=== PATIENT | male | born 1940 | race Caucasian/White ===

== ENCOUNTER 2022-05-12 14:55 | Emergency (ER) | payer MEDICARE, OTHER, SELFPAY ==
[2022-05-12 15:03] VITALS: BP 143/87; PULSE 76; RESP 20; TEMP 36.6; O2SAT 96; BMI 27.2
--- NOTE | 2022-05-12 18:04 | ED.GENADULT ---
HPI - General Adult General Date Seen: 05/12/22 Chief complaint: Unspecified Complaint, Adult Stated complaint: High INR Time Seen by Provider: 05/12/22 17:52 Source: patient History of Present Illness HPI narrative: Patient is an 81-year-old male who went clinic today, had an INR checked and it read as ?high. He was sent here with a further complaint of ?bleeding from his ears?. However, he tells me that he had bleeding from his right ear a week ago and has not had any bleeding since then. He showed me 3 Q-tips with old dried blood on them. He denies any other bleeding problems such as vomiting blood, blood in his urine, blood in his stool. Apparently he was started on prednisone because of a concern for polymyalgia rheumatica, and this is felt to be possibly the reason for his elevated INR. He has no further complaints. Related Data Home Medications Medication Instructions Recorded Confirmed nifedipine 30 mg tablet,extended mg PO 05/12/22 release 24 hr prednisone 10 mg tablet mg 05/12/22 rosuvastatin 5 mg tablet mg 05/12/22 warfarin 5 mg tablet mg 05/12/22 Allergies Allergy/AdvReac Type Severity Reaction Status Date / Time aspirin Allergy Unknown Verified 05/12/22 15:14 Review of Systems Status of ROS: Reports: 10 or more systems reviewed and unremarkable except as noted in History and below [facility] Social History Smoking Status: Never smoker Do you use any of these nicotine containing products: None Second hand tobacco smoke exposure: No How often do you have a drink containing alcohol: never How often do you have six or more drinks on one occasion: Never AUDIT-C Alcohol total score: 0 Non-prescribed substance use: denies use Exam Narrative: Exam Narrative: Vital signs reviewed In general, an alert, nontoxic male. Breathing easily. Head: Normocephalic, atraumatic Eyes: Sclera clear. ENT: Left TM and canal are normal. On the right, there is evidence of some old blood in the right canal, no active bleeding. TM looks normal. Neck: Supple. Skin: Warm and dry, well perfused. Const: Vital Signs, click to edit/add: Vital Signs - 24 hr 05/12/22 15:03 05/12/22 19:09 Temperature 98 F Pulse Rate [Pulse Oximeter] 76 72 Respiratory Rate 20 Blood Pressure [Le ft Upper Arm] 143/87 H 144/89 H Pulse Oximetry 96 95 Oxygen Delivery Me thod Room Air Room Air Documenting provider has reviewed patient's vital signs: yes Course Course Hospital Course: Plan at this time is to check an INR, CBC. Given that he has no active bleeding, unless the INR is significantly high, plan would be to hold his Coumadin and have him follow up with primary care. INR 7.7. I am giving him 1 mg of oral vitamin K given his age. He takes the Coumadin for history of stroke. Does not have an artificial valve. I have asked him to hold his Coumadin today and tomorrow, check with clinic on for a repeat INR and further instructions as to Coumadin dosing. CBC showed a normal hemoglobin today. If he were to develop signs of significant bleeding, return at any time to the ER. Vital Signs Vital signs: Initial Vital Signs Temperature 98 F 05/12/22 15:03 Temperature Source Temporal Artery Scan 05/12/22 15:03 Pulse Rate 76 05/12/22 15:03 Respiratory Rate 20 05/12/22 15:03 Blood Pressure 143/87 H 05/12/22 15:03 Blood Pressure Mean 105 05/12/22 15:03 Blood Pressure Position Supine 05/12/22 15:03 Pulse Oximetry 96 05/12/22 15:03 Oxygen Delivery Method 05/12/22 15:03 Vital Signs Temperature 98 F 05/12/22 15:03 Pulse Rate 76 05/12/22 15:03 Respiratory Rate 20 05/12/22 15:03 Blood Pressure 143/87 H 05/12/22 15:03 Pulse Oximetry 96 05/12/22 15:03 Oxygen Delivery Method 05/12/22 15:03 Temperature 98 F 05/12/22 15:03 Pulse Rate 72 05/12/22 19:09 Respiratory Rate 20 05/12/22 15:03 Blood Pressure 144/89 H 05/12/22 19:09 Pulse Oximetry 95 05/12/22 19:09 Oxygen Delivery Method 05/12/22 19:09 Medical Decision Making Lab Data Labs: Lab Results 05/12/22 Range/Units 18:06 WBC 10.61 (4.50-11.00) K/uL RBC 4.47 (4.30-5.90) m/uL Hgb 14.8 (13.5-17.5) gm/dL Hct 43.8 (37.0-53.0) % MCV 98 (80-100) fL MCH 33 (26-34) pg MCHC 34 (32-36) gm/dL RDW Coeff of Anna 13.2 (11.5-15.5) % Plt Count 261 (140-440) K/uL Neut % (Auto) 85.4 H (42.0-72.0) % Lymph % (Auto) 5.3 L (20-44) % Briscoe % (Auto) 9.0 (0.0-11.0) % Eos % (Auto) 0.0 (0.0-7.0) % Baso % (Auto) 0.0 (0.0-3.0) % Neut # (Auto) 9.10 H (1.7-7.0) K/uL Lymph # (Auto) 0.60 L (0.90-2.90) K/uL Briscoe # (Auto) 1.00 H (0.00-0.90) K/UL Eos # (Auto) 0.00 (0.00-0.50) K/uL Baso # (Auto) 0.00 (0.00-0.30) K/uL Abs Immat Gran (auto) 0.03 (0.00-0.30) K/uL Discharge Plan Discharge Clinical Impression: Elevated INR Patient Disposition: Home, Self-Care Condition: Stable Instructions: Elevated INR (ED) Additional Instructions: Hold your Coumadin today and tomorrow. Please call the clinic tomorrow as your INR will need to be rechecked on . The clinic should advise you on further dosing of your Coumadin. Prescriptions: No Action nifedipine 30 mg tablet extended release 24hr PO prednisone 10 mg tablet warfarin 5 mg tablet rosuvastatin 5 mg tablet Follow Up/Referrals: Nhi Marvin MD [Primary Care Provider] - Stand Alone Forms: [facility] Info Instructions
[2022-05-12 18:13] LABS: Hematocrit 43.8 % (37.0-53.0); Hemoglobin* 14.8 gm/dL (13.5-17.5); Immature Granulocytes Abs Auto 0.03 K/uL (0.00-0.30); Lymphocytes Percent Auto 5.3 % (20-44); Mean Corpuscular HGB Conc 34 gm/dL (32-36); Mean Corpuscular Hemoglobin 33 pg (26-34); Mean Corpuscular Volume 98 fL (80-100); Neutrophils Percent Auto 85.4 % (42.0-72.0); Platelet Count* 261 K/uL (140-440); RDW Coefficient of Variation % 13.2 % (11.5-15.5); Red Blood Count 4.47 m/uL (4.30-5.90); White Blood Count* 10.61 K/uL (4.50-11.00)
[2022-05-12 18:18] LABS: Slide Review Reflex No
[2022-05-12 19:09] VITALS: BP 144/89; PULSE 72; O2SAT 95
[2022-05-12 20:04] LABS: Prothrombin Time 63.7 Seconds
[2022-05-12 20:05] LABS: INR 7.08 (0.91-1.10)
== END 2022-05-12 20:06 | disposition home or self-care (01) ==
PROVIDERS: Emergency Provider Emergency Medicine; PCP Family Medicine
DX: R79.1 Abnormal coagulation profile (principal); Z79.01 Long term (current) use of anticoagulants; Z86.73 Personal history of transient ischemic attack (TIA), and cerebral infarction without residual deficits
CPT/HCPCS: 36415; 85025; 85610; 99283

== ENCOUNTER 2022-05-14 12:25 | Outpatient (CLI) | payer MEDICARE, OTHER, SELFPAY ==
--- OUTSIDE RECORDS SUMMARY | 2022-05-18 12:29 | XMS_ITS | Clinical Summary ---
:1940 Author Organization [employer] [facility] Address [place] [address] Care Team Providers Name Role Phone Nhi Marvin MD Primary Care Provider [phone] Allergies Active Allergy Reactions Severity Noted Date [...] (cerebrovascular accident) 12/09/2017 Coronary artery disease involving seneca-c[place] coronary keyur ry of seneca-c[place]uga heart 12/09/2017 Non-cardiac chest pain 12/09/2017 Anticoagulation monitoring, INR range 2-3 07/20/2016 Acute CVA (cerebrovascular accident) 07/20/2016 Patent foramen ovale 03/13/2016 Elevated prostate specific antigen (PSA) 09/04/2011 Colon polyps 07/23/2009 Overview: Colonoscopy 11/2009 polyps repeat in 5 ye ars Unspecified sleep apnea 11/05/2006 Coronary atherosclerosis of unspecified type of vessel , seneca-c[place] or graft 05/13/2006 Overview: --S/P Angio 04/24/05 [...] Encounters Date Type Specialty Care Team Description 05/18/2022 Hospital Encounter [facility] [place] [place] [facility] 05/17/2022 Orders Only <No scans attac hed> 05/17/2022 Orders Only <No scans attac hed> 05/17/2022 Travel 05/15/2022 Orders Only Scanner <No scans attac hed> 05/14/2022 Office Visit Nhi Marvin Follow Up ( Elevated MD Rubina INR, ESR and mu ltiple joint pain) 05/14/2022 Orders Only Scanner <No scans attac hed> 05/14/2022 Orders Only Scanner <No scans attac hed> 05/14/2022 Anticoagulation 1, [facility] Antico agulation (warfarin) 05/14/2022 Travel 05/13/2022 Telephone Bradley Murray Question s MD 05/13/2022 Telephone Nhi Marvin Anticoagula tion (INR MD Rubina greater than 5/ INR concerns) 05/12/2022 Office Visit Nhi Marvin Shoulder Pa in/problem; MD Rubina Elbow Pain/prob emma 05/12/2022 Telephone Nhi Marvin Follow Up; Appointment MD Rubina Request 05/12/2022 Anticoagulation 1, [facility] Antico agulation (warfarin) 05/12/2022 Telephone Ashly Batista Abnormal Lab Results KEVIN Erickson 05/12/2022 Travel 05/08/2022 Telephone Nhi Marvin Abnormal La b Results MD Rubina 05/06/2022 Orders Only Lab, [facility] 05/06/2022 Anticoagulation 1, [facility] Antico agulation (warfarin) 05/06/2022 Travel 05/06/2022 Telephone Nhi Marvin MD Problem 05/01/2022 Office Visit Tenzin Virk MD Arm Pain /problem (Left arm pain; start ed 10 days ago; 03/21 PL) 05/01/2022 Telephone Nhi Marvin Anticoagula baylee Cespedes MD (dosing) 05/01/2022 Telephone Nhi Marvin (BPA - MD Rubina Prednisone) 05/01/2022 Telephone Zainab Tobin Pharmacist Nh KEVIN Lieberman Management (Prednisone) 05/01/2022 Anticoagulation 1, [facility] Antico agulation (Lab ) (warfarin) 05/01/2022 Telephone Nhi Marvin Error-pleas e disregard MD Rubina 05/01/2022 Nurse Triage Nhi Marvin Shoulder Pa in/problem MD Rubina 05/01/2022 Travel 05/01/2022 Nurse Triage Nhi Marvin MD Problem (Should er pain) 05/01/2022 Telephone Nhi Marvin Questions MD [...] administrative reasons/) 03/12/2022 Anticoagulation 1, [facility] Antico agulation (warfarin) 03/12/2022 Travel 03/11/2022 Telephone Nhi Marvin Anticoagula baylee Cespedes MD (Anticoagulatio n question/Appoin tment) 03/05/2022 Telephone Nhi Marvin MD from Last 3 Months Immunizations Name Administration Dates Next Due COVID-19 vaccine (Zazom 11/20/2021 30mcg/0.3mL) 12YO+ LALITHA-SUCROSE ALEXY PAN Influenza A (H1N1), Inactivated 07/23/2009 Influenza A (H1N1), Inactivated (Age 0107/23/2009 >=3 Years) Influenza, High-dose Inactivated 04/20/2018, 04/21/2017 Influenza, High-dose Quadrivalent 04/24/2020 Inactivated Influenza, IIV3 (Age 6-35 mos) 04/02/2009 Influenza, IIV3 (Age >=3 years) 04/25/2013, 04/12/2012, 100 07/2010, 04/08/2010, 06/08/2007, 04/26/2006, 06/25/2005 Influenza, IIV4 [...] family member had a cerebral aneurysm, as apoorva l. 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 Obstetrics History Last Filed Vital Signs Vital Sign Reading Time Taken Comments Blood Pressure 112/72 05/14/2022 11:47 AM CDT Pulse 95 05/14/2022 11:45 AM CDT Temperature 36.3 ??C (97.4 ??F) 07/13/2019 9:57 AM WET PROCESS OPERATOR Respiratory Rate 16 05/09/2019 12:38 PM CDT Oxygen Saturation 92% 05/14/2022 11:45 AM CDT Inhaled Oxygen Concentration - - Weight 90.7 kg (200 lb) 05/12/2022 12:49 PM CDT Height 180.3 cm (5' 11) 05/01/2022 2:11 PM CDT Body Mass Index 27.89 05/01/2022 2:11 PM CDT Plan of Treatment Upcoming Encounters Date Type Specialty Care Team Description 05/22/2022 Office Visit Dru Tolbert DO [address] [place] [phone] (Wo rk) Health Maintenance Due Date Last Done Comments [...] 50+ Procedures Procedure Name Priority Date/Time Associated Diagnosis Comme nts ECHO COMPLETE WO Routine 05/17/2022 4:52 Endocarditis Results for this CONTRAST PM WET PROCESS OPERATOR procedure are i n the results section. SCAN-RADIOLOGY REPORT 05/15/2022 12:00 Re sults for this AM CDT procedure are i n the results section. PROTIME-INR Routine 05/14/2022 11:32 Bilateral shoulder Resul [...] procedure are i n the results section. PSA TOTAL SCREEN Routine 05/14/2022 11:32 Prostate cancer Resu lts for this AM CDT screening procedure are i n the results section. COMP METABOLIC PANEL Routine 05/14/2022 11:32 PMR (polymyalgia Results for this AM CDT rheumatica) (HC) procedure a re in the results section. SCAN-RADIOLOGY REPORT 05/14/2022 12:00 Re sults for this AM CDT procedure are i n the results section. SCAN-CT INTERPRETATION 05/14/2022 12:00 AM CDT PROTIME-INR STAT 05/12/2022 12:38 PFO (patent foramen [...] (cerebrovascular accident) (HC) PROTIME-INR STAT 05/01/2022 1:43 PFO (patent foramen Resul ts for this PM CDT ovale) procedure are [...] accident) (HC) from Last 3 Months Results ECHO COMPLETE WO CONTRAST (05/17/2022 4:52 PM WET PROCESS OPERATOR) P athologist Signature AORTIC VALVE 4 mmHg MEAN PG EJECTION 61 % FRACTION PEAK TR 2.5 m/s VELOCITY LVEDD 4.9 cm EJECTION 60 - 65% FRACTION Anatomical Region Laterality Modality HEART Ultrasound Specimen (Source) Anatomical Collection Method Collection Time Re ceived Time Location / / Volume Laterality 05/17/2022 4:01 PM WET PROCESS OPERATOR Narrative 05/17/2022 7:59 PM WET PROCESS OPERATOR ECHOCARDIOGRAM HARDY OLIVER ?Acces ellen#: ?? [id number] : ?1940 81 years Study Date : ?? 05/17/2022 4:01:39 PM Gender: M ? BP: ? 150/83 mmHg Height: 175.00 cm ? BSA: ?2.05 m? ?? Weight: 89.00 kg ?Tech: ? MMN ?Referring MD: LETITIA COMBS Site: ? [facility] Reading Location: [place] Procedure: 2D, Color Doppler and Spectra l Doppler. Indication for study: Endocarditis Cardiac Rhythm: Normal sinus.Study quali ty: Fair. Final Impressions: 1. Normal left ventricular size, normal wall thickness, normal global systolic function, calculated EF of 61 %. 2. 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 3. 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 4. Right ventricular cavity size is nor mal, global systolic RV function is normal. 5. No pericardial effusion. 6. The mitral valve is not well visuali zed, mild to moderate primary mitral regurgitation, eccentric jet directed anteromedially suggests posterior mitral valve leaflet dysfunction (possibly mild poste rior leaflet mitral valve prolapse, michelle ot rule out different leaflet etiology). 7. Consider transesophageal echocardiog david, if clinically indicated. Chamber Sizes and Function Normal left ventricular size, normal wal l thickness, normal global systolic function, calculated EF of 61 %. No definite resting regional wall motion abnormality seen. Left atrial size is normal. Right ventricular cavity size is normal, globa l systolic RV function is normal. The right atrium is normal. Right atrial volume index is 15 ml/m? ??. Right atrial area is 18 cm? ??. The pulmonary artery is of normal size and origin. The sinus of Va lsalva is dilated. The ascending aorta is dilated. Valves, RV Pressures and Diastolic Funct ion The aortic valve is normal in structure and trileaflet, no stenosis and trivial regurgitation. The mitral valve is not well visualized, mild to moderate primary mitral regurgitation, eccentric jet direc julian anteromedially suggests posterior mi tral valve leaflet dysfunction. There is mild prolapse of posterior leaflet of the mitral valve. Spectral Doppler shows Grade 1 pattern of LV diastolic filling. T he tricuspid valve is normal in structur e. Tricuspid regurgitation is mild regurgitation. The tricuspid regurgitant velocity is 2.5 m/s, the estimated right ventricular systolic pressure is 25 mmHg plus right atrial pressure. There is normal estimated pulmonary pressure by tricuspid regurgitation velocity and right atrial pressure. The pulmonic valve is normal. Trace pulmonary regurgitation. Masses, Effusion, Shunts There is no pericardial effusion. The in ferior vena cava is normal sized, respiratory size variation greater than 50%. No left to right shunting was detected by limited color flow Doppler interrogation of the interatrial septum. MEASUREMENTS AND CALCULATIONS 2-D Measurements and LV Function: LVID (d) 4.9 cm Planimetered EF 61 % LVID (s) 2.6 cm LV FS% (2D) ? 46 % IVS (d) ??1.0 cm LVOT diameter ?? 2.1 cm LVPW (d) 1.2 cm HR ?7 2 bpm Ao Sinus 4.4 cm LA Vol index ?15 ml/ m2 Asc Ao ?? 5.0 cm RA Vol index ?15 ml /m2 LA ? 3.6 cm RA area ? 1 8 cm?RV Max 4C (d) ?? 3.0 cm Diastology: Mitral ?Tissue Doppler ?Pulmonary veins E Peak 0.6 m/s ??e', Septum ? 0.05 m /s Pulm s ?63.2 cm/s A Peak 0.8 m/s ??e', Lateral ?0.11 m /s Pulm d ?25.9 cm/s E/A ?0.8 ?E/e' Average ?? 8.0 5 ? Pulm s/d ratio ??2.44 DT ? 220 msec Aortic Valve: Vmax ? 1.4 m/s ??LISA (V) ?? 3.01 cm? AI P 1/2 376 msec VTI ?0.28 m ?? LISA (I) ?? 2.90 cm? AI Vol ?? 27 ml LVOT V max 1.2 m/s ??Max PG ?8 mmHg LVOT VTI ?? 0.23 m ?? Mean PG ?? 4 mmHg SV ? 81 ml ?Dim Index 0.83 SV index ?? 40 ml/m? ?? CO ?5.9 l/min ?CI ?2.9 l/min/m? ?? Mitral Valve: MVA ?3.4 cm? ?? MV P 1/2 64 msec Tricuspid Valve and estimated PA pressur es: TR Vmax 2.5 m/s TAPSE 3.2 cm TR maxG 25 mmHg Pulmonic Valve: PV Vmax 0.6 m/s . This study was interpreted by an [facility] redited facility. CC: [facility], Med/ Surg - IP [facility]. ??Final ?? Procedure Note Becka Amaral MD - 05/17/2022Formatt ing of this note might be different from the original. ECHOCARDIOGRAM HARDY LOIVER : 1940 81 years Study Date: 05/17/2022 4:01:39 PM Gender: M BP: 150/83 mmHg Height: 175.00 cm BSA: 2.05 m? ?? Weight: 89.00 kg Tech: TONYN Referring MD: LETITIA COMBS Site: [facility] Reading Location: [place] Procedure: 2D, Color Doppler and Spectra l Doppler. Indication for study: Endocarditis Cardiac Rhythm: Normal sinus.Study quali ty: Fair. Final Impressions: 1. Normal left ventricular size, normal wall thickness, normal global systolic function, calculated EF of 61 %. 2. 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 3. 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 4. Right ventricular cavity size is nor mal, global systolic RV function is normal. 5. No pericardial effusion. 6. The mitral valve is not well visuali zed, mild to moderate primary mitral regurgitation, eccentric jet directed anteromedially suggests posterior mitral valve leaflet dysfunction (possibly mild posterior leaflet mitral valve prolapse, cannot ru le out different leaflet etiology). 7. Consider transesophageal echocardiog david, if clinically indicated. Chamber Sizes and Function Normal left ventricular size, normal wal l thickness, normal global systolic function, calculated EF of 61 %. No definite resting regional wall motion abnormality seen. Left atrial size is normal. Right ventricular cavity size is normal, globa l systolic RV function is normal. The right atrium is normal. Right atrial volume index is 15 ml/m? ??. Right atrial area is 18 cm? ??. The pulmonary artery is of normal size and origin. The sinus of Valsalva is dilated. The as cending aorta is dilated. Valves, RV Pressures and Diastolic Funct ion The aortic valve is normal in structure and trileaflet, no stenosis and trivial regurgitation. The mitral valve is not well visualized, mild to moderate primary mitral regurgitation, eccentric jet directed anteromedially suggests posterior mitral valve leaflet dysfunction. There is mild prolapse of posterior leaflet of the mitral valve. Spectral Doppler shows Grade 1 pattern of LV diastolic filling. The tricuspid valve is normal in structure. Tricuspid regurg itation is mild regurgitation. The tricuspid regurgitant velocity is 2.5 m/s, the estimated right ventricular systolic pressure is 25 mmHg plus right atrial pressure. There is normal estimated pulmonary pressure by tricuspi d regurgitation velocity and right atrial pressure. The pulmonic valve is normal. Trace pulmonary regurgitation. Masses, Effusion, Shunts There is no pericardial effusion. The in ferior vena cava is normal sized, respiratory size variation greater than 50%. No left to right shunting was detected by limited color flow Doppler interrogation of the interatrial septum. MEASUREMENTS AND CALCULATIONS 2-D Measurements and LV Function: LVID (d) 4.9 cm Planimetered EF 61 % LVID (s) 2.6 cm LV FS% (2D) 46 % IVS (d) 1.0 cm LVOT diameter 2.1 cm LVPW (d) 1.2 cm HR 72 bpm Ao Sinus 4.4 cm LA Vol index 15 ml/m2 Asc Ao 5.0 cm RA Vol index 15 ml/m2 LA 3.6 cm RA area 18 cm? ?? RV Max 4C (d) 3.0 cm Diastology: Mitral Tissue Doppler Pulmonary veins E Peak 0.6 m/s e', Septum 0.05 m/s Pulm s 63.2 cm/s A Peak 0.8 m/s e', Lateral 0.11 m/s Pulm d 25.9 cm/s E/A 0.8 E/e' Average 8.05 Pulm s/d ratio 2.44 DT 220 msec Aortic Valve: Vmax 1.4 m/s LISA (V) 3.01 cm? ?? AI P 1/2 376 msec VTI 0.28 m LISA (I) 2.90 cm? ?? AI Vol 27 ml LVOT V max 1.2 m/s Max PG 8 mmHg LVOT VTI 0.23 m Mean PG 4 mmHg SV 81 ml Dim Index 0.83 SV index 40 ml/m? ?? CO 5.9 l/min CI 2.9 l/min/m? ?? Mitral Valve: MVA 3.4 cm? ?? MV P 1/2 64 msec Tricuspid Valve and estimated PA pressur es: TR Vmax 2.5 m/s TAPSE 3.2 cm TR maxG 25 mmHg Pulmonic Valve: PV Vmax 0.6 m/s . This study was interpreted by an [facility] redited facility. CC: [facility], Med/ Surg - IP [facility]. Final Letitia Cobms MD ECHO ORD SCAN-RADIOLOGY REPORT (05/15/2022 12:00 AM CDT)Only the most recent of2 results within the time period is included. Narrative This result has an attachment that is no t available. Scanner OTHER (ABNORMAL) CBC WITH AUTO DIFFERENTIAL (05/14/2022 11:32 AM CDT)Only the most recent of2 resultswithin the time period is included. [facility] Method Time Signature WHITE BLOOD 12.9 (H) 4.5 - 05/14/2022 [facility] COUNT 11.0 11:57 AM T [facility] mm RED BLOOD COUNT 4.40 4.30 - 05/14/2022 [facility] 5.90 11:[address] [facility] CLINIC HEMOGLOBIN 14.8 13.5 - 05/14/2022 [facility] 17.5 g/dL 11:57 AM [facility] HEMATOCRIT 43.4 37.0 - 05/14/2022 [facility] 53.0 % 11:57 AM [facility] MCV 99 80 - 100 05/14/2022 [facility] fL 11:57 AM [facility] MCH 33.6 26.0 - 05/14/2022 [facility] 34.0 pg 11:57 AM [facility] MCHC 34.1 32.0 - 05/14/2022 [facility] 36.0 g/dL 11:57 AM [facility] RDW 13.9 11.5 - 05/14/2022 [facility] 15.5 % 11:57 AM [facility] PLATELET COUNT 258 140 - 440 05/14/2022 [facility] 11:57 AM [facility] MPV 8.4 6.5 - 05/14/2022 [facility] 11.0 fL 11:57 AM [facility] % NEUT 81.4 % 05/14/2022 [facility] 11:57 AM [facility] % LYMPH 7.0 % 05/14/2022 [facility] 11:57 AM [facility] % MONO 11.1 % 05/14/2022 [facility] 11:57 AM [facility] % EOS 0.4 % 05/14/2022 [facility] 11:[address] [facility] % BASO 0.1 % 05/14/2022 [facility] 11:57 AM [facility] ABSOLUTE 10.5 (H) 1.7 - 7.0 05/14/2022 [facility] NEUTROPHILS thou/cu 11:57 AM CDT [facility] CLINIC ABSOLUTE 0.9 0.9 - 2.9 05/14/2022 [facility] LYMPHOCYTES thou/cu 11:57 AM CDT [facility] CLINIC ABSOLUTE 1.4 (H) <0.9 05/14/2022 [facility] MONOCYTES thou/cu 11:57 AM CDT [facility] ABSOLUTE 0.1 <0.5 05/14/2022 [facility] EOSINOPHILS thou/cu 11:57 AM CDT [facility] ABSOLUTE 0.0 <0.3 05/14/2022 [facility] BASOPHILS thou/cu 11:57 AM CDT [facility] CLINIC Specimen Anatomical Collection Method / Collection Time Recei martin Time (Source) Location / Volume Laterality Blood BLOOD SPECIMEN / Venipuncture / 05/14/2022 11:32 05/14 Unknown Unknown AM CDT 11:35 AM CDT Nhi Marvin MD HEMATOLOGY Performing Organization Address City/State/ZIP Code Phon e Number [facility] [address] [place] [address] (ABNORMAL) PROTIME-INR (05/14/2022 11:32 AM CDT)Only the most recent of4 results within the time period is included. P athologist Signature INR 2.3 (H) <1.3 05/14/2022 [place] 1:10 PM [facility] PROTIME 24.6 (H) 12.0 - 13.8 05/[facility]20[facility] 1:10 PM [facility] Specimen Anatomical Collection Method / Collection Time Recei martin Time (Source) Location / Volume Laterality Blood BLOOD SPECIMEN / Venipuncture / 05/14/2022 11:32 05/14 Unknown Unknown AM CDT 11:[address] [facility] LABORATORY - 1:10 PM CDT ?Therapeutic Range [...] Organization Address City/State/ZIP Code Phon e Number [facility] [address] [place], [place] [id number] (ABNORMAL) COMP METABOLIC PANEL (05/14/2022 11:32 AM CDT) [facility] Method Time Signature SODIUM 139 135 - 145 05/15/2022 [facility] mmol/L 10:43 AM CDT [facility] POTASSIUM 4.8 3.5 - 5.0 05/15/2022 [facility] mmol/L 10:43 AM CDT [facility] CHLORIDE 106 98 - 110 05/15/2022 [facility] mmol/L 10:43 AM CDT [facility] CO2,TOTAL 20 (L) 21 - 31 05/15/2022 [facility] mmol/L 10:43 AM CDT [facility] ANION GAP 13 5 - 18 05/15/2022 [facility] 10:43 AM CDT [facility] GLUCOSE 105 (H) 65 - 100 05/15/2022 [facility] mg/dL 10:43 AM CDT [facility] CALCIUM 8.9 8.5 - 10.5 05/15/2022 [facility] mg/dL 10:43 AM CDT [facility] BUN 18 8 - 25 05/15/2022 [facility] mg/dL 10:43 AM CDT [facility] CREATININE 1.16 0.72 - 05/15/2022 [facility] 1.25 mg/dL 10:43 AM CDT [facility] BUN/CREAT RATIO 16 10 - 20 05/15/2022 [facility] 10:43 AM CDT [facility] ALBUMIN 3.6 3.2 - 4.6 05/15/2022 [email or web address] [email or web address] g/dL 10:43 AM CDT [facility] PROTEIN,TOTAL 6.7 6.0 - 8.0 05/15/2022 [email or web address] [email or web address] g/dL 10:43 AM CDT [facility] GLOBULIN 3.1 2.0 - 3.7 05/15/2022 [email or web address] [email or web address] g/dL 10:43 AM CDT [facility] A/G RATIO 1.2 1.0 - 2.0 05/15/2022 [email or web address] 10:43 AM CDT [facility] BILIRUBIN,TOTAL 1.1 0.2 - 1.2 05/15/2022 [email or web address] mg/dL 10:43 AM CDT [facility] ALK PHOSPHATASE 100 50 - 136 05/15/2022 [email or web address] IU/L 10:43 AM CDT [facility] ALT (SGPT) 19 8 - 45 05/15/2022 [email or web address] IU/L 10:43 AM CDT [facility] AST (SGOT) 16 2 - 40 05/15/2022 [email or web address] IU/L 10:43 AM CDT [facility] eGFR 63 (L) >90 05/15/2022 [email or web address] mL/min/1.7 10:43 AM CDT [facility] 3[facility]2 [facility] Comment: As of 2021, eGFR is calcu lated by the CKD-EPI creatinine equation without race adjustment. eGFR can be inf luenced by muscle mass, exercise, and diet. The reported eGFR is an estimation only and is only applicable if the renal function is stable. Specimen Anatomical Collection Method / Collection Time Recei martin Time (Source) Location / Volume Laterality Blood BLOOD SPECIMEN / Venipuncture / 05/14/2022 11:32 05/14 Unknown Unknown AM CDT 11:35 AM CDT Nhi Marvin MD CHEMISTRY Performing Organization Address City/State/ZIP Code Phon e Number Issue [address] [place] [address] [facility] LAB[facility]ATORY (ABNORMAL) PSA TOTAL SCREEN (05/14/2022 11:32 AM CDT) [facility] gist Method Time Signature PSA TOTAL 16.49 (H) <4.00 05/15/2022 Issue (SCREEN) ng/mL 10:54 AM CDT [facility]ATORY[facility] Specimen Anatomical Collection Method / Collection Time Recei martin Time (Source) Location / Volume Laterality Blood BLOOD SPECIMEN / Venipuncture / 05/14/2022 11:32 05/14 Unknown Unknown AM CDT 11:35 AM CDT Narrative [facility] LABORAT ORY - 05/15/2022 10:54 AM CDT The [employer] PSA assay is a Chemiluminescent Microparticle Immunoassay(CMIA). Assay values ob tained with different assay methods michelle ot be used interchangeably due to differences in assay methods and reagent specificity. Nhi Marvin MD LABORATORY Performing Organization Address City/State/ZIP Code Phon e Number Issue [address] [place], [place] [id number] [place] [address] LABORATORY-[place] 2000 LABORATORY SCAN-CT INTERPRETATION (05/14/2022 12:00 AM CDT) Narrative This result has an attachment that is no t available. Scanner OTHER (ABNORMAL) SEDIMENTATION RATE (05/12/2022 12:38 PM CDT)Only the most recent of2 resultswithin the time period is included. [facility] gist Method Time Signature SEDIMENTATION RATE 82 (H) <20 mm/hr 05/12/2022 [place] 5:06 PM CDT [facility] Specimen Anatomical Collection Method / Collection Time Recei martin Time (Source) Location / Volume Laterality Blood BLOOD SPECIMEN / Venipuncture / 05/12/2022 12:38 05/12 Unknown Unknown PM CDT 12:41 PM CDT Nhi Marvin MD HEMATOLOGY Performing Organization Address City/State/ZIP Code Phon e Number [facility] [address] [place] [address] LYME SCREEN W/REFLEX (05/06/2022 10:08 AM CDT) [facility] LYME SCREEN Negative Negative 05/09/2022 Issue W/REFLEX 2:55 PM CDT [facility] TR[facility] [...] Marvin MD SEND OUTS Performing Organization Address [facility] Phon e Number Issue [address] [place] [id number] LAB[facility]ATORY[facility] 2000 LABORATORY RA QUANTITATIVE (05/06/2022 10:08 AM CDT) P athologist Signature RHEUMATOID <7.00 <12.50 05/07/2022 [email or web address] FACTOR,QUANT IU/mL 12:55 PM CDT [facility] Specimen Anatomical Collection Method / Collection Time Recei martin Time (Source) Location / Volume Laterality Blood BLOOD SPECIMEN / Venipuncture / 05/06/2022 10:08 05/06 Unknown Unknown AM CDT 10:14 AM CDT Nhi Marvin MD SEND OUTS Performing Organization Address [facility] Phon e Number Issue [address] [place] [id number] LAB[facility]ATORY[facility] 2000 LABORATORY (ABNORMAL) C-REACTIVE PROTEIN (05/06/2022 10:08 AM CDT) [facility] gist Method Time Signature C-REACTIVE 12.00 (H) <0.50 05/09/2022 [facility] PROTEIN mg/dL 12:11 PM CDT [facility] Specimen Anatomical Collection Method / Collection Time Recei martin Time (Source) Location / Volume Laterality Blood BLOOD SPECIMEN / Venipuncture / 05/06/2022 10:08 05/06 Unknown Unknown AM CDT 10:14 AM CDT Nhi Marvin MD CHEMISTRY Performing Organization Address [facility] Phon e Number Issue [address] [place] [id number] LABORATORY-CENTRAL 2000 LABORATORY XR SHOULDER 3 VIEWS LEFT (04/29/2022 [...] s are released immediately into your [employer] medical record. ??You may view this report [...] provider. If you have questions, please contact [facility] health care provider. Indication: Left shoulder pain. [...] athologist Signature INR 2.8 (H) <1.3 03/12/2022 [facility] 10:[address] [facility] Specimen Anatomical Collection Method Collection Time Receive d Time (Source) Location / / Volume Laterality Blood BLOOD SPECIMEN / 03/12/2022 10:29 03/12/2 022 Unknown AM CDT 10:34 AM CDT Narrative [facility] - 2021 10:34 AM CDT ?Therapeutic Range 2.0-3.0 for most anticoagulated patients 2.5-3.5 or 4.0 for high risk patients Nhi Marvin MD LABORATORY Performing Organization Address City/State/ZIP Code Phon e Number [facility] [address] [place], [place] [id number] from Last 3 Months Insurance Payer Benefit Plan / Subscriber ID Effective Dates Phone Addre ss Type Group [employer] [id number] Effective for Inte rnal [facility] all dates [phone] [address] MEDICARE PART A MEDICARE PART A [id number] 2005-Prese ATTN: CLAIMS - HB USE ONLY HB ONLY nt [address] [place] [address] MEDICARE PART B MEDICARE PART B [id number] 2010-Presen ATTN: CLAIMS - HB USE ONLY HB ONLY t [address] [place] [address] MEDICARE - PB MEDICARE PB ONLY [id number] 2018-Presen ATTN: CLAIMS USE ONLY t [address] [place] [address] [employer] [id number] 2018-Presen [address] [place] [address] Advance Directives Latest Code Status on File Code Status Date Activated Date Inactivated Comments Full Code 12/09/2017 3:21 PM 12/09/2017 8:44 PM Code Status Discussion: Discussed Care Teams Marketing Content Coordinator Relationship Specialty Start Date End Date Nhi Marvin MD PCP - General Family Practice 08/19/11 [address] [place] [address]
== END 2022-05-14 12:26 | disposition home or self-care (01) ==
LOC: AMB 05-18 12:23
PROVIDERS: PCP Family Medicine; Visit Provider Family Medicine
DX: R07.89 Other chest pain (principal)
CPT/HCPCS: A0425; A0427

== ENCOUNTER 2022-05-14 12:50 | Observation (INO) | payer MEDICARE, OTHER, SELFPAY ==
[2022-05-14 13:06] VITALS: BP 129/78; PULSE 91; RESP 18; TEMP 36.6; O2SAT 93; BMI 27.3
--- NOTE | 2022-05-14 13:33 | ED_ITS ---
HPI - General Adult General Time Seen by Provider: 13:34 Date Seen: 05/14/22 Chief complaint: Unspecified Complaint, Adult Stated complaint: Chest pain, elevated INR Time Seen by Provider: 05/14/22 12:58 Source: patient, RN notes reviewed and old records reviewed Mode of arrival: EMS Limitations: no limitations History of Present Illness HPI narrative: Patient is an 81-year-old male referred to the ER via ambulance from a [facility] where he was seen Dr. Marvin. She believes he needs to be hospitalized. They will not have any hospital beds until after 3:00 p.m.. Patient has had initially left shoulder pain that progressed to bilateral shoulder pain. He was having right elbow pain as well but denies this at the time. He was diagnosed with probable polymyalgia rheumatica. Dr. Marvin did speak with rheumatology today and they were wondering about other etiologies such as infectious sources, consideration for other possible diagnoses outside of polymyalgia rheumatica needed to be considered. Patient states his shoulders hurt to the point that he cannot brushes teeth, cannot dress himself, cannot feed himself. He recently had an elevated INR of 7.7 on May 12. Was seen in the ED here on that day and was given oral vitamin K. he denies any fevers or chills. States he has had some nausea due to the pain. He has been taking Ty lenol and has a written schedule of when he has been taking this. He was in clinic for follow-up today. He has only been able to basically lying in bed. It is not really probably eating or drinking adequately. Was able to review his chemistries/labs, INR was 2.3 today versus 7.7 on May 12. [place] CBC [place] [address], hemoglobin good at 14.8, platelets [id number]. His white blood count on May 06 was 7400. He has a pending comprehensive metabolic panel and protein serum electrophoresis from today. His sed rate was 63 8 days ago and on May 12 was 82. He was on 10 mg of oral prednisone but last dose was Wednesday, has not had any since Wednesday now. This was held due to his elevated INR. When I am talking to patient about his history he tells me to shush multiple times as my voices too loud. However, there are a few times when I am talking to him trying to be more quiet where he cannot hear me in asks what. I witnessed the patient being verbally abrasive, bordering on rude, with the field radio technician. I did review with the patient that we are here to try to help him and that he really does need to try to be nice to the staff. He notes he is irritable. Related Data Home Medications Medication Instructions Recorded Confirmed nifedipine 30 mg tablet,extended 30 mg PO DAILY 05/12/22 05/14/22 release 24 hr prednisone 10 mg tablet 10 mg PO DAILY 05/12/22 05/14/22 rosuvastatin 5 mg tablet 5 mg PO MOWEFR@21 05/12/22 05/14/22 warfarin 5 mg tablet 2.5 - 5 mg PO DAILY 05/12/22 05/14/22 acetaminophen 500 mg tablet 500 mg PO DAILY 05/14/22 05/14/22 (Acetaminophen Extra Strength) amoxicillin 500 mg capsule 2,000 mg PO ONCE PRN 05/14/22 05/14/22 chlorpheniramine maleate 4 mg 4 mg PO Q12H PRN 05/14/22 05/14/22 tablet (Aller-Chlor) cholecalciferol (vitamin D3) 50 50 mcg PO DAILY 05/14/22 05/14/22 mcg (2,000 unit) tablet glucosamine sulfate 500 mg tablet 1,500 mg PO DAILY 05/14/22 05/14/22 (Cidatrine) vitamin B complex (B 1 tab PO DAILY 05/14/22 05/14/22 Complex-Vitamin B12 tablet) Allergies Allergy/AdvReac Type Severity Reaction Status Date / Time aspirin Allergy Unknown Verified 05/12/22 15:14 Review of Systems Status of ROS: Reports: 10 or more systems reviewed and unremarkable except as noted in History and below [facility] Social History Smoking Status: Never smoker Do you use any of these nicotine containing products: None Second hand tobacco smoke exposure: No How often do you have a drink containing alcohol: never How often do you have six or more drinks on one occasion: Never AUDIT-C Alcohol total score: 0 Non-prescribed substance use: denies use Exam Const: Vital Signs, click to edit/add: Vital Signs - 24 hr 05/14/22 13:06 Temperature 97.8 F Pulse Rate [Right Pulse Oximeter] 91 Respiratory Rate 18 Blood Pressure [Ri ght Upper Arm] 129/78 Pulse Oximetry 93 Oxygen Delivery Me thod Room Air Course Consultations Consultation #1: Spoke with Dr. Chaves the hospitalist. He had spoken with Dr. Marvin earlier regarding this patient. Reviewed with him that the patient absolutely had no neck pain, head fully mobile range of motion on my examination. Will do just a portable chest x-ray and see if they can get both shoulders on this as far as imaging. He reportedly had had left shoulder imaging with plain films at the clinic before. Dr. Chaves states that he will be having the night hospitalist see this patient. Time: 14:55 Consultation #2: Called Dr. Wadsworth the night hospitalist and reviewed the portable chest x-ray looks to have a lesion on the left AC joint. Will have to see if the radiologist thinks this is a routine degenerative cyst versus a lytic lesion. Awaiting the radiology over-read. She may need to get advanced imaging. She accepts the patient and we will attempt to get him down to the hospital floor as soon as they are ready for him. Time: 15:45 Vital Signs Vital signs: Initial Vital Signs Temperature 97.8 F 05/14/22 13:06 Temperature Source Temporal Artery Scan 05/14/22 13:06 Pulse Rate 91 05/14/22 13:06 Pulse Rhythm 05/14/22 13:06 Respiratory Rate 18 05/14/22 13:06 Blood Pressure 129/78 05/14/22 13:06 Blood Pressure Mean 95 05/14/22 13:06 Blood Pressure Position Sitting 05/14/22 13:06 Pulse Oximetry 93 05/14/22 13:06 Oxygen Delivery Method 05/14/22 13:06 Vital Signs Temperature 97.8 F 05/14/22 13:06 Pulse Rate 91 05/14/22 13:06 Respiratory Rate 18 05/14/22 13:06 Blood Pressure 129/78 05/14/22 13:06 Pulse Oximetry 93 05/14/22 13:06 Oxygen Delivery Method 05/14/22 13:06 Temperature 97.8 F 05/14/22 13:06 Pulse Rate 91 05/14/22 13:06 Respiratory Rate 18 05/14/22 13:06 Blood Pressure 129/78 05/14/22 13:06 Pulse Oximetry 93 05/14/22 13:06 Oxygen Delivery Method 05/14/22 13:06 Medical Decision Making Lab Data Lab results reviewed: Yes I reviewed the patient's lab results Labs: Lab Results 05/14/22 05/14/22 05/14/22 Range/Units 13:38 13:38 13:38 ESR 86 H (2-15) mm/hr Sodium 137 (135-149) mmol/L Potassium 5.0 (3.6-5.1) mmol/L Chloride 104 (96-114) mmol/L Carbon Dioxide 21 (20-32) mmol/L BUN 20 (7-30) mg/dL Creatinine 1.1 (0.5-1.5) mg/dL Estimated Creat Clear 56.09 Estimated GFR 67 ml/min Glucose 97 (60-115) mg/dL Lactate 1.5 (0.5-1.9) mmol/L Calcium 9.0 (8.4-10.6) mg/dL Total Bilirubin 1.3 (0.1-1.5) mg/dL AST 34 (12-35) U/L ALT 22 (4-50) U/L Alkaline Phosphatase 80 (40-150) U/L C-Reactive Protein 20.7 H (0.5-1.0) mg/dL Total Protein 7.5 (6.0-8.3) g/dL Albumin 3.9 (3.3-5.0) g/dL TSH (0.270-4.200) uIU/mL SARS-CoV-2 (PCR) (Negative) POC Troponin I (0.01-0.04) ng/ml 05/14/22 05/14/22 05/14/22 Range/Units 13:38 13:38 13:38 ESR (2-15) mm/hr Sodium (135-149) mmol/L Potassium (3.6-5.1) mmol/L Chloride (96-114) mmol/L Carbon Dioxide (20-32) mmol/L BUN (7-30) mg/dL Creatinine (0.5-1.5) mg/dL Estimated Creat Clear Estimated GFR ml/min Glucose (60-115) mg/dL Lactate (0.5-1.9) mmol/L Calcium (8.4-10.6) mg/dL Total Bilirubin (0.1-1.5) mg/dL AST (12-35) U/L ALT (4-50) U/L Alkaline Phosphatase (40-150) U/L C-Reactive Protein (0.5-1.0) mg/dL Total Protein (6.0-8.3) g/dL Albumin (3.3-5.0) g/dL TSH 0.375 (0.270-4.200) uIU/mL SARS-CoV-2 (PCR) Negative SARS-CoV-2 (Negative) POC Troponin I 0.00 L (0.01-0.04) ng/ml Imaging Data Chest x-ray: Attestation: I have reviewed the pertinent imaging results. Radiologist's impression: Patient: HARDY JAMES Facility:?[facility] Patient ID:?[id number] Site Patient ID:?[id number]. Site :?[id number] Study:?XRay Chest Portable Chest 1v-05/14/2022 3:36:48 PM Ordering Physician:Sofía Hawkins Final Report: INDICATION: Bilateral shoulder/upper chest pain. TECHNIQUE: Chest 1 views. COMPARISON: Chest x-ray from 12/09/2017. FINDINGS: Lungs: Clear lungs. No consolidation. Pleura: No pleural effusion or pneumothorax. Heart and Mediastinum: The cardiomediastinal silhouette is enlarged. The vessels are unremarkable. Bones: Unremarkable. IMPRESSION: No acute cardiopulmonary disease. Dictated by Srinivas Villarreal MD @ 05/14/2022 4:18:49 PM ----- ADDENDUM ----- Lucency in the region of the left acromioclavicular joint is nonspecific and could be infection, previous trauma, degenerative change, or prior surgery. Dictated by Srinivas Villarreal MD @ May 14 2022 4:29PM (Electronic Signature) ECG Data Attestation: I personally reviewed and interpreted this ECG as follows: (Sinus rhythm, 85 beats per minute. Incomplete right bundle branch block. No evidence of any ischemia.) Prior ECG tracings: available for review (Compared to EKGs sent with from clinic.) Discharge Plan Discharge Prescriptions: No Action acetaminophen [Acetaminophen Extra Strength] 500 mg tablet 500 mg PO DAILY amoxicillin 500 mg capsule 2,000 mg PO ONCE PRN chlorpheniramine maleate [Aller-Chlor] 4 mg tablet 4 mg PO Q12H PRN cholecalciferol (vitamin D3) 50 mcg (2,000 unit) tablet 50 mcg PO DAILY glucosamine sulfate [Cidatrine] 500 mg tablet 1,500 mg PO DAILY Rx Instructions: administer with a meal vitamin B complex [B Complex-Vitamin B12] Tablet 1 tab PO DAILY nifedipine 30 mg tablet extended release 24hr 30 mg PO DAILY prednisone 10 mg tablet 10 mg PO DAILY warfarin 5 mg tablet 2.5 - 5 mg PO DAILY Label Comments: 2.5 MG WED,WED,,,SAT 5 MG ,WEDNESDAY rosuvastatin 5 mg tablet 5 mg PO MOWEFR@21 Follow Up/Referrals: Nhi Marvin MD [Primary Care Provider] -
[2022-05-14 14:12] LABS: Lactate* 1.5 mmol/L (0.5-1.9)
--- OUTSIDE RECORDS SUMMARY | 2022-05-14 14:42 | XMS_ITS | Clinical Summary ---
:1940 Author Organization [employer] [place] [address] Care Team Providers Name Role Phone Nhi Marvin MD Primary Care Provider [phone] Allergies Active Allergy Reactions Severity Noted Date Comments Aspirin Anaphylaxis High 04/24/2005 Atorvastatin Arthralgia Low 07/23/2009 Doxycycline Vomiting 06/07/2012 Pravastatin Arthralgia Low 07/23/2009 Medications Medication Sig Dispensed Refills Start End Status Date Date chlorpheniramine Take 1 tablet by 0 07/23/19 Active (CHLOR-TRIMETON) 4 mouth. Take 10 mg tablet daily at midnight. May use twice daily during allergy season as needed. Do not crush or chew. glucosamine HCl Take 1 tablet by 0 11/03/19 Active 1,500 mg tab mouth once 18 daily. acetaminophen Take 500 mg by 0 A ctive (TYLENOL EXTRA mouth once STRGTH) 500 mg daily. Max tablet acetaminophen dose: 4000mg in 24 hrs. vitamin B complex Take 1 tablet by 0 01/25/20 Active (B-COMPLEX VITAMIN) mouth once 18 tablet daily. CPAPIndications: CPAP machine for 1 Device 11 05/09/20 Active Obstructive sleep home use at 19 apnea pressure: 6.8 CM H20 , Heated humidifier x 1, Humidifier chamber x 1, Full face mask with cushion x 1, Standard tubing x 1, Headgear x 1, Filters: Disposable x 1pk & Reusable x 1pk, Length of Need: 99 months, Frequency of use: Daily cholecalciferol, Take 1 tablet by 0 05/29/20 Active Vitamin D3, (VITAMIN mouth once 20 D-3) 2,000 unit daily. 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 ASHD (arteriosclerotic heart disease) amoxicillin (AMOXIL) TAKE 4 CAPSULES 12 Capsule 1 04/14/20 Active 500 mg BY MOUTH ONE 22 capsuleIndications: HOUR BEFORE PFO (patent foramen DENTAL PROCEDURE ovale) predniSONE Take 1 Tablet 30 Tablet 0 05/08/20 Activ e (DELTASONE) 10 mg (10 mg) by mouth 22 tabletIndications: once daily with PMR (polymyalgia a meal. rheumatica) (HC) warfarin (COUMADIN) Take by mouth 0 05/13/20 Active 5 mg 05/12: Hold; 22 tabletIndications: 05/13: Hold; PFO (patent foramen Otherwise 5 mg ovale), every Tue, Wed; Anticoagulation 2.5 mg all other monitoring, INR days in the range 2-3, Acute CVA evening OR as (cerebrovascular directed accident) (HC), Cerebrovascular accident (CVA), unspecified mechanism (HC) mupirocin Apply topically 30 g 1 11/27/19 Disc ontinued (Bactroban) to affected 022 (*Med ointmentIndications: area(s) 2 times complete/Regime Bacterial daily. n folliculitis complet e/Level of care ch david) warfarin (COUMADIN) Take by mouth; 3 01/23/2005/01 Discontinued 5 mg 2.5 mg (5 mg x 22 022 (Othe r - add tabletIndications: 0.5) every Mon, note to specify PFO (patent foramen Fri; 5 mg (5 mg (E-cancel not ovale), x 1) all other sent) ) Anticoagulation days OR as monitoring, INR directed. range 2-3, Acute CVA (cerebrovascular accident) (HC), Cerebrovascular accident (CVA), unspecified mechanism (HC) predniSONE Take 3 Tablets 12 Tablet 0 04/29/20 Disc ontinued (DELTASONE) 20 mg (60 mg) by mouth (*Med tabletIndications: once daily with complete/Regime Subacromial bursitis a meal for 2 n of left shoulder days, THEN 2 complete/Level joint Tablets (40 mg) of c are change) once daily with a meal for 2 days, THEN 1 Tablet (20 mg) once daily with a meal for 2 days. diclofenac topical Apply 2 g 50 g 1 05/01/20 D iscontinued (VOLTAREN) 1 % topically to (* Allergic/Adve gelIndications: affected area(s) rse Rxn/Side Chronic left four times Effect s) shoulder pain daily. warfarin (COUMADIN) Take by mouth 3 05/01/20 Discontinued 5 mg 05/01: Hold; 2.5 (Re order tabletIndications: mg (5 mg x 0.5) (E-cancel not PFO (patent foramen every Mon, Fri, sent)) ovale), Sat; 5 mg (5 mg Anticoagulation x 1) all other monitoring, INR days in the range 2-3, Acute CVA evening OR as (cerebrovascular directed accident) (HC), Cerebrovascular accident (CVA), unspecified mechanism (HC) warfarin (COUMADIN) Take by mouth 3 05/06/20 Discontinued 5 mg 05/06: Hold; (Breann r tabletIndications: 05/08: 2.5 mg; (E-cancel not PFO (patent foramen Otherwise 5 mg sent)) ovale), every Tue, Wed; Anticoagulation 2.5 mg all other monitoring, INR days in the range 2-3, Acute CVA evening OR as (cerebrovascular directed accident) (HC), Cerebrovascular accident (CVA), unspecified mechanism (HC) Active Problems Problem Noted Date JOAO 02/16/2006 AHI-59 03/17/2018 HTN (hypertension) 12/09/2017 Mixed hyperlipidemia 12/09/2017 History of CVA (cerebrovascular accident) 12/09/2017 Coronary artery disease involving [place] coronary keyur ry of [place] heart 12/09/2017 Non-cardiac chest pain 12/09/2017 Anticoagulation monitoring, INR range 2-3 07/20/2016 Acute CVA (cerebrovascular accident) 07/20/2016 Patent foramen ovale 03/13/2016 Elevated prostate specific antigen (PSA) 09/04/2011 Colon polyps 07/23/2009 Overview: Colonoscopy 11/2009 polyps repeat in 5 ye ars Unspecified sleep apnea 11/05/2006 Coronary atherosclerosis of unspecified type of vessel , [place] or graft 05/13/2006 Overview: --S/P Angio 04/24/05 -PTCA/SONJA Stent of proximal LAD -PTCA of D1 secondary to plaque shifting . Unspecified transient cerebral ischemia Essential hypertension, benign Benign neoplasm of major salivary glands Hyperlipidemia LDL goal < 100 PFO (patent foramen ovale) Resolved Problems Problem Noted Date Resolved Date STABLE ANGINA PECTORIS 05/13/2006 11/07/2013 Overview: -Abnormal Myocardial Perfusion 05/06/06 Other ill-defined and unknown causes of morbidity and mortal ity 09/04/2011 Encounters Date Type Specialty Care Team Description 05/14/2022 Office Visit Nhi Marvin Follow Up ( Elevated MD Rubina INR, ESR and mu ltiple joint pain) 05/14/2022 Anticoagulation 1, [facility] 05/14/2022 Travel 05/13/2022 Telephone Bradley Murray MD 05/13/2022 Telephone Nhi Marvin Anticoagula tion (INR MD Rubina greater than 5) 05/12/2022 Office Visit Nhi Marvin Shoulder Pa in/problem; MD Rubina Elbow Pain/prob emma 05/12/2022 Telephone Nhi Marvin Follow Up; Appointment MD Rubina Request 05/12/2022 Anticoagulation 1, [facility] 05/12/2022 Telephone Ashly Batista Abnormal Lab Results KEVIN Erickson 05/12/2022 Travel 05/08/2022 Telephone Nhi Marvin Abnormal La b Results MD Rubina 05/06/2022 Orders Only Lab, [facility] 05/06/2022 Anticoagulation 1, [facility]far[facility] 05/06/2022 Travel 05/06/2022 Telephone Nhi Marvin Musculpat etal Problem MD Rubina 05/01/2022 Office Visit Tenzin Virk, Arm Pain/pr oblem (Left MD arm pain; start ed 10 days ago; 03/21 PL) 05/01/2022 Telephone Nhi Marvin Anticoagulantonio Csepedes MD (dosing) 05/01/2022 Telephone Nhi Marvin Anticoagulantonio beach (BPA - MD Rubina Prednisone) 05/01/2022 Telephone Zainab Tobin Pharmacist Id KEVIN Lieberman Management (Pre dnisone) 05/01/2022 Anticoagulation 1, [facility] (Lab ) (warfarin) Clinic 05/01/2022 Telephone Nhi Marvin Error-pleas e disregard MD Rubina 05/01/2022 Nurse Triage Nhi Marvin Shoulder Pa in/problem MD Rubina 05/01/2022 Travel 05/01/2022 Nurse Triage Nhi Marvin Musculpat etal Problem MD Rubnia (Shoulder pain) 05/01/2022 Telephone Nhi Marvin Questions MD Rubina 04/29/2022 Ancillary Procedure 04/29/2022 Office Visit Zainab Tobin Shoulder Pain /problem KEVIN Russell (left- 4 days a go, achey pain- 8/1 0- ) 04/29/2022 Travel 04/14/2022 Refill Nhi Marvin Refill Requ est; MD Rubina Medication Prob emma 04/14/2022 Refill Nhi Marvin Refill Requ est MD Rubina (Amoxicillin) 03/12/2022 Orders Only Lab, [facility] 03/12/2022 Telephone Nhi Marvin .error (A u ser error MD Rubina has taken place : encounter opene d in error, closed f or administrative reasons/) 03/12/2022 Anticoagulation 1, [facility]farin[facility] 03/12/2022 Travel 03/11/2022 Telephone Nhi Marvin MD (Anticoagulatio n question/Appoin tment) 03/05/2022 Telephone Nhi Marvin MD from Last 3 Months Immunizations Name Administration Dates Next Due COVID-19 vaccine ([employer] 11/20/2021 30mcg/0.3mL) 12YO+ LALITHA-SUCROSE ALEXY PAN Influenza A (H1N1), Inactivated 07/23/2009 Influenza A (H1N1), Inactivated (Age 0107/23/2009 >=3 Years) Influenza, High-dose Inactivated 04/20/2018, 04/21/2017 Influenza, High-dose Quadrivalent 04/24/2020 Inactivated Influenza, IIV3 (Age 6-35 mos) 04/02/2009 Influenza, IIV3 (Age >=3 years) 04/25/2013, 04/12/2012, 07/2010, 04/08/2010, 06/08/2007, 04/26/2006, 06/25/2005 Influenza, IIV4 04/29/2021 Influenza, Inactivated IIV3 (Age 65+ 04/19/2019 Years) Preserv Free Pneumococcal Poly,23-Valent 07/23/2009 (Pneumovax) Pneumococcal conj 13-Valent (Prevnar 09/28/2014 13) Td (Age >=7 Years) 01/29/2005 Tdap 09/28/2014 Zoster (Shingrix-RZV, recombinant) 04/06/2019, 01/25/2019 Family History Medical History Relation Name Comments Heart Disease Brother 2 ? hole in his he art; from 2 MIs in a row Hypertension Father Genetic Other Significant for several family members who have had stroke in their 60s. One family member had a cerebral aneurysm, as wel l. Other Sister 5 aneurysm Relation Name Status Comments Brother 1 Alive Brother 2 Father (Age 94) Mother (Age 97) Other Sister 1 aneurysm Sister 2 MVA Sister 3 depression Sister 4 Alive Sister 5 Son 1 Alive Son 2 Alive Social History Tobacco Use Types Packs/Day Years Used Date Never Smoker Smokeless Tobacco: Never Used Tobacco Cessation: Counseling Given: Yes Alcohol Use Standard Drinks/Week Comments No 0 (1 standard drink = 0.6 oz pure alcoho l) Alcoholic Drinks/day: 0 Sex Assigned at Date Recorded Not on file COVID-19 Exposure Response Date Recorded In the last 10 days, have you been in contact with No / Unsu re 05/14/2022 11:19 AM CDT someone who was confirmed or suspected to have Coronavirus/COVID-19? Obstetrics History Last Filed Vital Signs Vital Sign Reading Time Taken Comments Blood Pressure 112/72 05/14/2022 11:47 AM CDT Pulse 95 05/14/2022 11:45 AM CDT Temperature 36.3 ??C (97.4 ??F) 07/13/2019 9:57 AM [facility] Respiratory Rate 16 05/09/2019 12:38 PM CDT Oxygen Saturation 92% 05/14/2022 11:45 AM CDT Inhaled Oxygen Concentration - - Weight 90.7 kg (200 lb) 05/12/2022 12:49 PM CDT Height 180.3 cm (5' 11) 05/01/2022 2:11 PM CDT Body Mass Index 27.89 05/01/2022 2:11 PM CDT Plan of Treatment Health Maintenance Due Date Last Done Comments Medicare Wellness for age 65+ 11/17/2019 11/17/2018, 2016, 09/28/2014 Depression screening for age 12+ 11/18/2019 11/17/2018, 03/2019, 11/02/2017, Additional history exists COVID-19 vaccine series (5 - 01/15/2022 11/20/2021, 021, Booster for Moderna series) 09/18/2020, Addition al history exists Influenza for age 65+ 03/12/2022 04/29/2021, 04/24/2020, 04/19/2019, Additional history exists BMI (ht and wt on same day) for 05/01/2023 05/01/2022, 08/2019, age 18+ 12/19/2018, Additional history exists Tetanus booster 09/28/2024 09/28/2014, 01/29/2005 Pneumococcal series for age 65+ Completed 09/28/2014, 07/12 Tdap Completed 09/28/2014 Zoster (shingles) series for age Completed 04/06/2019, 50+ Procedures Procedure Name Priority Date/Time Associated Comments Diagnosis PROTIME-INR Routine 05/14/2022 11:32 Bilateral shoulder Resul ts for this AM CDT pain, unspecified procedure are in chronicity the results section. CBC WITH AUTO Routine 05/14/2022 11:32 Bone pain Results fo r this DIFFERENTIAL AM CDT procedure are i n the results section. CBC WITH AUTO Routine 05/14/2022 11:32 Bone pain Results fo r this DIFFERENTIAL AM CDT procedure are i n the results section. PROTIME-INR STAT 05/12/2022 12:38 PFO (patent foramen Resu lts for this PM CDT ovale) procedure are in Anticoagulation the results monitoring, INR section. range 2-3 Acute CVA (cerebrovascular accident) (HC) SEDIMENTATION RATE Routine 05/12/2022 12:38 PMR (polymyalgia R esults for this PM CDT rheumatica) (HC) procedure a re in the results section. LYME SCREEN W/REFLEX Add On 05/06/2022 10:08 Myalgia Res ults for this AM CDT procedure are i n the results section. CBC WITH AUTO Routine 05/06/2022 10:08 Bilateral shoulder Resu lts for this DIFFERENTIAL AM CDT pain, unspecified procedure are in chronicity the results section. RA QUANTITATIVE Routine 05/06/2022 10:08 Bilateral shoulder Re sults for this AM CDT pain, unspecified procedure are in chronicity the results section. CBC WITH AUTO Routine 05/06/2022 10:08 Bilateral shoulder Resu lts for this DIFFERENTIAL AM CDT pain, unspecified procedure are in chronicity the results section. C-REACTIVE PROTEIN Routine 05/06/2022 10:08 Bilateral shoulder Results for this AM CDT pain, unspecified procedure are in chronicity the results section. SEDIMENTATION RATE Routine 05/06/2022 10:08 Bilateral shoulder Results for this AM CDT pain, unspecified procedure are in chronicity the results section. PROTIME-INR STAT 05/06/2022 10:08 PFO (patent foramen Resu lts for this AM CDT ovale) procedure are in Anticoagulation the results monitoring, INR section. range 2-3 Acute CVA (cerebrovascular accident) (HC) PROTIME-INR STAT 05/01/2022 1:43 PM PFO (patent foramen Re sults for this CDT ovale) procedure are in Anticoagulation the results monitoring, INR section. range 2-3 Acute CVA (cerebrovascular accident) (HC) XR SHOULDER 3 VIEWS Routine 04/29/2022 10:03 Acute pain of lef t Results for this LEFT AM CDT shoulder procedure are i n the results section. INR,POCT Routine 03/12/2022 10:29 PFO (patent foramen Resu lts for this AM CDT ovale) procedure are in Anticoagulation the results monitoring, INR section. range 2-3 Acute CVA (cerebrovascular accident) (HC) from Last 3 Months Results (ABNORMAL) CBC WITH AUTO DIFFERENTIAL (05/14/2022 11:32 AM CDT)Only the most recent of2 resultswithin the time period is included. [employer] Method Time Signature WHITE BLOOD 12.9 (H) 4.5 - 05/14/2022 [facility] COUNT 11.0 11:57 AM [facility] mm RED BLOOD COUNT 4.40 4.30 - 05/14/2022 [facility] 5.90 11:[address] [facility] CLINIC HEMOGLOBIN 14.8 13.5 - 05/14/2022 [facility] 17.5 g/dL 11:57 AM [facility] HEMATOCRIT 43.4 37.0 - 05/14/2022 [facility] 53.0 % 11:57 AM [facility] MCV 99 80 - 100 05/14/2022 [facility] fL 11:57 AM [facility] MCH 33.6 26.0 - 05/14/2022 [facility] 34.0 pg 11:57 AM [facility] MCHC 34.1 32.0 - 05/14/2022 [facility] 36.0 g/dL 11:57 AM [facility] RDW 13.9 11.5 - 05/14/2022 [facility] 15.5 % 11:57 AM [facility] PLATELET COUNT 258 140 - 440 05/14/2022 [facility]/ 11:57 AM [facility] MPV 8.4 6.5 - 05/14/2022 [facility] 11.0 fL 11:57 AM [facility] % NEUT 81.4 % 05/14/2022 [facility] 11:57 AM [facility] % LYMPH 7.0 % 05/14/2022 [facility] 11:57 AM [facility] % MONO 11.1 % 05/14/2022 [facility] 11:57 AM [facility] % EOS 0.4 % 05/14/2022 [facility] 11:57 AM T [facility] % BASO 0.1 % 05/14/2022 [facility] 11:57 AM T [facility] ABSOLUTE 10.5 (H) 1.7 - 7.0 05/14/2022 [facility] NEUTROPHILS thou/cu 11:57 AM CDT [facility] ABSOLUTE 0.9 0.9 - 2.9 05/14/2022 [facility] LYMPHOCYTES thou/cu 11:57 AM CDT [facility] ABSOLUTE 1.4 (H) <0.9 05/14/2022 [facility] MONOCYTES thou/cu 11:57 AM CDT [facility] ABSOLUTE 0.1 <0.5 05/14/2022 [facility] EOSINOPHILS thou/cu 11:57 AM CDT [facility] ABSOLUTE 0.0 <0.3 05/14/2022 [facility] BASOPHILS thou/cu 11:57 AM T [facility] Specimen Anatomical Collection Method / Collection Time Recei martin Time (Source) Location / Volume Laterality Blood BLOOD SPECIMEN / Venipuncture / 05/14/2022 11:32 05/14 Unknown Unknown AM CDT 11:35 AM CDT Nhi Marvin MD HEMATOLOGY Performing Organization Address City/State/ZIP Code Phon e Number [facility] [address] [place] [address] (ABNORMAL) PROTIME-INR (05/14/2022 11:32 AM CDT)Only the most recent of4 results within the time period is included. P athologist Signature INR 2.3 (H) <1.3 05/14/2022 [place] 1:10 PM [facility] PROTIME 24.6 (H) 12.0 - 13.8 05[facility]:10 PM [facility] Specimen Anatomical Collection Method / Collection Time Recei martin Time (Source) Location / Volume Laterality Blood BLOOD SPECIMEN / Venipuncture / 05/14/2022 11:32 05/14 Unknown Unknown AM CDT 11:35 AM CDT [facility] LABORATORY - 1:10 PM CDT ?Therapeutic Range 2.0-3.0 for most anticoagulated patients 2.5-3.5 or 4.0 for high risk patients The INR is only used for patients on sta ble oral anticoagulant therapy. It makes no significant contribution to the diagnosis or treatment of patients whose Protime is prolonged f or other reasons. INR results are increased when heparin l evels exceed 1.0 U/mL, which corresponds to an aPTT >125 seconds if the patient is on UFH. Nhi Marvin MD HEMATOLOGY Performing Organization Address [facility] LABORATORY [address] [place] [address] (ABNORMAL) SEDIMENTATION RATE (05/12/2022 12:38 PM CDT)Only the most recent of2 resultswithin the time period is included. Patholo gist Method Time Signature SEDIMENTATION RATE 82 (H) <20 mm/hr 05/12/2022 [place] 5:06 PM CDT [facility] Specimen Anatomical Collection Method / Collection Time Recei martin Time (Source) Location / Volume Laterality Blood BLOOD SPECIMEN / Venipuncture / 05/12/2022 12:38 05/12 Unknown Unknown PM CDT 12:41 PM CDT Nhi Marvin MD HEMATOLOGY Performing Organization Address [facility] LABORATORY [address] [place] [id number] LYME SCREEN W/REFLEX (05/06/2022 10:08 AM CDT) Analysis Performed At Patho logist Time Signature LYME SCREEN Negative Negative 05/09/2022 [facility] W/REFLEX 2:55 PM CDT [facility] Comment: No laboratory evidence of infection with B. burgdorferi (Lyme disease). Negative results may occur in patients r ecently infected (less than or equal to 14 days) with B. burgdorferi. If recent infection is suspected, repeat testing on a new sample collected in 7-14 days is recommended. Specimen Anatomical Collection Method / Collection Time Recei martin Time (Source) Location / Volume Laterality Blood BLOOD SPECIMEN / Venipuncture / 05/06/2022 10:08 05/06 Unknown Unknown AM CDT 10:14 AM CDT Nhi Marvin MD SEND OUTS Performing Organization Address [facility] Code Phon e Number [facility] [address] [place] [address] LABORATORY-CEN[facility]AL [address] LABORATORY RA QUANTITATIVE (05/06/2022 10:08 AM CDT) P athologist Signature RHEUMATOID <7.00 <12.50 05/07/2022 [facility] [employer] FACTOR,QUANT IU/mL 12:55 PM CDT [facility] Specimen Anatomical Collection Method / Collection Time Recei martin Time (Source) Location / Volume Laterality Blood BLOOD SPECIMEN / Venipuncture / 05/06/2022 10:08 05/06 Unknown Unknown AM CDT 10:14 AM CDT Nhi Marvin MD SEND OUTS Performing Organization Address [facility] Phon e Number [facility] [address] [place] [address] LABORATORY-CENTRAL 1999 LABORATORY (ABNORMAL) C-REACTIVE PROTEIN (05/06/2022 10:08 AM CDT) Patholo gist Method Time Signature C-REACTIVE 12.00 (H) <0.50 05/09/2022 [facility] [employer] PROTEIN mg/dL 12:11 PM CDT [facility] Specimen Anatomical Collection Method / Collection Time Recei martin Time (Source) Location / Volume Laterality Blood BLOOD SPECIMEN / Venipuncture / 05/06/2022 10:08 05/06 Unknown Unknown AM CDT 10:14 AM CDT Nhi Marvin MD CHEMISTRY Performing Organization Address [facility] Phon e Number [facility] [address] [place] [address] LABORATORY-CENTRAL 1999 LABORATORY XR SHOULDER 3 VIEWS LEFT (04/29/2022 10:03 AM CDT) Anatomical Region Laterality Modality SHOULDERS, SHOULDER L Computed Radiograp hy Specimen (Source) Anatomical Collection Method Collection Time Re ceived Time Location / / Volume Laterality 04/29/2022 12:49 PM CDT Narrative 04/29/2022 12:49 PM CDT For Patients: ??As a result of the Cures Act, medical imaging exams and procedure report s are released immediately into your [facility] [employer] medical record. ??You may view this report before your referring provider. ??If you have questions, please contact your health care provider. Indication: Left shoulder pain. Technique: Left shoulder 3 views. Comparison: None. Findings: Bones: Alignment is normal. No fractures or bone lesions. ?? Joint spaces: Mild narrowing and spurrin g at the acromioclavicular and glenohumeral joints. Soft tissues: Incidental prominence of t he aortic arch. Impression: Mild degenerative joint disease left kermit ulder. Dictated by Rafael Rogers MD @ Apr 29 12:49PM (Electronically Signed) ?? Procedure Note Rafael Rogers MD - 04/29/2022For matting of this note might be different from the original. For Patients: As a result of the Cures Act, medical imaging exams and procedure reports are released immediately into your electronic medical record. You may view this report before your referring provider. If you have questions, please contact yo health care provider. Indication: Left shoulder pain. Technique: Left shoulder 3 views. Comparison: None. Findings: Bones: Alignment is normal. No fractures or bone lesions. Joint spaces: Mild narrowing and spurrin g at the acromioclavicular and glenohumeral joints. Soft tissues: Incidental prominence of t he aortic arch. Impression: Mild degenerative joint disease left kermit ulder. Dictated by Rafael Rogers MD @ Apr 29 12:49PM (Electronically Signed) [facility] (ABNORMAL) INR,POCT (03/12/2022 10:29 AM CDT) P athologist Signature INR 2.8 (H) <1.3 03/12/2022 [facility] 10:34 AM CDT [facility] Specimen Anatomical Collection Method Collection Time Receive d Time (Source) Location / / Volume Laterality Blood BLOOD SPECIMEN / 03/12/2022 10:29 03/12/ 022 Unknown AM CDT 10:34 AM CDT Narrative [facility] - 2021 10:34 AM CDT ?Therapeutic Range 2.0-3.0 for most anticoagulated patients 2.5-3.5 or 4.0 for high risk patients Nhi Marvin MD LABORATORY Performing Organization Address City/State/ZIP Code Phon e Number [facility] [address] [place] [address] from Last 3 Months Insurance Payer Benefit Plan / Subscriber ID Effective Dates Phone Addre ss Type Group [employer] [id number] Effective for Inte rnal [facility] all dates [phone] [place] [address] MEDICARE PART A MEDICARE PART A [id number] 2005-Prese ATTN: CLAIMS - HB USE ONLY HB ONLY nt [address] [place] [address] MEDICARE PART B MEDICARE PART B [id number] 2010-Presen ATTN: CLAIMS - HB USE ONLY HB ONLY t [address] [place] [address] MEDICARE - PB MEDICARE PB ONLY [id number] 2018-Presen ATTN: CLAIMS USE ONLY t [address] [place] [address] [employer] [id number] 2018-Presen [address] [place] [address] Advance Directives Latest Code Status on File Code Status Date Activated Date Inactivated Comments Full Code 12/09/2017 3:21 PM 12/09/2017 8:44 PM Code Status Discussion: Discussed Care Teams Nipple Threader Relationship Specialty Start Date End Date Nhi Marvin MD PCP - General Family Practice 08/19/11 [address] [place] [address]
[2022-05-14 14:47] LABS: Albumin* 3.9 g/dL (3.3-5.0); Chloride* 104 mmol/L (96-114)
[2022-05-14 14:48] LABS: Sodium* 137 mmol/L (135-149)
[2022-05-14 14:50] LABS: Bilirubin Total* 1.3 mg/dL (0.1-1.5); Creatinine* 1.1 mg/dL (0.5-1.5); Est. Creatinine Clearance* 56.09; Estimated Glomerular Filt Rate 67 ml/min
[2022-05-14 14:51] LABS: Alanine Aminotransferase* 22 U/L (4-50); Alkaline Phosphatase* 80 U/L (40-150); Aspartate Amino Transferase* 34 U/L (12-35); Blood Urea Nitrogen* 20 mg/dL (7-30); Carbon Dioxide* 21 mmol/L (20-32); Glucose* 97 mg/dL (60-115); Total Protein* 7.5 g/dL (6.0-8.3)
[2022-05-14 15:05] LABS: C Reactive Protein* 20.7 mg/dL (0.5-1.0)
--- NOTE | 2022-05-14 15:07 | CRLHL7_ITS ---
For Patients: As a result of the Cures Act, medical imaging exams and procedure reports are released immediately into your electronic medical record. You may view this report before your referring provider. If you have questions, please contact your health care provider. INDICATION: Bilateral shoulder/upper chest pain. TECHNIQUE: Chest 1 views. COMPARISON: Chest x-ray from 12/09/2017. FINDINGS: Lungs: Clear lungs. No consolidation. Pleura: No pleural effusion or pneumothorax. Heart and Mediastinum: The cardiomediastinal silhouette is enlarged. The vessels are unremarkable. Bones: Unremarkable. IMPRESSION: No acute cardiopulmonary disease. Dictated by Srinivas Villarreal MD @ 05/14/2022 4:18:49 PM (Electronically Signed)
[2022-05-14 15:16] LABS: Erythrocyte SedimentationRate* 86 mm/hr (2-15)
[2022-05-14 15:21] LABS: TSH With Reflex to FT4* 0.375 uIU/mL (0.270-4.200)
[2022-05-14 15:39] LABS: SARS PCR* Negative SARS-CoV-2 (Negative)
[2022-05-14] MEDS: predniSONE 20 MG TABLET 40 MG PO (16:34)
--- NOTE | 2022-05-14 16:35 | ED.NURSE ---
Patient transported to med/surg via cart with RN and with telemetry box.
[2022-05-14 16:58] VITALS: BP 129/87; PULSE 91; RESP 18; TEMP 36.6; O2SAT 93; BMI 27.5
--- NOTE | 2022-05-14 17:04 | CRLHL7_ITS ---
For Patients: As a result of the Century Cures Act, medical imaging exams and procedure reports are released immediately into your electronic medical record. You may view this report before your referring provider. If you have questions, please contact your health care provider. INDICATION: Neck and bilateral shoulder pain. Elevated ESR, eval for vasculitis. TECHNIQUE: CT chest was acquired with 95 mL Isovue 370 IV contrast. Coronal and sagittal reformats were generated. COMPARISON: None. FINDINGS: Thyroid: Unremarkable. Thoracic lymph nodes: No enlarged supraclavicular, mediastinal, hilar, or axillary lymph nodes. Mediastinum and esophagus: Unremarkable. Heart and vasculature: The heart size is normal. The ascending thoracic aorta is mildly aneurysmal measuring 4.4 cm transversely (3/59). Lungs: Linear opacities in the lung bases suggest atelectasis or scarring. The lungs are otherwise clear. No focal consolidations. Pleura: Unremarkable. Chest wall: Unremarkable. Upper abdomen: Unremarkable. Bones: Complex fluid collection in the right glenoid fossa extends medially toward the subscapularis muscle. The medial component measures approximately 3.1 x 3.4 cm (3/16) and shows suggestion of peripheral enhancement. Fluid also tracks in the right shoulder joint (3/21). IMPRESSION: 1. Complex fluid collection in the right shoulder joint extends medially and shows peripheral enhancement. This could be bursitis, but the appearance is concerning for infected collection, raising concern for septic arthritis. 2. Mild aneurysmal dilation of the ascending thoracic aorta. Otherwise, normal vessels without findings to suggest vasculitis. Findings discussed with Dr. Allison on 05/14/2022 at 6:54 p.m. Please note that all CT scans at this facility use dose modulation, iterative reconstruction, and/or weight-based dosing when appropriate to reduce radiation dose to as low as reasonably achievable. Dictated by Srinivas Villarreal MD @ 05/14/2022 6:56:04 PM (Electronically Signed)
--- NOTE | 2022-05-14 17:04 | CRLHL7_ITS ---
For Patients: As a result of the Century Cures Act, medical imaging exams and procedure reports are released immediately into your electronic medical record. You may view this report before your referring provider. If you have questions, please contact your health care provider. DATE: 05/14/2022. CLINICAL HISTORY: Neck and shoulder pain; elevated ESR. TECHNIQUE: Standard helical CT image acquisition through the neck was performed after intravenous contrast bolus enhancement. Multiplanar reconstructed images were performed and interpreted. COMPARISON: None available. FINDINGS: The origins of the great vessels from the aortic arch are patent. The origins of the right and left vertebral arteries are patent. The common carotid arteries are patent. Atherosclerotic plaque involves the bilateral carotid bifurcations but without significant luminal stenoses of the proximal internal carotid arteries by NASCET criteria. The more distal cervical segments of the internal carotid arteries are patent. The cervical segments of the vertebral arteries are patent. IMPRESSION: Patent cervical arterial vasculature without hemodynamically significant luminal stenosis. Please note that all CT scans at this facility use dose modulation, iterative reconstruction, and/or weight-based dosing when appropriate to reduce radiation dose to as low as reasonably achievable. Dictated by Elvis Moon MD @ 05/15/2022 10:35:18 AM (Electronically Signed)
[2022-05-14 17:32] VITALS: BP 129/87; PULSE 90; PULSE 91; RESP 18; TEMP 36.6; O2SAT 93
--- NOTE | 2022-05-14 18:16 | P.IMHP_ITS ---
Hospitalist- H&P: HPI History of Present Illness Date Seen: 05/14/22 Chief complaint: Chest pain, elevated INR Narrative: Desean Oliver is a 81 year old male who presented to the emergency room for unrelenting shoulder pain and medication management. Patient began having symptoms on April 25 with bilateral shoulder pain, L>R. Was seen at the [facility] clinic on 04/29, left shoulder x-ray exhibited arthritis and there is clinical concern for bursitis, patient was started on oral p rednisone and scheduled for an outpatient cortisone injection on 05/01. Unfortunately, when he presented for his shoulder injection, his INR was 4.1, so injection was deferred and prednisone discontinued (and this was the only new med recently started that may have affected INR). Soon after, pain worsened in his left shoulder, worsened in his right shoulder, and presented in left elbow. Upon follow-up with PCP, sed rate was noted to be 63 and pain continued to be severe. He then restarted prednisone at 10 mg with close INR follow-up, and INR was found to be 7.7 on 05/12. Patient received vitamin K in the emergency room on 05/12 and has been holding his Coumadin since. In total, he has received approximately 6 doses of prednisone, and does feel that this has been effective for pain (although history is somewhat unclear). Desean has fairly severe reservations about continuing prednisone for pain control, given the affect is seemingly has had on his INR; he is unwilling to hold Coumadin for extended periods of time given his CVA history. Patient's PCP, Dr. Marvin has discussed patient's case with Dr. Murray of Rheumatology at [facility], who recommended starting 20 mg of prednisone daily for symptoms. Other notable labs from [facility] clinic: - INR today was 2.3 in clinic (venous draw, POC was undetectable) - sed rate 82 on 05/12 - white blood count 12.9 today with PMN predominance (was 7.4 last week), Hgb normal at 14.8 - negative Lyme screen on 05/06 - negative RA factor on 05/06 - CMP and PSA from clinic today are pending. Desean's past medical and surgical history updated below. 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 would be medical decision maker if needed, patient requests DNR/DNI status. Nonsmoker, no ETOH use. Review of Systems Status of ROS: Reports: 10 or more systems reviewed and unremarkable except as noted in History and below Narrative: Patient notes mild decrease in appetite; but when I discussed his case with PCP, it sounds like he has been eating very little for many days secondary to pain and resulting anhedonia. Desean specifically denies abdominal pain, nausea, or GI changes. [facility] Medical History (Updated 05/14/22 @ 22:54 by Coretta Allison MD) Coronary artery disease Essential hypertension History of CVA (cerebrovascular accident) Hyperlipidemia PFO (patent foramen ovale) Surgical History (Updated 05/14/22 @ 22:35 by Coretta Allison MD) History of coronary artery stent placement Social History Highest level of school completed/degree received: some college, no degree Smoking Status: Never smoker Do you use any of these nicotine containing products: None Second hand tobacco smoke exposure: No How often do you have a drink containing alcohol: never How often do you have six or more drinks on one occasion: Never AUDIT-C Alcohol total score: 0 Non-prescribed substance use: denies use Caffeine: Yes (Mt Dew daily) service: No Meds Home Medications and Allergies Home Medications Medication Instructions Recorded Confirmed Type nifedipine 30 mg tablet,extended 30 mg PO DAILY 05/12/22 05/14/22 History release 24 hr prednisone 10 mg tablet 10 mg PO DAILY 05/12/22 05/14/22 History rosuvastatin 5 mg tablet 5 mg PO MOWEFR@21 05/12/22 05/14/22 History warfarin 5 mg tablet 2.5 - 5 mg PO DAILY 05/12/22 05/14/22 History acetaminophen 500 mg tablet 500 mg PO DAILY 05/14/22 05/14/22 History (Acetaminophen Extra Strength) amoxicillin 500 mg capsule 2,000 mg PO ONCE PRN 05/14/22 05/14/22 History chlorpheniramine maleate 4 mg 4 mg PO Q12H PRN 05/14/22 05/14/22 History tablet (Aller-Chlor) cholecalciferol (vitamin D3) 50 50 mcg PO DAILY 05/14/22 05/14/22 History mcg (2,000 unit) tablet glucosamine sulfate 500 mg tablet 1,500 mg PO DAILY 05/14/22 05/14/22 History (Cidatrine) vitamin B complex (B 1 tab PO DAILY 05/14/22 05/14/22 History Complex-Vitamin B12 tablet) Allergies Allergy/AdvReac Type Severity Reaction Status Date / Time aspirin Allergy Unknown Verified 05/14/22 18:28 Exam Narrative: Exam Narrative: GEN: Alert, appears disheveled and uncomfortable Eyes: EOMIs bilaterally, no scleral icterus CV: RRR, soft systolic murmur with concerning findings, rubs, or gallops R: LCTA bilaterally without concerning wheezing, rales, or rhonchi Ext: wwp, no concerning edema Skin: No concerning skin lesions or rashes on exposed skin Neuro: Nonfocal, no resting tremor Psych: Intermittently agitated 2/2 pain, intolerant of noise but denies ear pain Const: Vital Signs, click to edit/add: Vital Signs - 24 hr 05/14/22 13:06 05/14/22 16:58 Temperature 97.8 F 97.8 F Pulse Rate [Left A pical] 91 Pulse Rate [Right Pulse Oximeter] 91 Respiratory Rate 18 18 Blood Pressure [Le ft Arm] 129/87 Blood Pressure [Ri ght Upper Arm] 129/78 Pulse Oximetry 93 93 Oxygen Delivery Me thod Room Air Room Air Hospitalist - H&P: Result Labs Labs: BMP 05/14/22 13:38 Sodium 137 Potassium 5.0 Chloride 104 Carbon Dioxide 21 BUN 20 Creatinine 1.1 Glucose 97 Calcium 9.0 Liver Function 05/14/22 Range/Units 13:38 Total Bilirubin 1.3 (0.1-1.5) mg/dL AST 34 (12-35) U/L ALT 22 (4-50) U/L Alkaline Phosphatase 80 (40-150) U/L Albumin 3.9 (3.3-5.0) g/dL INDICATION: Neck and bilateral shoulder pain. Elevated ESR, eval for vasculitis. TECHNIQUE: CT chest was acquired with 95 mL Isovue 370 IV contrast. Coronal and sagittal reformats were generated. COMPARISON: None. FINDINGS: Thyroid: Unremarkable. Thoracic lymph nodes: No enlarged supraclavicular, mediastinal, hilar, or axillary lymph nodes. Mediastinum and esophagus: Unremarkable. Heart and vasculature: The heart size is normal. The ascending thoracic aorta is mildly aneurysmal measuring 4.4 cm transversely (3/59). Lungs: Linear opacities in the lung bases suggest atelectasis or scarring. The lungs are otherwise clear. No focal consolidations. Pleura: Unremarkable. Chest wall: Unremarkable. Upper abdomen: Unremarkable. Bones: Complex fluid collection in the right glenoid fossa extends medially toward the subscapularis muscle. The medial component measures approximately 3.1 x 3.4 cm (3/16) and shows suggestion of peripheral enhancement. Fluid also tracks in the right shoulder joint (3/21). IMPRESSION: 1. Complex fluid collection in the right shoulder joint extends medially and shows peripheral enhancement. This could be bursitis, but the appearance is concerning for infected collection, raising concern for septic arthritis. 2. Mild aneurysmal dilation of the ascending thoracic aorta. Otherwise, normal vessels without findings to suggest vasculitis. Findings discussed with Dr. lAlison on 05/14/2022 at 6:54 p.m. Please note that all CT scans at this facility use dose modulation, iterative reconstruction, and/or weight-based dosing when appropriate to reduce radiation dose to as low as reasonably achievable. Dictated by Srinivas Villarreal MD @ 05/14/2022 6:56:04 PM Assessment and Plan Assessment and plan (1) Shoulder pain: Status: Acute Assessment and Plan: - symptoms suspicious for PMR, consider infectious source, vasculitis, myositis (CT did not exhibit signs of vasculitis, + fluid collection R shoulder) - continue Prednisone 20mg QD per outpatient Rheumatology recommendations, in addition to scheduled Tylenol (patient has found this effective) - OT consult placed as patient has been unable to complete ADLs 2/2 pain and discomfort (2) Abnormal CT scan: Problem comment: R shoulder fluid collection on 05/14 CT scan Status: Acute Assessment and Plan: - concern for possible infectious process in R shoulder (patient notes that R shoulder is NOT more painful than L shoulder; if anything L shoulder hurts more) - reviewed case with Orthopedic Surgery PA operations recruiter; Ortho team will evaluate patient - start Vancomycin to cover for possible infectious source, blood culture pending - obtain TTE - continue to follow labs/inflammatory markers (3) Elevated sed rate: Status: Acute (4) History of CVA (cerebrovascular accident): Status: Acute Assessment and Plan: - continue statin (5) Leukocytosis: Problem comment: WBC 12.8 at [facility] 05/14 Status: Acute Assessment and Plan: - possibly related to recent steroid use vs infection, continue to follow (6) Essential hypertension: Status: Acute Assessment and Plan: - continue home meds (7) Anticoagulant long-term use: Status: Acute Assessment and Plan: - recent supratherapeutic INR (source unclear, but possible related to Prednisone as this was only recent medication change). Has been holding Coumadin since 05/12 with INR of 2.3 today - Desean is very hesitant to be off of anticoagulation given his CVA history. Will ask pharmacy to consult for Warfarin dosing, will give one dose of Lovenox tonight Plan - per above - will add PPI for GI prophylaxis given steroid use and anticoagulated status
[2022-05-14] MEDS: ENOXAPARIN 40 MG/0.4 ML INJ SUBCUT (21:20)
[2022-05-14] MEDS: ACETAMINOPHEN 650 MG TABLET ER 1300 MG PO (21:20)
[2022-05-14] MEDS: 0.9 % SODIUM CHLORIDE 1000 ml 1,000 ML 125 ML IV (21:33)
--- NOTE | 2022-05-14 22:47 | PC.NURSE ---
Shift Note [id number]: Pt displays pessimistic and negative responses during conversation but has been cooperative with cares and POC. C/o 01/18 bilateral shoulder discomfort and neck pain, Tylenol given PRN. Significant amounts of time spent positioning and repositiong pt to make him comfortable. This was a difficult task. VS WNL and LS COA. BS present and active. Pt does have a poor appetite, he ate about 30% of 1/2 a grilled ham/cheese sandwich. Ensure given with meal tray and pt has been sipping on it. Ortho consult tomorrow. Tele=NSR. Currently denies CP or pressure.
[2022-05-14 22:59] VITALS: RESP 18; O2SAT 93
[2022-05-14 23:00] VITALS: BP 129/80; PULSE 66; RESP 18; TEMP 36.5; O2SAT 93
[2022-05-15 03:00] VITALS: BP 135/96; PULSE 62; RESP 18; TEMP 36.5; O2SAT 94
--- NOTE | 2022-05-15 06:20 | PC.NURSE ---
: pt very pleasant and cooperative. Talkative and wants to share stories. SBA to assist with IV pole. No c/o pain. ?i have no pain? ?i haven't felt this good in three weeks?. HR 50s when sleeping. Tele = NS with 1st degree HB. ?
[2022-05-15 07:13] LABS: Basophils Absolute Auto 0.01 K/uL (0.00-0.30); Basophils Percent Auto 0.1 % (0.0-3.0); Hematocrit 41.1 % (37.0-53.0); Hemoglobin* 13.7 gm/dL (13.5-17.5); Immature Granulocytes Abs Auto 0.04 K/uL (0.00-0.30); Immature Granulocytes Pct Auto 0.4 %; Mean Corpuscular HGB Conc 33 gm/dL (32-36); Mean Corpuscular Hemoglobin 33 pg (26-34); Mean Corpuscular Volume 98 fL (80-100); Monocytes Percent Auto 8.4 % (0.0-11.0); Neutrophils Percent Auto 85.1 % (42.0-72.0); Platelet Count* 254 K/uL (140-440); Red Blood Count 4.18 m/uL (4.30-5.90); White Blood Count* 10.36 K/uL (4.50-11.00)
[2022-05-15 07:18] LABS: Slide Review Reflex No
[2022-05-15 07:27] LABS: Albumin* 3.5 g/dL (3.3-5.0); Chloride* 104 mmol/L (96-114)
[2022-05-15 07:28] LABS: Potassium* 4.4 mmol/L (3.6-5.1); Sodium* 136 mmol/L (135-149)
[2022-05-15 07:30] VITALS: BP 137/89; PULSE 66; PULSE 91; RESP 18; TEMP 36.4; O2SAT 94
[2022-05-15 07:30] LABS: Bilirubin Total* 0.6 mg/dL (0.1-1.5); Estimated Glomerular Filt Rate 76 ml/min; INR 1.99 (0.91-1.10); Prothrombin Time 23.6 Seconds
[2022-05-15 07:31] LABS: Alanine Aminotransferase* 20 U/L (4-50); Alkaline Phosphatase* 95 U/L (40-150); Aspartate Amino Transferase* 16 U/L (12-35); Blood Urea Nitrogen* 22 mg/dL (7-30); Calcium* 8.6 mg/dL (8.4-10.6); Carbon Dioxide* 20 mmol/L (20-32); Glucose* 101 mg/dL (60-115); Total Protein* 6.6 g/dL (6.0-8.3); Uric Acid* 4.7 mg/dL (2.2-8.4)
[2022-05-15] MEDS: 0.9 % SODIUM CHLORIDE 1000 ml 1,000 ML 125 ML IV (07:41)
[2022-05-15] MEDS: OMEPRAZOLE 20 MG CAPSULE DR 40 MG PO (07:41)
[2022-05-15 07:48] LABS: C Reactive Protein* 20.2 mg/dL (0.5-1.0); Procalcitonin* 0.28 ng/mL (<0.50); Troponin I* < 0.01 ng/mL (0.01-0.04)
[2022-05-15 08:11] LABS: Erythrocyte SedimentationRate* 77 mm/hr (2-15)
--- NOTE | 2022-05-15 08:17 | P.IMPN_ITS ---
Progress Note: A&P Assessment and plan (1) PMR (polymyalgia rheumatica): Problem details: prednisone has predictably relieved his discomfort significantly. I suspect this right shoulder is adhesive capsulitis but given complex imaging findings; an aspirate is indicated; may be able to given subacromial injection of steroids if no infection. Status: Acute (2) Anticoagulant long-term use: Problem details: following INR as it was >7 yesterday, 1.99 today. add back cautiously. Status: Acute (3) Abnormal CT scan: Problem details: R shoulder fluid collection on 05/14 CT scan Status: Acute (4) Essential hypertension: Problem details: monitor add back home meds as indicated. Status: Acute (5) Cognitive decline: Problem details: MOCA 25; short term recall deficit but executive function is intact. Status: Acute Subjective Date Seen: 05/15/22 Interval history: Daily Progress Note - Hospital Medicine Day #: 2 Vancomycin, status post 1 dose CC: Bilateral shoulder pain elbow pain, concerning imaging findings, elevated INR, worsening dementia OVERNIGHT UPDATES FROM STAFF & MED, LAB, IMAGING UPDATES Pt notes whatever we infused he feels so much improved. His left shoulder, specifically, is moving better, much less pain. His right shoulder is still quite painful but at least he can move it without pain. He is pleasant, tangential with stories. forgetful. Ortho consulted and will up later today to assess right shoulder, given imaging. Afebrile Blood pressure 135/96 Pulse 62 Respiratory rate 18 Pulse ox 94% on air CBC reflects an unremarkable white count INR this morning 1.99 Chemistries including troponin are unremarkable Inflammatory markers including CRP has gone from 20.7-20.2. ESR has dropped from 86-77 Blood cultures are negative to date Med review: Enoxaparin, 40 mg at bedtime Vancomycin x1 dose Prednisone x1 dose at 40 mg Omeprazole Normal saline running at 125 Review of Systems: See subjective Cardiac: No new chest pain/pressure/palpitations. Respiratory: no new dyspnea. GI: No abdominal bloating Objective: happy, telling stories Vitals: see above Upper Ext: right arm quite restricted; left range is restricted but not near wh ere it was last night. Lungs: Clear. Cardiac: S1S2. Disposition/Potential discharge - Likely to return to previous living situation. Total time is 35 minutes with greater than 50% spent in counseling and coordination of care. Exam Const: Vital Signs, click to edit/add: Vital Signs - 24 hr 05/14/22 13:06 05/14/22 16:58 05/14/22 17:32 Temperature 97.8 F 97.8 F Pulse Rate Pulse Rate [Left A pical] 91 Pulse Rate [Left P ulse Oximeter] Pulse Rate [Right Pulse Oximeter] 91 Respiratory Rate 18 18 18 Blood Pressure [Le ft Arm] 129/87 Blood Pressure [Ri ght Upper Arm] 129/78 Pulse Oximetry 93 93 93 Oxygen Delivery Me thod Room Air Room Air Room Air 05/14/22 17:32 05/14/22 17:32 05/14/22 22:59 Temperature 97.9 F Pulse Rate 90 Pulse Rate [Left A pical] 91 Pulse Rate [Left P ulse Oximeter] Pulse Rate [Right Pulse Oximeter] Respiratory Rate 18 18 Blood Pressure [Le ft Arm] 129/87 Blood Pressure [Ri ght Upper Arm] Pulse Oximetry 93 93 Oxygen Delivery Me thod Room Air Room Air 05/14/22 23:00 05/14/22 23:00 05/14/22 23:00 Temperature 97.7 F Pulse Rate 66 Pulse Rate [Left A pical] Pulse Rate [Left P ulse Oximeter] 66 66 Pulse Rate [Right Pulse Oximeter] Respiratory Rate 18 18 Blood Pressure [Le ft Arm] 129/80 Blood Pressure [Ri ght Upper Arm] Pulse Oximetry 93 Oxygen Delivery Me thod Room Air 05/15/22 03:00 Temperature 97.7 F Pulse Rate Pulse Rate [Left A pical] Pulse Rate [Left P ulse Oximeter] 62 Pulse Rate [Right Pulse Oximeter] Respiratory Rate 18 Blood Pressure [Le ft Arm] 135/96 H Blood Pressure [Ri ght Upper Arm] Pulse Oximetry 94 Oxygen Delivery Me thod Room Air Labs Labs: Laboratory Results - last 24 hr 05/14/22 05/14/22 05/14/22 13:38 13:38 13:38 WBC RBC Hgb Hct MCV MCH MCHC RDW Coeff of Anna Plt Count Neut % (Auto) Lymph % (Auto) [place] % (Auto) Eos % (Auto) Baso % (Auto) Neut # (Auto) Lymph # (Auto) [place] # (Auto) Eos # (Auto) Baso # (Auto) Abs Immat Gran (auto) Imm/Tot Granulo (auto) ESR 86 H INR Sodium 137 Potassium 5.0 Chloride 104 Carbon Dioxide 21 BUN 20 Creatinine 1.1 Estimated Creat Clear 56.09 Estimated GFR 67 Glucose 97 Lactate 1.5 Uric Acid Calcium 9.0 Total Bilirubin 1.3 AST 34 ALT 22 Alkaline Phosphatase 80 Troponin I C-Reactive Protein 20.7 H Total Protein 7.5 Albumin 3.9 Procalcitonin TSH SARS-CoV-2 (PCR) POC Troponin I 05/14/22 05/14/22 05/14/22 13:38 13:38 13:38 WBC RBC Hgb Hct MCV MCH MCHC RDW Coeff of Anna Plt Count Neut % (Auto) Lymph % (Auto) [place] % (Auto) Eos % (Auto) Baso % (Auto) Neut # (Auto) Lymph # (Auto) [place] # (Auto) Eos # (Auto) Baso # (Auto) Abs Immat Gran (auto) Imm/Tot Granulo (auto) ESR INR Sodium Potassium Chloride Carbon Dioxide BUN Creatinine Estimated Creat Clear Estimated GFR Glucose Lactate Uric Acid Calcium Total Bilirubin AST ALT Alkaline Phosphatase Troponin I C-Reactive Protein Total Protein Albumin Procalcitonin TSH 0.375 SARS-CoV-2 (PCR) Negative SARS-CoV-2 POC Troponin I 0.00 L 05/15/22 05/15/22 05/15/22 07:00 07:00 07:00 WBC 10.36 RBC 4.18 L Hgb 13.7 Hct 41.1 MCV 98 MCH 33 MCHC 33 RDW Coeff of Anna 13.0 Plt Count 254 Neut % (Auto) 85.1 H Lymph % (Auto) 6.0 L [place] % (Auto) 8.4 Eos % (Auto) 0.0 Baso % (Auto) 0.1 Neut # (Auto) 8.80 H Lymph # (Auto) 0.60 L [place] # (Auto) 0.90 Eos # (Auto) 0.00 Baso # (Auto) 0.01 Abs Immat Gran (auto) 0.04 Imm/Tot Granulo (auto) 0.4 ESR INR 1.99 H Sodium 136 Potassium 4.4 Chloride 104 Carbon Dioxide 20 BUN 22 Creatinine 1.0 Estimated Creat Clear 61.70 Estimated GFR 76 Glucose 101 Lactate Uric Acid 4.7 Calcium 8.6 Total Bilirubin 0.6 AST 16 ALT 20 Alkaline Phosphatase 95 Troponin I < 0.01 L C-Reactive Protein 20.2 H Total Protein 6.6 Albumin 3.5 Procalcitonin 0.28 TSH SARS-CoV-2 (PCR) POC Troponin I 05/15/22 07:00 WBC RBC Hgb Hct MCV MCH MCHC RDW Coeff of Anna Plt Count Neut % (Auto) Lymph % (Auto) [place] % (Auto) Eos % (Auto) Baso % (Auto) Neut # (Auto) Lymph # (Auto) [place] # (Auto) Eos # (Auto) Baso # (Auto) Abs Immat Gran (auto) Imm/Tot Granulo (auto) ESR 77 H INR Sodium Potassium Chloride Carbon Dioxide BUN Creatinine Estimated Creat Clear Estimated GFR Glucose Lactate Uric Acid Calcium Total Bilirubin AST ALT Alkaline Phosphatase Troponin I C-Reactive Protein Total Protein Albumin Procalcitonin TSH SARS-CoV-2 (PCR) POC Troponin I
[2022-05-15 08:24] VITALS: PULSE 67
[2022-05-15] MEDS: NIFEdipine 30 MG TAB.ER.24 PO (09:14)
[2022-05-15] MEDS: predniSONE 20 MG TABLET PO ×2 (09:14→13:41)
[2022-05-15 11:00] VITALS: BP 141/85; PULSE 74; RESP 18; TEMP 36.3; O2SAT 95
--- NOTE | 2022-05-15 12:42 | CRLHL7_ITS ---
For Patients: As a result of the Cures Act, medical imaging exams and procedure reports are released immediately into your electronic medical record. You may view this report before your referring provider. If you have questions, please contact your health care provider. Indication: Right shoulder pain. Technique: Right shoulder 3 views. Comparison: None. Findings: Narrowing and spurring at the acromioclavicular joint with chronic dorsal ossicle. Lateral downsloping of the acromion. Mild spurring of the inferior glenohumeral joint. No acute fracture. Visualized right lung clear with the exception of a calcified granuloma. Impression: No fracture. Moderate acromioclavicular degenerative joint disease and milder glenohumeral compartment degenerative joint disease. Dictated by Rafael Rogers MD @ 05/15/2022 1:55:25 PM (Electronically Signed)
--- NOTE | 2022-05-15 12:42 | CRLHL7_ITS ---
For Patients: As a result of the Century Cures Act, medical imaging exams and procedure reports are released immediately into your electronic medical record. You may view this report before your referring provider. If you have questions, please contact your health care provider. Indication: Shoulder pain, eval for possible osteomyelitis distal clavicle Technique: Left shoulder 3 views. Comparison: 04/29/22 Findings: Interval development of erosive changes at the distal clavicle and to a lesser extent at the acromion at the acromioclavicular joint with widening of the joint space and overlying soft tissue fullness. Mild degenerative changes at the glenohumeral joint and greater tuberosity. Vascular calcifications in the prominent aortic arch. Left upper lung clear. Impression: Development of infection/inflammation at the left acromioclavicular joint with erosive changes at the distal clavicle and acromion along with a joint effusion and synovial hypertrophy. Dictated by Rafael Rogers MD @ 05/15/2022 1:58:24 PM (Electronically Signed)
--- NOTE | 2022-05-15 12:45 | PM.ORCN ---
History of Present Illness HPI Time Seen by Provider: 12:46 Date Seen: 05/15/22 Consult date: 05/15/22 Requesting physician: Coretta Allison Chief complaint: Chest pain, elevated INR Narrative: Desean is a very pleasant 81-year-old young man, on the medical-surgical unit with right and left shoulder pain. He was seen at [facility] on 04/29/2022. X-rays were taken of the left shoulder. He was placed on oral prednisone and scheduled for an outpatient shoulder injection, however his INR has been elevated and the cortisone injection was not performed. He was diagnosed with bursitis. Sed rate and CRP are elevated. He has not had fever or chills. He has had no injury to his shoulders. He has no history of gout. He has had 1 dose of vancomycin in the hospital today. He states his left shoulder is more painful than the right. He however states that his left shoulder is improving while his right shoulder is now as painful as his left was initially. He lives with his . 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 He does not smoke. He does not drink alcohol. He is on long-term anti coagulation. History of CVA. Overall symptoms are improving on prednisone, left shoulder with a likely diagnosis of polymyalgia rheumatica. CT scan of his chest dated 05/14/2022 shows right shoulder fluid collection. He has noted cognitive decline. White count has been normal. INR this morning 1.99 and 1.88 today, 05/12/2022 INR was 7.08. White blood cell count is normal at 10.36. Hemoglobin normal 13.4. Sed rate today is 77, trending downward. C reactive protein elevated today 20.2, trending downward. He has not had problems with either shoulder in the past. He has had no shoulder surgeries. He has no hip pain. He ambulates without pain. He is able to get in and out of his bed without assistance. He has not had any recent infections, however he has been to the dentist recently and his dentist told him that several crowns are needed. He does not have any infections in his mouth or elsewhere he states. His and multiple family members are with him today. Other notable labs from [facility]: ?- INR was 2.3 in clinic (venous draw, POC was undetectable) ?- sed rate 82 on 05/12 ?- white blood count 12.9 today with PMN predominance (was 7.4 last week), Hgb normal at 14.8 ?- negative Lyme screen on 05/06 ?- negative RA factor on 05/06 ? Review of Systems Narrative: Patient denies nausea, vomiting, fever, chills, chest pain, shortness of breath PFSH PFSH Medical History Coronary artery disease Essential hypertension History of CVA (cerebrovascular accident) Hyperlipidemia PFO (patent foramen ovale) Surgical History History of coronary artery stent placement Social History Highest level of school completed/degree received: some college, no degree Smoking Status: Never smoker Do you use any of these nicotine containing products: None Second hand tobacco smoke exposure: No How often do you have a drink containing alcohol: never How often do you have six or more drinks on one occasion: Never AUDIT-C Alcohol total score: 0 Non-prescribed substance use: denies use Caffeine: Yes ([facility] daily) service: No Meds Home Medications and Allergies Home Medications Medication Instructions Recorded Confirmed Type nifedipine 30 mg tablet,extended 30 mg PO DAILY 05/12/22 05/14/22 History release 24 hr rosuvastatin 5 mg tablet 5 mg PO [id number]@21 05/12/22 05/14/22 History warfarin 5 mg tablet 2.5 - 5 mg PO DAILY 05/12/22 05/14/22 History acetaminophen 500 mg tablet 500 mg PO DAILY 05/14/22 05/14/22 History (Acetaminophen Extra Strength) amoxicillin 500 mg capsule 2,000 mg PO ONCE PRN 05/14/22 05/14/22 History chlorpheniramine maleate 4 mg 4 mg PO Q12H PRN 05/14/22 05/14/22 History tablet (Aller-Chlor) cholecalciferol (vitamin D3) 50 50 mcg PO DAILY 05/14/22 05/14/22 History mcg (2,000 unit) tablet glucosamine sulfate 500 mg tablet 1,500 mg PO DAILY 05/14/22 05/14/22 History (Cidatrine) vitamin B complex (B 1 tab PO DAILY 05/14/22 05/14/22 History Complex-Vitamin B12 tablet) Allergies Allergy/AdvReac Type Severity Reaction Status Date / Time aspirin Allergy Unknown Verified 05/14/22 18:28 Ortho Exam Narrative Exam Narrative: Alert and conversive. He is happy and tell stories. Patient is in no acute distress. Converses without labored breathing. Hearing is grossly intact. Ambulates with a normal gait. He is able to push his IV pole about the room. He moves well without severe pain. Examination of the left shoulder shows the skin is intact, no erythema or warmth. The shoulder joint does can be ranged without severe pain. Mild crepitus is palpable with passive range of motion. No atrophy or surgical scars. No abnormal masses or rashes. Positive Eli and Neer impingement signs. Negative painful arc. Positive cross-body test. Positive tenderness over the AC joint. Nontender elsewhere about the shoulder. Shoulder active range of motion is forward flexion 120?. Abduction 120?. External rotation 50?, internal rotation L1. Rotator cuff strength 4/4/4/5. Nontender over the SC joint. Negative load and shift. Negative lift-off. Negative sulcus. Painless range of motion of the cervical spine. Sensation is intact to light touch, 2+ distal pulses. No palpable effusion. Examination of the right shoulder shows the skin is intact, no erythema or warmth or evidence of infection. No atrophy or surgical scars. No abnormal masses or rashes. Positive Eli and Neer impingement signs. Positive painful arc. Not able to perform cross-body test. Tenderness over the long head of the biceps. Only mildly tender over the AC joint. Nontender elsewhere about the shoulder. No palpable effusion, however there is a fullness over the anterior shoulder in the area of the long head of the biceps tendon. Rotator cuff strength 3-/3-/3-/4. He cannot range the shoulder against gravity. Negative load and shift. Shoulder range of motion is forward flexion 20?, abduction 20?, external rotation 50?, internal rotation L1. Nontender at the SC joint. Sensation is intact to light touch, 2+ distal pulses. Const Vital Signs, click to edit/add: Vital Signs - 24 hr 05/14/22 13:06 05/14/22 16:58 05/14/22 17:32 Temperature 97.8 F 97.8 F Pulse Rate Pulse Rate [Left Apical] 91 Pulse Rate [Left Pulse Oximeter] Pulse Rate [Right Pulse Oximeter] 91 Respiratory Rate 18 18 18 Blood Pressure [Left Arm] 129/87 Blood Pressure [Right Upper Arm] 129/78 Pulse Oximetry 93 93 93 Oxygen Delivery Method Room Air Room Air Room Air 05/14/22 17:32 05/14/22 17:32 05/14/22 22:59 Temperature 97.9 F Pulse Rate 90 Pulse Rate [Left Apical] 91 Pulse Rate [Left Pulse Oximeter] Pulse Rate [Right Pulse Oximeter] Respiratory Rate 18 18 Blood Pressure [Left Arm] 129/87 Blood Pressure [Right Upper Arm] Pulse Oximetry 93 93 Oxygen Delivery Method Room Air Room Air 05/14/22 23:00 05/14/22 23:00 05/14/22 23:00 Temperature 97.7 F Pulse Rate 66 Pulse Rate [Left Apical] Pulse Rate [Left Pulse Oximeter] 66 66 Pulse Rate [Right Pulse Oximeter] Respiratory Rate 18 18 Blood Pressure [Left Arm] 129/80 Blood Pressure [Right Upper Arm] Pulse Oximetry 93 Oxygen Delivery Method Room Air 05/15/22 03:00 05/15/22 08:24 05/15/22 07:30 Temperature 97.7 F Pulse Rate 67 Pulse Rate [Left Apical] 91 Pulse Rate [Left Pulse Oximeter] 62 66 Pulse Rate [Right Pulse Oximeter] Respiratory Rate 18 18 Blood Pressure [Left Arm] 135/96 H Blood Pressure [Right Upper Arm] Pulse Oximetry 94 Oxygen Delivery Method Room Air 05/15/22 07:30 05/15/22 11:00 Temperature 97.5 F L 97.3 F L Pulse Rate Pulse Rate [Left Apical] 74 Pulse Rate [Left Pulse Oximeter] 66 Pulse Rate [Right Pulse Oximeter] Respiratory Rate 18 18 Blood Pressure [Left Arm] 137/89 141/85 H Blood Pressure [Right Upper Arm] Pulse Oximetry 94 95 Oxygen Delivery Method Room Air Room Air Results Labs Labs: Laboratory Results - last 48 hr 05/14/22 05/14/22 05/14/22 13:38 13:38 13:38 WBC RBC Hgb Hct MCV MCH MCHC RDW Coeff of Anna Plt Count Neut % (Auto) Lymph % (Auto) Pickett % (Auto) Eos % (Auto) Baso % (Auto) Neut # (Auto) Lymph # (Auto) Pickett # (Auto) Eos # (Auto) Baso # (Auto) Abs Immat Gran (auto) Imm/Tot Granulo (auto) ESR 86 H INR Sodium 137 Potassium 5.0 Chloride 104 Carbon Dioxide 21 BUN 20 Creatinine 1.1 Estimated Creat Clear 56.09 Estimated GFR 67 Glucose 97 Lactate 1.5 Uric Acid Calcium 9.0 Total Bilirubin 1.3 AST 34 ALT 22 Alkaline Phosphatase 80 Troponin I C-Reactive Protein 20.7 H Total Protein 7.5 Albumin 3.9 Procalcitonin TSH SARS-CoV-2 (PCR) POC Troponin I 05/14/22 05/14/22 05/14/22 13:38 13:38 13:38 WBC RBC Hgb Hct MCV MCH MCHC RDW Coeff of Anna Plt Count Neut % (Auto) Lymph % (Auto) Pickett % (Auto) Eos % (Auto) Baso % (Auto) Neut # (Auto) Lymph # (Auto) Pickett # (Auto) Eos # (Auto) Baso # (Auto) Abs Immat Gran (auto) Imm/Tot Granulo (auto) ESR INR Sodium Potassium Chloride Carbon Dioxide BUN Creatinine Estimated Creat Clear Estimated GFR Glucose Lactate Uric Acid Calcium Total Bilirubin AST ALT Alkaline Phosphatase Troponin I C-Reactive Protein Total Protein Albumin Procalcitonin TSH 0.375 SARS-CoV-2 (PCR) Negative SARS-CoV-2 POC Troponin I 0.00 L 05/15/22 05/15/22 05/15/22 07:00 07:00 07:00 WBC 10.36 RBC 4.18 L Hgb 13.7 Hct 41.1 MCV 98 MCH 33 MCHC 33 RDW Coeff of Anna 13.0 Plt Count 254 Neut % (Auto) 85.1 H Lymph % (Auto) 6.0 L Pickett % (Auto) 8.4 Eos % (Auto) 0.0 Baso % (Auto) 0.1 Neut # (Auto) 8.80 H Lymph # (Auto) 0.60 L Pickett # (Auto) 0.90 Eos # (Auto) 0.00 Baso # (Auto) 0.01 Abs Immat Gran (auto) 0.04 Imm/Tot Granulo (auto) 0.4 ESR INR 1.99 H Sodium 136 Potassium 4.4 Chloride 104 Carbon Dioxide 20 BUN 22 Creatinine 1.0 Estimated Creat Clear 61.70 Estimated GFR 76 Glucose 101 Lactate Uric Acid 4.7 Calcium 8.6 Total Bilirubin 0.6 AST 16 ALT 20 Alkaline Phosphatase 95 Troponin I < 0.01 L C-Reactive Protein 20.2 H Total Protein 6.6 Albumin 3.5 Procalcitonin 0.28 TSH SARS-CoV-2 (PCR) POC Troponin I 05/15/22 07:00 WBC RBC Hgb Hct MCV MCH MCHC RDW Coeff of Anna Plt Count Neut % (Auto) Lymph % (Auto) Pickett % (Auto) Eos % (Auto) Baso % (Auto) Neut # (Auto) Lymph # (Auto) Pickett # (Auto) Eos # (Auto) Baso # (Auto) Abs Immat Gran (auto) Imm/Tot Granulo (auto) ESR 77 H INR Sodium Potassium Chloride Carbon Dioxide BUN Creatinine Estimated Creat Clear Estimated GFR Glucose Lactate Uric Acid Calcium Total Bilirubin AST ALT Alkaline Phosphatase Troponin I C-Reactive Protein Total Protein Albumin Procalcitonin TSH SARS-CoV-2 (PCR) POC Troponin I Diagnostic results Shoulder x-ray: report reviewed (X-rays are taken today bilateral shoulders, three views, left. This shows development of infection/inflammation of the left AC joint with erosive changes at the distal clavicle and acromion along with a joint effusion and synovial hypertrophy. Three views of the right shoulder shows no fracture, m) and other (X-rays are reviewed from [facility], left shoulder dated 04/29/2022 three views. These show mild degenerative joint disease left shoulder. Mild narrowing and spurring of the acromioclavicular and glenohumeral joints. There is no erosive disease on these films 2 weeks ago. on these films 2 weeks ago.) Additional Comments: Chest CT dated 05/14/2022 shows complex fluid collection of the right shoulder joint extends medially and shows peripheral enhancement. This could be bursitis, but the appearance is concerning for infected collection, or raising concerns for septic arthritis. Chest x-ray dated 05/14/2022 shows no acute pulmonary disease. Bones are unremarkable. In reviewing the AC joint myself, it appears the AC joint shows erosive change on the left. Assessment and Plan Assessment and plan (1) PMR (polymyalgia rheumatica): Problem comment: prednisone has predictably relieved his discomfort significantly. I suspect this right shoulder is adhesive capsulitis but given complex imaging findings; an aspirate is indicated; may be able to given subacromial injection of steroids if no infection. Status: Acute Total time spent: Total time spent is greater than 50% in coordination of care (as documented) at patient's floor/unit and/or counseling patient: (2) Anticoagulant long-term use: Problem comment: following INR as it was >7 yesterday, 1.99 today. add back cautiously. Status: Acute Total time spent: Total time spent is greater than 50% in coordination of care (as documented) at patient's floor/unit and/or counseling patient: (3) Abnormal CT scan: Problem comment: R shoulder fluid collection on 05/14 CT scan Status: Acute Total time spent: Total time spent is greater than 50% in coordination of care (as documented) at patient's floor/unit and/or counseling patient: (4) Essential hypertension: Problem comment: monitor add back home meds as indicated. Status: Acute Total time spent: Total time spent is greater than 50% in coordination of care (as documented) at patient's floor/unit and/or counseling patient: (5) Cognitive decline: Problem comment: MOCA 25; short term recall deficit but executive function is intact. Status: Acute Total time spent: Total time spent is greater than 50% in coordination of care (as documented) at patient's floor/unit and/or counseling patient: (6) Bilateral shoulder pain: Problem comment: Desean is showing improvement on prednisone. He will be discharged on prednisone. His shoulder pain is improving. His CRP and sed rate are trending downward. He does not have elevated white blood cell count. He has had No fevers or chills. I am concerned there is a possibility of osteomyelitis of the left distal clavicle. He will be scheduled for an MRI at [facility] today or tomorrow for the left shoulder. [facility] does not have a MRI opening for at least 10 days. I would like him to follow-up for MRI results and re-evaluation of both shoulders next week with 1 of our orthopedic surgeons. I have emailed office staff to be sure he gets an appointment. If he has osteomyelitis, surgical debridement would be needed and possibly hyperbaric treatment. He may need an MRI of the right shoulder as well. At this time we will see how he responds to the prednisone. He is in no acute pain. He is not requiring narcotic pain medication. He takes Tylenol prn. He and his family are in agreement the plan. All questions were answered. Note, dictation performed with voice recognition, and as a result, wrong word or sound like substitutions may have occurred. There may be areas in the script that have gone on detected. Please consider this when interpreting information found in the chart. Status: Acute
--- NOTE | 2022-05-15 13:33 | P.DS_ITS ---
DS: Providers Provider Date Seen: 05/15/22 Date of admission: 05/14/22 16:38 Primary care physician: Nhi Marvin MD Admitting Clinician: Coretta Allison MD Consults: 05/14/22 17:34 Consult to Occupational Therapy [CONS] Routine Comment: Reason(s) for OT Consult:: Evaluate and Treat Any Restrictions?:: No Restrictions Comment: severe B shoulder pain, suspect PMR 05/14/22 23:05 Consult to Occupational Therapy [CONS] Routine Comment: Reason(s) for OT Consult:: Difficulty Managing ADLs Any Restrictions?:: No Restrictions Attending Physician on discharge: Natty Guardado MD [facility] Date of Discharge: 05/15/22 DS: Diagnosis Discharge Diagnosis (1) PMR (polymyalgia rheumatica): Status: Acute Problem details: prednisone has predictably relieved his discomfort significantly. I suspect this right shoulder is adhesive capsulitis but given complex imaging findings; an aspirate is indicated; may be able to given subacromial injection of steroids if no infection. (2) Cognitive decline: Status: Acute Problem details: MOCA 25; short term recall deficit but executive function is intact. (3) Anticoagulant long-term use: Status: Acute Problem details: following INR as it was >7 yesterday, 1.99 today. add back cautiously. (4) Elevated INR: Status: Acute DS: Summary Hospital Course Hospital Course: HOSPITALIST DISCHARGE SUMMARY ATTENDING PHYSICIAN: Natty Guardado MD FINAL DIAGNOSIS: Polymyalgia rheumatica Elevated INR Cognitive decline, MOCA 23 HOSPITAL FOLLOWUP ISSUES: 1. Warfarin dose management. Needed for 05/18. We restarted his warfarin dosing that had been reduced last week. His INR on discharge was 1.9 2. Prednisone burst and taper for PMR, discharging on 40 mg daily of prednisone. PCP to continue this wean as appropriate 3. Outpatient occupational and physical therapy. Given his cognitive decline and musculoskeletal pain, he should not drive until cleared by his PCP. REFERRALS WHILE ADMITTED: Orthopedics REFERRALS AFTER DISCHARGE: Physical therapy, occupational therapy BRIEF HOSPITAL COURSE: Desean was admitted with severe bilateral shoulder pain. He was diagnosed with PMR and started on prednisone. He had a dramatic response within 24 hours, decreasing pain noted. Imaging identified a possible complicated fluid collection in the right shoulder. Orthopedics came and did a bedside range of motion exam and did not feel this was consistent with a septic joint. This was likely related to PMR. When he admitted his INR was 7. There is concern from his care team here at the hospital that he may have taken more warfarin than was prescribed secondary to his confusion and pain. It is possible the prednisone affected his INR but unlikely to the extent we saw. We held his warfarin and on discharge his INR was 1.9. We have close monitoring recommended. His PCP can follow his prednisone taper, his hospital team is recommending OT and PT. I had a lengthy discussion with both sons regarding cognitive decline in their father and that he should not drive and they should start making plans for assisted living for his their parents. SUBSTANTIVE NOTATIONS ON IMAGING, LAB, MICROBIOLOGY/PATHOLOGY STUDIES: Complex fluid collection in the right shoulder joint extends medially and shows peripheral enhancement. This could be bursitis, but the appearance is concerning for infected collection, raising concern for septic arthritis. - ORTHO CONSULTED. Elevated ESR consistent with PMR. Temporal biopsy was briefly considered. Not done. DISCHARGE MEDICATIONS: See Reconciled list - SIGNIFICANT CHANGES: Adding prednisone burst and taper Continuing warfarin at previous dosing, close monitoring needed REVIEW OF SYSTEMS No new chest pain or dyspnea Pain controlled No voiding difficulties Tolerating diet challenge PHYSICAL EXAM: CONSTITUTIONAL: VITAL SIGNS: see record. HEENT: Normocephalic, atraumatic. PERRL, EOMI, conjunctivae pink, no scleral icterus. Ears and nose externally normal. Pharynx normal. NECK: No JVD. No carotid bruit, no thyromegaly, no adenopathy. CHEST: Clear to auscultation bilaterally. HEART: S1 and S2 normal. Edema ABDOMEN: Soft, nontender. Normal bowel sounds. MUSCULOSKELETAL: Decreased range of motion about both shoulders, right greater than left. Neurovascularly intact no evidence of stroke. Passive range of motion possible. See ortho is exam for further detail. NEURO: Cranial nerves intact. Grossly intact. No asymmetric findings. SKIN: No rashes, petechiae, concerning changes PSYCHIATRIC: Mood euthymic. DISPOSITION: Home with and family Time spent on discharge 37 minutes. Status at Discharge Functional status at discharge: uses cane/walker Overall status at discharge: patient is progressing back to baseline Time Spent with Patient Time attestation: Total time spent providing and/or coordinating discharge services: Exam Const: Vital Signs, click to edit/add: Vital Signs - 24 hr 05/14/22 16:58 05/14/22 17:32 05/14/22 17:32 Temperature 97.8 F 97.9 F Pulse Rate Pulse Rate [Left A pical] 91 91 Pulse Rate [Left P ulse Oximeter] Respiratory Rate 18 18 18 Blood Pressure [Le ft Arm] 129/87 129/87 Pulse Oximetry 93 93 93 Oxygen Delivery Me thod Room Air Room Air Room Air 05/14/22 17:32 05/14/22 22:59 05/14/22 23:00 Temperature Pulse Rate 90 Pulse Rate [Left A pical] Pulse Rate [Left P ulse Oximeter] 66 Respiratory Rate 18 18 Blood Pressure [Le ft Arm] Pulse Oximetry 93 Oxygen Delivery La thod Room Air 05/14/22 23:00 05/14/22 23:00 05/15/22 03:00 Temperature 97.7 F 97.7 F Pulse Rate 66 Pulse Rate [Left A pical] Pulse Rate [Left P ulse Oximeter] 66 62 Respiratory Rate 18 18 Blood Pressure [Le ft Arm] 129/80 135/96 H Pulse Oximetry 93 94 Oxygen Delivery La thod Room Air Room Air 05/15/22 08:24 05/15/22 07:30 05/15/22 07:30 Temperature 97.5 F L Pulse Rate 67 Pulse Rate [Left A pical] 91 Pulse Rate [Left P ulse Oximeter] 66 66 Respiratory Rate 18 18 Blood Pressure [Le ft Arm] 137/89 Pulse Oximetry 94 Oxygen Delivery La thod Room Air 05/15/22 11:00 Temperature 97.3 F L Pulse Rate Pulse Rate [Left A pical] 74 Pulse Rate [Left P ulse Oximeter] Respiratory Rate 18 Blood Pressure [Le ft Arm] 141/85 H Pulse Oximetry 95 Oxygen Delivery Me thod Room Air DS: Data Data Completed and Pending Labs on day of discharge: Labs from last 24 hours 05/15/22 05/15/22 05/15/22 07:00 07:00 07:00 WBC RBC Hgb Hct MCV MCH MCHC RDW Coeff of Anna Plt Count Neut % (Auto) Lymph % (Auto) [place] % (Auto) Eos % (Auto) Baso % (Auto) Neut # (Auto) Lymph # (Auto) [place] # (Auto) Eos # (Auto) Baso # (Auto) Abs Immat Gran (auto) Imm/Tot Granulo (auto) ESR 77 H INR 1.99 H Sodium 136 Potassium 4.4 Chloride 104 Carbon Dioxide 20 BUN 22 Creatinine 1.0 Estimated Creat Clear 61.70 Estimated GFR 76 Glucose 101 Lactate Uric Acid 4.7 Calcium 8.6 Total Bilirubin 0.6 AST 16 ALT 20 Alkaline Phosphatase 95 Troponin I < 0.01 L C-Reactive Protein 20.2 H Total Protein 6.6 Albumin 3.5 Procalcitonin 0.28 TSH SARS-CoV-2 (PCR) POC Troponin I 05/15/22 05/14/22 05/14/22 07:00 13:38 13:38 WBC 10.36 RBC 4.18 L Hgb 13.7 Hct 41.1 MCV 98 MCH 33 MCHC 33 RDW Coeff of Anna 13.0 Plt Count 254 Neut % (Auto) 85.1 H Lymph % (Auto) 6.0 L [place] % (Auto) 8.4 Eos % (Auto) 0.0 Baso % (Auto) 0.1 Neut # (Auto) 8.80 H Lymph # (Auto) 0.60 L [place] # (Auto) 0.90 Eos # (Auto) 0.00 Baso # (Auto) 0.01 Abs Immat Gran (auto) 0.04 Imm/Tot Granulo (auto) 0.4 ESR INR Sodium Potassium Chloride Carbon Dioxide BUN Creatinine Estimated Creat Clear Estimated GFR Glucose Lactate Uric Acid Calcium Total Bilirubin AST ALT Alkaline Phosphatase Troponin I C-Reactive Protein Total Protein Albumin Procalcitonin TSH SARS-CoV-2 (PCR) Negative SARS-CoV-2 POC Troponin I 0.00 L 05/14/22 05/14/22 05/14/22 13:38 13:38 13:38 WBC RBC Hgb Hct MCV MCH MCHC RDW Coeff of Anna Plt Count Neut % (Auto) Lymph % (Auto) [place] % (Auto) Eos % (Auto) Baso % (Auto) Neut # (Auto) Lymph # (Auto) [place] # (Auto) Eos # (Auto) Baso # (Auto) Abs Immat Gran (auto) Imm/Tot Granulo (auto) ESR INR Sodium 137 Potassium 5.0 Chloride 104 Carbon Dioxide 21 BUN 20 Creatinine 1.1 Estimated Creat Clear 56.09 Estimated GFR 67 Glucose 97 Lactate 1.5 Uric Acid Calcium 9.0 Total Bilirubin 1.3 AST 34 ALT 22 Alkaline Phosphatase 80 Troponin I C-Reactive Protein 20.7 H Total Protein 7.5 Albumin 3.9 Procalcitonin TSH 0.375 SARS-CoV-2 (PCR) POC Troponin I 05/14/22 13:38 WBC RBC Hgb Hct MCV MCH MCHC RDW Coeff of Anna Plt Count Neut % (Auto) Lymph % (Auto) [place] % (Auto) Eos % (Auto) Baso % (Auto) Neut # (Auto) Lymph # (Auto) [place] # (Auto) Eos # (Auto) Baso # (Auto) Abs Immat Gran (auto) Imm/Tot Granulo (auto) ESR 86 H INR Sodium Potassium Chloride Carbon Dioxide BUN Creatinine Estimated Creat Clear Estimated GFR Glucose Lactate Uric Acid Calcium Total Bilirubin AST ALT Alkaline Phosphatase Troponin I C-Reactive Protein Total Protein Albumin Procalcitonin TSH SARS-CoV-2 (PCR) POC Troponin I Discharge Plan Discharge Disposition: Home, Self-Care Date of Admission: 05/14/22 16:38 Attending Provider on Discharge: Natty Guardado Primary Care Provider: Nhi Marvin Condition: Improved Anticipated Discharge Date/Time: 05/15/22 12:44 Discharge Medications: New prednisone 20 mg Tablet 40 mg PO DAILYWM Qty: 14 0RF Rx Instructions: 40mg every day for 1 week 20mg every day for 1 week then see your doc for further taper Continued acetaminophen [Acetaminophen Extra Strength] 500 mg tablet 500 mg PO DAILY amoxicillin 500 mg capsule 2,000 mg PO ONCE PRN chlorpheniramine maleate [Aller-Chlor] 4 mg tablet 4 mg PO Q12H PRN cholecalciferol (vitamin D3) 50 mcg (2,000 unit) tablet 50 mcg PO DAILY glucosamine sulfate [Cidatrine] 500 mg tablet 1,500 mg PO DAILY Rx Instructions: administer with a meal vitamin B complex [B Complex-Vitamin B12] Tablet 1 tab PO DAILY nifedipine 30 mg tablet extended release 24hr 30 mg PO DAILY warfarin 5 mg tablet 2.5 - 5 mg PO DAILY Label Comments: 2.5 MG SUN,WED,,,SAT 5 MG ,WEDNESDAY rosuvastatin 5 mg tablet 5 mg PO [id number] Discontinued prednisone 10 mg tablet 10 mg PO DAILY Discharge Orders: Discharge Order (Routine); Ordered 05/15/22 Ordered By: Natty Guardado Additional Instructions: INR on Wednesday; See Dr. Nhi Spence or someone at her clinic for a f/u on your symptoms. I would like you to see PT and OT as an outpatient for continued cares for your pain and cognitive issues outpatient OT (cognitive decline, driving assessment) outpatient PT (PMR) Activity Level: Activity as Tolerated Activity Detail: NO DRIVING until your physician clears you Follow Up Appointments: Nhi Marvin MD [Primary Care Provider] - (1 week) Forms: [employer] Info Instructions
[2022-05-15 14:29] LABS: INR 1.88 (0.91-1.10); Prothrombin Time 22.6 Seconds
== END 2022-05-15 15:42 | disposition home or self-care (01) ==
LOC: ED 14:32 → MEDSURG 16:39
PROVIDERS: Family Medicine; Internal Medicine; Admitting Provider Family Medicine; Emergency Provider Family Medicine; PCP Family Medicine; Visit Provider Family Medicine
DX: M35.3 Polymyalgia rheumatica (principal); R93.89 Abnormal findings on diagnostic imaging of other specified body structures; R70.0 Elevated erythrocyte sedimentation rate; R41.89 Other symptoms and signs involving cognitive functions and awareness; Z86.73 Personal history of transient ischemic attack (TIA), and cerebral infarction without residual deficits; D72.829 Elevated white blood cell count, unspecified; I10 Essential (primary) hypertension; Z79.01 Long term (current) use of anticoagulants; R79.1 Abnormal coagulation profile; M25.511 Pain in right shoulder; M25.512 Pain in left shoulder
CPT/HCPCS: 36415; 70498; 71045; 71260; 73030; 80053; 83605; 84145; 84443; 84484; 84550; 85025; 85610; 85651; 86140; 87040; 87635; 93005; 96361; 96365; 96366; 96372; 97165; 97535; 99284; G0378; A9270; G0379; J1650; J3370; J7030; J7120; J7512; Q9967

== ENCOUNTER 2022-05-16 16:05 | Inpatient (IN) | payer MEDICARE, OTHER, SELFPAY ==
[2022-05-16 16:40] VITALS: BP 126/82; PULSE 83; RESP 16; RESP 18; TEMP 36.7; O2SAT 92; BMI 27.6
[2022-05-16 17:03] LABS: Hematocrit 37.2 % (37.0-53.0); Hemoglobin* 12.3 gm/dL (13.5-17.5); Immature Granulocytes Pct Auto 0.4 %; Mean Corpuscular HGB Conc 33 gm/dL (32-36); Mean Corpuscular Hemoglobin 33 pg (26-34); Mean Corpuscular Volume 99 fL (80-100); Monocytes Percent Auto 3.9 % (0.0-11.0); Neutrophils Percent Auto 94.7 % (42.0-72.0); Platelet Count* 277 K/uL (140-440); RDW Coefficient of Variation % 13.1 % (11.5-15.5); Red Blood Count 3.75 m/uL (4.30-5.90); White Blood Count* 22.86 K/uL (4.50-11.00)
[2022-05-16 17:05] LABS: Slide Review Reflex No
[2022-05-16 17:15] LABS: Chloride* 105 mmol/L (96-114)
[2022-05-16 17:16] LABS: Albumin* 3.3 g/dL (3.3-5.0); Potassium* 4.2 mmol/L (3.6-5.1); Sodium* 135 mmol/L (135-149)
[2022-05-16 17:19] LABS: Blood Urea Nitrogen* 30 mg/dL (7-30); Carbon Dioxide* 19 mmol/L (20-32); Creatinine* 1.2 mg/dL (0.5-1.5); Est. Creatinine Clearance* 51.42; Estimated Glomerular Filt Rate 61 ml/min; Glucose* 135 mg/dL (60-115)
[2022-05-16 17:20] LABS: Calcium* 8.4 mg/dL (8.4-10.6); Magnesium* 2.2 mg/dL (1.5-2.6)
[2022-05-16 17:23] LABS: INR 2.01 (0.91-1.10); Prothrombin Time 23.8 Seconds
[2022-05-16] MEDS: 0.9 % SODIUM CHLORIDE 1000 ml 1,000 ML 125 ML IV (18:04)
--- NOTE | 2022-05-16 18:20 | PM.IMPN1 ---
Progress Note: A&P Assessment and plan (1) Bilateral shoulder pain: Problem details: Possible right shoulder septic arthritis and left AC joint sepsis Status: Acute Assessment and Plan: [place] physical therapy, occupational therapy, social service to assist with postoperative cares and discharge disposition planning. (2) Abnormal CT scan: Problem details: R shoulder fluid collection on 05/14 CT scan Status: Acute (3) Anticoagulant long-term use: Problem details: following INR as it was >7 05/14/2022. Yesterday was down to 1.9. Today it is 2.0. Status: Acute Assessment and Plan: Vitamin K 5 mg orally given. Will recheck INR in about 6 hours and then about 6 hours later. Consider administration of additional vitamin K if need be. (4) Elevated sed rate: Status: Acute (5) History of CVA (cerebrovascular accident): Status: Acute (6) Essential hypertension: Problem details: monitor add back home meds as indicated. Status: Acute (7) Leukocytosis: Problem details: WBC 12.8 at [facility] 05/14. Marked sudden increase value of white blood cell count at 20 today, most likely demargination due to steroid use. Status: Acute (8) Cognitive decline: Problem details: MOCA 25; short term recall deficit but executive function is intact. Status: Acute (9) Elevated INR: Status: Acute Assessment and Plan: Hold warfarin. Vitamin K 5 mg p.o. now. Recheck INR in 6 hours and consider additional vitamin K if needed. Recheck INR tomorrow morning. Plan 1. Reviewed with the patient, his , and their son. Answered their questions. 2. Reviewed with KEVIN Durham, who is in conversation with Dr. Colunga, orthopedic surgeon. They will consider surgery as early as tomorrow. 3. Will initiate reversal of INR to less than 1.5 if at all possible. Vitamin K 5 mg orally now and recheck INR around 11:00 p.m. tonight. 4. Blood cultures obtained. Will monitor his vitals closely. 5. Will check a lactate. Will initiate IV fluids. 6. NPO after midnight. Regular diet for now. 7. Patient and family are agreeable with above stated plan recommendations for now. Time Spent With Patient Total time spent: 70 minutes Subjective Time Seen by Provider: 16:30 Date Seen: 05/16/22 Interval history: 81-year-old man discharged from the hospital yesterday, returns today noting that his temperature was as high as 99.7? F earlier this morning and he had an episode of chills lasting 30-45 minutes around 5:00 a.m. this morning. When he woke up later this morning he indicates that his T-shirt was wet from perspiration, and this is unusual for him. Additionally when he woke up he did not feel well at all like he did when he left the hospital yesterday. He told his that he felt more wobbly on his feet. In consequence of him not feeling well the patient called his primary care physician, Dr. Nhi Huertas, and discuss their concerns. Patient was referred for direct admit and thus he presents. Continues to have discomfort in his shoulders, left more so than right. Pain is worse with active range of motion. Additionally he states if he palpates the right shoulder anteriorly that there is pain there as well. If he does not move his shoulder than he states he is quite comfortable. Denies weakness of hands or forearms. Has not had any trauma or injury since he left the hospital. Last ate yesterday evening around 7:00 p.m. last drink around 3:00 this afternoon, he had a sip of a smoothie. Again he notes that he just has not felt well today. When he left the hospital yesterday he states he did feel well. Patient reportedly had an MR scan of his left shoulder after left the hospital last night. A radiologist report is not available. Our orthopedic surgery did see the images. They are concerned at the patient may have septic arthritis. Our radiologist reviewed the CT scan of the chest that was obtained couple of days ago suggesting the possibility of the septic arthritis on the right. Exam Narrative: Exam Narrative: Awake, alert, articulate, cooperative. Oriented to self, place, time. Asks a lot of questions, sometimes more than once. Is able to be oriented to situation. Vision and hearing are grossly normal. No icterus or conjunctival injection. Pupils equally round and reactive to light and accommodation. Midline nasal septum. Dentition in fair repair. Buccal mucosa is moist. Neck is supple. Midline trachea normal thyroid. No JVD, hepatojugular reflux, or carotid bruits. No adenopathy. Lungs are clear to auscultation without wheezing, rhonchi, or rales. No CVA tenderness. Heart tones with regular rhythm, normal S1, S2. No murmur, gallop, or rub. Abdomen with active bowel sounds, soft, nontender. Extremities without edema. Skin is warm, dry, intact. No focal motor neurologic deficits. Const: Vital Signs, click to edit/add: Vital Signs - 24 hr 05/16/22 16:40 05/16/22 16:40 Temperature 98.1 F Pulse Rate [Left] 83 Respiratory Rate 16 18 Blood Pressure [Le ft Arm] 126/82 Pulse Oximetry 92 92 Oxygen Delivery Me thod Room Air Room Air Documenting provider has reviewed patient's vital signs: yes Labs Labs: Laboratory Results - last 24 hr 05/16/22 05/16/22 05/16/22 16:46 16:46 16:46 WBC 22.86 H RBC 3.75 L Hgb 12.3 L Hct 37.2 MCV 99 MCH 33 MCHC 33 RDW Coeff of Anna 13.1 Plt Count 277 Neut % (Auto) 94.7 H Lymph % (Auto) 1.0 L [place] % (Auto) 3.9 Eos % (Auto) 0.0 Baso % (Auto) 0.0 Neut # (Auto) 21.60 H Lymph # (Auto) 0.20 L [place] # (Auto) 0.90 Eos # (Auto) 0.00 Baso # (Auto) 0.00 Abs Immat Gran (auto) 0.10 Imm/Tot Granulo (auto) 0.4 INR 2.01 H Sodium Potassium Chloride Carbon Dioxide BUN Creatinine Estimated Creat Clear Estimated GFR Glucose Calcium Phosphorus Magnesium C-Reactive Protein 9.0 H Albumin 05/16/22 16:46 WBC RBC Hgb Hct MCV MCH MCHC RDW Coeff of Anna Plt Count Neut % (Auto) Lymph % (Auto) [place] % (Auto) Eos % (Auto) Baso % (Auto) Neut # (Auto) Lymph # (Auto) [place] # (Auto) Eos # (Auto) Baso # (Auto) Abs Immat Gran (auto) Imm/Tot Granulo (auto) INR Sodium 135 Potassium 4.2 Chloride 105 Carbon Dioxide 19 L BUN 30 Creatinine 1.2 Estimated Creat Clear 51.42 Estimated GFR 61 Glucose 135 H Calcium 8.4 Phosphorus 3.0 Magnesium 2.2 C-Reactive Protein Albumin 3.3
--- NOTE | 2022-05-16 18:33 | PC.NURSE ---
Shift [id number]- Patient arrives to unit at approximately 1615 with and son. He notes some pain to bilateral shoulders with movement, but nearly no pain at rest. He answers questions appropriately. New IV initiated to left forearm.
[2022-05-16 18:59] LABS: Lactate* 2.3 mmol/L (0.5-1.9)
[2022-05-16 19:00] VITALS: BP 115/68; PULSE 74; RESP 18; TEMP 36.9; O2SAT 94
[2022-05-16] MEDS: ACETAMINOPHEN 325 MG TABLET 650 MG PO (21:11)
[2022-05-16 23:00] VITALS: BP 105/69; PULSE 62; RESP 18; TEMP 36.6; O2SAT 93
[2022-05-16 23:48] LABS: INR 1.82 (0.91-1.10)
[2022-05-17] VITALS (21 sets, daily range): BP systolic 110–173; BP diastolic 71–101; PULSE 57–82; RESP 16–27; TEMP 36.2–37.2; O2SAT 90–100
[2022-05-17] MEDS: 0.9 % SODIUM CHLORIDE 1000 ml 1,000 ML 125 ML IV (01:04)
[2022-05-17 05:28] LABS: Lactate* 1.1 mmol/L (0.5-1.9)
[2022-05-17 05:37] LABS: Basophils Percent Auto 0.1 % (0.0-3.0); Eosinophils Percent Auto 0.1 % (0.0-7.0); Hematocrit 33.3 % (37.0-53.0); Hemoglobin* 11.2 gm/dL (13.5-17.5); Immature Granulocytes Pct Auto 0.3 %; Lymphocytes Percent Auto 7.6 % (20-44); Mean Corpuscular HGB Conc 34 gm/dL (32-36); Mean Corpuscular Hemoglobin 34 pg (26-34); Mean Corpuscular Volume 100 fL (80-100); Monocytes Percent Auto 6.3 % (0.0-11.0); Neutrophils Percent Auto 85.6 % (42.0-72.0); Platelet Count* 244 K/uL (140-440); RDW Coefficient of Variation % 13.3 % (11.5-15.5); Red Blood Count 3.32 m/uL (4.30-5.90); White Blood Count* 15.07 K/uL (4.50-11.00)
--- NOTE | 2022-05-17 05:42 | PC.NURSE ---
Shift note: Pt is maintained on NPO status since 2099 for possible surgery today.Denied any pain to the shoulder. Pt IV patency maintained with N/S. Pt had frequency of urine, no bowel movement yet. Assist of 1 with walker and GB. Pre-op preparation and documentation started.
[2022-05-17 05:48] LABS: Slide Review Reflex No
[2022-05-17 06:10] LABS: C Reactive Protein* 13.6 mg/dL (0.5-1.0)
[2022-05-17 06:54] LABS: INR 1.64 (0.91-1.10); Prothrombin Time 20.3 Seconds
[2022-05-17] MEDS: PHYTONADIONE (VIT K1) 5 MG in 0.9 % SODIUM CHLORIDE 50 ml 50 ML 101 MG IVPB (07:40)
[2022-05-17] MEDS: EPINEPHrine 1 MG in SODIUM CHLORIDE IRRIG SOLUTION 3,000 ML 12003 MG IRRIGATION (08:00)
--- NOTE | 2022-05-17 08:13 | REH.OT ---
OT/PT received orders, chart reviewed, pt with ortho consult this am and going to surgery shortly. OT/PT with check status tomorrow post op.
--- NOTE | 2022-05-17 08:28 | P.ORCN_ITS ---
History of Present Illness HPI Date Seen: 05/17/22 Requesting physician: Natty Guardado Chief complaint: Direct admit Narrative: patient is an 81-year-old [id number] gentleman who has a 6-8 week history of left shoulder pain, 3-4 week history of right shoulder pain. The symptoms began, without history of injury. The symptoms have been progressive, however responded well to prednisone. With an elevated sed rate and CRP and clinical improvement on prednisone, he was felt to have polymyalgia rheumatica. He was discharged from the hospital, improved. However , while home felt feverish with chills. His primary care physician recommended readmission. There has been significant change in his left shoulder x-ray in just 2 weeks time. Erosion of his distal clavicle was noted. A fluid collection in the right shoulder on chest CT scan was noted. MRI scan left shoulder is worrisome for AC joint septic arthritis. An MRI scan of the right shoulder has not been performed. He does not have diabetes, does not smoke cigarettes and is on Cou madin for previous CVA. There is no obvious reason for his immune system to be compromised. He has had a recent INR as high as 7. Review of Systems Narrative: The patient has felt feverish, chills and sweating, denies: nausea, vomiting, diarrhea, chest pain, chest pressure, shortness of breath, no rash, no change in hearing or vision PFSH PFS Medical History Coronary artery disease Essential hypertension History of CVA (cerebrovascular accident) Hyperlipidemia PFO (patent foramen ovale) Surgical History History of coronary artery stent placement Social History Highest level of school completed/degree received: some college, no degree Smoking Status: Never smoker Do you use any of these nicotine containing products: None Second hand tobacco smoke exposure: No How often do you have a drink containing alcohol: never How often do you have six or more drinks on one occasion: Never AUDIT-C Alcohol total score: 0 Non-prescribed substance use: denies use Caffeine: Yes ([place] [place] daily) service: No Meds Home Medications and Allergies Home Medications Medication Instructions Recorded Confirmed Type nifedipine 30 mg tablet,extended 30 mg PO DAILY 05/12/22 05/17/22 History release 24 hr rosuvastatin 5 mg tablet 5 mg PO MOWEFR@05/12/22 05/17/22 History warfarin 5 mg tablet 2.5 - 5 mg PO DAILY 05/12/22 05/17/22 History acetaminophen 500 mg tablet 500 mg PO DAILY 05/14/22 05/17/22 History (Acetaminophen Extra Strength) amoxicillin 500 mg capsule 2,000 mg PO ONCE PRN 05/14/22 05/17/22 History chlorpheniramine maleate 4 mg 4 mg PO Q12H PRN 05/14/22 05/17/22 History tablet (Aller-Chlor) cholecalciferol (vitamin D3) 50 50 mcg PO DAILY 05/14/22 05/17/22 History mcg (2,000 unit) tablet glucosamine sulfate 500 mg tablet 1,500 mg PO DAILY 05/14/22 05/17/22 History (Cidatrine) vitamin B complex (B 1 tab PO DAILY 05/14/22 05/17/22 History Complex-Vitamin B12 tablet) Allergies Allergy/AdvReac Type Severity Reaction Status Date / Time aspirin Allergy Unknown Verified 05/14/22 18:28 Ortho Exam Narrative Exam Narrative: the patient is examined supine in the hospital bed. The skin about the left shoulder is intact without surgical scars, no warmth or erythema. He is markedly tender over the AC joint, no tenderness over the anterior cuff and biceps. His active forward flexion is 150?. Examination of the right shoulder shows no surgical scars, no warmth or erythema. No tenderness over the AC joint, anterior cuff and biceps. Active forward flexion is 90?. CMS is intact both upper extremities Const Vital Signs, click to edit/add: Vital Signs - 24 hr 05/16/22 16:40 05/16/22 16:40 05/16/22 19:00 Temperature 98.1 F 98.4 F Pulse Rate [Left] 83 74 Respiratory Rate 16 18 18 Blood Pressure [Left Arm] 126/82 115/68 Pulse Oximetry 92 92 94 Oxygen Delivery Method Room Air Room Air Room Air 05/16/22 23:00 05/16/22 23:00 05/17/22 03:00 Temperature 97.9 F 97.7 F Pulse Rate [Left] 62 62 66 Respiratory Rate 18 18 18 Blood Pressure [Left Arm] 105/69 110/71 Pulse Oximetry 93 93 Oxygen Delivery Method Room Air Room Air Results Labs Labs: Laboratory Results - last 48 hr 05/16/22 05/16/22 05/16/22 16:46 16:46 16:46 WBC 22.86 H RBC 3.75 L Hgb 12.3 L Hct 37.2 MCV 99 MCH 33 MCHC 33 RDW Coeff of Anna 13.1 Plt Count 277 Neut % (Auto) 94.7 H Lymph % (Auto) 1.[address] [place] % (Auto) 3.9 Eos % (Auto) 0.0 Baso % (Auto) 0.0 Neut # (Auto) 21.60 H Lymph # (Auto) 0.[address] [place] # (Auto) 0.90 Eos # (Auto) 0.00 Baso # (Auto) 0.00 Abs Immat Gran (auto) 0.10 Imm/Tot Granulo (auto) 0.4 INR 2.01 H Sodium Potassium Chloride Carbon Dioxide BUN Creatinine Estimated Creat Clear Estimated GFR Glucose Lactate Calcium Phosphorus Magnesium C-Reactive Protein 9.0 H Albumin 05/16/22 05/16/22 05/16/22 16:46 16:46 23:30 WBC RBC Hgb Hct MCV MCH MCHC RDW Coeff of Anna Plt Count Neut % (Auto) Lymph % (Auto) [place] % (Auto) Eos % (Auto) Baso % (Auto) Neut # (Auto) Lymph # (Auto) [place] # (Auto) Eos # (Auto) Baso # (Auto) Abs Immat Gran (auto) Imm/Tot Granulo (auto) INR 1.82 H Sodium 135 Potassium 4.2 Chloride 105 Carbon Dioxide 19 L BUN 30 Creatinine 1.2 Estimated Creat Clear 51.42 Estimated GFR 61 Glucose 135 H Lactate 2.3 H Calcium 8.4 Phosphorus 3.0 Magnesium 2.2 C-Reactive Protein Albumin 3.3 05/17/22 05/17/22 05/17/22 05:20 05:20 05:20 WBC 15.07 H RBC 3.32 L Hgb 11.2 L Hct 33.3 L MCV 100 MCH 34 MCHC 34 RDW Coeff of Anna 13.3 Plt Count 244 Neut % (Auto) 85.6 H Lymph % (Auto) 7.[address] [place] % (Auto) 6.3 Eos % (Auto) 0.1 Baso % (Auto) 0.1 Neut # (Auto) 12.90 H Lymph # (Auto) 1.10 [place] # (Auto) 0.90 Eos # (Auto) 0.00 Baso # (Auto) 0.00 Abs Immat Gran (auto) 0.00 Imm/Tot Granulo (auto) 0.3 INR 1.64 H Sodium Potassium Chloride Carbon Dioxide BUN Creatinine Estimated Creat Clear Estimated GFR Glucose Lactate Calcium Phosphorus Magnesium C-Reactive Protein 13.6 H Albumin 05/17/22 05:20 WBC RBC Hgb Hct MCV MCH MCHC RDW Coeff of Anna Plt Count Neut % (Auto) Lymph % (Auto) [place] % (Auto) Eos % (Auto) Baso % (Auto) Neut # (Auto) Lymph # (Auto) [place] # (Auto) Eos # (Auto) Baso # (Auto) Abs Immat Gran (auto) Imm/Tot Granulo (auto) INR Sodium Potassium Chloride Carbon Dioxide BUN Creatinine Estimated Creat Clear Estimated GFR Glucose Lactate 1.1 Calcium Phosphorus Magnesium C-Reactive Protein Albumin Diagnostic results Additional Comments: AP view of the left shoulder from [facility] from 2 weeks ago showed mild AC joint arthrosis. X-rays of the left shoulder, during his most recent admissions shows lysis of the distal clavicle. The glenohumeral joint appears normal. Right shoulder films show minimal AC joint arthrosis, normal glenohumeral joint. MRI scan of the left shoulder from [facility] shows fluid and inflammation in the AC joint with osteolysis of the distal clavicle, consistent with infection. The rotator cuff is intact. Chest CT shows a fluid collection just anterior to the rim of the glenoid, under the subscap, potentially consistent with infection. There is in no osteolysis of the distal clavicle. No MRI scan of the right shoulder has been done. Lab values show a white count of nearly 23, sed rate as high is 86, CRP as high as 20, INR as high as 7. Assessment and Plan Assessment and plan (1) Bilateral shoulder pain: Problem comment: Possible right shoulder septic arthritis and left AC joint sepsis Status: Acute Total time spent: Total time spent is greater than 50% in coordination of care (as documented) at patient's floor/unit and/or counseling patient: (2) Abnormal CT scan: Problem comment: R shoulder fluid collection on 05/14 CT scan Status: Acute Total time spent: Total time spent is greater than 50% in coordination of care (as documented) at patient's floor/unit and/or counseling patient: (3) Anticoagulant long-term use: Problem comment: following INR as it was >7 05/14/2022. Yesterday was down to 1.9. Today it is 2.0. Status: Acute Total time spent: Total time spent is greater than 50% in coordination of care (as documented) at patient's floor/unit and/or counseling patient: (4) Elevated sed rate: Status: Acute Total time spent: Total time spent is greater than 50% in coordination of care (as documented) at patient's floor/unit and/or counseling patient: (5) History of CVA (cerebrovascular accident): Status: Acute Total time spent: Total time spent is greater than 50% in coordination of care (as documented) at patient's floor/unit and/or counseling patient: (6) Essential hypertension: Problem comment: monitor add back home meds as indicated. Status: Acute Total time spent: Total time spent is greater than 50% in coordination of care (as documented) at patient's floor/unit and/or counseling patient: (7) Leukocytosis: Problem comment: WBC 12.8 at [facility] 05/14. Marked sudden increase value of white blood cell count at 20 today, most likely demargination due to steroid use. Status: Acute Total time spent: Total time spent is greater than 50% in coordination of care (as documented) at patient's floor/unit and/or counseling patient: (8) Cognitive decline: Problem comment: MOCA 25; short term recall deficit but executive function is intact. Status: Acute Total time spent: Total time spent is greater than 50% in coordination of care (as documented) at patient's floor/unit and/or counseling patient: (9) Elevated INR: Status: Acute Total time spent: Total time spent is greater than 50% in coordination of care (as documented) at patient's floor/unit and/or counseling patient: Plan Assessment: Left shoulder distal clavicle osteomyelitis , AC joint septic arthritis Right shoulder pain, fluid collection possible septic arthritis glenohumeral joint Plan: I told Desean and his family that I think we should plan to scope and washout both shoulders. The clinical picture on the left is septic arthritis of the AC joint with osteomyelitis of the distal clavicle. A malignancy could be a possibility as well. However, there is not an obvious bony or soft tissue mass. On the right, the diagnosis is less clear. We are unable to get an MRI scan in a timely fashion. However, I do not think this should delay treatment, given he has systemic signs of infection. This fluid collection Could represent septic arthritis in the glenohumeral joint. This could simply be a cyst, or other soft tissue mass. In any case, I have told the patient and his family that I think we should proceed with bilateral shoulder arthroscopic irrigation and debridement. We will plan to obtain cultures at the time of surgery to better direct treatment with antibiotics. The patient and family agree. The risks, benefits and expected outcomes were discussed in detail. These included but were not limited to: Infection, bleeding, injury to blood vessel or nerve, venous thromboembolism. All questions were answered to their satisfaction. The patient has been medically cleared for surgery. Therefore, we will plan to take him to the operating room this morning.
--- NOTE | 2022-05-17 08:47 | PM.ORPRC ---
Procedure Note Date of procedure: 05/17/22 Procedure: SURGEON: Warner Colunga MD BLENDING TECHNICIAN: Bridgett Wei PA-C PREOPERATIVE DIAGNOSIS: Left shoulder AC joint sepsis with distal clavicle osteomyelitis, right shoulder glenohumeral joint fluid collection, possible septic arthritis POSTOPERATIVE DIAGNOSIS: Left shoulder AC joint sepsis with distal clavicle osteomyelitis, right shoulder glenohumeral joint fluid collection, possible septic arthritis NAME OF OPERATION: Bilateral shoulder glenohumeral joint debridement, subacromial bursectomy, distal clavicle excision ANESTHESIA: General endotracheal ESTIMATED BLOOD LOSS: 5 mL COMPLICATIONS: None SPECIMENS: Left shoulder cultures labeled AC joint, pathology labeled distal clavicle, right shoulder cultures labeled glenohumeral joint synovial fluid DRAINS: None PREOPERATIVE ANTIBIOTICS: Ancef 2 grams, given after right shoulder specimen obtained INDICATIONS: The patient is a 81-year-old male with a history of bilateral shoulder pain secondary to the above diagnoses. Despite appropriate non operative management, they continue to have symptoms. Operative intervention was recommended. The risks, benefits and expected outcomes were discussed in detail. These included but were not limited to: Infection, bleeding, injury to blood vessel or nerve, venous thromboembolism. All questions were answered to their satisfaction. PROCEDURE: General anesthesia was administered. The patient was placed in the high beach chair position. The left shoulder was prepped and draped in the usual sterile fashion. The glenohumeral joint was infiltrated with 20 mL of normal saline with epinephrine. The posterior portal was established, the arthroscope was introduced. The anterior portal was established, Diagnostic arthroscopy was performed with findings as follows: The biceps and biceps anchor are intact. The anterior, posterior and superior labrum shows age-related degenerative fraying Articular surfaces on the humeral head shows a focal area of grade 3 change, articular cartilage on the glenoid is normal. There are 2 small articular cartilage loose bodies in the axillary recess. The joint surface of the rotator cuff is intact. The loose bodies in the axillary recess were debrided with the shaver. Likewise the labrum was debrided with the shaver. The arthroscope was placed in the subacromial space, the lateral portal was established. The Arthrex [place] was used to dissect the acromion free. The CA ligament was recessed off the anterior acromion, the AC joint was exposed. There was a marked amount of inflammation in the subacromial space. It made visualization quite difficult. This was aggressively debrided with the shaver the bone over the anterior aspect of the clavicle, centrally was quite soft. The pituitary rongeur was used to debride this bone and sent for pathology and routine cultures. Likewise the corresponding area over the anterior aspect of the acromion had quite soft bone. The pituitary rongeur was used to debride nonviable bone in the distal clavicle. Then, the undersurface of the distal clavicle was resected through the lateral portal. Finally, the bur was placed in the anterior portal and the remainder of the distal clavicle was resected for a total of 10 mm, taken to viable bone. We debrided the acromial side of the joint with the shaver, debriding the soft, presumably nonviable/ bone over the anterior aspect of the joint. The bursal surface of the rotator cuff was inspected. There is high-grade partial-thickness tearing, without full-thickness tearing. Arthroscopic instruments removed the portal sites were closed with a 3-0 nylon. A dry dressing was applied. Attention was then turned to the right shoulder. The limb was prepped and draped in usual sterile fashion. The spinal needle was placed in the posterior aspect of the glenohumeral joint. 1/2 mL of cloudy, yellow synovial fluid was aspirated and was sent for cultures, labeled as right shoulder glenohumeral joint synovial fluid. The joint was infiltrated with 20 mL of normal saline with epinephrine. The posterior portal was established. The arthroscope was introduced. Diagnostic arthroscopy was performed findings as follows: There is age related degenerative tearing of the labrum circumferentially. There is diffuse grade 3 change on the humeral head, grade 1/2 change on the glenoid. The area in question where the fluid collection was located, just anterior to the glenoid, deep to the subscap coursing medially was inspected and was aggressively debrided. There was some fibrin is exudate in this area but no obvious purulence, no obvious abscess. Likewise, there is some fibrinous exudate in the axillary recess, but no loose bodies. The undersurface of the rotator cuff is intact, the biceps is normal. The arthroscope was placed in the subacromial space the subacromial/subdeltoid bursa is minimally inflamed. It was aggressively debrided with the shaver. The AC joint was exposed. The distal clavicle show some degenerative change, but no obvious osteomyelitis. The distal 10 mm was resected with the bur. The bursal surface the rotator cuff was inspected, showing high-grade partial-thickness tearing, no full-thickness tearing. Arthroscopic instruments were removed the portal sites were closed with a 3-0 nylon suture. A dry dressing was applied. Sponge and needle counts were correct x2. The patient tolerated the procedure well. There were no apparent complications. They were carefully transferred to the hospital bed and taken to the postanesthesia care unit in satisfactory condition. PLAN: The patient will be allowed full, unrestricted active range of motion of both shoulders as pain will allow.
[2022-05-17 08:49] LABS: Erythrocyte SedimentationRate* 71 mm/hr (2-15)
[2022-05-17] MEDS: BUPIVACAINE 0.25% 30 ML INJECTION ×2 (09:42→11:15)
[2022-05-17] MEDS: EPINEPHrine 1 MG in SODIUM CHLORIDE IRRIG SOLUTION 3,000 ML 9003 MG IRRIGATION (10:30)
[2022-05-17] MEDS: CEFAZOLIN 2 GM in 0.9 % SODIUM CHLORIDE Mini-bag 100 ML IVPB (11:16)
--- NOTE | 2022-05-17 15:56 | P.IMPN_ITS ---
Progress Note: A&P Assessment and plan (1) Septic arthritis of acromioclavicular joint: Problem details: dx 05/16/22, arthroscopy and debridement 05/17/22 - Dr. Arias cultures pending; ertapenem started 05/17 (1 dose of Vanc given 05/15, 1 dose of Ancef given perioperatively 05/17) PICC line once blood cultures are confirmed negative. Ortho ID would likely be helpful in guiding care TTE pending 05/17 PT - outpatient Status: Acute (2) Cognitive decline: Problem details: MOCA 23; short term recall deficit but executive function is intact. Status: Acute (3) Anticoagulant long-term use: Problem details: PFO and CVA Status: Acute (4) History of CVA (cerebrovascular accident): Problem details: OAC Status: Acute (5) Essential hypertension: Problem details: monitor add back home meds as indicated. Status: Acute (6) Patent foramen ovale: Status: Deleted Subjective Date Seen: 05/17/22 Interval history: Daily Progress Note - Hospital Medicine Day #: 2 of 2nd admission (admitted 05/16), previously here 05/14-05/15. POD #0 - ?Bilateral shoulder glenohumeral joint debridement, subacromial bursectomy, distal clavicle excision CC: b/l shoulder pain, septic arthritis OVERNIGHT UPDATES FROM STAFF & MED, LAB, IMAGING UPDATES admitted last night. no new fevers. OR today - left AC septic joint noted - debrided/washed out. initial gram stain negative. culture of bone and path sent on bone. right shoulder aspirated; scoped. less concerning. post-op - his pain is under excellent control. no fevers. no immediate post-op concerns. Review of Systems: See subjective Cardiac: No new chest pain/pressure/palpitations. Respiratory: no new dyspnea. GI: No abdominal bloating Objective: clear; asking probing questions Vitals: see above Lungs: Clear. Cardiac: S1S2. shoulders have dressings; no obvious hematoma; range of motion is not restricted Disposition/Potential discharge - Likely to return to previous living situation. Total time is 35 minutes with greater than 50% spent in counseling and coordination of care. Exam Const: Vital Signs, click to edit/add: Vital Signs - 24 hr 05/16/22 19:00 05/16/22 23:00 05/16/22 23:00 Temperature 98.4 F 97.9 F Pulse Rate Pulse Rate [Left] 74 62 62 Respiratory Rate 18 18 18 Blood Pressure Blood Pressure [Le ft Arm] 115/68 105/69 Pulse Oximetry 94 93 Oxygen Delivery Me thod Room Air Room Air Oxygen Flow Rate 05/17/22 03:00 05/17/22 07:00 05/17/22 07:00 Temperature 97.7 F 98.9 F Pulse Rate Pulse Rate [Left] 66 63 63 Respiratory Rate 18 27 H 27 H Blood Pressure Blood Pressure [Le ft Arm] 110/71 120/80 Pulse Oximetry 93 93 Oxygen Delivery Me thod Room Air Room Air Oxygen Flow Rate 05/17/22 12:15 05/17/22 12:10 05/17/22 12:15 Temperature 97.2 F L Pulse Rate 72 77 73 Pulse Rate [Left] Respiratory Rate 20 18 18 Blood Pressure 150/84 H 152/90 H 156/85 H Blood Pressure [Le ft Arm] Pulse Oximetry 97 100 100 Oxygen Delivery Me thod OxyMask OxyMask OxyMask Oxygen Flow Rate 10 10 10 05/17/22 12:20 05/17/22 12:25 05/17/22 12:30 Temperature 97.1 F L Pulse Rate 69 71 71 Pulse Rate [Left] Respiratory Rate 22 20 20 Blood Pressure 150/80 H 150/80 H 150/83 H Blood Pressure [Le ft Arm] Pulse Oximetry 100 100 100 Oxygen Delivery Me thod OxyMask OxyMask OxyMask Oxygen Flow Rate 10 10 10 Labs Labs: Laboratory Results - last 24 hr 05/16/22 05/16/22 05/16/22 16:46 16:46 16:46 WBC 22.86 H RBC 3.75 L Hgb 12.3 L Hct 37.2 MCV 99 MCH 33 MCHC 33 RDW Coeff of Anna 13.1 Plt Count 277 Neut % (Auto) 94.7 H Lymph % (Auto) 1.0 L [place] % (Auto) 3.9 Eos % (Auto) 0.0 Baso % (Auto) 0.0 Neut # (Auto) 21.60 H Lymph # (Auto) 0.20 L [place] # (Auto) 0.90 Eos # (Auto) 0.00 Baso # (Auto) 0.00 Abs Immat Gran (auto) 0.10 Imm/Tot Granulo (auto) 0.4 ESR INR 2.01 H Sodium Potassium Chloride Carbon Dioxide BUN Creatinine Estimated Creat Clear Estimated GFR Glucose Lactate Calcium Phosphorus Magnesium C-Reactive Protein 9.0 H Albumin 05/16/22 05/16/22 05/16/22 16:46 16:46 23:30 WBC RBC Hgb Hct MCV MCH MCHC RDW Coeff of Anna Plt Count Neut % (Auto) Lymph % (Auto) [place] % (Auto) Eos % (Auto) Baso % (Auto) Neut # (Auto) Lymph # (Auto) [place] # (Auto) Eos # (Auto) Baso # (Auto) Abs Immat Gran (auto) Imm/Tot Granulo (auto) ESR INR 1.82 H Sodium 135 Potassium 4.2 Chloride 105 Carbon Dioxide 19 L BUN 30 Creatinine 1.2 Estimated Creat Clear 51.42 Estimated GFR 61 Glucose 135 H Lactate 2.3 H Calcium 8.4 Phosphorus 3.0 Magnesium 2.2 C-Reactive Protein Albumin 3.3 05/17/22 05/17/22 05/17/22 05:20 05:20 05:20 WBC 15.07 H RBC 3.32 L Hgb 11.2 L Hct 33.3 L MCV 100 MCH 34 MCHC 34 RDW Coeff of Anna 13.3 Plt Count 244 Neut % (Auto) 85.6 H Lymph % (Auto) 7.6 L [place] % (Auto) 6.3 Eos % (Auto) 0.1 Baso % (Auto) 0.1 Neut # (Auto) 12.90 H Lymph # (Auto) 1.10 [place] # (Auto) 0.90 Eos # (Auto) 0.00 Baso # (Auto) 0.00 Abs Immat Gran (auto) 0.00 Imm/Tot Granulo (auto) 0.3 ESR INR 1.64 H Sodium Potassium Chloride Carbon Dioxide BUN Creatinine Estimated Creat Clear Estimated GFR Glucose Lactate Calcium Phosphorus Magnesium C-Reactive Protein 13.6 H Albumin 05/17/22 05/17/22 05:20 05:20 WBC RBC Hgb Hct MCV MCH MCHC RDW Coeff of Anna Plt Count Neut % (Auto) Lymph % (Auto) [place] % (Auto) Eos % (Auto) Baso % (Auto) Neut # (Auto) Lymph # (Auto) [place] # (Auto) Eos # (Auto) Baso # (Auto) Abs Immat Gran (auto) Imm/Tot Granulo (auto) ESR 71 H INR Sodium Potassium Chloride Carbon Dioxide BUN Creatinine Estimated Creat Clear Estimated GFR Glucose Lactate 1.1 Calcium Phosphorus Magnesium C-Reactive Protein Albumin
[2022-05-17] MEDS: ERTAPENEM 1 GM in 0.9 % SODIUM CHLORIDE Mini-bag 100 ML IVPB (16:46)
[2022-05-17] MEDS: ACETAMINOPHEN 500 MG TABLET 1000 MG PO (19:26)
[2022-05-17] MEDS: LACTATED RINGERS 1000 ML 1,000 ML 75 ML IV (19:27)
--- NOTE | 2022-05-17 19:40 | PC.NURSE ---
shift note: [id number] Pt this shift calm and cooperative with cares. No c/o pain in morning before surgery. After surgery, dull achy pain bilat shoulders present. Post op, pt was repeating questions and statements and stated he felt out of it still. Frequently up to use the toilet with minimal output. Agreeable to bladder scan which showed 480ml at shift change. Nurse taking over performed straight cath. Small amount of serosanguineous fluid on L shoulder dressing. Bilat dressing intact, minimal swelling and pt able to use upper extremities. Ice packs applied. SCDs not on d/t pt getting up frequently to bathroom. Ordered dinner tray but did not eat and refusing water.
[2022-05-17] MEDS: ONDANSETRON 2 MG/ML inj 4 MG IVP (19:47)
[2022-05-17] MEDS: WARFARIN 5 MG TABLET 2.5 MG PO (20:38)
[2022-05-17] MEDS: SENNOSIDES 1 TAB TABLET 2 TAB PO (20:39)
--- NOTE | 2022-05-17 22:53 | PC.NURSE ---
@ 1900 Pt had been unable to urinate. RN Straight cathed Pt. 700cc out
[2022-05-18] MEDS: ACETAMINOPHEN 500 MG TABLET 1000 MG PO ×2 (02:51→10:38)
[2022-05-18 03:00] VITALS: BP 150/93; PULSE 71; RESP 18; TEMP 36.9; O2SAT 94
--- NOTE | 2022-05-18 05:39 | PC.NURSE ---
SHIFT NOTE : Pt A&O, blunted and particular with cares. Pt up to the BR 7x thus far, incontinent of urine x3 and 75ml measured x1 (pt urinated in the hat x1, then refused to have it in his toilet for the remainder of the shift). Pt changed his rupert pad with a SBA x3 but denied that he has urinated despite the pad being saturated with urine. Bladder scanned pt x2, initially 349ml and the second scan was for 400ml. Pt did not get any sleep overnight due to so many trips to the BR and feeling an uncomfortable urge to urinate, yet pt is refusing to be straight cath'd and refusing to take any other pain medication besides Tylenol. Encouragement and education given to pt multiple times. Pt up with a SBA, steady. Afebrile, oxygen saturation >90% on RA. Mepilex dressings to shoulders are C/D/I, pt declining that he has any shoulder pain and instead says his pain is in his bladder. Pt denies SOB, CP, and N/V. Pt acknowledges that if and when he would like, he could have a straight cath and oxycodone for bladder discomfort.
[2022-05-18 06:39] LABS: HCO3 VBG 23 mmol/L (21-28); PCO2 VBG 35 mmHG (40-50); PO2 VBG 45.5 mmHG (25-47); pH VBG 7.436 (7.32-7.43)
[2022-05-18 06:46] LABS: Hematocrit 35.8 % (37.0-53.0); Hemoglobin* 11.9 gm/dL (13.5-17.5); Mean Corpuscular HGB Conc 33 gm/dL (32-36); Mean Corpuscular Hemoglobin 33 pg (26-34); Mean Corpuscular Volume 100 fL (80-100); Platelet Count* 248 K/uL (140-440); Red Blood Count 3.59 m/uL (4.30-5.90); White Blood Count* 13.18 K/uL (4.50-11.00)
[2022-05-18 06:52] LABS: Slide Review Reflex No
[2022-05-18 07:00] VITALS: BP 145/87; PULSE 72; RESP 18; TEMP 36.6; O2SAT 93
[2022-05-18 07:03] LABS: Albumin* 2.9 g/dL (3.3-5.0); Chloride* 110 mmol/L (96-114); Potassium* 4.1 mmol/L (3.6-5.1); Sodium* 138 mmol/L (135-149)
[2022-05-18 07:05] LABS: Estimated Glomerular Filt Rate 76 ml/min; INR 1.38 (0.91-1.10); Prothrombin Time 17.7 Seconds
[2022-05-18 07:06] LABS: Alanine Aminotransferase* 25 U/L (4-50); Alkaline Phosphatase* 70 U/L (40-150); Aspartate Amino Transferase* 28 U/L (12-35); Bilirubin Total* 0.5 mg/dL (0.1-1.5); Blood Urea Nitrogen* 20 mg/dL (7-30); Calcium* 8.1 mg/dL (8.4-10.6); Carbon Dioxide* 22 mmol/L (20-32); Glucose* 87 mg/dL (60-115); Total Protein* 5.8 g/dL (6.0-8.3)
[2022-05-18 07:07] LABS: Magnesium* 2.1 mg/dL (1.5-2.6)
[2022-05-18 07:09] LABS: C Reactive Protein* 8.7 mg/dL (0.5-1.0)
[2022-05-18 07:15] LABS: NT Pro B Type NatriureticPept* 1730 PG/mL (0-450)
[2022-05-18 07:18] LABS: Troponin I* 0.03 ng/mL (0.01-0.04)
[2022-05-18 07:22] LABS: Procalcitonin* 1.83 ng/mL (<0.50)
[2022-05-18] MEDS: lidocaine HCL 2 % JELLY (TOP) STERILE 6 ML UR (08:14)
--- NOTE | 2022-05-18 10:30 | CRLHL7_ITS ---
For Patients: As a result of the Century Cures Act, medical imaging exams and procedure reports are released immediately into your electronic medical record. You may view this report before your referring provider. If you have questions, please contact your health care provider. Indication: Right basilic PICC line placement Technique: Right ultrasound extremity Findings: Ultrasound of the right basilic vein performed for purposes of PICC line placement. Dictated by Mackenzie Hardwick MD @ 05/18/2022 12:08:15 PM (Electronically Signed)
[2022-05-18] MEDS: TAMSULOSIN HCL 0.4 MG CAPSULE PO (10:38)
[2022-05-18] MEDS: SENNOSIDES 1 TAB TABLET 2 TAB PO (10:38)
[2022-05-18] MEDS: NIFEdipine 30 MG TAB.ER.24 PO (10:38)
[2022-05-18] MEDS: SODIUM CHLORIDE 0.9 % (FLUSH) 10 ML SYRINGE 5 ML IVF (10:39)
--- NOTE | 2022-05-18 10:45 | PM.IMPN1 ---
Progress Note: A&P Assessment and plan (1) Septic arthritis of acromioclavicular joint: Problem details: dx 05/16/22, arthroscopy and debridement 05/17/22 - Dr. Arias cultures pending; ertapenem started 05/17 (1 dose of Vanc given 05/15, 1 dose of Ancef given perioperatively 05/17) PICC line once blood cultures are confirmed negative. Ortho ID would likely be helpful in guiding care TTE pending 05/17 PT - outpatient Status: Acute (2) Cognitive decline: Problem details: MOCA 23; short term recall deficit but executive function is intact. Status: Acute (3) Anticoagulant long-term use: Problem details: PFO and CVA Status: Acute (4) History of CVA (cerebrovascular accident): Problem details: OAC Status: Acute (5) Essential hypertension: Problem details: monitor add back home meds as indicated. Status: Acute (6) Patent foramen ovale: Status: Deleted Subjective Interval history: Daily Progress Note - Hospital Medicine Day #: 3 of 2nd admission (admitted 05/16), previously here 05/14-05/15. POD #1 - ?Bilateral shoulder glenohumeral joint debridement, subacromial bursectomy, distal clavicle excision CC: b/l shoulder pain, septic arthritis, urinary retention OVERNIGHT UPDATES FROM STAFF & MED, LAB, IMAGING UPDATES Afebrile, T-max 98.5? Blood pressure 145/87, 150/93, 173/101 Pulse rate 70s Respiratory rate 18 Pulse ox 94% on room air CBC reflects a down trending leukocytosis. 13.2 today Down trending CRP 13.6 to 8.7, procalcitonin elevated at 1.8 but there was no previous Hemoglobin is stable at 11.9 Normal platelets INR is 1.38, we can restart his warfarin CS stable postop from a bleeding perspective Blood gas this morning is unremarkable. Electrolytes are essentially unremarkable this morning. Calcium is a little bit low. BNP elevated at 1700 Decreased albumin and total protein Microbiology results: Gram stains of both left and right shoulder joint fluid/bone showed no organisms. The growth is still negative to date. 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 Review of Systems: See subjective Cardiac: No new chest pain/pressure/palpitations. Respiratory: no new dyspnea. GI: No abdominal bloating Objective: clear; asking probing questions Vitals: see above Lungs: Clear. Cardiac: S1S2. shoulders have dressings; no obvious hematoma; range of motion is not restricted Disposition/Potential discharge - Likely to return to previous living situation. Total time is 35 minutes with greater than 50% spent in counseling and coordination of care. Exam Const: Vital Signs, click to edit/add: Vital Signs - 24 hr 05/17/22 12:15 05/17/22 12:10 05/17/22 12:15 Temperature 97.2 F L Pulse Rate 72 77 73 Pulse Rate [Left] Respiratory Rate 20 18 18 Blood Pressure 150/84 H 152/90 H 156/85 H Blood Pressure [Le ft Arm] Blood Pressure [Ri ght Arm] Pulse Oximetry 97 100 100 Oxygen Delivery Me thod OxyMask OxyMask OxyMask Oxygen Flow Rate 10 10 10 05/17/22 12:20 05/17/22 12:25 05/17/22 12:30 Temperature 97.1 F L Pulse Rate 69 71 71 Pulse Rate [Left] Respiratory Rate 22 20 20 Blood Pressure 150/80 H 150/80 H 150/83 H Blood Pressure [Le ft Arm] Blood Pressure [Ri ght Arm] Pulse Oximetry 100 100 100 Oxygen Delivery Me thod OxyMask OxyMask OxyMask Oxygen Flow Rate 10 10 10 05/17/22 15:00 05/17/22 19:17 05/17/22 19:24 Temperature 98.5 F 98.5 F Pulse Rate 71 Pulse Rate [Left] 63 60 Respiratory Rate 24 16 16 Blood Pressure 150/83 H Blood Pressure [Le ft Arm] Blood Pressure [Ri ght Arm] 146/82 H Pulse Oximetry 93 93 Oxygen Delivery Me thod Room Air Room Air Oxygen Flow Rate 10 05/17/22 19:46 05/17/22 13:00 05/17/22 13:15 Temperature 97.9 F Pulse Rate 75 Pulse Rate [Left] 72 72 Respiratory Rate 22 24 24 Blood Pressure Blood Pressure [Le ft Arm] Blood Pressure [Ri ght Arm] 138/85 138/84 138/84 Pulse Oximetry Oxygen Delivery Me thod Room Air Room Air Room Air Oxygen Flow Rate 05/17/22 13:30 11/06/22 13:45 05/17/22 14:15 Temperature Pulse Rate Pulse Rate [Left] 73 82 82 Respiratory Rate Blood Pressure Blood Pressure [Le ft Arm] Blood Pressure [Ri ght Arm] 147/83 H 153/82 H 144/91 H Pulse Oximetry 93 93 Oxygen Delivery Me thod Room Air Room Air Room Air Oxygen Flow Rate 05/17/22 14:40 05/17/22 15:40 05/17/22 16:40 Temperature Pulse Rate Pulse Rate [Left] 71 57 L 74 Respiratory Rate 24 Blood Pressure Blood Pressure [Le ft Arm] Blood Pressure [Ri ght Arm] 146/89 H 131/75 163/93 H Pulse Oximetry 90 93 94 Oxygen Delivery Me thod Room Air Room Air Room Air Oxygen Flow Rate 05/17/22 20:31 05/17/22 23:00 05/18/22 03:00 Temperature 97.9 F 98 F 98.5 F Pulse Rate Pulse Rate [Left] 74 71 Respiratory Rate 20 18 Blood Pressure Blood Pressure [Le ft Arm] Blood Pressure [Ri ght Arm] 173/101 H 150/93 H Pulse Oximetry 93 94 Oxygen Delivery Me thod Room Air Room Air Oxygen Flow Rate 05/18/22 07:00 Temperature 97.8 F Pulse Rate Pulse Rate [Left] 72 Respiratory Rate 18 Blood Pressure Blood Pressure [Le ft Arm] 145/87 H Blood Pressure [Ri ght Arm] Pulse Oximetry 93 Oxygen Delivery Me thod Room Air Oxygen Flow Rate Labs Labs: Laboratory Results - last 24 hr 05/18/22 05/18/22 05/18/22 05:48 05:48 05:48 WBC 13.18 H RBC 3.59 L Hgb 11.9 L Hct 35.8 L MCV 100 MCH 33 MCHC 33 Plt Count 248 INR 1.38 H VBG pH VBG pCO2 VBG pO2 VBG HCO3 Sodium 138 Potassium 4.1 Chloride 110 Carbon Dioxide 22 BUN 20 Creatinine 1.0 Estimated Creat Clear 61.70 Estimated GFR 76 Glucose 87 Calcium 8.1 L Magnesium 2.1 Total Bilirubin 0.5 AST 28 ALT 25 Alkaline Phosphatase 70 Troponin I 0.03 C-Reactive Protein 8.7 H NT-Pro-B Natriuret Pep 1730 H Total Protein 5.8 L Albumin 2.9 L Procalcitonin 1.83 H 05/18/22 05:48 WBC RBC Hgb Hct MCV MCH MCHC Plt Count INR VBG pH 7.436 H VBG pCO2 35 L VBG pO2 45.5 VBG HCO3 23 Sodium Potassium Chloride Carbon Dioxide BUN Creatinine Estimated Creat Clear Estimated GFR Glucose Calcium Magnesium Total Bilirubin AST ALT Alkaline Phosphatase Troponin I C-Reactive Protein NT-Pro-B Natriuret Pep Total Protein Albumin Procalcitonin
[2022-05-18 11:00] VITALS: BP 139/79; PULSE 65; RESP 18; TEMP 36.8; O2SAT 96
--- NOTE | 2022-05-18 11:37 | CRLHL7_ITS ---
For Patients: As a result of the Century Cures Act, medical imaging exams and procedure reports are released immediately into your electronic medical record. You may view this report before your referring provider. If you have questions, please contact your health care provider. INDICATION: PICC TECHNIQUE: Single view chest. FINDINGS: The lungs are clear. The heart, mediastinum and pulmonary vessels are of normal size. There is no evidence of pleural disease. Right PICC line tip is in the cavoatrial junction Dictated by Mackenzie Hardwick MD @ 05/18/2022 12:04:24 PM (Electronically Signed)
--- NOTE | 2022-05-18 12:46 | P.DS_ITS ---
DS: Providers Provider Date Seen: 05/18/22 Date of admission: 05/16/22 17:17 Primary care physician: Nhi Marvin MD Admitting Clinician: Natty Guardado MD Consults: 05/17/22 13:12 Consult to Occupational Therapy [CONS] Routine Comment: Reason(s) for OT Consult:: Evaluate and Treat Any Restrictions?:: See Comment Consult to Physical Therapy [CONS] Routine Comment: Reason(s) for PT Consult:: Evaluate and Treat Any Restrictions?:: See Comment Consult to Physician [CONS] Routine Comment: Consulting Provider: Hospitalists Has provider been notified: No Consult to Auto Bumper Straightener [CONS] Routine Comment: Reason for Consult:: Discharge Planning Needs Attending Physician on discharge[facility]: 05[facility]18[facility]22 DS: Diagnosis Discharge Diagnosis (1) Septic arthritis of acromioclavicular joint: Status: Acute Problem details: Initially admitted on 05/14 and discharged on 05/15 with bilateral shoulder pain attributed to PMR, bursitis. However x-rays of his shoulder from mid April to admission showed marked changes about the left clavicle. He discharged and had outpatient MRI 05/15. This was done at [facility] in [place] noted marked edema the distal clavicle adjacent acromion with extensive erosive changes osteomyelitis was suspected. Patient was called in the morning of 05/16 and readmitted. Her readmitted 05/16/22, arthroscopy and debridement 05/17/22 - Dr. Arias cultures pending; ertapenem started 05/17 (1 dose of Vanc given 05/15, 1 dose of Ancef given perioperatively 05/17) 1ST SET OF BLOOD CULTURES WERE DRAWN AT 1:50 P.M. ON 05/14 THEY ARE NEGATIVE TO DATE. THIS WAS PRIOR TO THE 1ST DOSE OF ANTIBIOTICS WHICH WAS VANCOMYCIN PICC LINE PLACED ON 05/18 (2) Cognitive decline: Status: Acute Problem details: MOCA 23; short term recall deficit but executive function is intact. (3) Anticoagulant long-term use: Status: Acute Problem details: PFO and CVA (4) Aortic aneurysm: Status: Acute Problem details: noted on echo 05/17 (5) History of CVA (cerebrovascular accident): Status: Acute Problem details: OAC (6) Essential hypertension: Status: Acute Problem details: monitor add back home meds as indicated. (7) PFO (patent foramen ovale): Status: Acute Problem details: chronic anticoagulation DS: Summary Hospital Course Hospital Course: HOSPITALIST TRANSFER SUMMARY ATTENDING PHYSICIAN: Natty Guardado MD REASON FOR TRANSFER Left AC septic arthritis Possible right shoulder septic arthritis Abnormal transthoracic echocardiogram Urinary retention Mild cognitive decline Patent foramina ovale Chronic anticoagulation Distant history of stroke BRIEF HOSPITAL COURSE: 81-year-old with sudden severe onset of left shoulder pain in mid April presented to his primary care physician. Diagnosis at that time was rotator cuff impingement or bursitis. X-rays were reassuring. Corticosteroid subacromial injection was considered but his INR was too high. He was started on 10 mg of prednisone daily. Pain persisted and his PCP discussed the case with Rheumatology who recommended increasing the prednisone to 20 mg. In the days prior to admission, the patient described vomiting and feeling poorly. Mild fevers were noted. He was admitted with a mild hypoxia and excruciating bilateral shoulder pain on May 14. He had a chest CT done on May 14 in the ED. this demonstrated a complex effusion in the right shoulder. His pain all along had been in the left shoulder. Admission he was complaining of bilateral shoulder pain. Orthopedics palpated his right shoulder and did not feel a aspirate was needed. Overnight he was given a 40 mg dose of prednisone and felt much better. Discharged on May 15 with the presumed diagnosis of PMR. He had had blood cultures and 1 dose of vancomycin in this initial admission. However infection was felt less likely in this was not continued. Those blood cultures as all of them have remained negative. Prior to discharge he had updated shoulder x-rays which showed concerning changes from in April. There was some question about distal clavicle osteolysis when the 2 x-rays were compared. His discharge was continued and he went home with an MRI of his left shoulder that night. Overnight he had sweats and weakness. He was readmitted on the for concern regarding osteomyelitis. His MRI report was concerning for left AC osteomyelitis. Blood cultures were obtained, he had evidence of infection based on an increasing leukocytosis. However CRP had decreased. Orthopedics elected to take the patient the next morning to bilateral shoulder arthroscopies. His left shoulder demonstrated evidence of necrotic bone and significantly inflamed soft tissue, likely osteomyelitis. His distal clavicle was further resected and is joint was washed out. Bone was sent for pathology and microbiology studies. Initial Gram stains showed no organisms. Cultures are negative to date. His right shoulder was then scoped as well. This showed a cloudy fluid that was aspirated prior to scope insertion. This gram stain is also negative, with cultures still negative. The right cuff showed age expected deterioration but no obvious signs of infection. He has had a total of 3 blood cultures which have remained negative. Generally he has felt better since his washouts. He has moderate amount of bilateral shoulder pain, but this is improving. As part of this infectious workup I ordered a transthoracic echocardiogram. We are not able to perform transesophageal echocardiograms at our location. There was some concern about in the centric mitral valve jet with questions regarding a valvular abnormality. With this finding, the unusual presentation of bilateral shoulder pain, septic AC joint on the left we felt a [facility] would be best to manage this case. Are patient is in need of a transesophageal echocardiogram and or so Infectious Disease consult. He likely also needs a rheumatology consult. SERVICES NOT AVAILABLE HERE THAT HIS PATIENT NEEDS: Cardiology; trans esophageal echocardiogram Orthopedics Infectious Disease ACCEPTING PHYSICIAN/SERVICE/LOCATION: Hospitalist, Dr Farr MEDICATIONS AT TIME OF TRANSFER: Ertapenem Home medications DRIPS/LINES: Mendiola catheter PICC line VITAL SIGN, MEDICATION, LAB/MICRO, IMAGING SUMMARY (full details available in account tabs or by records request) Patient has been afebrile and hemodynamically stable since admission Micro as of transfer 05/18 at 1:00 p.m. Three sets blood cultures negative to date Negative Gram stains from left and right shoulder aspirates and left clavicular necrosis Cultures negative to date from left and right shoulder washouts Pathology pending on the left clavicle Radiology Review: Xray Left shoulder 3 views; 29 Apr 2022 Findings: Bones: Alignment is normal. No fractures or bone lesions. Joint spaces: Mild narrowing and spurring at the acromioclavicular and glenohumeral joints. Soft tissues: Incidental prominence of the aortic arch. Impression: Mild degenerative joint disease left shoulder. 05/15 follow up shoulder films Findings: Interval development of erosive changes at the distal clavicle and to a lesser extent at the acromion at the acromioclavicular joint with widening of the joint space and overlying soft tissue fullness. Mild degenerative changes at the glenohumeral joint and greater tuberosity. Vascular calcifications in the prominent aortic arch. Left upper lung clear. Impression: Development of infection/inflammation at the left acromioclavicular joint with erosive changes at the distal clavicle and acromion along with a joint effusion and synovial hypertrophy. CT Chest on 05/14 1. Complex fluid collection in the right shoulder joint extends medially and shows peripheral enhancement. This could be bursitis, but the appearance is concerning for infected collection, raising concern for septic arthritis. 2. Mild aneurysmal dilation of the ascending thoracic aorta. Otherwise, normal vessels without findings to suggest vasculitis. MRI - Left Shoulder 05/15 Impression: 1. Marked edema like signal within the distal clavicle and adjacent portion of the acromion with extensive erosive changes. Differential considerations include sequelae of inflammatory arthropathy. While distal clavicular osteolysis is in the imaging differential the extent and severity of acromial pathology is not typical for distal clavicular osteolysis. Infection/osteo myelitis is also in imaging differential although there is no AC joint fluid to indicate AC joint septic arthritis correlate with plain radiographs, clinical history, lab values and clinical signs of symptoms 2. Edema like signal confined to the most posterior aspect of the supraspinatus muscle could reflect myositis but is a non specific finding. 3. Slight supraspinatus tendinopathy. 4. No rotator cuff tendon tear rotator cuff muscular atrophy 5. 1.1 x 1.6 in the area of full-thickness chondral loss over the superomedial portion of the left humeral head. 6. Evidence of adhesive capsulitis is equivocal in this case and adhesive capsulitis is more of a clinical diagnosis. Correlate with active and passive range of motion. 7. Posterior superior labral fraying 8. Intact biceps tendon Unchanged. PHYSICAL EXAM: CONSTITUTIONAL: VITAL SIGNS: see record. Exam unchanged from earlier with notable exceptions: Bilateral shoulder restricted range of motion, neurovascularly intact. Overhead movements most notably affected. Patient can abduct best. Poor short-term memory DISPOSITION: [facility] Time spent on discharge >30 minutes. This includes speaking with accepting physician; family/patient and coordinating meds/drips for transfer 04/29 xrays at the [facility] in [place] Indication: Status at Discharge Functional status at discharge: uses cane/walker Overall status at discharge: patient is not back to baseline Time Spent with Patient Time attestation: Total time spent providing and/or coordinating discharge services: Time spent: Greater than 30 minutes Exam Const: Vital Signs, click to edit/add: Vital Signs - 24 hr 05/17/22 15:00 05/17/22 19:17 05/17/22 19:24 Temperature 98.5 F 98.5 F Pulse Rate 71 Pulse Rate [Left] 63 60 Respiratory Rate 24 16 16 Blood Pressure 150/83 H Blood Pressure [Le ft Arm] Blood Pressure [Ri ght Arm] 146/82 H Pulse Oximetry 93 93 Oxygen Delivery Me thod Room Air Room Air Oxygen Flow Rate 10 05/17/22 19:46 05/17/22 13:00 05/17/22 13:15 Temperature 97.9 F Pulse Rate 75 Pulse Rate [Left] 72 72 Respiratory Rate 22 24 24 Blood Pressure Blood Pressure [Le ft Arm] Blood Pressure [Ri ght Arm] 138/85 138/84 138/84 Pulse Oximetry Oxygen Delivery Me thod Room Air Room Air Room Air Oxygen Flow Rate 05/17/22 13:30 05/17/22 13:45 05/17/22 14:15 Temperature Pulse Rate Pulse Rate [Left] 73 82 82 Respiratory Rate Blood Pressure Blood Pressure [Le ft Arm] Blood Pressure [Ri ght Arm] 147/83 H 153/82 H 144/91 H Pulse Oximetry 93 93 Oxygen Delivery Me thod Room Air Room Air Room Air Oxygen Flow Rate 05/17/22 14:40 05/17/22 15:40 05/17/22 16:40 Temperature Pulse Rate Pulse Rate [Left] 71 57 L 74 Respiratory Rate 24 Blood Pressure Blood Pressure [Le ft Arm] Blood Pressure [Ri ght Arm] 146/89 H 131/75 163/93 H Pulse Oximetry 90 93 94 Oxygen Delivery Me thod Room Air Room Air Room Air Oxygen Flow Rate 05/17/22 20:31 05/17/22 23:00 05/18/22 03:00 Temperature 97.9 F 98 F 98.5 F Pulse Rate Pulse Rate [Left] 74 71 Respiratory Rate 20 18 Blood Pressure Blood Pressure [Le ft Arm] Blood Pressure [Ri ght Arm] 173/101 H 150/93 H Pulse Oximetry 93 94 Oxygen Delivery Me thod Room Air Room Air Oxygen Flow Rate 05/18/22 07:00 Temperature 97.8 F Pulse Rate Pulse Rate [Left] 72 Respiratory Rate 18 Blood Pressure Blood Pressure [Le ft Arm] 145/87 H Blood Pressure [Ri ght Arm] Pulse Oximetry 93 Oxygen Delivery Me thod Room Air Oxygen Flow Rate DS: Data Data Completed and Pending Labs on day of discharge: Labs from last 24 hours 05/18/22 05/18/22 05/18/22 05:48 05:48 05:48 WBC RBC Hgb Hct MCV MCH MCHC Plt Count INR 1.38 H VBG pH 7.436 H VBG pCO2 35 L VBG pO2 45.5 VBG HCO3 23 Sodium 138 Potassium 4.1 Chloride 110 Carbon Dioxide 22 BUN 20 Creatinine 1.0 Estimated Creat Clear 61.70 Estimated GFR 76 Glucose 87 Calcium 8.1 L Magnesium 2.1 Total Bilirubin 0.5 AST 28 ALT 25 Alkaline Phosphatase 70 Troponin I 0.03 C-Reactive Protein 8.7 H NT-Pro-B Natriuret Pep 1730 H Total Protein 5.8 L Albumin 2.9 L Procalcitonin 1.83 H 05/18/22 05:48 WBC 13.18 H RBC 3.59 L Hgb 11.9 L Hct 35.8 L MCV 100 MCH 33 MCHC 33 Plt Count 248 INR VBG pH VBG pCO2 VBG pO2 VBG HCO3 Sodium Potassium Chloride Carbon Dioxide BUN Creatinine Estimated Creat Clear Estimated GFR Glucose Calcium Magnesium Total Bilirubin AST ALT Alkaline Phosphatase Troponin I C-Reactive Protein NT-Pro-B Natriuret Pep Total Protein Albumin Procalcitonin Preliminary micro results at discharge 05/17/22 10:20 Aerobic Culture - Preliminary Shoulder Left 05/17/22 10:20 Aerobic Culture - Preliminary Shoulder Right 05/17/22 13:10 Aerobic Culture - Preliminary Shoulder Left 05/17/22 06:10 Blood Culture - Preliminary Blood NO GROWTH AFTER 24 HOURS 05/17/22 05:20 Blood Culture - Preliminary Blood NO GROWTH AFTER 24 HOURS 05/16/22 16:55 Blood Culture - Preliminary Blood - Picc Line NO GROWTH AFTER 24 HOURS 05/16/22 16:46 Blood Culture - Preliminary Blood - Picc Line NO GROWTH AFTER 24 HOURS Discharge Plan Discharge Disposition: Xfer Other Date of Admission: 05/16/22 17:17 Attending Provider on Discharge: Natty Guardado Consulting Providers: Warner Colunga Primary Care Provider: Nhi Marvin Condition: Improved Anticipated Discharge Date/Time: 05/18/22 13:18 Discharge Medications: New tamsulosin 0.4 mg Capsule 0.4 mg PO DAILY Qty: 30 0RF Continued acetaminophen [Acetaminophen Extra Strength] 500 mg tablet 500 mg PO DAILY amoxicillin 500 mg capsule 2,000 mg PO ONCE PRN chlorpheniramine maleate [Aller-Chlor] 4 mg tablet 4 mg PO Q12H PRN cholecalciferol (vitamin D3) 50 mcg (2,000 unit) tablet 50 mcg PO DAILY glucosamine sulfate [Cidatrine] 500 mg tablet 1,500 mg PO DAILY Rx Instructions: administer with a meal vitamin B complex [B Complex-Vitamin B12] Tablet 1 tab PO DAILY nifedipine 30 mg tablet extended release 24hr 30 mg PO DAILY warfarin 5 mg tablet 2.5 - 5 mg PO DAILY Label Comments: 2.5 MG WED,WED,,,SAT 5 MG ,WEDNESDAY rosuvastatin 5 mg tablet 5 mg PO MOWEFR@21 Discontinued prednisone 20 mg Tablet 40 mg PO DAILYWM Qty: 14 0RF Rx Instructions: 40mg every day for 1 week 20mg every day for 1 week then see your doc for further taper Discharge Orders: Discharge Order (Routine); Ordered 05/18/22 Ordered By: Natty Guardado Activity Level: Activity as Tolerated Activity Detail: Use of both shoulders as tolerated. Discharge Diet: Regular Follow Up Appointments: Nhi Marvin MD [Primary Care Provider] - [facility] Hospital Course: HOSPITALIST TRANSFER SUMMARY ATTENDING PHYSICIAN: Natty Guardado MD REASON FOR TRANSFER Left AC septic arthritis Possible right shoulder septic arthritis Abnormal transthoracic echocardiogram Urinary retention Mild cognitive decline Patent foramina ovale Chronic anticoagulation Distant history of stroke BRIEF HOSPITAL COURSE: 81-year-old with sudden severe onset of left shoulder pain in mid April presented to his primary care physician. Diagnosis at that time was rotator cuff impingement or bursitis. X-rays were reassuring. Corticosteroid subacromial injection was considered but his INR was too high. He was started on 10 mg of prednisone daily. Pain persisted and his PCP discussed the case with Rheumatology who recommended increasing the prednisone to 20 mg. In the days prior to admission, the patient described vomiting and feeling poorly. Mild fevers were noted. He was admitted with a mild hypoxia and excruciating bilateral shoulder pain on May 14. He had a chest CT done on May 14 in the ED. this demonstrated a complex effusion in the right shoulder. His pain all along had been in the left shoulder. Admission he was complaining of bilateral shoulder pain. Orthopedics palpated his right shoulder and did not feel a aspirate was needed. Overnight he was given a 40 mg dose of prednisone and felt much better. Discharged on May 15 with the presumed diagnosis of PMR. He had had blood cultures and 1 dose of vancomycin in this initial admission. However infection was felt less likely in this was not continued. Those blood cultures as all of them have remained negative. Prior to discharge he had updated shoulder x-rays which showed concerning changes from in April. There was some question about distal clavicle osteolysis when the 2 x-rays were compared. His discharge was continued and he went home with an MRI of his left shoulder that night. Overnight he had sweats and weakness. He was readmitted on the for concern regarding osteomyelitis. His MRI report was concerning for left AC osteomyelitis. Blood cultures were obtained, he had evidence of infection based on an increasing leukocytosis. However CRP had decreased. Orthopedics elected to take the patient the next morning to bilateral shoulder arthroscopies. His left shoulder demonstrated evidence of necrotic bone and significantly inflamed soft tissue, likely osteomyelitis. His distal clavicle was further resected and is joint was washed out. Bone was sent for pathology and microbiology studies. Initial Gram stains showed no organisms. Cultures are negative to date. His right shoulder was then scoped as well. This showed a cloudy fluid that was aspirated prior to scope insertion. This gram stain is also negative, with cultures still negative. The right cuff showed age expected deterioration but no obvious signs of infection. He has had a total of 3 blood cultures which have remained negative. Generally he has felt better since his washouts. He has moderate amount of bilateral shoulder pain, but this is improving. As part of this infectious workup I ordered a transthoracic echocardiogram. We are not able to perform transesophageal echocardiograms at our location. There was some concern about in the centric mitral valve jet with questions regarding a valvular abnormality. With this finding, the unusual presentation of bilateral shoulder pain, septic AC joint on the left we felt a [facility] would be best to manage this case. Are patient is in need of a transesophageal echocardiogram and or so Infectious Disease consult. He likely also needs a rheumatology consult. SERVICES NOT AVAILABLE HERE THAT HIS PATIENT NEEDS: Cardiology; trans esophageal echocardiogram Orthopedics Infectious Disease ACCEPTING PHYSICIAN/SERVICE/LOCATION: Hospitalist, Dr Farr MEDICATIONS AT TIME OF TRANSFER: Ertapenem Home medications DRIPS/LINES: Mendiola catheter PICC line VITAL SIGN, MEDICATION, LAB/MICRO, IMAGING SUMMARY (full details available in account tabs or by records request) Patient has been afebrile and hemodynamically stable since admission Micro as of transfer 05/18 at 1:00 p.m. Three sets blood cultures negative to date Negative Gram stains from left and right shoulder aspirates and left clavicular necrosis Cultures negative to date from left and right shoulder washouts Pathology pending on the left clavicle Radiology Review: Xray Left shoulder 3 views; 29 Apr 2022 Findings: Bones: Alignment is normal. No fractures or bone lesions. Joint spaces: Mild narrowing and spurring at the acromioclavicular and glenohumeral joints. Soft tissues: Incidental prominence of the aortic arch. Impression: Mild degenerative joint disease left shoulder. 05/15 follow up shoulder films Findings: Interval development of erosive changes at the distal clavicle and to a lesser extent at the acromion at the acromioclavicular joint with widening of the joint space and overlying soft tissue fullness. Mild degenerative changes at the glenohumeral joint and greater tuberosity. Vascular calcifications in the prominent aortic arch. Left upper lung clear. Impression: Development of infection/inflammation at the left acromioclavicular joint with erosive changes at the distal clavicle and acromion along with a joint effusion and synovial hypertrophy. CT Chest on 05/14 1. Complex fluid collection in the right shoulder joint extends medially and shows peripheral enhancement. This could be bursitis, but the appearance is concerning for infected collection, raising concern for septic arthritis. 2. Mild aneurysmal dilation of the ascending thoracic aorta. Otherwise, normal vessels without findings to suggest vasculitis. MRI - Left Shoulder 05/15 Impression: 1. Marked edema like signal within the distal clavicle and adjacent portion of the acromion with extensive erosive changes. Differential considerations include sequelae of inflammatory arthropathy. While distal clavicular osteolysis is in the imaging differential the extent and severity of acromial pathology is not typical for distal clavicular osteolysis. Infection/osteomyelitis is also in imaging differential although there is no AC joint fluid to indicate AC joint septic arthritis correlate with plain radiographs, clinical history, lab values and clinical signs of symptoms 2. Edema like signal confined to the most posterior aspect of the supraspinatus muscle could reflect myositis but is a non specific finding. 3. Slight supraspinatus tendinopathy. 4. No rotator cuff tendon tear rotator cuff muscular atrophy 5. 1.1 x 1.6 in the area of full-thickness chondral loss over the superomedial portion of the left humeral head. 6. Evidence of adhesive capsulitis is equivocal in this case and adhesive capsulitis is more of a clinical diagnosis. Correlate with active and passive range of motion. 7. Posterior superior labral fraying 8. Intact biceps tendon Unchanged. PHYSICAL EXAM: CONSTITUTIONAL: VITAL SIGNS: see record. Exam unchanged from earlier with notable exceptions: Bilateral shoulder restricted range of motion, neurovascularly intact. Overhead movements most notably affected. Patient can abduct best. Poor short-term memory DISPOSITION: [facility] Time spent on discharge >30 minutes. This includes speaking with accepting physician; family/patient and coordinating meds/drips for transfer 04/29 xrays at the [facility] in [place] Indication: Discharge Comments: Ortho PA visit in a week [phone]
== END 2022-05-18 15:10 | disposition short-term general hospital (02) | DRG 501 ==
PROVIDERS: Orthopaedic Surgery; Admitting Provider Family Medicine; PCP Family Medicine; Visit Provider Internal Medicine
PROC: 0RBK4ZZ Excision of Left Shoulder Joint, Percutaneous Endoscopic Approach (ICD-10-PCS; CPT 29805; principal; 2022-05-17 08:00)
DX: M00.012 Staphylococcal arthritis, left shoulder (principal); M86.112 Other acute osteomyelitis, left shoulder; Q21.12 Patent foramen ovale; M86.612 Other chronic osteomyelitis, left shoulder; M00.011 Staphylococcal arthritis, right shoulder; B95.7 Other staphylococcus as the cause of diseases classified elsewhere; R41.81 Age-related cognitive decline; R33.9 Retention of urine, unspecified; B95.61 Methicillin susceptible Staphylococcus aureus infection as the cause of diseases classified elsewhere; Z79.01 Long term (current) use of anticoagulants; I10 Essential (primary) hypertension; Z86.73 Personal history of transient ischemic attack (TIA), and cerebral infarction without residual deficits; D72.829 Elevated white blood cell count, unspecified; R70.0 Elevated erythrocyte sedimentation rate; I71.9 Aortic aneurysm of unspecified site, without rupture
CPT/HCPCS: 36415; 36573; 51702; 51798; 70498; 71045; 71260; 73030; 74177; 80053; 80069; 82803; 83605; 83735; 83880; 84145; 84443; 84484; 84550; 85025; 85027; 85610; 85651; 86140; 87040; 87186; 87205; 87635; 88304; 88311; 88312; 93005; 93306; 96361; 96365; 96366; 96372; 97110; 97116; 97161; 97165; 97535; 99284; G0378; A9270; C1751; G0379; J0171; J0330; J0690; J1100; J1335; J1650; J2370; J2405; J2704; J3010; J3370; J3430; J3490; J7030; J7120; J7512; Q9967

== ENCOUNTER 2022-05-18 15:31 | Outpatient (CLI) | payer MEDICARE, OTHER, SELFPAY ==
--- OUTSIDE RECORDS SUMMARY | 2022-06-19 00:02 | XMS_ITS | Clinical Summary ---
:1940 Author Organization [employer] [place] [address] Care Team Providers Name Role Phone Nhi Marvin MD Primary Care Provider [phone] [facility], [place] Unavailable [phone] Elaine Alarcon RN Unavailable Unavailable Allergies Active Allergy Reactions Severity Noted Date Comments Aspirin Anaphylaxis High 04/24/2005 Atorvastatin Arthralgia Low 07/23/2009 Doxycycline Vomiting 06/07/2012 Pravastatin Arthralgia Low 07/23/2009 Medications Medication Sig Dispensed Refills Start End Status Date Date chlorpheniramine Take 4 mg by 0 07/23/19 Active (CHLOR-TRIMETON) 4 mouth once 10 mg tablet daily. May use twice daily during allergy season as needed. Do not crush or chew. acetaminophen Take 1,000 mg by 0 Active (TYLENOL EXTRA mouth every 6 STRGTH) 500 mg hours if needed. tablet Max acetaminophen dose: 4000mg in 24 hrs. vitamin B complex Take 1 Tablet by 0 01/25/20 Active (B-COMPLEX VITAMIN) mouth [...] tablet by 0 05/29/20 Active Vitamin D3, 2,000 mouth once 20 unit tablet daily. 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 lidocaine 5 % Apply to intact 30 Patch 0 05/27/20 Active topical skin to cover 22 patchIndications: most painful Acute pain of right area for max shoulder 12hr per 24hr period. ceFAZolin (ANCEF; Inject 2 g 180 g 1 05/27/20 A ctive KEFZOL) 1 gram intravenous 22 022 injection every 8 hours. ADD-VANTAGEIndicatio ns: bone infection, endocarditis warfarin (COUMADIN) Take by mouth 0 06/08/20 Active 5 mg 2.5 mg daily or 22 tabletIndications: as directed. PFO (patent foramen ovale), Anticoagulation monitoring, INR range 2-3, Acute CVA (cerebrovascular accident) (HC) glucosamine sulfate Take 1,500 mg by 0 Active 500 mg tab mouth once daily. polyethylene glycol Mix 1 Packet in 0 Active (MIRALAX; GLYCOLAX) liquid then take 17 g packet by mouth once daily if needed for Constipation. ondansetron (ZOFRAN Place 4 mg on 0 Active ODT) 4 mg the tongue every disintegrating 6 hours if tablet needed for Nausea/Vomiting. sennosides (SENNA) Take 8.6 mg by 0 Active 8.6 mg tablet mouth two times daily. glucosamine HCl Take 1 tablet by 0 11/03/19 Discontinued 1,500 mg tab mouth once 18 022 (Pharm acist daily. change per medication history (E-cancel not sent)) NIFEdipine Take 1 Tablet 90 Tablet 3 11/21/19 Disco ntinued (PROCARDIA XL) 30 mg (30 mg) by mouth 02 09 2 (*IP Extended-Release once daily Di scontinued) tabletIndications: before a meal. ASHD (arteriosclerotic heart disease) predniSONE Take 1 Tablet 30 Tablet 0 05/08/20 Disco ntinued (DELTASONE) 10 mg (10 mg) by mouth 22 022 (*IP tabletIndications: once daily with Discontinued) PMR (polymyalgia a meal. rheumatica) (HC) warfarin (COUMADIN) Take 2.5-5 mg by mouth once daily. 5 mg Wed, Wed 0 Discontinued 5 mg tablet 2.5 mg the other days of the week. 022 (Other - add note to sp ecify (E-cancel not sent)) warfarin (COUMADIN) Take by mouth 0 06/01/20 Discontinued 5 mg 06/02: 2.5 mg; 22 022 (Othe r - add tabletIndications: 06/03: 2.5 mg; note to specify PFO (patent foramen 06/04: 2.5 mg. (E-cancel not ovale), Recheck INR sent)) Anticoagulation 06/05/2022. monitoring, INR range 2-3, Acute CVA (cerebrovascular accident) (HC) warfarin (COUMADIN) Take by mouth 0 06/01/20 Discontinued 5 mg 06/01: 2.5 mg; 22 022 (Othe r - add tabletIndications: 06/02: 2.5 mg; note to specify PFO (patent foramen 06/03: 2.5 mg; (E-cancel not ovale), 06/04: 2.5 mg. sent) ) Anticoagulation Recheck INR monitoring, INR 06/05/2022. range 2-3, Acute CVA (cerebrovascular accident) (HC) warfarin (COUMADIN) Take by mouth 0 06/05/20 Discontinued 5 mg 06/05: 5 mg; 22 022 (Reorde r tabletIndications: 06/06: 2.5 mg; (E-cancel not PFO (patent foramen 06/07: 2.5 mg; sent)) ovale), Recheck INR Anticoagulation 06/08/2022. monitoring, INR range 2-3, Acute CVA (cerebrovascular accident) (HC) Active Problems Problem Noted Date COVID-19 06/13/2022 Hypoxia 06/13/2022 Memory deficit 05/25/2022 Pseudogout of left knee 05/25/2022 Urinary retention 05/25/2022 PMR (polymyalgia rheumatica) 05/18/2022 Septic joint of left shoulder region 05/18/2022 JOAO 02/16/2006 AHI-59 03/17/2018 HTN (hypertension) 12/09/2017 Mixed hyperlipidemia 12/09/2017 History of CVA (cerebrovascular accident) 12/09/2017 Coronary artery disease involving hoonah coronary keyur ry of hoonah heart 12/09/2017 Non-cardiac chest pain 12/09/2017 Anticoagulation monitoring, INR range 2-3 07/20/2016 Acute CVA (cerebrovascular accident) 07/20/2016 Patent foramen ovale 03/13/2016 Elevated prostate specific antigen (PSA) 09/04/2011 Colon polyps 07/23/2009 Overview: Colonoscopy 11/2009 polyps repeat in 5 ye ars Unspecified sleep apnea 11/05/2006 Coronary atherosclerosis of unspecified type of vessel , hoonah or graft 05/13/2006 Overview: --S/P Angio 04/24/05 -PTCA/SONJA Stent of proximal LAD -PTCA of D1 secondary to plaque shifting . Unspecified transient cerebral ischemia Essential hypertension, benign Benign neoplasm of major salivary glands Hyperlipidemia LDL goal < 100 PFO (patent foramen ovale) Effusion of left knee Resolved Problems Problem Noted Date Resolved Date STABLE ANGINA PECTORIS 05/13/2006 11/07/2013 Overview: -Abnormal Myocardial Perfusion 05/06/06 Other ill-defined and unknown causes of morbidity and mortal ity 09/04/2011 Encounters Date Type Specialty Care Team Description 06/18/2022 Nurse Triage Ashly Mcqueen, Abnormal Lab Results RN (BMP, hepatic p brock, CRP, CBC) 06/18/2022 Telephone Nhi Marvin MD (HOSPITALIZATIO N) 06/17/2022 Retirement Norma Renee Transitional C are MD Martha Visit (MD peterson w up ) 06/16/2022 Anticoagulation Clinic, Asct Tcu Anticoag ulation (TCU) (warfarin) Inr 06/13/2022 - Emergency Kapsner, Respiratory tra ct infection due to COVID-19 virus (Primary Dx); 06/15/2022 Ector Esteban, Kateryna ; Dyspnea, unspecified type; eJmal Gross MD Residents, Rl Rosenberg MD Balakrishna Menon, Krishna Kumar K[place]u, MBB S Qadri, Ghaziuddin Ahmed, MBBS [facility] Hospitalists Of Discharge Summary - Blanca Dumont MBBS - 06/15/2022 11:56 AM CST Images from the original not e were not included. DISCHARGE SUMMARY ? ? [facility] Admission Date: 06/13/2022 Discharge Date: 06/15/2022 Discharge Plan: Hardy light was discharged to transitional care unit. Principal Diagnosis Transient hypoxia Failure to thrive Hospital Problem List Principal Problem: COVID-19 Active Problems: Coronary atherosclerosis of unspecified type of vessel, hoonah or graft Hyperlipidemia LDL goal < 1 00 PFO (patent foramen ovale) Anticoagulation monitoring, INR range 2-3 Acute CVA (cerebrovascular accident) (HC) HTN (hypertension) Coronary artery disease inv olving hoonah coronary artery of hoonah heart JOAO 02/16/2006 AHI-59 Septic joint of left should er region (HC) Pseudogout of left knee Urinary retention Hypoxia ADDITIONAL COMMENTS REGARDIN G DIAGNOSIS SPECIFICITY Additional Diagnosis Informa tion ?? Hospital Course Mr. Hardy Oliver is a [age] y.o. male with a history of CVA, hypertension, hyperlipidemia, patent foramen oval, ASCVD, JOAO, recent shoulder septic arthritis complicated by osteomyelitis, and urinary r etention who presents with w eakness and shortness of breath. Per record review, patient w as recently hospitalized from 05/18/2022-05/27/2022 for septic arthritis of both shoulders. Patient was ultimately discharged with cefazolin for 6 weeks via PICC line from [facility] date on 05/17. He was al so to follow-up with urology for new urinary retention and had a Mendiola placed at discharge while starting on Flomax. On 06/08/2022, patient ended up testing positive for COVID-19 at his TCU. Upon admission he was notabl y was hypoxic on room air to the mid 80s requiring supplemental oxygen. This resolved spontaneously overnight, however. He is was otherwise hemodynamically stable and afebril e. Chest x-ray performed [facility] showed no cardiopulmonary abnormality. Notably also had a recent CT PE with abdomen and pelvis study on 06/06/2022 which also showed no abnormalities. Therapies were consu lted. PT and OT confirmed ne ed for ongoing TCU care. LOCKSMITH HELPER confirmed no decline in swallow function and ok to continue regular diet and thin liquids. He had some dizziness when standing and low-normal blo od pressures so his nifedipi ne was stopped. Ready for discharge back to TCU on 06/15. Consultations Requested Charo dunne This Admission Encounter Notes Consults from Donita Jeffries C haplain Consults from Khadijah Peter Consults from Leonor Chao MD (Infectious Diseases) Recommendations for Outpatie nt Provider ? ? PCP: Nhi Marvin MD Recommendations for outpati ent provider Specific recommendations to be addressed at the follow up visit: no specific recommendations , routine post-hospital and medical follow-up. Medication regimen changes: Nifedipine stopped. Follow-up labs/imaging: none Other specialty follow-up no t included in DC orders: None Special considerations: none . Functional evaluations: Fall Risk: Total Score (If 5 or > is High Risk): 9 (06/15/2214) NuDESC (>/=2 abnormal): 0 ( 06/15/2214) MOCA: // SLUMS: Discharge Medications Your Home Medicines TAKE THE MEDICINE(S) PRES CRIBED BELOW. The provider has reviewed how you said you take these medicine(s) and wants you to take them as prescribed, not as how you reported taking them. Instructions lidocaine 5 % topical patch For diagnoses: Acute pain of right shoulder Apply to intact skin to cov er most painful area for max 12hr per 24hr period. rosuvastatin 5 mg tablet For diagnoses: Cerebrovascul ar accident (CVA) due to embolism of left middle cerebral artery, Hyperlipidemia LDL goal < 100 Commonly known as: CRESTOR TAKE ONE TABLET BY MOUTH AT BEDTIME THREE TIMES PER WEEK CONTINUE taking these medici nabila Instructions acetaminophen 500 mg tablet Commonly known as: TYLENOL E XTRA STRGTH Take 1,000 mg by mouth ever y 6 hours if needed. Max acetaminophen dose: 4000mg in 24 hrs. amoxicillin 500 mg capsule For diagnoses: PFO (patent f oramen ovale) Commonly known as: AMOXIL TAKE 4 CAPSULES BY MOUTH ON E HOUR BEFORE DENTAL PROCEDURE ceFAZolin 1 gram injection A DD-VANTAGE For diagnoses: Pyogenic arth ritis of left shoulder region, due to unspecified organism (HC) Commonly known as: ANCEF; KE FZOL Inject 2 g intravenous ever y 8 hours. chlorpheniramine 4 mg tablet Commonly known as: CHLOR-TRI METON Take 4 mg by mouth once brittney ly. May use twice daily during allergy season as needed. Do not crush or chew. cholecalciferol (Vitamin D3) 2,000 unit tablet Take 1 tablet by mouth once daily. CPAP For diagnoses: Obstructive s leep apnea CPAP machine for home use a t pressure: 6.8 CM H20 , Heated humidifier x 1, Humidifier chamber x 1, Full face mask with cushion x 1, Standard tubing x 1, Headgear x 1, Filters: Disposable x 1pk & Re usable x 1pk, Length of Need : 99 months, Frequency of use: Daily glucosamine sulfate 500 mg T ab Take 1,500 mg by mouth once daily. ondansetron 4 mg disintegrat ing tablet Commonly known as: ZOFRAN OD T Place 4 mg on the tongue ev hans 6 hours if needed for Nausea/Vomiting. polyethylene glycol 17 g pac ket Commonly known as: MIRALAX; GLYCOLAX Mix 1 Packet in liquid then take by mouth once daily if needed for Constipation. Senna 8.6 mg tablet Generic drug: sennosides Take 8.6 mg by mouth two ti mes daily. tamsulosin 0.4 mg capsule For diagnoses: Urinary reten tion Commonly known as: FLOMAX Take 1 Capsule (0.4 mg) by mouth once daily after a meal. vitamin B complex tablet Commonly known as: B-COMPLEX VITAMIN Take 1 Tablet by mouth once daily. warfarin 5 mg tablet For diagnoses: PFO (patent f oramen ovale), Anticoagulation monitoring, INR range 2-3, Acute CVA (cerebrovascular accident) (HC) Commonly known as: COUMADIN Take by mouth 2.5 mg daily or as directed. STOP taking these medicines NIFEdipine 30 mg Extended-Re lease tablet Commonly known as: PROCARDIA XL Pertinent Findings / Procedu res First weight: 82.6 kg (182 l b) (06/13/22 1747) Last weight: 82.1 kg (181 lb 1.6 oz) (06/13/22 2200) Labs Recent Labs 06/14/22 0700 06/13/22 18006/06/22201205/20/22 0532 05/19/22 0458 WBC 9.2 11.4 H 6.0 -- 8.9 HGB 11.9 L 12.3 L 13.4 L < > 10.7 L HCT -- 37.2 40.7 -- 32.1 L MCV 97 98 99 < > 99 PLT 111 L 112 L 156 < > 212 < > = values in this interv al not displayed. Recent Labs 06/14/22 0700 06/13/22180306/06/222012 SODIUM 135 134 L 137 POTASSIUM 3.1 L 3.4 L 4.1 CHLORIDE 106 104 105 MY8AXYAA 22 18 L 21 BUN 12 18 11 CREATININE 0.75 1.00 0.93 GLUCOSE 94 90 87 CALCIUM 8.1 L 8.4 L 9.0 ALBUMIN -- 3.0 L 3.1 L Recent Labs 06/14/22 0700 06/13/22 1804 06/06/22201205/27/22 0500 05/26/22 0643 05/25/22 0607 INR 2.9 H 3.0 H 2.5 H 2.0 H < > 1.6 H PLT 111 L 112 L 156 -- -- 21 1 < > = values in this interv al not displayed. Recent Labs 06/13/22180306/06/222012 ALBUMIN 3.0 L 3.1 L BILITOTAL 0.5 0.7 ALT <5 L <5 L AST 17 17 ALKPHOSPH 99 117 PROTEIN 6.1 6.4 Recent Labs 06/13/22 1908 06/13/22 1821 BNP 22 -- TROPI -- Negative Micro Imaging CT Chest PE with A/P on 05/13 12/31 IMPRESSION: No acute findings including no pulmonary emboli or cause for abdominal pain identified. 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 Diet / Activity / Follow-Up After Discharge Orders and I nstructions Activity and weight bearing as tolerated Activity and weight bearing status as tolerated. Nursing staff to re-evaluate and modify as appropriate. Admission H&P Valid: Yes Agency Standing Orders: Yes All Orders Valid For 45 Day s Unless Otherwise Indicated Allergies: -- Aspirin -- Anaphylaxis -- Doxycycline -- Vomiting -- Atorvastatin -- Arthralg ia -- Pravastatin -- Arthralgi a Diet Regular . Discharge Condition: Stabil ized Discharge Potential: Length of Stay LESS Than 30 Days Discharge Summary: Enclosed Free of Communicable Diseas e: Yes Give 2-Step Mantoux: Yes, U nless Current or Contraindicated Level of Care: Skilled Patient Aware of Diagnosis: Yes Patient may leave SNF super vised with medications Primary Care Provider nicholas kearns up appointment(s) Nhi Marvin MD When to follow up: 1 to 5 d ays Rehab Potential: Good Treatment - Occupational Th erapy Eval and Treat Treatment - Physical Therap y Eval and Treat Treatment Options: Full Res uscitation Vital Signs per facility ro utine Weight per facility routine Weigh on admission to skill ed nursing facility When should you be concerne d? At the senior care faci lity let your health care providers know if you notice any changes in your condition. Who can the receiving facil ity call with order questions? If any questions arise with in the first 24 hours after discharge contact our service at [phone]. [facility] You were in the hospital fo r concerns about breathing and swallowing. Pending Studies Lab results that may not be resulted at time of discharge: (From admission through now) Start Ordered 06/13/222214 BLOOD CULTURE Q1MIN, STAT Start Priority Status 06/13/222214 STAT Prelimina ry result Details 06/13/222219 STAT Prelimina ry result Details 06/13/222203 Total time spent on discharg e coordination: Per attending. Patient was seen and examined today. Sammy Arteaga MD PGY3 Internal Medicine [facility] ? ? ATTENDING PROGRESS NOTE I saw and examined Hardy Lovell with the resident and I agree with the documented findings and plan. Additional comments: none MJ Campos ISION DYER 06/13/2022 Nurse Triage Penelope Roberts RN Update (Re schedule Lab Draw) 06/12/2022 Nurse Triage Julia Gerber, Concerns (poor RN jason) 06/12/2022 Anticoagulation Clinic, Asct Tcu Inr Anti coagulation (TCU) (warfarin) 06/11/2022 Retirement PalestineNorma suh Aj Thomas MD Visit 06/11/2022 Orders Only Scanner <No scans attac hed> 06/11/2022 Nurse Triage Toño Baer Abnormal Lab Results L, RN 06/10/2022 Phone Office Visit Juan Jose Salomon MD 06/10/2022 Telephone Nhi Marvin [place] (TCU- MD Rubina Request Fax ) 06/10/2022 Anticoagulation Clinic, Asct Tcu Inr Anti coagulation (TCU) (warfarin) 06/10/2022 Travel 06/08/2022 Retirement Dorinda Blake Transiti onal Care AUTOMOBILE MECHANIC HELPER Visit (AUTOMOBILE MECHANIC HELPER follo w up ) 06/08/2022 Nurse Triage Julia Gerber, Nausea RN 06/08/2022 Telephone Nhi Marvin Anticoagula baylee Cespedes MD 06/08/2022 Anticoagulation Clinic, Asct Tcu Inr Anti coagulation (TCU) (warfarin) 06/06/2022 - Emergency Mike Ibrahim RLBarbara abdominal pain (Primary Dx); 06/07/2022 KEVIN Newton History of CVA (cerebrovascular accident ); Julia Gomez Anticoagul ation monitoring, INR range 2-3 MD Corona Samuels Nathaniel Smith, MD 06/06/2022 Orders Only Scanner <No scans attac hed> 06/06/2022 Travel 06/06/2022 Nurse Triage Julia Vidales, Concerns RN 06/05/2022 Nurse Triage Marlin Castellanos, Abnorma l Lab Results RN (CBC, BMP, ALT, AST, Alkaline Phosph ate) 06/05/2022 Anticoagulation Clinic, Asct Tcu Inr Anti coagulation (TCU) (warfarin) 06/01/2022 Retirement Norma Renee Transitional C are MD Martha Visit (MD Halie marte ) 06/01/2022 Anticoagulation Clinic, Asct Tcu Inr Anti coagulation (warfarin) ([place]artha [place] [facility] Ros e) 05/29/2022 Telephone Berto Hernandez, Appointm ent 05/28/2022 Retirement Rubina [facility] [place], AUTOMOBILE MECHANIC HELPER Visit (AUTOMOBILE MECHANIC HELPER Admit ) 05/28/2022 Orders Only Scanner <No scans attac hed> 05/28/2022 Nurse Triage Julia Gerber, Results ( ALT, AST, RN Alkaline Phosph atase, Creatinine); Ab normal Lab Results (BM P, CRP inflammation, Electrolyte pizarro el, Hepatic Panel ) 05/28/2022 Anticoagulation Clinic, Asct Tcu Inr Anti coagulation (TCU) (warfarin) 05/28/2022 Telephone Rubina Parish Anticoa gulation (TCU [place], AUTOMOBILE MECHANIC HELPER Admit - [employer]) 05/27/2022 Telephone Henny Alexandra, PT Home Car e 05/19/2022 Orders Only Nhi Marvin <No scans a ttached> MD Rubina 05/18/2022 - Hospital Encounter [facility], Anw Mitral va lve insufficiency, unspecified etiology (Primary Dx); 05/27/2022 Hospitalists Of Pyogenic arthritis of left shoulder millie on, due to unspecified organism (HC); Berto Ruiz Urinary chantale ntion; MD [place] Acute pain of right shoulder Sarah Frazier MD [place], Paul Heetaek, MD Discharge Summary - Kevin Munroe MD - 05/27/2022 7:54 AM CST Images from the original not e were not included. HOSPITALIST DISCHARGE SUMMAR Y ? ? [facility] Admission Date: 05/18/2022 Discharge Date: 05/27/2022 Discharge Plan: Hardy light was discharged to transitional care unit. Principal Diagnosis Septic joint of bilateral sh [place] Hospital Problem List Principal Problem: Septic joint of left should er region (HC) Active Problems: Coronary atherosclerosis of unspecified type of vessel, hoonah or graft PFO (patent foramen ovale) HTN (hypertension) Mixed hyperlipidemia History of CVA (cerebrovasc ular accident) JOAO 02/16/2006 AHI-59 PMR (polymyalgia rheumatica ) (HC) Effusion of left knee Memory deficit Pseudogout of left knee Urinary retention ADDITIONAL COMMENTS REGARDIN G DIAGNOSIS SPECIFICITY Additional Diagnosis Informa tion ?? Hospital Course Mr. Hardy Oliver is a 81 y.o. w/ hx of CVA, cognitive decline, HTN, HLD, PFO, CAD, and JOAO who presented to OSH on 05/14 with septic left shoulder and possible endocarditis. Of note, noted intermitte nt L shoulder pain beginning ~1 mo prior to admission. Seen at [facility] on 04/29 and XR showed arthritis. Also had R shoulder pain at that time. Concern for bursitis clinically so treated with pred nisone. Scheduled for steroi d injection on 05/01 but INR was supratherapeutic so canceled. Worsening pain on both shoulders and ESR elevated to 63 on 05/06. Restarted on prednisone 10 mg daily. Seen in ED on 05/12 for INR of 7.7, r eceived vitamin K. Because of ongoing and worsening shoulder pain, presented back to ED on 05/14. Once admitted, initial concern for PMR and started on prednisone 20 mg. Ortho also thought this was more PMR; pt d/c'ed on 05/15 with plan for outpatient MRI whic hwas done later on 05/15 which showed potential distal clavicular osteomyelitis. Patient returned to ED on due to temperature of 99.7, chills, and sweats. He continued to have discomfort in his shoulders left more than right. Blood cultures were obtained. WBC elevated at 22.8. He underwent bilateral shoul jackson arthroscopies and debridement on 05/17 which demonstrated left shoulder AC septic arthritis with distal clavicle osteomyelitis and right shoulder glenohumeral joint fluid collection, possible septic arthritis. He subsequently underwent an echo on 05/17 which showed mild to moderate MR and an eccentric jet suggesting posterior mitral valve leaflet dysfunction. Endocarditis could not be ruled out. Ert apenem was started on 05/17. Gram stain of both left and right shoulder joint fluid and bone showed no organisms. Blood cultures remain negative and a PICC line was placed on 05/18. Given the findings on echo, the patient was transferred to [facility] for further evaluation. Upon admission here, Orthopa edic Surgery and ID were consulted. No endocarditis on transesophogeal echocardiography on 05/20; did show mitral regurgitation for which he's to follow up with outpatient Car diology (Dr. 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 Culture from left shoulder returned MSSA, culture from right shoulder was coag negative staph (which ID felt was likely colonizer). Antibiotics for total 6 weeks from surgery date on 05/17. Per Orthopaedic, he's to follow up 2 weeks from date of surgery (on 05/17) to remove sutures. On 05/20, he reported left knee pain with left knee (2 view) xray suggesting a joint effusion on lateral view with severe tricompartmental degenerative arthrosis most pronounced in me dial compartment is similar to prior exam. On 05/21, Orthopaedic Surgery performed bedside arthrocentesis with fluid consistent for calcium pyrophosphates so dx w/ acute pseudogout flare for which he was treated w/ colchicine and resolved. Patient also had urinary ret ention that persisted after mendiola removal for which he required several straight caths and for which he may need mendiola replacement. Started on flomax and Urology placed a fol ey with plan for outpatient follow up and cystoscopy. Planned for discharge to [facility] with home care which patient indicated multiple times that he preferred; however, family felt he was not safe for discharge to home as his is frail and unable to provi de full cares (and family do not live in town). During his stay, it also became more clear that he likely has at least mild (and possibly more significant) memory trouble for which outpatient Neuropsych testing was recommended (he was also instructed to undergo evaluation by [facility] driving program before returning to driving). Social work consulted for placement and he was accepted at [facility] so discharged to [facility] on 05/27. Upon d/c, follow up with Orthopedic in 1-2 weeks (suture removal ~05/31), w/ Cardiology in 6-8 months, and w/ Urology in 2 weeks. He is to get his neuropsych lamberto ting done once done with the rapy at TCU. Needs weekly labs while on IV antibiotic and INR checked at TCU. Recommendations for Outpatie nt Provider ? ? PCP: Nhi Marvin MD Recommendations for outpati ent provider Specific recommendations to be addressed at the follow up visit: Infection - need to continu e IV ancef for 6 weeks from 05/17 R shoulder pain - can janet nue using tylenol as well as some topical medication anticoagulant recommendatio ns: warfarin, goal INR 2-3. Check INR at post- hospital visit. Indefinite duration. Medication regimen changes: see Hospital Course above. Follow-up labs/imaging: BMP, CBC, and hepatic function panel weekly while on IV antibiotic. INR at post-hospital visit Other specialty follow-up no t included in DC orders: None Special considerations: none . Functional evaluations: Fall Risk: Total Score (If 5 or > is High Risk): 5 (05/27/22129) NuDESC (>/=2 abnormal): 0 ( 05/27/22129) MOCA: // SLUMS: Discharge Medications Your Home Medicines START taking these medicines Instructions ceFAZolin 1 gram injection A DD-VANTAGE For diagnoses: Pyogenic arth ritis of left shoulder region, due to unspecified organism (HC) Commonly known as: ANCEF; KE FZOL Inject 2 g intravenous ever y 8 hours. lidocaine 5 % topical patch For diagnoses: Acute pain of right shoulder Apply to intact skin to cov er most painful area for max 12hr per 24hr period. tamsulosin 0.4 mg capsule For diagnoses: Urinary reten tion Commonly known as: FLOMAX Take 1 Capsule (0.4 mg) by mouth once daily after a meal. TAKE THE MEDICINE(S) PRES CRIBED BELOW. The provider has reviewed how you said you take these medicine(s) and wants you to take them as prescribed, not as how you reported taking them. 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 Max acetaminophen dose: 4000mg in 24 hrs. amoxicillin 500 mg capsule For diagnoses: PFO (patent f oramen ovale) Commonly known as: AMOXIL TAKE 4 CAPSULES BY MOUTH ON E HOUR BEFORE DENTAL PROCEDURE chlorpheniramine 4 mg tablet Commonly known as: CHLOR-TRI METON Take 1 tablet by mouth. Angelito e daily at midnight. May use twice daily during allergy season as needed. Do not crush or chew. cholecalciferol (Vitamin D3) 2,000 unit tablet Take 1 tablet by mouth once daily. CPAP For diagnoses: Obstructive s leep apnea CPAP machine for home use a t pressure: 6.8 CM H20 , Heated humidifier x 1, Humidifier chamber x 1, Full face mask with cushion x 1, Standard tubing x 1, Headgear x 1, Filters: Disposable x 1pk & Re usable x 1pk, Length of Need : 99 months, Frequency of use: Daily glucosamine HCl 1,500 mg Tab Take 1 tablet by mouth once daily. NIFEdipine 30 mg Extended-Re lease tablet For diagnoses: ASHD (arterio sclerotic heart disease) Commonly known as: PROCARDIA XL Take 1 Tablet (30 mg) by [facility] once daily before a meal. Doctor's comments: Patient w ill call when refill is needed. vitamin B complex tablet Commonly known as: B-COMPLEX VITAMIN Take 1 tablet by mouth once daily. warfarin 5 mg tablet Commonly known as: COUMADIN Take 2.5-5 mg by mouth once daily. 5 mg Tue, Fri 2.5 mg the other days of the week. STOP taking these medicines predniSONE 10 mg tablet Commonly known as: DELTASONE Where to get your medicines These medications were sent to [facility] [address] [place] [id number] ?? lidocaine 5 % topical pat ch You have received printed pr escription(s) for these medicines or supplies. Take these to your preferred pharmacy. Bring a paper prescription f or each of these medications ?? ceFAZolin 1 gram injectio n ADD-VANTAGE Prescriptions for these medi cines or supplies were NOT printed nor sent to your preferred pharmacy. Check with your doctor if you have questions. Check with your doctor if yo u have questions. ?? tamsulosin 0.4 mg capsule Pertinent Findings / Procedu res BP 144/86 (Cuff Size: Adult Regular) Pulse 75 Temp 98.4 ??F (36.9 ??C) Resp 18 SpO2 93% First weight: Last weight: GENERAL: NAD, pleasant Resp: Nonlabored, LCTA bilat erally, no wheezing or crackles noted CV: RRR, normal S1/S2, +murm ur, no significant peripheral edema ABDOMEN: Soft, NT/ND MUSCULOSKELETAL: Bilateral s houlders with sutures at procedure site, no active bleeding or drainage, no tenderness upon palpation, L knee w/o effusion or tenderness or warmth NEURO: Alert, CN grossly int act, nonfocal PSYCHIATRIC: Awake, coherent , answering questions Labs Renal Heme GI 05/25/22 0607 05/26/22 0643 CREATININE 0.97 0.92 05/25/22 1842 COLOR Yellow CLARITY Clear SPECGRAV >=1.030* PHURINE 6.0 UROBILINOGEN Normal PROTEINUA 30* GLUCOSEUA Negative KETONESUA 40* BLOODUA Moderate* NITRITE Negative LEUKOCYTE Negative RBCUA -25* WBCUA 3-5 BACTERIAUA Rare EPITHELIALUA Few 05/25/22 0607 PLT 211 05/25/22 0607 05/26/22 0643 INR 1.6* 1.8* Cardiopulmonary ID Endo COVID-19: Not on local file Micro See epic Imaging ECHO COMPLETE WO CONTRAST 1. Normal left ventricular size, normal wall thickness, normal global systolic function, calculated EF of 61 %. 2. The ascending aorta is d ilated with a maximal diameter of 5.0 cm. 3. The aortic sinus is dila julian with a maximal diameter of 4.4 cm. 4. Right ventricular cavity size is normal, global systolic RV function is normal. 5. No pericardial effusion. 6. The mitral valve is not well visualized, mild to moderate primary mitral regurgitation, eccentric jet directed anteromedially suggests posterior mitral valve leaflet dysfunction (possibly mild poste rior leaflet mitral valve pr olapse, cannot rule out different leaflet etiology). 7. Consider transesophageal echocardiography, if clinically indicated. Chest x-ray 05/14/2022 No acute cardiopulmonary dis ease CT chest 05/14/2022 1. Complex fluid collection in the right shoulder joint extends medially and shows peripheral enhancement. This could be bursitis, but the appearance is concerning for infected flexion, raising concern for septic arthritis. 2. Mild aneurysmal dilation of the ascending aorta. Otherwise normal vessels without findings to suggest vasculitis. Left shoulder x-ray 2 Development of infection/inf lammation at the left acromioclavicular joint with erosive changes at the distal clavicle and acromion along with a joint effusion and synovial hypertrophy. Right shoulder x-ray 05/15/20 No fracture. Moderate acromi oclavicular degenerative joint disease and milder glenohumeral compartment degenerative joint disease. CT angio neck 05/14/2022 Patent cervical arterial vas culature without hemodynamically significant luminal stenosis. MRI left shoulder 05/15/2022 1. Marked edema like signal within the distal clavicle and adjacent portion of the acromion with extensive erosive changes. Differential considerations include sequelae of inflammatory arthropathy. Mild distal clavicular osteolysi s is in the imaging differential, the extent and severity of acromial pathology is not typical for distal clavicular osteolysis. Infection/osteomyelitis is also on the imagin g differential although ther e is no acromioclavicular joint fluid to indicate acromioclavicular joint septic arthritis. Correlate with plain radiographs, clinical history, laboratory values, and clinical signs and symptoms. 2. Edema-like signal confine d to the most posterior aspect of the supraspinatus muscle could reflect myositis but is a very nonspecific finding. 3. Slight supraspinatus tend inopathy. 4. No rotator cuff tendon te ar or rotator cuff muscular atrophy. 5. 1.1 x 1.6 in the area of full-thickness chondral loss over the superomedial portion of the left humeral head. 6. Evidence of adhesive caps ulitis is equivocal in this case, and adhesive capsulitis is more of a clinical diagnosis. Correlate with active and passive range of motion. 7. Posterior superior labral fraying. 8. Intact biceps tendon. Consultants Encounter Notes Consults from Melo Chapa MD (Surgery - Urology) Consults from Keturah Mathew NP (Nurse Practitioner) Consults from Leonor Chao MD (Infectious Diseases) Consults from Elmer Gonzalez MD (Cardiovascular Disease) Diet / Activity / Follow-Up After Discharge Orders and I nstructions AMB CONSULT TO HOME INFUSIO N Pharmacist to manage and ad just medication therapy as appropriate based on labs and/or renal function?: Other (Comments) Comment - Pharmacy to contact MD silverware assembler to treat and e vazquez at home as needed? (To include 2 RN home IV teaches within the first 5 days of discharge.): Yes Activity and weight bearing as tolerated Activity and weight bearing status as tolerated. Nursing staff to re-evaluate and modify as appropriate. Admission H&P Valid: Yes After Hospital Follow Up Ap pointment(s) Neuropsychological evaluati ons can often be scheduled through a Neurologist office such as at [facility]. Call to make appointment. Your primary doctor can also recommend where to undergo this testing. When to follow up: Other (C omment) Other (Comment): It is jordan mmended that you have outpatient Neuropsychological evaluation to evaluate your memory after you further recover from your infection (in ~2-3 months) After Hospital Follow Up Ap pointment(s) Follow up with Dr. Alfred mchugh (urology) in 2 weeks for trial of void, office cystoscopy, and may need surgical considerations for enlarged prostate. Our office will contact you to make follow up little calabrese. If you do not hear f rom our office within 3 business days of discharge, please call us at [phone]. When to follow up: 11 to 14 days When is patient being disch arged?: Other/Unknown Agency Standing Orders: Yes All Orders Valid For 45 Day s Unless Otherwise Indicated Allergies: -- Aspirin -- Anaphylaxis -- Doxycycline -- Vomiting -- Atorvastatin -- Arthralg ia -- Pravastatin -- Arthralgi a Apply ice: Apply cold therapy device a s directed by your physician. Place a clean, dry barrier between your skin and the cold therapy. COVID-19 Discharge Informat ion: What can I do to prevent in fection? Avoid close contact with peo ple who are sick Avoid touching your eyes, no se, and mouth with unwashed hands Cover your mouth and nose wi th a cloth face cover when around others Cover coughs and sneezes whe n in a private setting and not wearing a mask Clean and disinfect frequent ly touched objects using a regular household cleaning product Wash your hands often with s oap and water for at least 20 seconds, especially after coughing, sneezing, blowing your nose, using the bathroom, and before eating If soap and water are not re adily available, use an alcohol-based hand him coder that contains 60%-95% alcohol Should I wear a face mask? The CDC recommends wearing a face mask in public settings where other social distancing measures are difficult to maintain (e.g., grocery stores and pharmacies), especially in areas of significant community-based transmission. Masks and respirators (i.e. specialized filtering masks such as N95s) can provide different levels of protection depending on the type of mask and how they are used. Loosely woven cloth products provi de the least protection, lay ered finely woven products offer more protection, well-fitted disposable surgical masks and KN95s offer even more protection, and well-fitting NIOSH-approved respirators (inc luding N95s) offer the highe st level of protection. Masks and respirators should not be placed on young children under age 2, anyone who has trouble breathing, or is unconscious, incapacitated or otherwise unable to remove the mask without assistance. Additional information about COVID-19, including how it spreads, common symptoms, and frequently asked questions is available here: https://www.cdc.gov/coronavi valerie/2019-ncov/index.html Caring for your wound or in cision: Your wound or incision is l ocated on your bilateral shoulders. You will have your incisions evaluated in clinic in 2 weeks and remove any izzy or sutures as indicated. Report to your orthopedic surgeon if concern of infection, dehiscence or drainage Your wound or incision is co anselmo with water resistant dressing. Keep dressing in place, romeo n and dry for two weeks Change dressing only PRN sat uration >60%. Diet Regular . Discharge Condition: Stabil ized Discharge Potential: Length of Stay LESS Than 30 Days Discharge Summary: Enclosed Elevate affected extremity: to relieve swelling FOLLOW Call please to schedule a F /u with Dr. Dylan Domingo or Dr. Salomon or Mrs. Topete in 2-3 weeks. [facility] address: [address] [place] [address] 250 - phone number is [phone] - You can reach infectious dis eases at [phone] weekly CBC, creat, electrol ytes, AST, ALT, alk phosph, CRP - fax to [phone]--( Aime or Dylan Indiochristopher) Free of Communicable Diseas e: Yes Future Lab PT/INR 1 day after discharg e, if on warfarin. Future Lab orders at SNF BMP, hepatic function panel , and CBC weekly while on IV antibiotic Give 2-Step Mantoux: Yes, U nless Current or Contraindicated Level of Care: prison COMMUNICATION Before you return to [facility] it is strongly recommended that you be evaluated to assess your safety for driving such as through [facility]'s driving assessment and training program (call [phone] to make appointment) NURSING COMMUNICATION - Mendiola is to stay in until follow up with Urology as outpatient NURSING COMMUNICATION PICC line cares and marifer tomase per facility protocol. Patient Aware of Diagnosis: Yes Patient may leave SNF super vised with medications Primary Care Provider nicholas kearns up appointment(s) Nhi Marvin MD When to follow up: 1 to 5 d ays Rehab Potential: Good Treatment - Occupational Th erapy Eval and Treat Treatment - Physical Therap y Eval and Treat Treatment Options: Full Res uscitation Urinary Drain Care: The reason for the drain is : urinary retention. The type of drain is: Patien t Lines/Drains/Airways Status Active Drains Name Placement date Placeme nt time Site Days Additional Info URINARY DRAIN: MENDIOLA 1830 - 1 Type: Mendiola Size (fr): 16 Number of Attempts: 1 What technique was used to place the catheter (if mendiola or coude)?: 2 person with checklist . Care instructions: per facil ity. Vital Signs per facility ro utine Weight bearing: WEIGHT BEARING STATUS when moving around: weight bearing as tolerated bilateral shoulders and left knee Weight per facility routine Weigh on admission to skill ed nursing facility When should you be concerne d? At the senior care faci lity let your health care providers know if you notice any changes in your condition. Who can the receiving facil ity call with order questions? If any questions arise with in the first 24 hours after discharge contact our service at [phone] . [facility]? The reason you were in the hospital for a Transesophageal Echocardiogram. [facility] You were in the hospital fo r infection in both shoulder joints. Wound care - keep incision dry: Keep incision dry as direct ed by your doctor. Wound or incision care: Wound care instructions for the senior care facility: Keep mepilex dressings on sh oulders clean, dry, and intact. Change prn if saturation >60%. AMB CARDIOLOGY APPT FOLLOW UP Please call this patient to schedule a follow up appointment within 6-8 months of discharge with Dr. Veronika Fuentes at [facility] where Dr Fuentes has seen this patient before. This is to follow up on mild-moderate MR. Type of cardiology follow u p needed: Follow Up Recommended next visit type : In person Cardiology Specialty: Inter ventional Non-Imaging Services Needed : None Imaging tests needed: None Pending Studies Lab results that may not be resulted at time of discharge: (From admission through now) Start Ordered 05/27/22 1330 LEPTOSPIRA IG M ONE TIME, TODAY 05/27/22 1325 Total time spent on discharg e coordination: 40 minutes. Patient was seen and examined today. David Munroe MD Hospitalist, [facility] ? ? [phone] ISION DYER 05/18/2022 Orders Only Scanner <No scans attac hed> 05/18/2022 Orders Only Scanner <No scans attac hed> 05/18/2022 Lab Requisition Warner Colunga MD 05/17/2022 Orders Only <No scans attac hed> 05/17/2022 Orders Only <No scans attac hed> 05/17/2022 Travel 05/15/2022 Orders Only Scanner <No scans attac hed> 05/15/2022 Orders Only Scanner <No scans attac hed> 05/14/2022 Office Visit Nhi Marvin Follow Up ( Elevated INR, MD Rubina ESR and multipl e joint pain) 05/14/2022 Orders Only Scanner <No scans attac hed> 05/14/2022 Orders Only Scanner <No scans attac hed> 05/14/2022 Orders Only Scanner <No scans attac hed> 05/14/2022 Anticoagulation (warfarin) 1, [facility] Antico[facility] 05/14/2022 Travel 05/13/2022 Telephone Bradley Murray Question s MD 05/13/2022 Telephone Nhi Marvin Anticoagula tion (INR MD Rubina greater than 5/ INR concerns) 05/12/2022 Office Visit Nhi Marvin Shoulder Pa in/problem; MD Rubina Elbow Pain/prob emma 05/12/2022 Telephone Nhi Marvin Follow Up; Appointment MD Rubina Request 05/12/2022 Anticoagulation (warfarin) 1, [facility] Anticoagulation 05/12/2022 Telephone Ashly Batista Abnormal Lab Results KEVIN Erickson 05/12/2022 Travel 05/08/2022 Telephone Nhi Marvin Abnormal La b Results MD Rubina 05/06/2022 Orders Only Lab, [facility] 05/06/2022 Anticoagulation (warfarin) 1, [facility] Anticoagulation 05/06/2022 Travel 05/06/2022 Telephone Nhi Marvin Musculoskel etal Problem MD Rubina 05/01/2022 Office Visit Tenzin Virk MD Arm Pain /problem (Left arm pain; started 1 0 days ago; [address]) 05/01/2022 Telephone Nhi Marvin Anticoagula tion (dosing) MD Rubina 05/01/2022 Telephone Nhi Marvin Anticoagula tion (BPA - MD Rubina Prednisone) 05/01/2022 Telephone Zainab Tobin Pharmacist Ma KEVIN Lieberman Management (Pre dnisone) 05/01/2022 Anticoagulation (warfarin) 1, [facility] Antico[facility] (Lab ) 05/01/2022 Telephone Nhi Marvin Error-pleas e disregard MD Rubina 05/01/2022 Nurse Triage Nhi Marvin Shoulder Pa in/problem MD Rubina 05/01/2022 Travel 05/01/2022 Nurse Triage Nhi Marvin Musculoskel etal Problem MD Rubina (Shoulder pain) 05/01/2022 Telephone Nhi Marvin Questions MD Rubina 04/29/2022 Ancillary Procedure 04/29/2022 Office Visit Zainab Tobin Shoulder Pain /problem KEVIN Russell (left- 4 days a go, achey pain- 8/10- ) 04/29/2022 Travel 04/14/2022 Refill Nhi Marvin Refill Requ est; Medication MD Rubina Problem 04/14/2022 Refill Nhi Marvin Refill Requ est MD Rubina (Amoxicillin) from Last 3 Months Immunizations Name Administration Dates Next Due COVID-19 vaccine ([employer] 11/20/2021 30mcg/0.3mL) 12YO+ LALITHA-SUCROSE PF, MDV Influenza A (H1N1), Inactivated 07/23/2009 Influenza A [...] in contact with No / Unsu re 06/10/2022 8:28 AM PRECISION [facility]YER someone who was confirmed or suspected to have Coronavirus/COVID-19? Obstetrics History Last Filed Vital Signs Vital Sign Reading Time Taken Comments Blood Pressure 122/76 06/15/2022 10:00 AM PRECISION [facility]ER Pulse 62 06/15/2022 10:00 AM PRECISION [facility]YER Temperature 36.4 ??C (97.5 ??F) 06/15/2022 10:00 AM PRECISION DYER Respiratory Rate 20 06/15/2022 10:00 AM PRECISION DYER Oxygen Saturation 97% 06/15/2022 10:00 AM PRECISION [facility]ER Inhaled Oxygen Concentration - - Weight 82.1 kg (181 lb 1.6 oz) 06/13/2022 10:00 PM [facility]CISION [facility]YER Height 180.3 cm (5' 11) 06/13/2022 5:47 PM PRECISION [facility]YER Body Mass Index 25.26 06/13/2022 5:47 PM PRECISION [facility]ER Plan of Treatment Health Maintenance Due Date [...] Name Priority Date/Time Associated Diagnosis Comme nts POTASSIUM Timed 06/15/2022 6:10 Results for this AM [facility] procedure are i n the results section. PROTIME-INR Early AM 06/15/2022 6:10 Results for this AM [facility] procedure are i n the results section. POTASSIUM Timed 06/14/2022 11:12 Results for this PM [facility] procedure are i n the results section. HEMOGLOBIN Early AM 06/14/2022 7:00 Results for this AM [facility] procedure are i n the results section. PROTIME-INR Early AM 06/14/2022 7:00 Results for this AM [facility] procedure are i n the results section. VITAMIN B12 Early AM 06/14/2022 7:00 Results for this AM [facility] procedure are i n the results section. PLATELET COUNT Early AM 06/14/2022 7:00 Results fo r this AM [facility] procedure are i n the results section. WHITE BLOOD COUNT Early AM 06/14/2022 7:00 Results for this AM [facility] procedure are i n the results section. BASIC METABOLIC PANEL Early AM 06/14/2022 7:00 Res ults for this AM [facility] procedure are i n the results section. BLOOD CULTURE STAT 06/14/2022 12:39 AM [facility]CISION [facility] BLOOD CULTURE STAT 06/14/2022 12:39 AM [facility]CISION [facility]ER COVID 19 Timed 06/13/2022 7:48 Results for this PM [facility] procedure are i n the results section. COVID 19 COLLECTION Today 06/13/2022 7:48 Resul ts for this PM [facility] procedure are i n the results section. BRAIN NATRIURETIC STAT 06/13/2022 7:08 Results for this PEPTIDE PM [facility] procedure are i n the results section. XR CHEST 1 VIEW STAT 06/13/2022 6:30 Results f or this PORTABLE PM [facility] procedure are i n the results section. LACTATE SCREEN VENOUS STAT 06/13/2022 6:23 Res ults for this ISTAT W LAWRENCE PM [facility] procedure are i n the results section. TROPONIN I QUAL POC STAT 06/13/2022 6:21 Resul ts for this PM [facility] procedure are i n the results section. EXTRA TUBE LAWRENCE ON ICE STAT 06/13/2022 6:05 PM [facility] ISTAT LACTATE SCREEN STAT 06/13/2022 6:05 Resu lts for this VENOUS PM [facility] procedure are i n the results section. CBC WITH AUTO STAT 06/13/2022 6:04 Results for this DIFFERENTIAL PM [facility] procedure are i n the results section. PROTIME-INR STAT 06/13/2022 6:04 Results for this PM [facility] procedure are i n the results section. PROCALCITONIN STAT 06/13/2022 6:04 Results for this PM [facility] procedure are i n the results section. COMP METABOLIC PANEL STAT 06/13/2022 6:04 Resu lts for this PM [facility] procedure are i n the results section. CBC WITH AUTO STAT 06/13/2022 6:04 Results for this DIFFERENTIAL PM [facility] procedure are i n the results section. EKG 12 LEAD STAT 06/13/2022 5:53 Results for this PM [facility] procedure are i n the results section. SCAN-LABORATORY REPORT 06/11/2022 12:00 R esults for this AM [facility] procedure are i n the results section. CT CHEST PULMONARY STAT 06/06/2022 10:09 Resul ts for this EMBOLUS PE ABDOMEN PM [facility] procedure are in PELVIS W the results section. URINALYSIS MICROSCOPIC STAT 06/06/2022 8:26 Re sults for this PM [facility] procedure are i n the results section. UA W/ SEDIMENT EXAM STAT 06/06/2022 8:26 Resul ts for this REFLEXED PER CRITERIA PM [facility] proced ure are in the results section. CBC WITH AUTO STAT 06/06/2022 8:13 Results for this DIFFERENTIAL PM [facility] procedure are i n the results section. LACTATE VENOUS STAT 06/06/2022 8:13 Results fo r this PM [facility] procedure are i n the results section. LIPASE STAT 06/06/2022 8:13 Results for this PM [facility] procedure are i n the results section. COMP METABOLIC PANEL STAT 06/06/2022 8:13 Resu lts for this PM [facility] procedure are i n the results section. PROTIME-INR STAT 06/06/2022 8:13 Results for this PM [facility] procedure are i n the results section. CBC WITH AUTO STAT 06/06/2022 8:13 Results for this DIFFERENTIAL PM [facility] procedure are i n the results section. EKG 12 LEAD STAT 06/06/2022 7:59 Results for this PM [facility] procedure are i n the results section. SCAN-LABORATORY REPORT 06/06/2022 12:00 R esults for this AM [facility] procedure are i n the results section. SCAN-LABORATORY REPORT 05/28/2022 12:00 R esults for this AM [facility] procedure are i n the results section. PROTIME-INR Early AM 05/27/2022 5:00 Results for this AM [facility] procedure are i n the results section. CREATININE Early AM 05/26/2022 6:43 Results for this AM PRECISION DYER procedure are i n the results section. PROTIME-INR Early AM 05/26/2022 6:43 Results for this AM PRECISION DYER procedure are i n the results section. URINALYSIS MICROSCOPIC Timed 05/25/2022 6:42 Re sults for this PM PRECISION DYER procedure are i n the results section. URINE CULTURE Today 05/25/2022 6:42 Results for this PM PRECISION DYER procedure are i n the results section. UA W/ SEDIMENT EXAM Today 05/25/2022 6:42 Resul ts for this REFLEXED PER CRITERIA PM PRECISION DYER proced ure are in the results section. CREATININE Early AM 05/25/2022 6:07 Results for this AM PRECISION DYER procedure are i n the results section. PLATELET COUNT Early AM 05/25/2022 6:07 Results fo r this AM PRECISION DYER procedure are i n the results section. PROTIME-INR Early AM 05/25/2022 6:07 Results for this AM PRECISION DYER procedure are i n the results section. PROTIME-INR Early AM 05/24/2022 6:03 Results for this AM PRECISION DYER procedure are i n the results section. CREATININE Early AM 05/23/2022 4:59 Results for this AM PRECISION DYER procedure are i n the results section. PROTIME-INR Early AM 05/23/2022 4:59 Results for this AM PRECISION DYER procedure are i n the results section. PROTIME-INR Early AM 05/22/2022 5:46 Results for this AM PRECISION DYER procedure are i n the results section. BODY FLUID Today 05/21/2022 8:13 Results for this CULTURE,STAIN AM PRECISION DYER procedure are in (AEROBIC) the results section. CRYSTAL ID BODY FLUID Today 05/21/2022 8:13 Res ults for this NO URINE AM PRECISION DYER procedure are i n the results section. BODY FLUID CELL Today 05/21/2022 8:13 Results f or this COUNT/DIF AM PRECISION DYER procedure are i n the results section. XR KNEE 2 VIEWS LEFT Routine 05/20/2022 2:11 Resu lts for this PM PRECISION DYER procedure are i n the results section. ECHO TIN W BUBBLE WO Routine 05/20/2022 9:23 Resu lts for this CONTRAST AM PRECISION DYER procedure are i n the results section. POTASSIUM Early AM 05/20/2022 5:32 Results for this AM PRECISION DYER procedure are i n the results section. CREATININE Early AM 05/20/2022 5:32 Results for this AM PRECISION DYER procedure are i n the results section. SODIUM Early AM 05/20/2022 5:32 Results for this AM PRECISION DYER procedure are i n the results section. PROTIME-INR Early AM 05/20/2022 5:32 Results for this AM PRECISION DYER procedure are i n the results section. HEMOGLOBIN Early AM 05/20/2022 5:32 Results for this AM PRECISION [facility]YER procedure are i n the results section. EKG 12 LEAD Routine 05/19/2022 3:42 Chest pain in adult Resul ts for this PM PRECISION DYER procedure are i n the results section. CO READING EKG - NO Routine 05/19/2022 3:40 Chest pain in adul t CHARGE, COMP ONLY PM PRECISION DYER CBC WITH AUTO Early AM 05/19/2022 4:58 Results for this DIFFERENTIAL AM PRECISION DYER procedure are i n the results section. PROTIME-INR Early AM 05/19/2022 4:58 Results for this AM PRECISION DYER procedure are i n the results section. CBC WITH AUTO Early AM 05/19/2022 4:58 Results for this DIFFERENTIAL AM PRECISION DYER procedure are i n the results section. BASIC METABOLIC PANEL Early AM 05/19/2022 4:58 Res ults for this AM PRECISION DYER procedure are i n the results section. SCAN CORRESP-IMAGING 05/19/2022 12:00 Res ults for this AM PRECISION DYER procedure are i n the results section. CREATININE STAT 05/18/2022 8:23 Results for this PM PRECISION DYER procedure are i n the results section. XR CHEST 1 VIEW STAT 05/18/2022 5:59 Results f or this PORTABLE PM PRECISION DYER procedure are i n the results section. SCAN-RADIOLOGY REPORT 05/18/2022 12:00 Re sults for this AM PRECISION DYER procedure are i n the results section. SCAN-OPERATIVE/PROCEDU 05/18/2022 12:00 R esults for this RE REPORT AM PRECISION DYER procedure are i n the results section. ECHO COMPLETE WO Routine 05/17/2022 4:52 Endocarditis Results for this CONTRAST PM PRECISION DYER procedure are i n the results section. LAB TRACKING EVENT Routine 05/17/2022 10:00 AM PRECISION DYER PATH TISSUE EXAM Routine 05/17/2022 10:00 Results for this AM PRECISION DYER procedure are i n the results section. SCAN-RADIOLOGY REPORT 05/15/2022 12:00 Re sults for this AM CDT procedure are i n the results section. SCAN-RADIOLOGY REPORT 05/15/2022 12:00 Re sults for this AM CDT procedure are i n the results section. IMMUNOFIXATION,SERUM Routine 05/14/2022 11:32 Elevated sed rat e Results for this AM CDT procedure are i [...] procedure a re in the results section. PROTEIN ELP SERUM W Routine 05/14/2022 11:32 Elevated sed rate Results for this REFLEX AM CDT procedure are i n the results section. SCAN-CT INTERPRETATION 05/14/2022 12:00 AM CDT SCAN-RADIOLOGY REPORT 05/14/2022 12:00 Re sults for [...] procedure are i n the results section. from Last 3 Months Results (ABNORMAL) POTASSIUM (06/15/2022 6:10 AM PRECISION DYER)Only the most recent of3 results within the time period is included. athologist Signature POTASSIUM 3.3 (L) 3.5 - 5.0 06/15/2022 [facility] mmol/L 6:55 AM PRECISION DYER LAB[facility]ATORY[facility] Specimen Anatomical Collection Method Collection Time Receive d Time (Source) Location / / Volume Laterality Blood BLOOD SPECIMEN / Line/Port / 06/15/2022 6:10 AM 06/15 6:28 Unknown Unknown PRECISION DYER AM PRECISION DYER Abby Domingo MD CHEMISTRY Performing Organization Address City/State/ZIP Code Phon e Number [facility] [address] [place] [address] LABORATORY-CENTRAL 1999 LABORATORY (ABNORMAL) Protime - INR - Daily (06/15/2022 6:10 AM PRECISION DYER)Only the most recent of 16 resultswithin the time period is included. athologist Signature INR 2.6 (H) <1.3 06/15/2022 [facility] 6:53 AM PRECISION DYER LABORATORY-[facility] LAB[facility]ATORY PROTIME 26.9 (H) 12.0 - 13.8 06/15/2022 [facility] sec 6:53 AM PRECISION DYER LAB[facility]ATORY-[facility] Specimen Anatomical Collection Method Collection Time Receive d Time (Source) Location / / Volume Laterality Blood BLOOD SPECIMEN / Line/Port / 06/15/2022 6:10 AM 06/15 6:37 Unknown Unknown PRECISION DYER AM PRECISION DYER Narrative [facility] LABORATORY-CENTRAL LABORAT ORY - 06/15/2022 6:53 AM PRECISION DYER ?Therapeutic Range 2.0-3.0 for most anticoagulated patients [...] seconds if the patient is on UFH. Rakesh BARKER HEMAT OLOGY Performing Organization Address City/State/ZIP Code Phon e Number [facility] [address] [place] [address] LABORATORY-CENTRAL 1999 LABORATORY (ABNORMAL) Platelets AM (06/14/2022 7:00 AM PRECISION DYER)Only the most recent of2 results within the time period is included. athologist Signature PLATELET COUNT 111 (L) 140 - 440 06/14/2022 [facility] thou/cu mm 7:20 AM PRECISION DYER LAB[facility]ATORY[facility] LAB[facility]AT[facility] MPV 9.3 6.5 - 11.0 06/14/2022 [facility] fL 7:20 AM PRECISION D[facility]ER LAB[facility]ATORY[facility] TRAL [facility]ORY Specimen Anatomical Collection Method / Collection Time Recei martin Time (Source) Location / Volume Laterality Blood BLOOD SPECIMEN / Venipuncture / 06/14/2022 7:00 2021 7:11 Unknown Unknown AM PRECISION DYER AM PRECISION DYER Ector Herman MD HEMATOLOGY Performing Organization Address City/State/ZIP Code [facility] [address] [place] [phone] LABORATORY-CENTRAL 2000 LABORATORY WBC AM (06/14/2022 7:00 AM PRECISION DYER) athologist Signature WHITE BLOOD 9.2 4.5 - 11.0 06/14/2022 [facility] COUNT thou/cu mm 7:20 AM PRECISION DYER LABORATORY-[facility] LAB[facility] NRBC 0.0 % 06/14/2022 [facility] 7:20 AM PRECISION DYER LABORATORY-[facility] LABORATORY ABS NRBC 0.0 thou /cu 06/14/2022 [facility] mm 7:20 AM PRECISION D[facility]ER LABORATORY-[facility] LABORATORY Specimen Anatomical Collection Method / Collection Time Recei martin Time (Source) Location / Volume Laterality Blood BLOOD SPECIMEN / Venipuncture / 06/14/2022 7:00 2021 7:11 Unknown Unknown AM PRECISION DYER AM PRECISION DYER Ector Herman MD HEMATOLOGY Performing Organization Address [facility] e Number [facility] [employer] [address] [place] [id number] LABORATORY-CENTRAL 2000 LABORATORY (ABNORMAL) Hemoglobin AM (06/14/2022 7:00 AM PRECISION DYER)Only the most recent of2 resultswithin the time period is included. athologist Signature HEMOGLOBIN 11.9 (L) 13.5 - 06/14/2022 [facility] 17.5 g/dL 7:20 AM PRECISION DYER LABORATORY-[facility] LABORATORY MCV 97 80 - 100 06/14/2022 [facility] fL 7:20 AM PRECISION DYER LABORATORY[facility] Specimen Anatomical Collection Method / Collection Time Recei martin Time (Source) Location / Volume Laterality Blood BLOOD SPECIMEN / Venipuncture / 06/14/2022 7:00 2021 7:11 Unknown Unknown AM PRECISION DYER AM PRECISION DYER Jemal Gross MD HEMATOLOGY Performing Organization Address City/[facility]/ZIP Code Phon e Number [facility] [address] [place] [phone] LABORATORY-CENTRAL 2000 LABORATORY Vitamin B12 level AM (06/14/2022 7:00 AM PRECISION DYER) P athologist Signature VITAMIN B12 744 180 - 914 06/15/2022 [facility] pg/mL 2:49 PM PRECISION DYER LABORATORY-[facility] LABORATORY Specimen Anatomical Collection Method / Collection Time Recei martin Time (Source) Location / Volume Laterality Blood BLOOD SPECIMEN / Venipuncture / 06/14/2022 7:00 2021 7:11 Unknown Unknown AM PRECISION DYER AM PRECISION DYER Ector Herman MD CHEMISTRY Performing Organization Address City/State/ZIP Code Phon e Number [facility] [address] [place] [address] LABORATORY-CENTRAL 2000 LABORATORY (ABNORMAL) Basic metabolic panel AM (06/14/2022 7:00 AM PRECISION DYER)Only the most recent of2 resultswithin the time period is included. Analysis Performed At Patho logist Time Signature SODIUM 135 135 - 145 06/14/2022 [facility] mmol/L 7:56 AM PRECISION DYER LAB[facility]ATORY[facility] TRAL LAB[facility]ATORY POTASSIUM 3.1 (L) 3.5 - 5.0 06/14/2022 [facility] mmol/L 7:56 AM PRECISION D[facility]ER LAB[facility]ATORY[facility] TRAL LABORATORY CHLORIDE 106 98 - 110 06/14/2022 [facility] mmol/L 7:56 AM PRECISION D[facility]ER LAB[facility]ATORY[facility] TRAL LAB[facility]ATORY CO2,TOTAL 22 21 - 31 06/14/2022 [facility] mmol/L 7:56 AM PRECISION D[facility]ER LAB[facility]ATORY[facility] TRAL LABORATORY ANION GAP 7 5 - 18 06/14/2022 [facility] 7:56 AM PRECISION D[facility]ER LAB[facility]ATORY[facility] TRAL LAB[facility]ATORY GLUCOSE 94 65 - 100 06/14/2022 [facility] mg/dL 7:56 AM PRECISION D[facility]ER LAB[facility]ATORY[facility] TRAL LAB[facility]ATORY CALCIUM 8.1 (L) 8.5 - 10.5 06/14/2022 [facility] mg/dL 7:56 AM PRECISION D[facility]ER LAB[facility]ATORY[facility] TRAL LABORATORY BUN 12 8 - 25 06/14/2022 [facility] mg/dL 7:56 AM PRECISION D[facility]ER LAB[facility]ATORY[facility] TRAL LAB[facility]ATORY CREATININE 0.75 0.72 - 06/14/2022 [facility] 1.25 mg/dL 7:56 AM PRECISION D[facility]ER LAB[facility]ATORY[facility] TRAL LABORATORY BUN/CREAT RATIO 16 10 - 20 06/14/2022 [facility] 7:56 AM PRECISION D[facility]ER LAB[facility]ATORY[facility] TRAL LABORATORY eGFR 90 (L) >90 06/14/2022 [facility] mL/min/1.7 7:56 AM PRECISION D[facility]ER LAB[facility]ATORY[facility] 3m2 TRAL LABORATORY Comment: As [...] Laterality Blood BLOOD SPECIMEN / Venipuncture / 06/14/2022 7:00 2021 7:11 Unknown Unknown AM PRECISION DYER AM PRECISION DYER Ector Herman MD CHEMISTRY Performing Organization Address City/State/ZIP Code Phon e Number [facility] [address] [place] [address] LABORATORY-CENTRAL 2000 LABORATORY (ABNORMAL) COVID 19 (06/13/2022 7:48 PM PRECISION DYER) [facility] gist Method Time Signature COVID 19 Positive (A) Negative 06/14/2022 [facility] 5:29 AM PRECISION DYER LAB[facility]ATORY-[facility] MOLECULAR TRAL LABORATORY Specimen Anatomical Location / Collection Method Collection Earnest e Received Time (Source) Laterality / Volume Other SPECIMEN FROM Non-Blood / 06/13/2022 7:48 06/13/2022 8:00 NASOPHARYNGEAL Unknown PM PRECISION DYER PM PRECISION DYER STRUCTURE / Unknown Narrative [facility] LABORATORY-CENTRAL LABORAT ORY - 06/14/2022 5:29 AM PRECISION DYER All PCR tests are subject to false negative result due to variability in viral load and collection te chnique. A negative result does not rule out a SARS-CoV-2 infection. Clinical correlation required. This test has been authorized by FDA und er an Emergency Use Authorization (EUA). This test is only authorized for the duration of time the declaration that circumstances exist justifying the authorizati on of the emergency use of in vitro diag nostic tests for detection of SARS-CoV-2 virus and/or diagnosis of COVID-19 infection under section 564(b)(1) of the Act, 21 U.S.C. 360bbb-3(b) (1), unless the authorization is terminated or revoked sooner. Ector Gloria MD MICROBIOLOGY Performing Organization Address [facility] Phon e Number [facility] [address] [place] [phone] LABORATORY-CENTRAL 2000 LABORATORY COVID 19 COLLECTION (06/13/2022 7:48 PM PRECISION DYER) [facility] gist Method Time Signature TESTING [facility] 06/13/2022 [facility] LABORATORY Laboratory 8:00 PM PRECISION DYER LABORATORY-CE NTRAL LABORATORY Comment: Specimen submitted to [facility] for testing. Specimen Anatomical Location / Collection Method Collection Earnest e Received Time (Source) Laterality / Volume Other SPECIMEN FROM Non-Blood / 06/13/2022 7:48 06/13/2022 7:59 NASOPHARYNGEAL Unknown PM PRECISION DYER PM PRECISION DYER STRUCTURE / Unknown Ector Gloria MD SEND OUTS Performing Organization Address [facility] Phon e Number [facility] [address] [place] [phone] LABORATORY-CENTRAL [facility] LABORATORY BRAIN NATRIURETIC PEPTIDE (06/13/2022 7:08 PM PRECISION DYER) P athologist Signature BRAIN SHAINA 22 <100 pg/mL 06/13/2022 [facility] PEPTIDE 8:00 PM PRECISION DYER LABORATORY-[facility] LABORATORY Specimen Anatomical Collection Method / Collection Time Recei martin Time (Source) Location / Volume Laterality Blood BLOOD SPECIMEN / Venipuncture / 06/13/2022 7:08 2021 7:14 Unknown Unknown PM PRECISION DYER PM PRECISION DYER Ector Gloria MD CHEMISTRY Performing Organization Address [facility] Phon e Number [facility] [address] [place] [phone] LABORATORY-CENTRAL 2000 LABORATORY XR CHEST 1 VIEW PORTABLE (06/13/2022 6:30 PM PRECISION DYER)Only the most recent of2 resultswithin the time period is included. Anatomical Region Laterality Modality HEART, THORAX, CHEST Digital Radiography Specimen (Source) Anatomical Collection Method Collection Time Re ceived Time Location / / Volume Laterality 06/13/2022 7:02 PM PRECISION DYER Impressions 06/13/2022 7:02 PM PRECISION DYER No cardiopulmonary abnormality. Dictated by Glen Houser MD @ Jun ??3 2021 ??7:02PM (Electronically Signed) ?? Narrative 06/13/2022 7:02 PM PRECISION DYER For Patients: ??As a result of the Cures Act, medical imaging exams and procedure report s are released immediately into [facility]. ??You may view this report before your referring provider. ??If you have questions, please contact your health care provider. HISTORY: Dehydration. TECHNIQUE: Portable frontal view the chest. COMPARISON: Chest x-ray 05/18/2022. FINDINGS: Right PICC is unchanged. No airspace con solidation. No pleural effusion or pneumothorax. Pulmonary vasculature and cardiomediastinal silhouette are unremarkable. Procedure Note Glen Houser MD - 06/13/2022 For Patients: As a result of the Cures Act, medical imaging exams and procedure reports are released immediately into your electronic medical record. You may view this report before your referring provider. If you have questions, please contact yo health care provider. HISTORY: Dehydration. TECHNIQUE: Portable frontal view the chest. COMPARISON: Chest x-ray 05/18/2022. FINDINGS: Right PICC is unchanged. No airspace con solidation. No pleural effusion or pneumothorax. Pulmonary vasculature and cardiomediastinal silhouette are unremarkable. IMPRESSION: No cardiopulmonary abnormality. Dictated by Glen Houser MD @ Jun 3 2 022 7:02PM (Electronically Signed) Ector Gloria MD GENERAL IMAGING LACTATE SCREEN VENOUS ISTAT W [place] (06/13/2022 6:23 PM PRECISION DYER) P athologist Signature LACTATE VENOUS <1.8 <=2.0 06/13/2022 [facility] SCREEN ISTAT 6:29 PM PRECISION DYER LABORATORY-CENT RAL LABORATORY LACTATE SCREEN 0.7 <=2.0 06/13/2022 [facility] VENOUS POCT 6:29 PM PRECISION DYER LABORATORY-CENT RAL LABORATORY Specimen Anatomical Collection Method Collection Time Receive d Time (Source) Location / / Volume Laterality Blood BLOOD SPECIMEN / 06/13/2022 6:23 PM 06/13 6:29 Unknown PRECISION DYER PM PRECISION DYER Ector Gloria MD LABORATORY Performing Organization Address City/State/ZIP Code Phon e Number [facility] [address] [place] [address] LABORATORY-CENTRAL 2000 LABORATORY TROPONIN I QUAL POC (06/13/2022 6:21 PM PRECISION DYER) Analysis Performed At [facility] logist Time Signature TROPONIN Negative Negative 06/13/2022 [facility] I,QUAL,POC 6:41 PM PRECISION DYER LAB[facility]ATORY[facility] TRAL LAB[facility]ATORY TROPONIN <0.03 <0.03 06/13/2022 [facility] I,QUAL, POCT 6:41 PM PRECISION DYER LAB[facility]ATORY-[facility] TRAL LABORATORY Specimen Anatomical Collection Method Collection Time Receive d Time (Source) Location / / Volume Laterality Blood BLOOD SPECIMEN / 06/13/2022 6:21 PM 06/13 6:41 Unknown PRECISION DYER PM PRECISION DYER Ector Gloria MD CHEMISTRY Performing Organization Address City/[facility]/ZIP Code Phon e Number [facility] [address] [facility] [address] [address] LABORATORY-CENTRAL 2000 LABORATORY EXTRA TUBE [place] ON ICE (06/13/2022 6:05 PM PRECISION DYER) Specimen Anatomical Collection Method / Collection Time Recei martin Time (Source) Location / Volume Laterality Blood BLOOD SPECIMEN / Venipuncture / 06/13/2022 6:05 2021 6:18 Unknown Unknown PM PRECISION DYER PM PRECISION DYER Ector Gloria MD LABORATORY Performing Organization Address City/[facility]/ZIP Code Phon e Number [facility] [address] [place] [address] [place] [address] LABORATORY-CENTRAL 1999 LABORATORY (ABNORMAL) CBC WITH AUTO DIFFERENTIAL (06/13/2022 6:04 PM PRECISION DYER)Only the most recent of5 resultswithin the time period is included. [facility] gist Method Time Signature WHITE BLOOD 11.4 (H) 4.5 - 06/13/2022 [facility] COUNT 11.0 6:52 PM PRECISION DYER LAB[facility]ATORY[facility] thou/cu TRAL mm LABORATORY RED BLOOD COUNT 3.79 (L) 4.30 - 06/13/2022 [facility] 5.90 6:52 PM PRECISION DYER LAB[facility]ATORY-[facility] mil/cu mm TRAL LABORATORY HEMOGLOBIN 12.3 (L) 13.5 - 06/13/2022 [facility] [employer] 17.5 g/dL 6:52 PM PRECISION DYER LAB[facility]ATORY-[facility] TRAL LABORATORY HEMATOCRIT 37.2 37.0 - 06/13/2022 [facility] 53.0 % 6:52 PM PRECISION DYER LAB[facility]ATORY-[facility] TRAL LABORATORY MCV 98 80 - 100 06/13/2022 [facility] fL 6:52 PM PRECISION DYER LAB[facility]ATORY-[facility] TRAL LABORATORY MCH 32.5 26.0 - 06/13/2022 [facility] 34.0 pg 6:52 PM PRECISION DYER LAB[facility]ATORY[facility] TRAL LABORATORY MCHC 33.1 32.0 - 06/13/2022 [facility] 36.0 g/dL 6:52 PM PRECISION DYER LAB[facility]ATORY[facility] TRAL LABORATORY RDW 14.1 11.5 - 06/13/2022 [facility] 15.5 % 6:52 PM PRECISION DYER LAB[facility]ATORY[facility] TRAL LABORATORY PLATELET COUNT 112 (L) 140 - 440 06/13/2022 [facility] thou/cu 6:52 PM PRECISION DYER LAB[facility]ATORY[facility] mm TRAL LABORATORY MPV 9.4 6.5 - 06/13/2022 [facility] 11.0 fL 6:52 PM PRECISION DYER LAB[facility]ATORY[facility] TRAL LABORATORY NRBC 0.0 % 06/13/2022 [facility] 6:52 PM PRECISION DYER LAB[facility]ATORY-[facility] TRAL LABORATORY ABS NRBC 0.0 thou /cu 06/13/2022 [facility] mm 6:52 PM PRECISION DYER LAB[facility]ATORY[facility] TRAL LABORATORY % NEUT 86.0 % 06/13/2022 [facility] 6:52 PM PRECISION DYER LAB[facility]ATORY[facility] TRAL LABORATORY % LYMPH 5.3 % 06/13/2022 [facility] 6:52 PM PRECISION DYER LAB[facility]ATORY[facility] TRAL LABORATORY % MONO 7.2 % 06/13/2022 [facility] 6:52 PM PRECISION DYER LAB[facility]ATORY[facility] TRAL LABORATORY % EOS 0.7 % 06/13/2022 [facility] 6:52 PM PRECISION DYER LAB[facility]ORY[facility] TRAL LABORATORY % BASO 0.2 % 06/13/2022 [facility] 6:52 PM PRECISION DYER LAB[facility]ATORY[facility] TRAL LABORATORY % IMMATURE GRAN 0.6 % 06/13/2022 [facility] (METAS,MYELOS,CO 6:52 PM PRECISION DYER LABORATORY- [facility] OS) TRAL LABORATORY ABSOLUTE 9.8 (H) 1.7 - 7.0 06/13/2022 [facility] NEUTROPHILS thou/cu 6:52 PM PRECISION DYER LAB[facility]ATORY[facility] mm TRAL LABORATORY ABSOLUTE 0.6 (L) 0.9 - 2.9 06/13/2022 [facility] LYMPHOCYTES thou/cu 6:52 PM PRECISION D[facility]ER LAB[facility]ATORY[facility] mm TRAL LABORATORY ABSOLUTE 0.8 <0.9 06/13/2022 [facility] MONOCYTES thou/cu 6:52 PM PRECISION D[facility]ER LAB[facility]ATORY[facility] mm TRAL LABORATORY ABSOLUTE 0.1 <0.5 06/13/2022 [facility] EOSINOPHILS thou/cu 6:52 PM PREC[facility] D[facility]ER LAB[facility]ATORY[facility] mm TRAL LABORATORY ABSOLUTE 0.0 <0.3 06/13/2022 [facility] BASOPHILS thou/cu 6:52 PM PRECISION D[facility]ER LAB[facility]ATORY[facility] mm TRAL LABORATORY ABSOLUTE 0.1 <0.3 06/13/2022 [facility] IMMATURE thou/cu 6:52 PM PRECISION DYER LAB[facility]ATORY-[facility] GRANULOCYTES(MET mm TRAL ,MYELOS,PROS) LABORATORY Specimen Anatomical Collection Method / Collection Time Recei martin Time (Source) Location / Volume Laterality Blood BLOOD SPECIMEN / Venipuncture / 06/13/2022 6:04 2021 6:20 Unknown Unknown PM PRECISION DYER PM PRECISION DYER Ector Gloria MD HEMATOLOGY Performing Organization Address City/State/ZIP Code Phon e Number [facility] [address] [place] [address] LABORATORY-CENTRAL 2000 LABORATORY PROCALCITONIN (06/13/2022 6:04 PM PRECISION DYER) P athologist Signature PROCALCITONIN 0.16 <0.50 06/13/2022 [facility] ng/ml 7:54 PM PRECISION DYER LABORATORY-CENT RAL LABORATORY Specimen Anatomical Collection Method / Collection Time Recei martin Time (Source) Location / Volume Laterality Blood BLOOD SPECIMEN / Venipuncture / 06/13/2022 6:04 2021 6:20 Unknown Unknown PM PRECISION DYER PM PRECISION DYER Narrative [facility] LABORATORY-CENTRAL LABORAT ORY - 06/13/2022 7:54 PM PRECISION DYER Procalcitonin for initial assessment of Lower Respiratory Tract Infection: Results Interpretation <0.1 ng/mL ?Antibiotics strong ly discouraged.* 0.1 - 0.25 ng/mL ??Antibiotics discourag ed. * 0.26 - 0.50 ng/mL Antibiotics encouraged . >0.50 ng/mL ? Antibiotics strongl y encouraged. *If suspicion of infection high, clinica lly unstable, or immunosuppressed: initiate antibiotics. Repeat PCT testing in 6-24 hours. Repeat PCT testing every 1-2 days whil e on antibiotics to assess response to therapy. Procalcitonin for initial assessment of severe sepsis risk: Results Interpretation < 0.5 ng/mL Associated with a low risk f or progression to severe sepsis/septic shock. > 2.0 ng/mL Associated with a high risk for progression to severe sepsis/septic shock. Note: PCT levels below 0.5 ng/mL do not exclude an infection, because localized infections may also be associated with such low levels. If the PCT measurement is done very early after the systemic infec tion process has started (usually <6 blanco rs), these values may still be low. PCT levels between 0.5 ng/mL and 2.0 ng/ mL should be interpreted in the context of the specific clinical background and conditions of the individual patient. It is recommended to re-test PCT within 6-24 hours if any concentrations <2.0 ng/mL are obtained. Ector Gloria MD SEND OUTS Performing Organization Address City/State/ZIP Code Phon e Number mobile mum [address] [place] [address] LABORATORY-CENTRAL 2000 LABORATORY (ABNORMAL) COMP METABOLIC PANEL (06/13/2022 6:04 PM [facility]ER)Only the most recent of3 resultswithin the time period is included. [facility] Method Time Signature SODIUM 134 (L) 135 - 145 06/13/2022 [facility] mmol/L 7:10 PM [facility] LAB[facility]ATORY[facility] TRAL LABORATORY POTASSIUM 3.4 (L) 3.5 - 5.0 06/13/2022 [facility] mmol/L 7:10 PM [facility]AT[facility]AL LABORATORY CHLORIDE 104 98 - 110 06/13/2022 [facility] mmol/L 7:10 PM [facility] LAB[facility] CO2,TOTAL 18 (L) 21 - 31 06/13/2022 [facility] mmol/L 7:10 PM [facility] LAB[facility] ANION GAP 12 5 - 18 06/13/2022 [facility] 7:10 PM [facility] GLUCOSE 90 65 - 100 06/13/2022 [facility] mg/dL 7:10 PM [facility] LABORATORY CALCIUM 8.4 (L) 8.5 - 10.5 06/13/2022 [facility] mg/dL 7:10 PM [facility] LAB[facility]AT[facility] BUN 18 8 - 25 06/13/2022 [facility] mg/dL 7:10 PM [facility] LAB[facility] CREATININE 1.00 0.72 - 06/13/2022 [facility] 1.25 mg/dL 7:10 PM [facility] BUN/CREAT RATIO 18 10 - 20 06/13/2022 [facility] 7:10 PM [facility] TRAL LABORATORY ALBUMIN 3.0 (L) 3.2 - 4.6 06/13/2022 [facility] g/dL 7:10 PM [facility] LAB[facility] PROTEIN,TOTAL 6.1 6.0 - 8.0 06/13/2022 [facility] g/dL 7:10 PM [facility] TR[facility] LAB[facility]AT[facility] GLOBULIN 3.1 2.0 - 3.7 06/13/2022 [facility] g/dL 7:10 PM [facility] TRAL LAB[facility] A/G RATIO 1.0 1.0 - 2.0 06/13/2022 [facility] 7:10 PM [facility] LAB[facility] BILIRUBIN,TOTAL 0.5 0.2 - 1.2 06/13/2022 [facility] mg/dL 7:10 PM [facility] TR[facility] LAB[facility]AT[facility] ALK PHOSPHATASE 99 50 - 136 06/13/2022 [facility] IU/L 7:10 PM [facility] TRAL LABORATORY ALT (SGPT) <5 (L) 8 - 45 06/13/2022 [facility] IU/L 7:10 PM [facility] TR[facility] LABORATORY AST (SGOT) 17 2 - 40 06/13/2022 [facility] IU/L 7:10 PM [facility] TRAL LABORATORY eGFR 75 (L) >90 06/13/2022 [facility] mL/min/1.7 7:10 PM [facility] 3m2 TRAL LABORATORY Comment: As [...] Laterality Blood BLOOD SPECIMEN / Venipuncture / 06/13/2022 6:04 2021 6:20 Unknown Unknown PM [facility] PM [facility]ER Ector Glorai MD CHEMISTRY Performing Organization Address City/State/ZIP Code Phon e Number mobile mum [phone] [place] [address] LABORATORY-CENTRAL 2000 LABORATORY EKG 12 LEAD (06/13/2022 5:53 PM PREC[facility]ER)Only the most recent of3 resultswithin the time period is included. Component Value Ref Range Test Analysis Performed Pathologis t Method Time At Signature Interpretation Sinus rhythm with 1st degree A-V block with Premature atrial complexes BEYOND NOW Left axis deviation Inferior infarct , age undetermined Abnormal ECG Ventricular Rate 80 BPM BEYOND NOW Atrial Rate 80 BPM BEYOND NOW P-R Interval 238 ms BEYOND NOW QRS Duration 96 ms BEYOND NOW QT 380 ms BEYOND NOW QTc 438 ms BEYOND NOW P [place] 47 degrees BEYOND NOW R [place] -34 degrees BEYOND NOW T [place] 43 degrees BEYOND NOW Specimen Anatomical Collection Method Collection Time Receive d Time (Source) Location / / Volume Laterality 06/13/2022 5:53 PM [facility]ER 10:38 PM [facility] Ector Gloria MD EKG ORD Performing Organization Address City/[facility] Code Phon e Number BEYOND NOW [place], [place] SCAN-LABORATORY REPORT (06/11/2022 12:00 AM PRECISION D[facility]ER)Only the most recent of3 results within the time period is included. Narrative This result has an attachment that is no t available. Scanner OTHER CT CHEST PULMONARY EMBOLUS PE ABDOMEN PELVIS W (06/06/2022 10:09 PM PRECISION D[facility]ER) Anatomical Region Laterality Modality CHEST, Abdomen, Pelvis Computed Tomograp hy Specimen (Source) Anatomical Collection Method Collection Time Re ceived Time Location / / Volume Laterality 06/06/2022 11:12 PM [facility]ER Impressions 06/06/2022 11:12 PM [facility]ER No acute findings including no pulmonary emboli or cause for abdominal pain identified. Dilated ascending aorta measuring 4.5 cm , unchanged from 07/21/2012 Please note that all CT scans at this [facility] use dose modulation, iterative reconstruction, and/or weight-based dosing when appropriate to reduce radiation dose to as low as reasonably achievable. Dictated by Deuce Arriaga MD @ 022 11:12:28 PM (Electronically Signed) Narrative 06/06/2022 11:12 PM PREC[facility]ER For Patients: ??As a result of the Cures Act, medical imaging exams and procedure report s are released immediately into your [facility] [employer] medical record. ??You may view this report before your referring provider. ??If you have questions, please contact your health care provider. INDICATION: Hypoxia and right lower quadrant pain. TECHNIQUE: CT chest with IV contrast, PE protocol. CT abdomen and pelvis with contrast. 100 mL Omnipaque 350 IV contrast injected. COMPARISON: 07/21/[address] FINDINGS: CHEST: Cardiovascular structures: No pulmonary emboli. Heart size is normal. Ascending aorta is dilated measuring 4.5 cm in diameter.. ?? Mediastinum and montse: No mass or adenopa thy. ?? Lungs and pleura: Lungs and pleural spac es are clear. No suspicious nodules, infiltrates, or effusions. ?? Chest wall and axilla: No mass or adenop athy. ?? Bones: No suspicious bone lesions. ??Unr emarkable for age. ?? ABDOMEN AND PELVIS: Liver: Unremarkable. ?? Gallbladder and bile ducts: Unremarkable . ?? Pancreas: Unremarkable. ?? Spleen: Unremarkable. ?? Adrenal glands: Unremarkable. ?? Kidneys: Unremarkable. ?? GI tract: Colonic diverticulosis but no diverticulitis. Appendix normal. Vascular structures: Unremarkable. ?? Lymph nodes: Unremarkable. ?? Miscellaneous: Unremarkable. ??No free a ir or significant free fluid. ?? Pelvic Organs: Marked prostate enlargeme nt. Mendiola catheter in the bladder. Bones: No suspicious bone lesions. ??Unr emarkable for age. ?? Procedure Note Deuce Arriaga MD - 2 For Patients: As a result of the Cures Act, medical imaging exams and procedure reports are released immediately into your electronic medical record. You may view this report before your referring provider. If you have questions, please contact yo health care provider. INDICATION: Hypoxia and right lower quadrant pain. TECHNIQUE: CT chest with IV contrast, PE protocol. CT abdomen and pelvis with contrast. 100 mL Omnipaque 350 IV contrast injected. COMPARISON: 07/21/[address] FINDINGS: CHEST: Cardiovascular structures: No pulmonary emboli. Heart size is normal. Ascending aorta is dilated measuring 4.5 cm in diameter.. Mediastinum and montse: No mass or adenopa thy. Lungs and pleura: Lungs and pleural spac es are clear. No suspicious nodules, infiltrates, or effusions. Chest wall and axilla: No mass or adenop athy. Bones: No suspicious bone lesions. Unrem arkable for age. ABDOMEN AND PELVIS: Liver: Unremarkable. Gallbladder and bile ducts: Unremarkable . Pancreas: Unremarkable. Spleen: Unremarkable. Adrenal glands: Unremarkable. Kidneys: Unremarkable. GI tract: Colonic diverticulosis but no diverticulitis. Appendix normal. Vascular structures: Unremarkable. Lymph nodes: Unremarkable. Miscellaneous: Unremarkable. No free air or significant free fluid. Pelvic Organs: Marked prostate enlargeme nt. Mendiola catheter in the bladder. Bones: No suspicious bone lesions. Unrem arkable for age. IMPRESSION: No acute findings including no pulmonary emboli or cause for abdominal pain identified. Dilated ascending aorta measuring 4.5 cm , unchanged from 07/21/2012 Please note that all CT scans at this [facility] use dose modulation, iterative reconstruction, and/or weight-based dosing when appropriate to reduce radiation dose to as low as reasonably achievable. Dictated by Deuce Arriaga MD @ 022 11:12:28 PM (Electronically Signed) Mike BROWN CT (ABNORMAL) URINALYSIS MICROSCOPIC (06/06/2022 8:26 PM PRECISION [facility]YER)Only the most recent of2 resultswithin the time period is included. [facility] gist Method Time Signature RBC >100 (A) 0-2, None 06/06/2022 [facility] [employer] Seen /HPF 8:50 PM [facility] LAB[facility]ATORY[facility] TRAL LABORATORY WBC 3-5 0-2, 3-5, 06/06/2022 [facility] [employer] None Seen 8:50 PM [facility] /HPF TRAL LABORATORY BACTERIA Rare None 06/06/2022 [facility] [employer] Seen, 8:50 PM [facility] Rare, Few TRAL Bacteria/ LABORATORY HPF EPITHELIAL Few None 06/06/2022 [facility] [employer] CELLS Seen, Few 8:50 PM [facility] Epi/HPF TRAL LABORATORY HYALINE CASTS 11-25 (A) 0-2, 3-5 06/06/2022 [facility] [employer] /LPF 8:50 PM [facility] TRAL LABORATORY URIC ACID Present (A) (none) 06/06/2022 [facility] [employer] CRYSTALS 8:50 PM [facility]ORY[facility] TRAL LABORATORY Specimen Anatomical Collection Method Collection Time Receive d Time (Source) Location / / Volume Laterality Urine URINE SPECIMEN / Non-Blood / 06/06/2022 8:26 PM 06/06 8:33 Unknown Unknown [facility]ER PM [facility]ER Mike BROWN URINE Performing Organization Address City/State/ZIP Code Phon e Number [facility] [address] [place] [address] LABORATORY-CENTRAL 2000 LABORATORY (ABNORMAL) Urinalysis W Reflex Microscopic if Positive (06/06/2022 8:26 PM PREC[facility]ER) Only the most recent of2 resultswithin the time period is included. [facility] Method Time Signature COLOR Yellow Yellow Color 06/06/2022 [facility] [employer] 8:50 PM [facility] LABORATORY-CE NTRAL LABORATORY CLARITY Cloudy (A) Clear 06/06/2022 [facility] [employer] Clarity 8:50 PM [facility] LABORATORY-CE NTRAL LABORATORY SPECIFIC >=1.030 (A) 1.010, 06/06/2022 [facility] [employer] GRAVITY,URINE 1.015, 8:50 PM [facility] LABORATORY-CE 1.020, 1.025 NTRAL LABORATORY PH,URINE 6.0 6.0, 7.0, 06/06/2022 [facility] [employer] 8.0, 5.5, 8:50 PM [facility] LABORATORY-CE 6.5, 7.5, NTRAL 8.5 LABORATORY UROBILINOGEN, Normal Normal EU/dl 06/06/2022 [facility] 8[facility]50 PM [facility] LABORATORY-CE NTRAL LABORATORY PROTEIN, 30 (A) Negative 06/06/2022 [facility] URINE mg/dL 8:50 PM [facility] LABORATORY-CE NTRAL LABORATORY GLUCOSE, Negative Negative 06/06/2022 [facility] [employer] URINE mg/dL 8:50 PM [facility] LABORATORY-CE NTRAL LABORATORY KETONES,URINE 40 (A) Negative 06/06/2022 [facility] [employer] mg/dL 8:50 PM [facility] LABORATORY-CE NTRAL LABORATORY BILIRUBIN,URI Negative Negative 06/06/2022 [facility] [employer] NE 8:50 PM [facility] LABORATORY-CE NTRAL LABORATORY OCCULT Large (A) Negative 06/06/2022 [facility] BLOOD,URINE 8:50 PM [facility] LABORATORY-CE NTRAL LABORATORY NITRITE Negative Negative 06/06/2022 [facility] 8:50 PM [facility] LABORATORY-CE NTRAL LABORATORY LEUKOCYTE Negative Negative 06/06/2022 [facility] [employer] ESTERASE 8:50 PM [facility] LABORATORY-CE NTRAL LABORATORY Specimen Anatomical Collection Method Collection Time Receive d Time (Source) Location / / Volume Laterality Urine URINE SPECIMEN / Non-Blood / 06/06/2022 8:26 PM 06/06 8:33 Unknown Unknown PREC[facility]ER PM PREC[facility]ER Mike BROWN URINE Performing Organization Address City/State/ZIP Code Phon e Number [facility] [employer] [phone] [place] [address] [place] [address] LABORATORY-CENTRAL 2000 LABORATORY LACTATE VENOUS (06/06/2022 8:13 PM PRECISION [facility]ER) athologist Signature LACTATE,VENOUS 1.0 0.5 - 2.0 06/06/2022 [facility] [employer] mmol/L 8:52 PM [facility] LABORATORY-CENT RAL LABORATORY Specimen Anatomical Collection Method / Collection Time Recei martin Time (Source) Location / Volume Laterality Blood BLOOD SPECIMEN / Venipuncture / 06/06/2022 8:13 2021 8:29 Unknown Unknown PM [facility]ER PM [facility]ER Mike BROWN CHEMISTRY Performing Organization Address City/State/ZIP Code Phon e Number [facility] [address] [place] [address] [place] [address] LABORATORY-CENTRAL 2000 LABORATORY Lipase (06/06/2022 8:13 PM PRECISION D[facility]ER) athologist Signature LIPASE 40.6 8.0 - 78.0 06/06/2022 [facility] IU/L 8:58 PM [facility] LABORATORY-CENTR AL LABORATORY Specimen Anatomical Collection Method / Collection Time Recei martin Time (Source) Location / Volume Laterality Blood BLOOD SPECIMEN / Venipuncture / 06/06/2022 8:13 2021 8:27 Unknown Unknown PM PREC[facility]ER PM [facility]ER Mike BROWN CHEMISTRY Performing Organization Address City/State/ZIP Code Phon e Number mobile mum [phone] [place] [id number] LABORATORY-CENTRAL 1999 LABORATORY (ABNORMAL) Creatinine AM (05/26/2022 6:43 AM PRECISION DYER)Only the most recent of5 resultswithin the time period is included. athologist Signature CREATININE 0.92 0.72 - 1.25 05/26/2022 [facility] [employer] mg/dL 7:34 AM [facility] LABORATORY-CENT RAL LABORATORY eGFR 84 (L) >90 05/26/2022 [facility] [employer] mL/min/1.73 7:34 AM [facility] LABORATORY-CENT m2 RAL LABORATORY Comment: As of 2021, eGFR is [...] / Volume Laterality Blood BLOOD SPECIMEN / Non-Lab 05/26/2022 6:43 05/26/20 22 6:58 Unknown Venipuncture / AM PRECISION DYER AM PRECISION DYER Unknown Davdi Munroe MD CHEMISTRY Performing Organization Address City/[facility]/ZIP Code Phon e Number mobile mum [phone] [place] [id number] LABORATORY-CENTRAL 1999 LABORATORY URINE CULTURE (05/25/2022 6:42 PM PRECISION DYER) athologist Signature CULTURE No growth 05/26/2022 [facility] [employer] (<1,000 5:10 PM PREC[facility]ER LABORATORY-CENT CFU/mL) [facility] LABORAT[facility] Specimen Anatomical Collection Method Collection Time Receive d Time (Source) Location / / Volume Laterality Urine URINE SPECIMEN / Non-Blood / 05/25/2022 6:42 PM 05/25 7:02 Unknown Unknown PRECISION [facility]ER PM PRECISION D[facility]ER David Munroe MD MICROBIOLOGY Performing Organization Address City/[facility]/ZIP Code Phon e Number mobile mum [phone] [place] [phone] LABORATORY-CENTRAL 1999 LABORATORY Body Fluid Culture, Stain (05/21/2022 8:13 AM PRECISION DYER) [facility] gist Method Time Signature CULTURE No Growth. 05/26/2022 [facility] 10:50 AM [facility]ER LAB[facility]ATORY[facility] TRAL LABORATORY GRAM STAIN No PMNs 05/26/2022 [facility] 10:50 AM [facility] LAB[facility]ATORY[facility] TRAL LABORATORY GRAM STAIN 2+ RBCs 05/26/2022 [facility] 10:50 AM [facility] LAB[facility]ATORY[facility] TRAL LABORATORY GRAM STAIN No organisms 05/26/2022 [facility] seen 10:50 AM [facility] LAB[facility]ATORY[facility] TRAL LABORATORY Specimen Anatomical Collection Method Collection Time Receive d Time (Source) Location / / Volume Laterality Body Fluid SYNOVIAL FLUID Non-Blood / 05/21/2022 8:13 AM 022 8:23 SPECIMEN / Unknown Unknown PRECISION [facility]ER AM PREC[facility]ER Keturah Mathew NP MICROBIOLOGY Performing Organization Address City/State/ZIP Code Phon e Number [facility] [address] [place] [address] LABORATORY-CENTRAL 2000 LABORATORY Body Fluid Cell Count/Dif (05/21/2022 8:13 AM PRECISION DYER) [facility] Method Time Signature BODY FLUID Synovial 05/21/2022 [facility] SOURCE Fluid 10:41 AM [facility] LAB[facility]ATORY[facility] TRAL LABORATORY Comment: left knee BODY FLUID COLOR Yellow 05/21/2022 10:41 [facility] AM [facility] LABORATORY-CENTRAL LABORATORY BODY FLUID Slightly Cloudy 05/21/2022 10:41 [facility] CLARITY AM [facility]ER LABORATORY-CENTRAL LABORATORY TOTAL NUCLEATED 7,725 /cu mm 05/21/2022 10:41 [facility] CELLS, BF AM [facility]ER LABORATORY-CENTRAL LABORATORY RED BLOOD COUNT, <2000 /cu mm 05/21/2022 10:41 [facility] BODY FLUID AM [facility]ER LABORATORY-CENTRAL LABORATORY % NEUTROPHILS, 89 % 05/21/2022 10:41 [facility] BODY FL[facility] AM [facility] LABORATORY-CENTRAL LABORATORY % LYMPHOCYTES, 6 % 05/21/2022 10:41 [facility] BODY FLUID AM [facility] LABORATORY-CENTRAL LABORATORY % MONO/MACRO, 5 % 05/21/2022 10:41 [facility] BODY FLUID AM [facility]ER LABORATORY-CENTRAL LABORATORY Specimen Anatomical Collection Method Collection Time Receive d Time (Source) Location / / Volume Laterality Body Fluid SYNOVIAL FLUID Non-Blood / 05/21/2022 8:13 AM 022 8:23 SPECIMEN / Unknown Unknown PRECISION DYER AM PRECISION DYER Narrative [facility] LABORATORY-CENTRAL LABORAT ORY - 05/21/2022 10:41 AM PRECISION DYER TO ORDER BODY FLUID CULTURES, USE; [id number] BODY FLUID CULTURE, STAIN Keturah Mathew [employer] BODY FLUID Performing Organization Address City/State/ZIP Code Phon e Number [facility] [address] [place] [address] LABORATORY-CENTRAL 1999 LABORATORY (ABNORMAL) Crystal ID Body Fluid No Urine (05/21/2022 8:13 AM PRECISION DYER) [facility] gist Method Time Signature MONOSODIUM URATES None Seen None 05/21/2022 [facility] Seen, 10:54 AM HEALTH Present, [facility]ER LABORATORY-C Not ENTRAL Present LABORATORY CALCIUM Intracellular None 05/21/2022 [facility] PYROPHOSPHATES (A) Seen, 10:54 AM HEALTH Present, [facility]ER LABORATORY-C Not ENTRAL Present LABORATORY OTHER CRYSTALS No crystals seen 05/21/2022 [facility] 10:54 AM HEALTH [facility]ER LABORATORY-C ENTRAL LABORATORY SPECIMEN SOURCE left knee 05/21/2022 [facility] 10:54 AM HEALTH [facility]ER LABORATORY-C ENTRAL LABORATORY Specimen Anatomical Collection Method Collection Time Receive d Time (Source) Location / / Volume Laterality Body Fluid SYNOVIAL FLUID Non-Blood / 05/21/2022 8:13 AM 022 8:23 SPECIMEN / Unknown Unknown PRECISION DYER AM PRECISION DYER Keturah Mathew [employer] BODY FLUID Performing Organization Address City/[facility]/ZIP Code Phon e Number [facility] [address] 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 No acute fracture or dislocation. Joint effusion on lateral view. Vascular calcifications. Dictated by Rafael Schultz MD @ Nov ??2021 ??2:14PM (Electronically Signed) ?? Narrative 05/20/2022 2:14 PM PRECISION DYER For Patients: ??As a result of the Century Cures Act, medical imaging exams and procedure report s are released immediately into your [facility] [employer] medical record. ??You may view this report before your referring provider. ??If you have questions, please contact your health care provider. INDICATION: Left knee pain. COMPARISON: 11/17/2016. TECHNIQUE: Left knee 2 views. Procedure Note Rafael Schultz MD - 05/20/2022Fo rmatting of this note might be different from the original. For Patients: As a result of the ntury Cures Act, medical imaging exams and procedure reports are released immediately into your electronic medical record. You may view this report before your referring provider. If you have questions, please contact [facility] health care provider. INDICATION: Left knee pain. COMPARISON: 11/17/2016. TECHNIQUE: Left knee 2 views. IMPRESSION: Severe tricompartmental degenerative art hrosis most pronounced in medial compartment is similar to prior exam. No acute fracture or dislocation. Joint effusion on lateral view. Vascular calcifications. Dictated by Rafael Schultz MD @ May 9 2 022 2:14PM (Electronically Signed) Keturah Mathew [employer] GENERAL IMAGING ECHO TIN W BUBBLE WO CONTRAST (05/20/2022 9:23 AM PRECISION DYER) P athologist Signature EJECTION 55 - 60% FRACTION MITRAL VALVE 21 mm2 MR ERO Anatomical Region Laterality Modality HEART Ultrasound Specimen (Source) Anatomical Collection Method Collection Time Re ceived Time Location / / Volume Laterality 05/20/2022 8:15 AM PRECISION DYER Narrative 05/20/2022 10:13 AM PRECISION DYER TRANSESOPHAGEAL ECHOCARDIOGRAM HARDY E STRAGÓMEZOEN ?Acces ellen#: ?? [id number] : ?[id number] 81 years Study Date : ?? 05/20/2022 8:15:18 AM Gender: M ? BP: ? 127/77 mmHg Height: 180.34 cm ? BSA: ?2.16 m? ?? Weight: 95.71 kg ?Tech: ? LFM ?Referring MD: BERTO RUIZ Site: ? [facility] Reading Location: [facility] IP Procedure: TIN w/ Bubbles, Color Doppler and Spectral Doppler. Indication for study: Endocarditis, MR Cardiac Rhythm: Irregular.Study quality: Final Impressions: 1. No vegetation visualized. 2. Normal left ventricular size, normal global systolic function with an estimated EF of 55 - 60%. 3. The aortic valve is trileaflet and s clerotic, no stenosis and mild to moderate regurgitation. 4. The mitral valve is sclerotic, mild to moderate mitral regurgitation. 5. No evidence of thrombus present in t he left atrial appendage. 6. PFO present. Postive bubble study at rest. 7. 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 The ascending aorta is dilated with a maximal diameter of 4.3 cm. Dilated aortic arch in its visualized segments measuring up to 4.3 cm . Normal sized descending aorta with mil d, immobile plaque visualized. Consider 3D assessment of the thoracic aortic if clinically indicated. 8. PICC line enters 2.5 cm into the rig ht atrium. Consider assessing PICC position. Comparison Compared to prior exam report of 9.9.201 6: - Aortic regurgitation has increased. Procedure comments: Indications, goals, risks and alternatives of the procedure were discussed with the patient and informed consent was obtained. The patient received conscious sedation of intravenous Versed and intravenous Fentanyl. See pro cedural record for anesthesia details. Prior to performance of procedure, time out was called to accurately identify the patient and procedure. The Echo probe was passed without difficulty. TIN w/ Bubbl es, Color Doppler and Spectral Doppler was performed. I performed the study with fellow [id number] Joshua Henley MD. I was present throughout the examination and p articipated in the performance of the ex amination throughout the procedure. The patient developed no apparent complications during the procedure. Estimated Blood Loss: 0 ml Versed: 1.50 mg Sedation Drug Totals: ?Fentanyl: 75.00 mcg Specimen Collected: ?Procedura list: Doroteo Ford MD Chamber Sizes and Function Normal left ventricular size, normal kris bal systolic function with an estimated EF of 55 - 60%. Left atrial size is mildly enlarged. The left atrial appendage is well visualized and there is no evidence of thrombus present. Normal left atrial appendage flow velocities. Right ventricular cavity size is normal, global systolic RV function is normal. The right atrium is normal. PICC line enters 2.5 cm in to the right atrium. Consider assessing PICC position. The pulmonary artery is of normal size and origin. The sinus of Valsalva is dilated. The ascending aorta is dilated. Aortic arch is dilated. Descen ding aorta is normal sized with mild, im mobile plaque visualized. Valves, RV Pressures and Diastolic Funct ion The aortic valve is trileaflet and scler otic, no stenosis and mild to moderate regurgitation. The mitral valve is sclerotic and with mild bileaflet prolapse, mild to moderate mitral regurgitation. The t ricuspid valve is normal in structure. T ricuspid regurgitation is trace regurgitation. Unable to assess right ventricular systolic pressure. The pulmonic valve is normal. Mild pulmonary regurgitation. P ulmonary veins show a pattern of systoli c flow reversal, suggestive of severe mitral regurgitation. The right upper pulmonary vein was well visualized. Masses, Effusion, Shunts There is no pericardial effusion. PFO pr esent. Agitated saline injection showed right to left shunting of microbubbles across the atrial septum at rest. MEASUREMENTS AND CALCULATIONS 2-D Measurements and LV Function: Ao Sinus 4.5 cm HR 84 bpm Asc Ao ?? 4.3 cm Mitral Valve: MR ERO ??0.21 cm? ?? Vena Cont MR Vol. 31 ml MR TVI ??1.45 m . Report modified by Doroteo Ford MD on 05/20/2022 11:38:16 AM. This study was interpreted by an [facility] redited facility. ??Final (Updated) ?? Procedure Note Doroteo Ford MD - 2 TRANSESOPHAGEAL ECHOCARDIOGRAM HARDY OLIVER : 1940 81 years Study Date: 05/20/2022 8:15:18 AM Gender: M BP: 127/77 mmHg Height: 180.34 cm BSA: 2.16 m? ?? Weight: 95.71 kg Tech: ZOFIA Referring MD: BERTO RUIZ Site: [facility] Reading Location: [facility] Procedure: TIN w/ Bubbles, Color Doppler and Spectral Doppler. Indication for study: Endocarditis, MR Cardiac Rhythm: Irregular.Study quality: Final Impressions: 1. No vegetation visualized. 2. Normal left ventricular size, normal global systolic function with an estimated EF of 55 - 60%. 3. The aortic valve is trileaflet and s clerotic, no stenosis and mild to moderate regurgitation. 4. The mitral valve is sclerotic, mild to moderate mitral regurgitation. 5. No evidence of thrombus present in t he left atrial appendage. 6. PFO present. Postive bubble study at rest. 7. 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 The ascending aorta is dilated with a maximal diameter of 4.3 cm. Dilated aortic arch in its visualized segments measuring up to 4.3 cm. Normal sized descending aorta with mild, immobi le plaque visualized. Consider 3D assessment of the thoracic aortic if clinically indicated. 8. PICC line enters 2.5 cm into the rig ht atrium. Consider assessing PICC position. Comparison Compared to prior exam report of 9.9.201 6: - Aortic regurgitation has increased. Procedure comments: Indications, goals, risks and alternatives of the procedure were discussed with the patient and informed consent was obtained. The patient received conscious sedation of intravenous Versed and intravenous Fentanyl. See procedural record for anesthesia details. Prior to performance of procedure, time out was called to accurately identify the patient and procedure. The Echo probe was passed without difficulty. TIN w/ Bubbles, Color Dopple r and Spectral Doppler was performed. I performed the study with fellow [id number] Joshua Henley MD. I was present throughout the examination and participated in the performance of the examination throughout the proced ure. The patient developed no apparent complications during the procedure. Estimated Blood Loss: 0 ml Versed: 1.50 mg Sedation Drug Totals: Fentanyl: 75.00 mc g Specimen Collected: Proceduralist: Gretel Ford MD Chamber Sizes and Function Normal left ventricular size, normal kris bal systolic function with an estimated EF of 55 - 60%. Left atrial size is mildly enlarged. The left atrial appendage is well visualized and there is no evidence of thrombus present. Normal left atrial appendage fl ow velocities. Right ventricular cavity size is normal, global systolic RV function is normal. The right atrium is normal. PICC line enters 2.5 cm into the right atrium. Consider assessing PICC position. The pulmonary a rtery is of normal size and origin. The sinus of Valsalva is dilated. The ascending aorta is dilated. Aortic arch is dilated. Descending aorta is normal sized with mild, immobile plaque visualized. Valves, RV Pressures and Diastolic Funct ion The aortic valve is trileaflet and scler otic, no stenosis and mild to moderate regurgitation. The mitral valve is sclerotic and with mild bileaflet prolapse, mild to moderate mitral regurgitation. The tricuspid valve is normal in structure. Tricuspid regurgitation is trace regurgitation. Unable to assess right ventricular systolic pressure. The pulmonic valve is normal. Mild pulmonary regurgitation. Pulmonary veins show a pattern of systolic flow reversal , suggestive of severe mitral regurgitation. The right upper pulmonary vein was well visualized. Masses, Effusion, Shunts There is no pericardial effusion. PFO pr esent. Agitated saline injection showed right to left shunting of microbubbles across the atrial septum at rest. MEASUREMENTS AND CALCULATIONS 2-D Measurements and LV Function: Ao Sinus 4.5 cm HR 84 bpm Asc Ao 4.3 cm Mitral Valve: MR ERO 0.21 cm? ?? Vena Cont MR Vol. 31 ml MR TVI 1.45 m . Report modified by Doroteo Ford MD on 05/20/2022 11:38:16 AM. This study was interpreted by an [facility] redited facility. Final (Updated) Berto Ruiz MD ECHO ORD Sodium AM (05/20/2022 5:32 AM [facility]) P athologist Signature SODIUM 135 135 - 145 05/20/2022 [facility] mmol/L 6:19 AM [facility] LABORATORY-CENTR AL LABORATORY Specimen Anatomical Collection Method / Collection Time Recei martin Time (Source) Location / Volume Laterality Blood BLOOD SPECIMEN / Non-Lab 05/20/2022 5:32 05/20/20 6:00 Unknown Venipuncture / AM [facility] AM [facility] Unknown Sarah Frazier MD CHEMISTRY Performing Organization Address City/State/ZIP Code Phon e Number [facility] [address] [place] [address] LABORATORY-CENTRAL 2000 LABORATORY CO READING EKG - NO CHARGE, COMP ONLY (05/19/2022 3:40 PM [facility]) Nhi Marvin MD PB - PROVIDER READINGS SCAN CORRESP-IMAGING (05/19/2022 12:00 AM [facility]) Narrative 05/19/2022 12:00 AM [facility] This result has an attachment that is no t available. Ordered by an unspecified provider. Other Clinical Staff OTHER SCAN-RADIOLOGY REPORT (05/18/2022 12:00 AM [facility])Only the most recent of4 results within the time period is included. Narrative This result has an attachment that is no t available. Scanner OTHER SCAN-OPERATIVE/PROCEDURE REPORT (05/18/2022 12:00 AM [facility]) Narrative This result has an attachment that is no t available. Scanner OTHER ECHO COMPLETE WO CONTRAST (05/17/2022 4:52 PM [facility]) P athologist Signature AORTIC VALVE 4 mmHg MEAN PG EJECTION 61 % FRACTION PEAK TR 2.5 m/s VELOCITY LVEDD 4.9 cm EJECTION 60 - 65% FRACTION Anatomical Region Laterality Modality HEART Ultrasound Specimen (Source) Anatomical Collection Method Collection Time Re ceived Time Location / / Volume Laterality 05/17/2022 4:01 PM [facility] Narrative 05/17/2022 7:59 PM [facility] ECHOCARDIOGRAM HARDY E JACOB ?Acces ellen#: ?? [id number] : ?1940 81 years Study Date : ?? 05/17/2022 4:01:39 PM Gender: M ? BP: ? 150/83 mmHg Height: 175.00 cm ? BSA: ?2.05 m? ?? Weight: 89.00 kg ?Tech: ? MMN ?Referring MD: LETITIA COMBS Site: ? [facility] Reading Location: [facility] Procedure: [...] . This study was interpreted by an [facility] facility. CC: [facility], Med/ Surg - IP [facility]. ??Final ?? Procedure Note Becka Amaral MD - 05/17/2022Formatt ing of this note might be different from the original. ECHOCARDIOGRAM HARDY OLIVER : 1940 81 years Study Date: 05/17/2022 4:01:39 PM Gender: M BP: 150/83 mmHg Height: 175.00 cm BSA: 2.05 m? ?? Weight: 89.00 kg Tech: MMN Referring MD: LETITIA COMBS Site: [facility] Reading Location: [facility] [...] . This study was interpreted by an [facility] facility. CC: [facility] [place], Med/ Surg - IP [facility]. Final Letitia Combs MD ECHO ORD LAB TRACKING EVENT (05/17/2022 10:00 AM [facility]) Specimen Anatomical Collection Method Collection Time Receive d Time (Source) Location / / Volume Laterality Other (Other) Client Collect / 05/17/2022 10:00 2021 3:06 Unknown AM [facility] PM [facility] Warner Colunga MD LAB BILL ONLY Performing Organization Address City/State/ZIP Code Phon e Number mobile mum [address] [place] [address] LABORATORY-CENTRAL 2000 LABORATORY PATH TISSUE EXAM (05/17/2022 10:00 AM [facility]) Component Value Ref Test Analysis Performed At [facility] gist Range Method Time Signature Case Report Pathology Report ?Case: [id number] ? 05/22/2022 [facility] Authorizing Provider: ??Warner Rivera ch, MD Collected: ? 05/17/2022 1000 ? 12:41 PM HEALTH Ordering Location: ? [facility] CENTRAL LAB ?Received: ?05/18/2022 1517 ? KARYN ROSALES-Jp Pathologist: ? Bradley Maya MD ? ENTRAL Specimen: ?Left Clavicle , distal ? LABORATORY Final BONE, LEFT DISTAL CLAVICLE, DEBRIDEMENT: 05/22/2022 [facility] Electronically Diagnosis 1. Acute and chronic osteomyelitis 12:41 PM HEALTH signed by 2. Special stain negative for fungi [facility] LABOR[facility]-C Bradley Maya 3. Negative for malignancy ENT JACE Garcia MD on LABORATORY 2 at 12:41 PM Comment Case seen in 05/22/2022 [facility] consultation with 12:[address] Wells. [facility] LABOR[facility]-C ENTRAL LABORATORY Clinical Septic arthritis of 05/22/2022 [facility] Information acromioclavicular 12:41 PM HEALTH joint. [facility] LABORATORY-C ENTRAL LABORATORY Gross Received in formalin, labele d with the patient's name and left distal clavicle, are 2 perry-yellow bone fragments, averaging 0.5 cm. The specimen is submitted entirely in 1 cassette after decalcification. 05/22/2022 [facility] Description 12:41 PM HEALTH JAL 05/19/2022 [facility] LABORATORY-C ENTRRI LABORATORY Microscopic The final diagnosis is based on microscopic examination of appropriate sections of all specimens. 05/22/2022 [facility] Description 12:41 PM HEALTH A GMS stain was applied to a section of block A1 in order to search for fungal organisms. [facility] LABORATORY-C ENTRAL LABORATORY Additional 05/22/2022 [facility] Information Interpreted at [facility], Central Laboratory - [address], [place] [address] 12:41 PM HEALTH [facility] LABORATORY-C ENTRRI LABORATORY Specimen Anatomical Collection Method Collection Time Receive d Time (Source) Location / / Volume Laterality Other (Left 05/17/2022 10:00 05/18/2022 3:17 Clavicle) AM [facility] PM [facility] Warner Colunga MD PATHOLOGY/CYTOLOGY Performing Organization Address City/State/ZIP Code Phon e Number [facility] [address] [place] [address] LABORATORY-CENTRAL 2000 LABORATORY (ABNORMAL) PROTEIN ELP SERUM W REFLEX (05/14/2022 11:32 AM CDT) Component Value Ref Test Analysis Performed At [facility] gist Range Method Time Signature PROTEIN,TOTAL 6.6 6.0 - 05/18/2022 [facility] 8.0 g/dL 4:39 PM [facility] LABORATORY-CE NTRAL LABORATORY ELP,ALBUMIN 2.94 (L) 3.31 - 05/18/2022 [facility] 5.31 4:39 PM [facility] LABORATORY-CE g/dL NTRAL LABORATORY ELP,ALPHA 1 0.62 (H) 0.19 - 05/18/2022 [facility] 0.42 4:39 PM [facility] LABORATORY-CE g/dL NTRAL LABORATORY ELP,ALPHA 2 1.39 (H) 0.44 - 05/18/2022 [facility] 1.03 4:39 PM [facility] LABORATORY-CE g/dL NTRAL LABORATORY ELP,GAMMA 0.78 0.59 - 05/18/2022 [facility] 1.46 4:39 PM [facility] LABORATORY-CE g/dL NTRAL LABORATORY ELP,BETA 0.89 0.52 - 05/18/2022 [facility] 1.05 4:39 PM [facility] LABORATORY-CE g/dL NTRAL LABORATORY ELP Decreased albumin with eleva julian alpha-globulins, probably reactive. No monoclonal protein detected. 05/18/2022 [facility] INTERP,SERUM 4:39 PM [facility] LABORATORY-CE Interpreted and electronically signed by: YAW Castro MD LABORATORY Specimen Anatomical Collection Method / Collection Time Recei martin Time (Source) Location / Volume Laterality Blood BLOOD SPECIMEN / Venipuncture / 05/14/2022 11:32 05/14 Unknown Unknown AM CDT 11:35 AM CDT Nhi Marvin MD CHEMISTRY Performing Organization Address City/[facility] Phon e Number mobile mum [phone] [place] [address] [place] [address] LABORATORY-CENTRAL 1999 LABORATORY IMMUNOFIXATION,SERUM (05/14/2022 11:32 AM CDT) Component Value Ref Test [facility] Method Time Signature IGG 825.80 610.30 - 05/18/2022 [facility] 1,616.00 4:39 PM [facility] LABORATORY-CE mg/dL [facility] LABORATORY IGA 274.33 84.50 - 05/18/2022 [facility] 499.00 4:39 PM [facility] LABORATORY-CE mg/dL NTRRI LABORATORY IGM 52.59 35.00 - 05/18/2022 [facility] 242.00 4:39 PM [facility] LABORATORY-CE mg/dL [facility] LABORATORY IFIX Immunofixation on serum show s no monoclonal protein detected and no free light chains detected. 05/18/2022 [facility] INTERP,SERUM 4:39 PM [facility] LABORATORY-CE Interpreted and electronically signed by: YAW Castro MD LABORATORY Specimen Anatomical Collection Method / Collection Time Recei martin Time (Source) Location / Volume Laterality Blood BLOOD SPECIMEN / Venipuncture / 05/14/2022 11:32 05/14 Unknown Unknown AM CDT 11:35 AM CDT Nhi Marvin MD CHEMISTRY Performing Organization Address City/[facility] Phon e Number mobile mum [phone] [place] [address] [place] [address] LABORATORY-CENTRAL 1999 LABORATORY (ABNORMAL) PSA TOTAL SCREEN (05/14/2022 11:32 AM CDT) [facility] Method Time Signature PSA TOTAL 16.49 (H) <4.00 05/15/2022 [facility] (SCREEN) ng/mL 10:54 AM CDT LABORATORY-[facility] TRAL LABORATORY Specimen Anatomical Collection Method / Collection Time Recei martin Time (Source) Location / Volume Laterality Blood BLOOD SPECIMEN / Venipuncture / 05/14/2022 11:32 05/14 Unknown Unknown AM CDT 11:35 AM CDT Narrative [facility] LABORATORY-CENTRAL LABORAT ORY - 05/15/2022 10:54 AM CDT The [employer] Supervisor PSA assay is a Chemiluminescent Microparticle Immunoassay(CMIA). Assay values ob tained with different assay methods michelle ot be used interchangeably due to differences in assay methods and reagent specificity. Nhi Marvin MD LABORATORY Performing Organization Address City/State/ZIP Code Phon e Number [employer] [address] [place], [place] [address] [address] LABORATORY-CENTRAL 2000 LABORATORY SCAN-CT INTERPRETATION (05/14/2022 12:00 AM CDT)Only the most recent of2 results within the time period is included. Narrative This result has an attachment that is no t available. Scanner OTHER (ABNORMAL) SEDIMENTATION RATE (05/12/2022 12:38 PM CDT)Only the most recent of2 resultswithin the time period is included. [facility] gist Method Time Signature SEDIMENTATION RATE 82 (H) <20 mm/hr 05/12/2022 [place] 5:06 PM CDT [facility] LAB[facility] Specimen Anatomical Collection Method / Collection Time Recei martin Time (Source) Location / Volume Laterality Blood BLOOD SPECIMEN / Venipuncture / 05/12/2022 12:38 05/12 Unknown Unknown PM CDT 12:41 PM CDT Nhi Marvin MD HEMATOLOGY Performing Organization Address City/State/ZIP Code Phon e Number [facility] LABORATORY [address] [place] [address] LYME SCREEN W/REFLEX (05/06/2022 10:08 AM CDT) [facility] Signature LYME SCREEN Negative Negative 05/09/2022 [facility] W/REFLEX 2:55 PM CDT LABORATORY-[facility] TRAL [...] Marvin MD SEND OUTS Performing Organization Address [facility] Phon e Number mobile mum [phone] [place] [address] LABORATORY-CENTRAL 2000 LABORATORY RA QUANTITATIVE (05/06/2022 10:08 AM CDT) P athologist Signature RHEUMATOID <7.00 <12.50 05/07/2022 [facility] FACTOR,QUANT IU/mL 12:55 PM CDT LABORATORY-[facility] T RAL LABORATORY Specimen Anatomical Collection Method / Collection Time Recei martin Time (Source) Location / Volume Laterality Blood BLOOD SPECIMEN / Venipuncture / 05/06/2022 10:08 05/06 Unknown Unknown AM CDT 10:14 AM CDT Nhi Marvin MD SEND OUTS Performing Organization Address [facility] Phon e Number mobile [facility] [address] [place] [address] LABORATORY-CENTRAL 2000 LABORATORY (ABNORMAL) C-REACTIVE PROTEIN (05/06/2022 10:08 AM CDT) Patholo gist Method Time Signature C-REACTIVE 12.00 (H) <0.50 05/09/2022 [facility] PROTEIN mg/dL 12:11 PM CDT LABORATORY-[facility] TRAL LABORATORY Specimen Anatomical Collection Method / Collection Time Recei martin Time (Source) Location / Volume Laterality Blood BLOOD SPECIMEN / Venipuncture / 05/06/2022 10:08 05/06 Unknown Unknown AM CDT 10:14 AM CDT Nhi Marvin MD CHEMISTRY Performing Organization Address [facility] Phon e Number mobile [facility] [address] [place] [address] LABORATORY-CENTRAL 1999 LABORATORY XR SHOULDER 3 VIEWS [...] report s are released immediately into your [employer] medical record. ??You may view this report [...] 12:49PM (Electronically Signed) [facility] from Last 3 Months Additional Health Concerns Infection Onset Date Last Indicated COVID-19Comment: +06/08/22 at [facility] 022 06/13/2022 Insurance Payer Benefit Plan / Subscriber ID Effective Phone Address T ype Group Dates [employer] [id number] Effective for Inte rnal [facility] all dates [phone] [place] [address] MEDICARE PART A MEDICARE PART A [id number] 2005-Pres ATTN: CLAIMS - HB USE ONLY HB ONLY ent [address] [place] [address] MEDICARE PART B MEDICARE PART B [id number] 2010-Prese ATTN: CLAIMS - HB USE ONLY HB ONLY nt [address] [place] [address] MEDICARE PPS HC MEDICARE PPS [id number] 2005-Pres [address] [place] [address] MEDICARE - PB MEDICARE PB [id number] 2018-Prese ATTN: CLAIMS USE ONLY ONLY nt [address] [place] [address] [employer] [place] [id number] 2018-Prese [address] [place] [address] Advance Directives Latest Code Status on File Code Status Date Activated Date Inactivated Comments Full Code 06/14/2022 7:43 AM 06/15/2022 10:02 PM Code Status Discussion: Reviewed Preferences Full Code 06/13/2022 8:41 PM 06/14/2022 7:43 AM Code Status Discussion: Unable to Assess Preferences, Provid er to review later Full Code 05/18/2022 6:55 PM 05/27/2022 6:18 PM Code Status Discussion: Reviewed Preferences Full Code 12/09/2017 3:21 PM 12/09/2017 8:44 PM Code Status Discussion: Discussed Care Teams [facility] Relationship Specialty Start Date End Date Nhi Marvin MD PCP - General Family Practice 08/19/11 [address] [place] [address] [facility] 05/23/22 [address] [place] [id number] Elaine Alarcon, CLAIR Registered Nurse Registered Nurse 06/13/22
--- OUTSIDE RECORDS SUMMARY | 2022-06-19 11:18 | XMS_ITS | Clinical Summary ---
:1940 Author Organization [employer] Address Unavailable [place] [address] Care Team Providers Name Role Phone Nhi Marvin MD Primary Care Provider [phone] [facility], [place] Unavailable [phone] Elaine Alarcon RN Unavailable Unavailable Allergies [...] PFO (patent foramen 06/07: 2.5 mg; sent)) ovalenoch), Recheck INR Anticoagulation 06/08/2022. 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 12/09/2017 Non-cardiac chest pain 12/09/2017 Anticoagulation monitoring, INR range 2-3 07/20/2016 Acute CVA (cerebrovascular accident) 07/20/2016 Patent foramen ovale 03/13/2016 Elevated prostate specific antigen (PSA) 09/04/2011 Colon polyps 07/23/2009 Overview: Colonoscopy 11/2009 polyps repeat in 5 ye ars Unspecified sleep apnea 11/05/2006 Coronary atherosclerosis of unspecified type of vessel , houlton or graft 05/13/2006 Overview: --S/P Angio 04/24/05 [...] Encounters Date Type Specialty Care Team Description 06/19/2022 Longterm [facility] Transitional [facility] Yvonne Duran, BOTTLE MACHINE OPERATOR Visit (BOTTLE MACHINE OPERATOR follow up ) 06/18/2022 Nurse Triage Ashly Mcqueen, Abnormal Lab Results RN (BMP, hepatic p brock, CRP, CBC) 06/18/2022 Telephone Nhi Marvin MD (HOSPITALIZATIO N) 06/17/2022 Longterm Norma Renee C are MD Martha Visit (MD nicholas kearns up ) 06/16/2022 Anticoagulation Clinic, Asct Tcu Anticoag ulation (TCU) (warfarin) Inr 06/13/2022 - Emergency Kapsner, Respiratory tra ct infection due to COVID-19 virus (Primary Dx); 06/15/2022 Ector Esteban, Kateryna ; Dyspnea, unspecified type; Jemal Gross MD Residents, Rl Rosenberg MD Balakrishna Menon, Krishna Kumar [place], MBB S Allyn Dumont MBBS [facility], [facility] Hospitalists Of Discharge Summary - Blanca Dumont MBBS - 06/15/2022 11:56 AM CST Images from the original not e were not included. DISCHARGE SUMMARY ? ? [facility] Admission Date: 06/13/2022 Discharge Date: 06/15/2022 Discharge Plan: Hardy light was discharged to transitional care unit. Principal Diagnosis Transient hypoxia Failure to thrive Hospital Problem List Principal Problem: COVID-19 Active Problems: Coronary atherosclerosis of unspecified type of vessel, houlton or graft Hyperlipidemia LDL goal < 1 00 PFO (patent foramen ovale) Anticoagulation monitoring, INR range 2-3 Acute CVA (cerebrovascular accident) (HC) HTN (hypertension) Coronary artery disease inv olving houlton coronary artery of houlton heart JOAO 02/16/2006 AHI-59 Septic joint of [...] for 6 weeks via PICC line from [facility] on 05/17. He was al so to [...] afebril e. Chest x-ray performed [facility] showed no cardiopulmonary abnormality. Notably also had a recent CT PE with abdomen and pelvis study on 06/06/2022 which also showed no abnormalities. Therapies were consu lted. PT and OT confirmed ne ed for ongoing TCU care. OUTPATIENT PHLEBOTOMIST confirmed no decline in swallow function and [...] weight: 82.1 kg (181 lb 1.6 oz) (06/13/222199) Labs Recent Labs 06/14/22 0700 06/13/22 18006/06/22201205/20/22 [...] 3.4 L 4.1 CHLORIDE 106 104 105 [id number] 22 18 L 21 BUN 12 18 [...] this interv al not displayed. Recent Labs 06/13/22 18006/06/222012 ALBUMIN 3.0 L 3.1 L BILITOTAL 0.5 [...] should you be concerne d? At the [facility] faci lity let your health care providers know if you notice any changes in your condition. Who can the receiving facil ity call with order questions? If any questions arise with in the first 24 hours after discharge contact our service at [phone]. [facility] You were in the hospital fo r [...] today. Sammy Arteaga MD PGY3 Internal Medicine [facility] ? ? ATTENDING PROGRESS NOTE I saw and examined Hardy Lovell with the resident and I agree with the documented findings and plan. Additional comments: none MJ Campos WEIGHMASTER 06/13/2022 Nurse Triage Penelope Roberts RN Update (Re schedule Lab Draw) 06/12/2022 Nurse Triage Julia Gerber, Concerns (poor RN jason) 06/12/2022 Anticoagulation Clinic, Asct Tcu Inr Anti coagulation (TCU) (warfarin) 06/11/2022 Longterm Norma Renee Aj C are MD Martha Visit 06/11/2022 Orders Only Scanner <No scans attac hed> 06/11/2022 Nurse Triage Toño Baer Abnormal Lab Results Brian, RN 06/10/2022 Phone Office Visit Juan Jose Salomon MD 06/10/2022 Telephone Nhi Marvin (TCU- MD Rubina Request Fax ) 06/10/2022 Anticoagulation Clinic, Asct Tcu Inr Anti coagulation (TCU) (warfarin) 06/10/2022 Travel 06/08/2022 Longterm Dorinda Blake Transiti onal Care BOTTLE MACHINE OPERATOR Visit (BOTTLE MACHINE OPERATOR follo w up ) 06/08/2022 Nurse Triage Julia Gerber, Nausea RN 06/08/2022 Telephone Nhi Marvin Anticoagulantonio Cespedes MD 06/08/2022 Anticoagulation Clinic, Asct Tcu [...] Tcu Inr Anti coagulation (TCU) (warfarin) 06/01/2022 Longterm Norma Renee C are MD Martha Visit ( Initi al ) 06/01/2022 Anticoagulation Clinic, Asct Tcu Inr Anti coagulation (warfarin) ([place]a [facility] [place] [facility] Ros e) 05/29/2022 Telephone Berto Hernandez, Appointm ent 05/28/2022 Longterm Rubina [facility] Transit ional Care [place], BOTTLE MACHINE OPERATOR Visit (BOTTLE MACHINE OPERATOR Admit ) 05/28/2022 Orders Only Scanner <No scans attac hed> 05/28/2022 Nurse Triage Julia Gerber, Results ( ALT, AST, RN Alkaline Phosph atase, Creatinine); Ab normal Lab Results (BM P, CRP inflammation, Electrolyte pizarro el, Hepatic Panel ) 05/28/2022 Anticoagulation Clinic, Asct Tcu Inr Anti coagulation (TCU) (warfarin) 05/28/2022 Telephone Rubina Parish Anticoa gulation (TCU [place], BOTTLE MACHINE OPERATOR Admit - [facility] xuan) 05/27/2022 Telephone Henny Alexandra, PT Home Car [...] of right shoulder Sarah Frazier MD Park, David Fajardo MD Discharge Summary - Kevin Munroe MD - 05/27/2022 7:54 AM CST Images from the original not e were not included. HOSPITALIST DISCHARGE SUMMAR Y ? ? [facility] Admission Date: 05/18/2022 Discharge Date: 05/27/2022 Discharge Plan: Hardy light was discharged to transitional care unit. Principal Diagnosis Septic joint of bilateral [facility] Problem List Principal Problem: Septic joint of left should er region (HC) Active Problems: Coronary atherosclerosis of unspecified type of vessel, houlton or graft PFO (patent foramen ovale) HTN [...] on echo, the patient was transferred to [facility] for further evaluation. Upon admission here, Orthopa [...] up and cystoscopy. Planned for discharge to [facility] with home care which patient indicated multiple [...] was also instructed to undergo evaluation by [facility] driving program before returning to driving). Social work consulted for placement and he was accepted at [facility] so discharged to [facility] on 05/27. Upon d/c, follow up [...] XL Take 1 Tablet (30 mg) by mo ut once daily before a meal. Doctor's comments: Patient w ill call when refill is needed. vitamin B complex tablet Commonly known as: B-COMPLEX VITAMIN Take 1 tablet by mouth once daily. warfarin 5 mg tablet Commonly known as: COUMADIN Take 2.5-5 mg by mouth once daily. 5 mg Tu, Wed 2.5 mg the other days of the week. STOP taking these medicines predniSONE 10 mg tablet Commonly known as: DELTASONE Where to get your medicines These medications were sent to [facility] [address] [place] [id number] ?? lidocaine 5 % topical pat ch [...] BLOODUA Moderate* NITRITE Negative LEUKOCYTE Negative RBCUA 11-25* WBCUA 3-5 BACTERIAUA Rare EPITHELIALUA Few 05/25/22 [...] and synovial hypertrophy. Right shoulder x-ray 05/15/20 22 No fracture. Moderate acromi oclavicular degenerative joint [...] (Comments) Comment - Pharmacy to contact MD lamination operator to treat and e vazquez at home [...] through a Neurologist office such as at [facility]. Call to make appointment. Your primary doctor [...] will contact you to make follow up arrang ements. If you do not hear f rom our office within 3 business days of discharge, please call us at [phone]. When to follow up: 11 to 14 [...] re adily available, use an alcohol-based hand nurse transitional that contains 60%-95% alcohol Should I wear [...] Topete in 2-3 weeks. Wednesday Clinic address: [address] [place] [address], [facility] [address] - phone number is [phone] - You can reach infectious dis eases at [phone] weekly CBC, creat, electrol ytes, AST, ALT, alk phosph, CRP - fax to [phone]--( Aime or Dylan Chayo) Free of Communicable Diseas e: Yes Future Lab PT/INR 1 day after discharg e, if on warfarin. Future Lab orders at SNF BMP, hepatic function panel , and CBC weekly while on IV antibiotic Give 2-Step Mantoux: Yes, U nless Current or Contraindicated Level of Care: snf COMMUNICATION Before you return to gabe scherer it is strongly recommended that you be evaluated to assess your safety for driving such as through [facility]'s driving assessment and training program (call [phone] to make appointment) NURSING COMMUNICATION - Mendiola is to stay in until follow up with Urology as outpatient NURSING COMMUNICATION PICC line cares and marifer mitchell per facility protocol. Patient Aware of Diagnosis: [...] should you be concerne d? At the [facility] fac[facility] lity let your health care providers know if you notice any changes in your condition. Who can the receiving facil ity call with order questions? If any questions arise with in the first 24 hours after discharge contact our service at [phone] . Why were you at the [facility]? The reason you were in the hospital for a Transesophageal Echocardiogram. Why were you at the [facility]? You were in the hospital fo r infection in both shoulder joints. Wound care - keep incision dry: Keep incision dry as direct ed by your doctor. Wound or incision care: Wound care instructions for the [facility] facility: Keep mepilex dressings on sh oulders clean, dry, and intact. Change prn if saturation >60%. AMB CARDIOLOGY APPT FOLLOW UP Please call this patient to schedule a follow up appointment within 6-8 months of discharge with Dr. Veronika Fuentes at [facility] where Dr Fuentes has seen this patient [...] and examined today. David Munroe MD Hospitalist, [facility] ? ? [phone] WEIGHMASTER 05/18/2022 Orders Only Scanner <No scans attac [...] arm pain; started 1 0 days ago; 03/21 PL) 05/01/2022 Telephone Nhi Marvin Anticoagula tion (dosing) MD Rubina 05/01/2022 Telephone Nhi Marvin Anticoagula tion (BPA - MD Rubina Prednisone) 05/01/2022 Telephone Zainab Tobin Pharmacist Ak KEVIN Lieberman Management (Pre dnisone) 05/01/2022 Anticoagulation [...] (left- 4 days a go, achey pain- 02/18- ) 04/29/2022 Travel 04/14/2022 Refill Nhi Marvin Refill Requ est; Medication MD Rubina Problem 04/14/2022 Refill Nhi Marvin Refill Requ est MD Rubina (Amoxicillin) from Last 3 Months Immunizations Name Administration Dates Next Due COVID-19 vaccine (Discretix 11/20/2021 30mcg/0.3mL) 12YO+ LALITHA-SUCROSE ALEXY PAN Influenza A (H1N1), Inactivated 07/23/2009 Influenza A (H1N1), Inactivated (Age 0107/23/2009 >=3 Years) Influenza, High-dose Inactivated 04/20/2018, 04/21/2017 Influenza, High-dose Quadrivalent 04/24/2020 Inactivated Influenza, IIV3 (Age 6-35 mos) 04/02/2009 Influenza, IIV3 (Age >=3 years) 04/25/2013, 04/12/2012, 1007/2010, 04/08/2010, 06/08/2007, 04/26/2006, 06/25/2005 Influenza, IIV4 04/29/2021 [...] member had a cerebral aneurysm, as apoorva sheets. Other Sister 5 aneurysm Relation Name Status [...] No / Unsu re 06/10/2022 8:28 AM [place] WEIGHMASTER someone who was confirmed or suspected to have Coronavirus/COVID-19? Obstetrics History Last Filed Vital Signs Vital Sign Reading Time Taken Comments Blood Pressure 122/76 06/15/2022 10:00 AM [place] WEIGHMASTER Pulse 62 06/15/2022 10:00 AM [place] WEIGHMASTER Temperature 36.4 ??C (97.5 ??F) 06/15/2022 10:00 AM [place] WEIGHMASTER Respiratory Rate 20 06/15/2022 10:00 AM [place] WEIGHMASTER Oxygen Saturation 97% 06/15/2022 10:00 AM [place] WEIGHMASTER Inhaled Oxygen Concentration - - Weight 82.1 kg (181 lb 1.6 oz) 06/13/2022 10:00 PM [facility] WEIGHMASTER Height 180.3 cm (5' 11) 06/13/2022 5:47 PM [facility] WEIGHMASTER Body Mass Index 25.26 06/13/2022 5:47 PM [facility] WEIGHMASTER Plan of Treatment Health Maintenance Due Date [...] Timed 06/15/2022 6:10 Results for this AM [place] WEIGHMASTER procedure are i n the results section. PROTIME-INR Early AM 06/15/2022 6:10 Results for this AM [place] [facility]IGH[facility]STER procedure are i n the results section. POTASSIUM Timed 06/14/2022 11:12 Results for this PM [facility] WEIGH[facility]STER procedure are i n the results section. HEMOGLOBIN Early AM 06/14/2022 7:00 Results for this AM [place] [facility] procedure are i n the results section. PROTIME-INR Early AM 06/14/2022 7:00 Results for this AM [place] [facility] procedure are i n the results section. VITAMIN B12 Early AM 06/14/2022 7:00 Results for this AM [place] [facility] procedure are i n the results section. PLATELET COUNT Early AM 06/14/2022 7:00 Results fo r this AM [facility] procedure are i n the results section. WHITE BLOOD COUNT Early AM 06/14/2022 7:00 Results for this AM [place] [facility]IGH[facility] procedure are i n the results section. BASIC METABOLIC PANEL Early AM 06/14/2022 7:00 Res ults for this AM [facility] WEIGH[facility]STER procedure are i n the results section. BLOOD CULTURE STAT 06/14/2022 12:39 Results fo r this AM [facility]IGH[facility]STER procedure are i n the results section. BLOOD CULTURE STAT 06/14/2022 12:39 Results fo r this AM [facility]IGH[facility] procedure are i n the results section. COVID 19 Timed 06/13/2022 7:48 Results for this PM [facility] WEIGH[facility]STER procedure are i n the results section. COVID 19 COLLECTION Today 06/13/2022 7:48 Resul ts for this PM [facility]IGH[facility] procedure are i n the results section. BRAIN NATRIURETIC STAT 06/13/2022 7:08 Results for this PEPTIDE PM [facility] procedure are i n the results section. XR CHEST 1 VIEW STAT 06/13/2022 6:30 Results f or this PORTABLE PM [facility]IGH[facility] procedure are i n the results section. LACTATE SCREEN VENOUS STAT 06/13/2022 6:23 Res ults for this ISTAT W [place] PM [facility] procedure are i n the results section. TROPONIN I QUAL POC STAT 06/13/2022 6:21 Resul ts for this PM [facility] procedure are i n the results section. EXTRA TUBE [place] ON ICE STAT 06/13/2022 6:05 PM [facility] WEIGHMASTER ISTAT LACTATE SCREEN STAT 06/13/2022 6:05 Resu lts for this VENOUS PM [facility] WEIGH[facility]STER procedure are i n the results section. CBC WITH AUTO STAT 06/13/2022 6:04 Results for this DIFFERENTIAL PM [facility] WEIGH[facility] procedure are i n the results section. PROTIME-INR STAT 06/13/2022 6:04 Results for this PM [facility] procedure are i n the results section. PROCALCITONIN STAT 06/13/2022 6:04 Results for this PM [facility] procedure are i n the results section. COMP METABOLIC PANEL STAT 06/13/2022 6:04 Resu lts for this PM [facility] procedure are i n the results section. CBC WITH AUTO STAT 06/13/2022 6:04 Results for this DIFFERENTIAL PM [facility] procedure are i n the results section. EKG 12 LEAD STAT 06/13/2022 5:53 Results for this PM [facility] WEIGH[facility] procedure are i n the results section. SCAN-LABORATORY REPORT 06/11/2022 12:00 R esults for this AM [facility] WEIGH[facility]STER procedure are i n the results section. CT CHEST PULMONARY STAT 06/06/2022 10:09 Resul ts for this EMBOLUS PE ABDOMEN PM [facility] procedure are in PELVIS W the results section. URINALYSIS MICROSCOPIC STAT 06/06/2022 8:26 Re sults for this PM [facility] procedure are i n the results section. UA W/ SEDIMENT EXAM STAT 06/06/2022 8:26 Resul ts for this REFLEXED PER CRITERIA PM [facility] proced ure are in the results section. CBC WITH AUTO STAT 06/06/2022 8:13 Results for this DIFFERENTIAL PM [facility] procedure are i n the results section. LACTATE VENOUS STAT 06/06/2022 8:13 Results fo r this PM [facility] procedure are i n the results section. LIPASE STAT 06/06/2022 8:13 Results for this PM [facility] procedure are i n the results section. COMP METABOLIC PANEL STAT 06/06/2022 8:13 Resu lts for this PM [facility] procedure are i n the results section. PROTIME-INR STAT 06/06/2022 8:13 Results for this PM [facility] procedure are i n the results section. CBC WITH AUTO STAT 06/06/2022 8:13 Results for this DIFFERENTIAL PM [facility] procedure are i n the results section. EKG 12 LEAD STAT 06/06/2022 7:59 Results for this PM [facility] procedure are i n the results section. SCAN-LABORATORY REPORT 06/06/2022 12:00 R esults for this AM [facility] procedure are i n the results section. SCAN-LABORATORY REPORT 05/28/2022 12:00 R esults for this AM [facility] procedure are i n the results section. PROTIME-INR Early AM 05/27/2022 5:00 Results for this AM [place] [facility] procedure are i n the results section. CREATININE Early AM 05/26/2022 6:43 Results for this AM [place] [facility] procedure are i n the results section. PROTIME-INR Early AM 05/26/2022 6:43 Results for this AM [place] [facility] procedure are i n the results section. URINALYSIS MICROSCOPIC Timed 05/25/2022 6:42 Re sults for this PM [facility] procedure are i n the results section. URINE CULTURE Today 05/25/2022 6:42 Results for this PM [facility] procedure are i n the results section. UA W/ SEDIMENT EXAM Today 05/25/2022 6:42 Resul ts for this REFLEXED PER CRITERIA PM [facility] proced ure are in the results section. CREATININE Early AM 05/25/2022 6:07 Results for this AM [place] [facility] procedure are i n the results section. PLATELET COUNT Early AM 05/25/2022 6:07 Results fo r this AM [facility] procedure are i n the results section. PROTIME-INR Early AM 05/25/2022 6:07 Results for this AM [place] [facility] procedure are i n the results section. PROTIME-INR Early AM 05/24/2022 6:03 Results for this AM [place] [facility] procedure are i n the results section. CREATININE Early AM 05/23/2022 4:59 Results for this AM [place] [facility] procedure are i n the results section. PROTIME-INR Early AM 05/23/2022 4:59 Results for this AM [place] [facility] procedure are i n the results section. PROTIME-INR Early AM 05/22/2022 5:46 Results for this AM [place] [facility] procedure are i n the results section. BODY FLUID Today 05/21/2022 8:13 Results for this CULTURE,STAIN AM [facility] procedure are in (AEROBIC) the results section. CRYSTAL ID BODY FLUID Today 05/21/2022 8:13 Res ults for this NO URINE AM [facility] procedure are i n the results section. BODY FLUID CELL Today 05/21/2022 8:13 Results f or this COUNT/DIF AM [facility] procedure are i n the results section. XR KNEE 2 VIEWS LEFT Routine 05/20/2022 2:11 Resu lts for this PM [facility] procedure are i n the results section. ECHO TIN W BUBBLE WO Routine 05/20/2022 9:23 Resu lts for this CONTRAST AM [place] [facility] procedure are i n the results section. POTASSIUM Early AM 05/20/2022 5:32 Results for this AM [place] [facility] procedure are i n the results section. CREATININE Early AM 05/20/2022 5:32 Results for this AM [place] [facility] procedure are i n the results section. SODIUM Early AM 05/20/2022 5:32 Results for this AM [place] [facility] procedure are i n the results section. PROTIME-INR Early AM 05/20/2022 5:32 Results for this AM [place] [facility] procedure are i n the results section. HEMOGLOBIN Early AM 05/20/2022 5:32 Results for this AM [place] [facility] procedure are i n the results section. EKG 12 LEAD Routine 05/19/2022 3:42 Chest pain in adult Resul ts for this PM [facility] procedure are i n the results section. WV READING EKG - NO Routine 05/19/2022 3:40 Chest pain in adul t CHARGE, COMP ONLY PM [facility] CBC WITH AUTO Early AM 05/19/2022 4:58 Results for this DIFFERENTIAL AM [place] [facility] procedure are i n the results section. PROTIME-INR Early AM 05/19/2022 4:58 Results for this AM [place] [facility] procedure are i n the results section. CBC WITH AUTO Early AM 05/19/2022 4:58 Results for this DIFFERENTIAL AM [place] [facility] procedure are i n the results section. BASIC METABOLIC PANEL Early AM 05/19/2022 4:58 Res ults for this AM [place] [facility] procedure are i n the results section. SCAN CORRESP-IMAGING 05/19/2022 12:00 Res ults for this AM [place] [facility] procedure are i n the results section. CREATININE STAT 05/18/2022 8:23 Results for this PM [facility] procedure are i n the results section. XR CHEST 1 VIEW STAT 05/18/2022 5:59 Results f or this PORTABLE PM [facility] procedure are i n the results section. SCAN-RADIOLOGY REPORT 05/18/2022 12:00 Re sults for this AM [facility] procedure are i n the results section. SCAN-OPERATIVE/PROCEDU 05/18/2022 12:00 R esults for this RE REPORT AM [facility] procedure are i n the results section. ECHO COMPLETE WO Routine 05/17/2022 4:52 Endocarditis Results for this CONTRAST PM [facility] procedure are i n the results section. LAB TRACKING EVENT Routine 05/17/2022 10:00 AM [facility] PATH TISSUE EXAM Routine 05/17/2022 10:00 Results for this AM [place] [facility] procedure are i n the results section. [...] Months Results (ABNORMAL) POTASSIUM (06/15/2022 6:10 AM [place] WE[facility])Only the most recent of3 results within the time period is included. P athologist Signature POTASSIUM 3.3 (L) 3.5 - 5.0 06/15/2022 [facility] mmol/L 6:55 AM [place] WEIGH[facility]STER LABORATORY-CENT RAL LABORATORY Specimen Anatomical Collection Method Collection Time Receive d Time (Source) Location / / Volume Laterality Blood BLOOD SPECIMEN / Line/Port / 06/15/2022 6:10 AM 06/15 6:28 Unknown Unknown [facility] WE[facility] AM [facility] WEIGH[facility]STER Abby Domingo MD CHEMISTRY Performing Organization Address City/[facility]/ZIP Code Phon e Number [employer] [address] [place] [address] LABORATORY-CENTRAL 2000 LABORATORY (ABNORMAL) Protime - INR - Daily (06/15/2022 6:10 AM [place] WEIGHMASTER)Only the most recent of 16 resultswithin the time period is included. athologist Signature INR 2.6 (H) <1.3 06/15/2022 [facility] 6:53 AM [place] WEIGH[facility]STER LABORATORY-CENT RAL LABORATORY PROTIME 26.9 (H) 12.0 - 13.8 06/[facility] LABORATORY-CENT [facility] LABORATORY Specimen Anatomical Collection Method Collection Time Receive d Time (Source) Location / / Volume Laterality Blood BLOOD SPECIMEN / Line/Port / 06/15/2022 6:10 AM 06/15 6:37 Unknown Unknown [place] WE[facility] AM [place] [facility] Narrative [facility] LABORATORY-CENTRAL LABORAT ORY - 06/15/2022 6:53 AM [place] WEIGHMASTER ?Therapeutic Range 2.0-3.0 for most anticoagulated patients [...] Organization Address City/State/ZIP Code Phon e Number [facility] [employer] [address] [place] [address] LABORATORY-CENTRAL 2000 LABORATORY (ABNORMAL) Platelets AM (06/14/2022 7:00 AM [place] [facility])Only the most recent of2 results within the time period is included. P athologist Signature PLATELET COUNT 111 (L) 140 - 440 06/14/2022 [facility] [employer] thou/cu mm 7:20 AM [place] [facility] LABORATORY-[place] TRAL LABORATORY MPV 9.3 6.5 - 11.0 06/14/2022 [facility] fL 7:20 AM [place] [facility] LABORATORY-[place] TRAL LABORATORY Specimen Anatomical Collection Method / Collection Time Recei martin Time (Source) Location / Volume Laterality Blood BLOOD SPECIMEN / Venipuncture / 06/14/2022 7:00 2021 7:11 Unknown Unknown AM [place] [facility] AM [place] [facility] Ector Herman MD HEMATOLOGY Performing Organization Address [facility] Phon e Number [facility] [address] [place] [address] [place] [address] LABORATORY-CENTRAL 2000 LABORATORY WBC AM (06/14/2022 7:00 AM [facility]) athologist Signature WHITE BLOOD 9.2 4.5 - 11.0 06/14/2022 [facility] COUNT thou/cu mm 7:20 AM [facility] LABORATORY-CENT RAL LABORATORY NRBC 0.0 % 06/14/2022 [facility] 7:20 AM [facility] LABORATORY-CENT RAL LABORATORY ABS NRBC 0.0 thou /cu 06/14/2022 [facility] mm 7:20 AM [facility] LABORATORY-CENT RAL LABORATORY Specimen Anatomical Collection Method / Collection Time Recei martin Time (Source) Location / Volume Laterality Blood BLOOD SPECIMEN / Venipuncture / 06/14/2022 7:00 2021 7:11 Unknown Unknown AM [facility] AM [facility] Ector Herman MD HEMATOLOGY Performing Organization Address [facility] e Number [facility] [address] [place] [address] [place] [address] LABORATORY-CENTRAL 2000 LABORATORY (ABNORMAL) Hemoglobin AM (06/14/2022 7:00 AM [facility])Only the most recent of2 resultswithin the time period is included. athologist Signature HEMOGLOBIN 11.9 (L) 13.5 - 06/14/2022 [facility] 17.5 g/dL 7:20 AM [facility] LABORATORY-CENT RAL LABORATORY MCV 97 80 - 100 06/14/2022 [facility] fL 7:20 AM [facility] LABORATORY-CENT RAL LABORATORY Specimen Anatomical Collection Method / Collection Time Recei martin Time (Source) Location / Volume Laterality Blood BLOOD SPECIMEN / Venipuncture / 06/14/2022 7:00 2021 7:11 Unknown Unknown AM [facility] AM [facility] Jemal Gross MD HEMATOLOGY Performing Organization Address City/State/ZIP Code Phon e Number [facility] [address] [place] [address] [place] [address] LABORATORY-CENTRAL 1999 LABORATORY Vitamin B12 level AM (06/14/2022 7:00 AM [facility]) P athologist Signature VITAMIN B12 744 180 - 914 06/15/2022 [facility] pg/mL 2:49 PM [facility] LABORATORY-[facility] LABORATORY Specimen Anatomical Collection Method / Collection Time Recei martin Time (Source) Location / Volume Laterality Blood BLOOD SPECIMEN / Venipuncture / 06/14/2022 7:00 2021 7:11 Unknown Unknown AM [facility] AM [facility] Ector Herman MD CHEMISTRY Performing Organization Address City/State/ZIP Code Phon e Number [facility] [address] [place] [address] LABORATORY-CENTRAL 1999 LABORATORY (ABNORMAL) Basic metabolic panel AM (06/14/2022 7:00 AM [facility])Only the most recent of2 resultswithin the time period is included. Analysis Performed At Patho logist Time Signature SODIUM 135 135 - 145 06/14/2022 [facility] mmol/L 7:56 AM [facility] LABORATORY-[facility] TRAL LABORATORY POTASSIUM 3.1 (L) 3.5 - 5.0 06/14/2022 [facility] mmol/L 7:56 AM [facility] LAB[facility]ATORY-[facility] TRAL LABORATORY CHLORIDE 106 98 - 110 06/14/2022 [facility] mmol/L 7:56 AM [facility] LAB[facility]ATORY-[facility] TRAL LABORATORY CO2,TOTAL 22 21 - 31 06/14/2022 [facility] mmol/L 7:56 AM [facility] LAB[facility]ATORY-[facility] TRAL LABORATORY ANION GAP 7 5 - 18 06/14/2022 [facility] 7:56 AM [facility] LAB[facility]ATORY-[facility] TRAL LABORATORY GLUCOSE 94 65 - 100 06/14/2022 [facility] mg/dL 7:56 AM [facility] LAB[facility]ATORY-[facility] TRAL LABORATORY CALCIUM 8.1 (L) 8.5 - 10.5 06/14/2022 [facility] mg/dL 7:56 AM [facility] LABORATORY-[facility] TRAL LABORATORY BUN 12 8 - 25 06/14/2022 [facility] mg/dL 7:56 AM [facility] LAB[facility]ATORY-[facility] TRAL LABORATORY CREATININE 0.75 0.72 - 06/14/2022 [facility] 1.25 mg/dL 7:56 AM [facility] LABORATORY-[facility] TRAL LABORATORY BUN/CREAT RATIO 16 10 - 20 06/14/2022 [facility] 7:56 AM [facility] LAB[facility]ATORY-[facility] TRAL LABORATORY eGFR 90 (L) >90 06/14/2022 [facility] mL/min/1.7 7:56 AM [facility] LABORATORY-[facility] 3m2 TRAL LABORATORY Comment: As [...] 06/14/2022 7:00 2021 7:11 Unknown Unknown AM [facility] AM [facility] Ector Herman MD CHEMISTRY Performing Organization Address City/State/ZIP Code Phon e Number [facility] [address] [place] [address] LABORATORY-CENTRAL 2000 LABORATORY BLOOD CULTURE (06/14/2022 12:39 AM [facility])Only the most recent of2 resultswithin the time period is included. P athologist Signature CULTURE No Growth. 06/19/2022 [facility] 3:37 AM [facility] LABORATORY-[facility] LABORATORY Specimen Anatomical Collection Method Collection Time Receive d Time (Source) Location / / Volume Laterality Blood BLOOD SPECIMEN / Butterfly / 06/14/2022 12:39 022 Unknown Unknown AM [facility] 12:51 AM [facility] Narrative [facility] LABORATORY-CENTRAL LABORAT ORY - 06/19/2022 3:37 AM [facility] Low volume blood culture received; possi ble false negative culture. Ector Herman MD MICROBIOLOGY Performing Organization Address City/State/ZIP Code Phon e Number [facility] [address] [place] [address] LABORATORY-CENTRAL 2000 LABORATORY (ABNORMAL) COVID 19 (06/13/2022 7:48 PM [facility]) Patholo gist Method Time Signature COVID 19 Positive (A) Negative 06/14/2022 [facility] 5:29 AM [facility] LABORATORY-[facility] MOLECULAR TRAL LABORATORY Specimen Anatomical Location / Collection Method Collection Earnest e Received Time (Source) Laterality / Volume Other SPECIMEN FROM Non-Blood / 06/13/2022 7:48 06/13/2022 8:00 NASOPHARYNGEAL Unknown PM [facility] PM [facility] STRUCTURE / Unknown Narrative [facility] LABORATORY-CENTRAL LABORAT ORY - 06/14/2022 5:29 AM [facility] All PCR tests are subject to false [...] Ector Gloria MD MICROBIOLOGY Performing Organization Address City/[facility] Phon e Number [facility] [address] [place], [place] [id number] LABORATORY-CENTRAL 2000 LABORATORY COVID 19 COLLECTION (06/13/2022 7:48 PM [facility]) [facility] Method Time Signature TESTING [facility] 06/13/2022 [facility] LABORATORY Laboratory 8:00 PM [facility] LABORATORY-CE NTRAL LABORATORY Comment: Specimen submitted to [facility] for testing. Specimen Anatomical Location / Collection Method Collection Earnest e Received Time (Source) Laterality / Volume Other SPECIMEN FROM Non-Blood / 06/13/2022 7:48 06/13/2022 7:59 NASOPHARYNGEAL Unknown PM [facility] PM [facility] STRUCTURE / Unknown Ector Gloria MD SEND OUTS Performing Organization Address City/[facility]/ZIP [facility] Ph[place] e Number [facility] [address] [place] [address] [place] [address] LABORATORY-CENTRAL 2000 LABORATORY BRAIN NATRIURETIC PEPTIDE (06/13/2022 7:08 PM [facility]) P athologist Signature BRAIN SHAINA 22 <100 pg/mL 06/13/2022 [facility] PEPTIDE 8:00 PM [facility] LABORATORY-CENT RAL LABORATORY Specimen Anatomical Collection Method / Collection Time Recei martin Time (Source) Location / Volume Laterality Blood BLOOD SPECIMEN / Venipuncture / 06/13/2022 7:08 2021 7:14 Unknown Unknown PM [facility] PM [facility] Ector Gloria MD CHEMISTRY Performing Organization Address City/State/ZIP Code Phon e Number [facility] [address] [place] [address] LABORATORY-CENTRAL 2000 LABORATORY XR CHEST 1 VIEW PORTABLE (06/13/2022 6:30 PM [facility])Only the most recent of2 resultswithin the time period is included. Anatomical Region Laterality Modality HEART, THORAX, CHEST Digital Radiography Specimen (Source) Anatomical Collection Method Collection Time Re ceived Time Location / / Volume Laterality 06/13/2022 7:02 PM [facility] Impressions 06/13/2022 7:02 PM [facility] No cardiopulmonary abnormality. Dictated by Glen Houser MD @ Jun ??3 2021 ??7:02PM (Electronically Signed) ?? Narrative 06/13/2022 7:02 PM [facility] For Patients: ??As a result of the Cures Act, medical imaging exams and procedure report s are released immediately into your [facility] medical record. ??You may view this report [...] provider. If you have questions, please contact [facility] health care provider. HISTORY: Dehydration. TECHNIQUE: Portable frontal view the chest. COMPARISON: Chest x-ray 05/18/2022. FINDINGS: Right PICC is unchanged. No airspace con solidation. No pleural effusion or pneumothorax. Pulmonary vasculature and cardiomediastinal silhouette are unremarkable. IMPRESSION: No cardiopulmonary abnormality. Dictated by Glen Houser MD @ Jun 3 022 7:02PM (Electronically Signed) Ector Gloria MD GENERAL IMAGING LACTATE SCREEN VENOUS ISTAT W [place] (06/13/2022 6:23 PM [facility]) P athologist Signature LACTATE VENOUS <1.8 <=2.0 06/13/2022 [facility] SCREEN ISTAT 6:29 PM [facility] LABORATORY-CENT RAL LABORATORY LACTATE SCREEN 0.7 <=2.0 06/13/2022 [facility] VENOUS POCT 6:29 PM [facility] LABORATORY-CENT RAL LABORATORY Specimen Anatomical Collection Method Collection Time Receive d Time (Source) Location / / Volume Laterality Blood BLOOD SPECIMEN / 06/13/2022 6:23 PM 06/13 6:29 Unknown [facility] PM [facility] Ector Gloria MD LABORATORY Performing Organization Address City/State/ZIP Code Phon e Number [facility] [address] [place] [address] LABORATORY-CENTRAL 2000 LABORATORY TROPONIN I QUAL POC (06/13/2022 6:21 PM [facility]) Analysis Performed At Patho logist Time Signature TROPONIN Negative Negative 06/13/2022 [facility] I,QUAL,POC 6:41 PM [facility] LABORATORY-[facility] TRAL LABORATORY TROPONIN <0.03 <0.03 06/13/2022 [facility] I,QUAL, POCT 6:41 PM [facility] LABORATORY-[facility] TRAL LABORATORY Specimen Anatomical Collection Method Collection Time Receive d Time (Source) Location / / Volume Laterality Blood BLOOD SPECIMEN / 06/13/2022 6:21 PM 06/13 6:41 Unknown [facility] PM [facility] Ector Gloria MD CHEMISTRY Performing Organization Address City/State/ZIP Code Phon e Number [facility] [address] [place] [address] LABORATORY-CENTRAL 2000 LABORATORY EXTRA TUBE [place] ON ICE (06/13/2022 6:05 PM [facility]) Specimen Anatomical Collection Method / Collection Time Recei martin Time (Source) Location / Volume Laterality Blood BLOOD SPECIMEN / Venipuncture / 06/13/2022 6:05 2021 6:18 Unknown Unknown PM [facility] PM [facility] Ector Gloria MD LABORATORY Performing Organization Address City/State/ZIP Code Phon e Number [facility] [address] [place] [address] LABORATORY-CENTRAL 2000 LABORATORY (ABNORMAL) CBC WITH AUTO DIFFERENTIAL (06/13/2022 6:04 PM [facility])Only the most recent of5 resultswithin the time period is included. [facility] Method Time Signature WHITE BLOOD 11.4 (H) 4.5 - 06/13/2022 [facility] [employer] COUNT 11.0 6:52 PM [facility] LAB[facility]ATORY-[facility] thou/cu TRAL mm LABORATORY RED BLOOD COUNT 3.79 (L) 4.30 - 06/13/2022 [facility] [employer] 5.90 6:52 PM [facility] LABORATORY-[facility] mil/cu mm TRAL LABORATORY HEMOGLOBIN 12.3 (L) 13.5 - 06/13/2022 [facility] [employer] 17.5 g/dL 6:52 PM [facility] LABORATORY-[facility] TRAL LABORATORY HEMATOCRIT 37.2 37.0 - 06/13/2022 [facility] [employer] 53.0 % 6:52 PM [facility] LABORATORY-[facility] TRAL LABORATORY MCV 98 80 - 100 06/13/2022 [facility] [employer] fL 6:52 PM [facility] LABORATORY-[facility] TRAL LABORATORY MCH 32.5 26.0 - 06/13/2022 [facility] [employer] 34.0 pg 6:52 PM [facility] LABORATORY-[facility] TRAL LABORATORY MCHC 33.1 32.0 - 06/13/2022 [facility] [employer] 36.0 g/dL 6:52 PM [facility] LABORATORY-[facility] TRAL LABORATORY RDW 14.1 11.5 - 06/13/2022 [facility] [employer] 15.5 % 6:52 PM [facility] LABORATORY-[facility] TRAL LABORATORY PLATELET COUNT 112 (L) 140 - 440 06/13/2022 [facility] [employer] thou/cu 6:52 PM [facility] LABORATORY-[facility] mm TRAL LABORATORY MPV 9.4 6.5 - 06/13/2022 [facility] [employer] 11.0 fL 6:52 PM [facility] LABORATORY-[facility] TRAL LABORATORY NRBC 0.0 % 06/13/2022 [facility] [employer] 6:52 PM [facility] LABORATORY-[facility] TRAL LABORATORY ABS NRBC 0.0 thou /cu 06/13/2022 [facility] mm 6:52 PM [facility] LABORATORY-[facility] TRAL LABORATORY % NEUT 86.0 % 06/13/2022 [facility] 6:52 PM [facility] LABORATORY-[facility] TRAL LABORATORY % LYMPH 5.3 % 06/13/2022 [facility] 6:52 PM [facility] LABORATORY-[facility] TRAL LABORATORY % MONO 7.2 % 06/13/2022 [facility] 6:52 PM [facility] LABORATORY-[facility] TRAL LABORATORY % EOS 0.7 % 06/13/2022 [facility] 6:52 PM [facility] LABORATORY-[facility] TRAL LABORATORY % BASO 0.2 % 06/13/2022 [facility] 6:52 PM [facility] LABORATORY-[facility] TRAL LABORATORY % IMMATURE GRAN 0.6 % 06/13/2022 [facility] (METAS,[place]ELOS,[place] 6:52 PM [facility] LABORATORY- [facility] OS) TRAL LABORATORY ABSOLUTE 9.8 (H) 1.7 - 7.0 06/13/2022 [facility] NEUTROPHILS thou/cu 6:52 PM [facility] LABORATORY-[facility] mm TRAL LABORATORY ABSOLUTE 0.6 (L) 0.9 - 2.9 06/13/2022 [facility] LYMPHOCYTES thou/cu 6:52 PM [facility] LABORATORY-[facility] mm TRAL LABORATORY ABSOLUTE 0.8 <0.9 06/13/2022 [facility] MONOCYTES thou/cu 6:52 PM [facility] LABORATORY-[facility] mm TRAL LABORATORY ABSOLUTE 0.1 <0.5 06/13/2022 [facility] EOSINOPHILS thou/cu 6:52 PM [facility] LABORATORY-[facility] mm TRAL LABORATORY ABSOLUTE 0.0 <0.3 06/13/2022 [facility] BASOPHILS thou/cu 6:52 PM [facility] LABORATORY-[facility] mm TRAL LABORATORY ABSOLUTE 0.1 <0.3 06/13/2022 [facility] IMMATURE thou/cu 6:52 PM [facility] LABORATORY-[facility] GRANULOCYTES(MET mm TRAL ,MYELOS,PROS) LABORATORY Specimen Anatomical Collection Method / Collection Time Recei martin Time (Source) Location / Volume Laterality Blood BLOOD SPECIMEN / Venipuncture / 06/13/2022 6:04 2021 6:20 Unknown Unknown PM [facility] PM [facility] Ector Gloria MD HEMATOLOGY Performing Organization Address City/State/ZIP Code Phon e Number [facility] [address] [place] [address] LABORATORY-CENTRAL 2000 LABORATORY PROCALCITONIN (06/13/2022 6:04 PM [facility]) P athologist Signature PROCALCITONIN 0.16 <0.50 06/13/2022 [facility] ng/ml 7:54 PM [facility] LABORATORY-[facility] LABORATORY Specimen Anatomical Collection Method / Collection Time Recei martin Time (Source) Location / Volume Laterality Blood BLOOD SPECIMEN / Venipuncture / 06/13/2022 6:04 2021 6:20 Unknown Unknown PM [facility] PM [facility] Narrative [facility] LABORATORY-CENTRAL LABORAT ORY - 06/13/2022 7:54 PM [facility] Procalcitonin for initial assessment of Lower Respiratory [...] Organization Address City/State/ZIP Code Phon e Number [facility] [address] [place] [address] LABORATORY-CENTRAL 2000 LABORATORY (ABNORMAL) COMP METABOLIC PANEL (06/13/2022 6:04 PM [facility])Only the most recent of3 resultswithin the time period is included. [facility] Method Time Signature SODIUM 134 (L) 135 - 145 06/13/2022 [facility] [employer] mmol/L 7:10 PM [facility] LABORATORY-[facility] TRAL LABORATORY POTASSIUM 3.4 (L) 3.5 - 5.0 06/13/2022 [facility] [employer] mmol/L 7:10 PM [facility] LAB[facility]ATORY-[facility] TRAL LABORATORY CHLORIDE 104 98 - 110 06/13/2022 [facility] [employer] mmol/L 7:10 PM [facility] LABORATORY-[facility] TRAL LABORATORY CO2,TOTAL 18 (L) 21 - 31 06/13/2022 [facility] [employer] mmol/L 7:10 PM [facility] LABORATORY-[facility] TRAL LABORATORY ANION GAP 12 5 - 18 06/13/2022 [facility] [employer] 7:10 PM [facility] LABORATORY-[facility] TRAL LABORATORY GLUCOSE 90 65 - 100 06/13/2022 [facility] [employer] mg/dL 7:10 PM [facility] LABORATORY-[facility] TRAL LABORATORY CALCIUM 8.4 (L) 8.5 - 10.5 06/13/2022 [facility] [employer] mg/dL 7:10 PM [facility] LAB[facility]ATORY-[facility] TRAL LABORATORY BUN 18 8 - 25 06/13/2022 [facility] mg/dL 7:10 PM [facility] LABORATORY-[facility] TRAL LABORATORY CREATININE 1.00 0.72 - 06/13/2022 [facility] [employer] 1.25 mg/dL 7:10 PM [facility] LAB[facility]ATORY-[facility] TRAL LABORATORY BUN/CREAT RATIO 18 10 - 20 06/13/2022 [facility] [employer] 7:10 PM [facility] LABORATORY-[facility] TRAL LABORATORY ALBUMIN 3.0 (L) 3.2 - 4.6 06/13/2022 [facility] [employer] g/dL 7:10 PM [facility] LAB[facility]ATORY-[facility] TRAL LABORATORY PROTEIN,TOTAL 6.1 6.0 - 8.0 06/13/2022 [facility] [employer] g/dL 7:10 PM [facility] LABORATORY-[facility] TRAL LABORATORY GLOBULIN 3.1 2.0 - 3.7 06/13/2022 [facility] [employer] g/dL 7:10 PM [facility] LAB[facility]ATORY-[facility] TRAL LABORATORY A/G RATIO 1.0 1.0 - 2.0 06/13/2022 [facility] 7:10 PM [facility] LABORATORY-[facility] TRAL LABORATORY BILIRUBIN,TOTAL 0.5 0.2 - 1.2 06/13/2022 [facility] mg/dL 7:10 PM [facility] LAB[facility]ATORY-[facility] TRAL LABORATORY ALK PHOSPHATASE 99 50 - 136 06/13/2022 [facility] IU/L 7:10 PM [facility] LAB[facility]ATORY-[facility] TRAL LABORATORY ALT (SGPT) <5 (L) 8 - 45 06/13/2022 [facility] IU/L 7:10 PM [facility] LAB[facility]ATORY-[facility] TRAL LABORATORY AST (SGOT) 17 2 - 40 06/13/2022 [facility] IU/L 7:10 PM [facility] LAB[facility]ATORY-[facility] TRAL LABORATORY eGFR 75 (L) >90 06/13/2022 [facility] mL/min/1.7 7:10 PM [facility] LABORATORY-[facility] 3m2 TRAL LABORATORY Comment: As [...] 06/13/2022 6:04 2021 6:20 Unknown Unknown PM [facility] PM [facility] Ector Gloria MD CHEMISTRY Performing Organization Address City/State/ZIP Code Phon e Number [facility] [address] [place], [place] [address] [address] LABORATORY-CENTRAL 1999 LABORATORY EKG 12 LEAD (06/13/2022 5:53 PM [facility])Only the most recent of3 resultswithin the time [...] NOW QTc 438 ms BEYOND NOW P [place] 47 degrees BEYOND NOW R [place] -34 degrees BEYOND NOW T [place] 43 degrees BEYOND NOW Specimen Anatomical Collection Method Collection Time Receive d Time (Source) Location / / Volume Laterality 06/13/2022 5:53 PM [facility] 10:38 PM [facility] Ector Gloria MD EKG ORD Performing Organization Address City/State/ZIP Code Phon e Number [facility] NOW [place], [place] SCAN-LABORATORY REPORT (06/11/2022 12:00 AM [facility])Only the most recent of3 results within the time period is included. Narrative This result has an attachment that is no t available. Scanner OTHER CT CHEST PULMONARY EMBOLUS PE ABDOMEN PELVIS W (06/06/2022 10:09 PM [facility]) Anatomical Region Laterality Modality CHEST, Abdomen, Pelvis Computed Tomograp hy Specimen (Source) Anatomical Collection Method Collection Time Re ceived Time Location / / Volume Laterality 06/06/2022 11:12 PM [facility] Impressions 06/06/2022 11:12 PM [facility] No acute findings including no pulmonary emboli or cause for abdominal pain identified. 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 Dictated by Deuce Arriaga MD @ 022 11:12:28 PM (Electronically Signed) Narrative 06/06/2022 11:12 PM [facility] For Patients: ??As a result of the Century Cures Act, medical imaging exams and procedure report s are released immediately into your [facility] medical record. ??You may view this report [...] provider. If you have questions, please contact [facility] care provider. INDICATION: Hypoxia and right lower [...] note that all CT scans at [facility] use dose modulation, iterative reconstruction, and/or weight-based dosing when appropriate to reduce radiation dose to as low as reasonably achievable. Dictated by Deuce Arriaga MD @ 022 11:12:28 PM (Electronically Signed) Mike BROWN CT (ABNORMAL) URINALYSIS MICROSCOPIC (06/06/2022 8:26 PM [facility])Only the most recent of2 resultswithin the time period is included. [employer] Method Time Signature RBC >100 (A) 0-2, None 06/06/2022 [facility] Seen /HPF 8:50 PM [facility] LAB[facility]ATORY-[facility] TRAL LABORATORY WBC 3-5 0-2, 3-5, 06/06/2022 [facility] None Seen 8:50 PM [facility] LABORATORY-[facility] /HPF TRAL LABORATORY BACTERIA Rare None 06/06/2022 [facility] Seen, 8:50 PM [facility] LAB[facility]ATORY-[facility] Rare, Few TRAL Bacteria/ LABORATORY HPF EPITHELIAL Few None 06/06/2022 [facility] CELLS Seen, Few 8:50 PM [facility] LABORATORY-[facility] Epi/HPF TRAL LABORATORY HYALINE CASTS 11-25 (A) 0-2, 3-5 06/06/2022 [facility] /LPF 8:50 PM [facility]ATORY-[facility] TRAL LABORATORY URIC ACID Present (A) (none) 06/06/2022 [facility] CRYSTALS 8:50 PM [facility] LAB[facility]ATORY-[facility] TRAL LABORATORY Specimen Anatomical Collection Method Collection Time Receive d Time (Source) Location / / Volume Laterality Urine URINE SPECIMEN / Non-Blood / 06/06/2022 8:26 PM 06/06 8:33 Unknown Unknown [facility] PM [facility] Mike BROWN URINE Performing Organization Address City/State/ZIP Code Phon e Number [facility] [address] [place] [address] LABORATORY-CENTRAL 1999 LABORATORY (ABNORMAL) Urinalysis W Reflex Microscopic if Positive (06/06/2022 8:26 PM [facility]) Only the most recent of2 resultswithin the time period is included. [employer] Method Time Signature COLOR Yellow Yellow Color 06/06/2022 [facility] 8:50 PM [facility] LABORATORY-CE NTRAL LABORATORY CLARITY Cloudy (A) Clear 06/06/2022 [facility] Clarity 8:50 PM [facility] SPECIFIC >=1.030 (A) 1.010, 06/06/2022 [facility] GRAVITY,URINE 1.015, 8:50 PM [facility] 1.020, 1.025 [facility] PH,URINE 6.0 6.0, 7.0, 06/06/2022 [facility] 8.0, 5.5, 8:50 PM [facility] 6.5, 7.5, NTRAL 8.5 LABORATORY UROBILINOGEN, Normal Normal EU/[facility] PROTEIN, 30 (A) Negative 06/06/2022 [facility] URINE mg/dL 8:50 PM [facility] GLUCOSE, Negative Negative 06/06/2022 [facility] URINE mg/dL 8:50 PM [facility] LABOR[facility]ORY-CE NTRAL LABORATORY KETONES,URINE 40 (A) Negative 06/06/2022 [facility] mg/dL 8:50 PM [facility]-CE NTRAL LABORATORY BILIRUBIN,URI Negative Negative 06/06/2022 [facility] NE 8:50 PM [facility]-CE NTRAL LABORATORY OCCULT Large (A) Negative 06/06/2022 [facility] BLOOD,URINE 8:50 PM [facility]-CE NTRAL LABORATORY NITRITE Negative Negative 06/06/2022 [facility] 8:50 PM [facility]-CE NTRAL LABORATORY LEUKOCYTE Negative Negative 06/06/2022 [facility] ESTERASE 8:50 PM [facility]-CE NTRAL LABORATORY Specimen Anatomical Collection Method Collection Time Receive d Time (Source) Location / / Volume Laterality Urine URINE SPECIMEN / Non-Blood / 06/06/2022 8:26 PM 06/06 8:33 Unknown Unknown [facility] PM [facility] Mike BROWN URINE Performing Organization Address City/State/ZIP Code Phon e Number [facility] [address] [place] [address] LABORATORY-CENTRAL 2000 LABORATORY LACTATE VENOUS (06/06/2022 8:13 PM [facility]) athologist Signature LACTATE,VENOUS 1.0 0.5 - 2.0 06/06/2022 [facility] mmol/L 8:52 PM [facility]-CENT RAL LABORATORY Specimen Anatomical Collection Method / Collection Time Recei martin Time (Source) Location / Volume Laterality Blood BLOOD SPECIMEN / Venipuncture / 06/06/2022 8:13 2021 8:29 Unknown Unknown PM [facility] PM [facility] Mike BROWN CHEMISTRY Performing Organization Address City/[facility]/ZIP [facility] [place] Number [facility] [address] [place] [address] LABORATORY-CENTRAL 2000 LABORATORY Lipase (06/06/2022 8:13 PM [facility]) athologist Signature LIPASE 40.6 8.0 - 78.0 06/06/2022 [facility] [facility] IU/L 8:58 PM [facility] LABOR[facility]ORY-CENTR AL LABORATORY Specimen Anatomical Collection Method / Collection Time Recei martin Time (Source) Location / Volume Laterality Blood BLOOD SPECIMEN / Venipuncture / 06/06/2022 8:13 2021 8:27 Unknown Unknown PM [facility] PM [facility] Mike BROWN CHEMISTRY Performing Organization Address City/[facility] Phon e Number [facility] [address] [place] [address] LABORATORY-CENTRAL 2000 LABORATORY (ABNORMAL) Creatinine AM (05/26/2022 6:43 AM [facility])Only the most recent of5 resultswithin the time period is included. athologist Signature CREATININE 0.92 0.72 - 1.25 05/26/2022 [facility] mg/dL 7:34 AM [facility]-CENT RAL LABORATORY eGFR 84 (L) >90 05/26/2022 [facility] mL/min/1.73 7:34 AM [facility]-CENT m2 RAL LABORATORY Comment: As of [...] Blood BLOOD SPECIMEN / Non-Lab 05/26/2022 6:43 11/15/20 22 6:58 Unknown Venipuncture / AM [facility] AM [facility] Unknown David Munroe MD CHEMISTRY Performing Organization Address City/State/ZIP Code Phon e Number [facility] [address] [place] [address] LABORATORY-CENTRAL 2000 LABORATORY URINE CULTURE (05/25/2022 6:42 PM [facility]) athologist Signature CULTURE No growth 05/26/2022 [facility] [employer] (<1,000 5:10 PM [facility]-CENT CFU/mL) RAL LABORATORY Specimen Anatomical Collection Method Collection Time Receive d Time (Source) Location / / Volume Laterality Urine URINE SPECIMEN / Non-Blood / 05/25/2022 6:42 PM 05/25 7:02 Unknown Unknown [facility] PM [facility] David Munroe MD MICROBIOLOGY Performing Organization Address City/[facility]/ZIP Code Phon e Number [facility] [address] [place] [address] LABORATORY-CENTRAL 1999 LABORATORY Body Fluid Culture, Stain (05/21/2022 8:13 AM [facility]) [facility] Method Time Signature CULTURE No Growth. 05/26/2022 [facility] 10:50 AM [facility] TRAL LABORATORY GRAM STAIN No PMNs 05/26/2022 [facility] 10:50 AM [facility] TRAL LABORATORY GRAM STAIN 2+ RBCs 05/26/2022 [facility] 10:50 AM [facility]-[place] [facility] TRAL LABORATORY GRAM STAIN No organisms 05/26/2022 [facility] seen 10:50 AM [facility] TRAL LABORATORY Specimen Anatomical Collection Method Collection Time Receive d Time (Source) Location / / Volume Laterality Body Fluid SYNOVIAL FLUID Non-Blood / 05/21/2022 8:13 AM 022 8:23 SPECIMEN / Unknown Unknown [facility] AM [facility] Keturah Mathew NP MICROBIOLOGY Performing Organization Address City/State/ZIP Code Phon e Number [facility] [address] [place] [address] LABORATORY-CENTRAL 1999 LABORATORY Body Fluid Cell Count/Dif (05/21/2022 8:13 AM [facility]) [facility] gist Method Time Signature BODY FLUID Synovial 05/21/2022 [facility] SOURCE Fluid 10:41 AM [facility] TRAL LABORATORY Comment: left knee BODY FLUID COLOR Yellow 05/21/2022 10:41 [facility] AM [facility]ORATORY-CENTRAL LABORATORY BODY FLUID Slightly Cloudy 05/21/2022 10:[address] AM [facility]-CENTRAL LABORATORY TOTAL NUCLEATED 7,725 /cu mm 05/21/2022 10:41 [facility] CELLS, BF AM [facility]OR[facility]-CENTRAL LABORATORY RED BLOOD COUNT, <2000 /cu mm 05/21/2022 10:41 [facility] BODY FLUID AM [facility]-CENTRAL LABORATORY % NEUTROPHILS, 89 % 05/21/2022 10:41 [facility] BODY FLUID AM [facility]-CENTRAL LABORATORY % LYMPHOCYTES, 6 % 05/21/2022 10:41 [facility] BODY FLUID AM [facility]OR[facility]-CENTRAL LABORATORY % MONO/MACRO, 5 % 05/21/2022 10:41 [facility] BODY FLUID AM [facility]-CENTRAL LABORATORY Specimen Anatomical Collection Method Collection Time Receive d Time (Source) Location / / Volume Laterality Body Fluid SYNOVIAL FLUID Non-Blood / 05/21/2022 8:13 AM 022 8:23 SPECIMEN / Unknown Unknown [facility] AM [facility] Narrative [facility] LABORATORY-CENTRAL LABORAT ORY - 05/21/2022 10:41 AM [facility] TO ORDER BODY FLUID CULTURES, USE; [id number] BODY FLUID CULTURE, STAIN Keturah Mathew BOTTLE MACHINE OPERATOR BODY FLUID Performing Organization Address City/State/ZIP Code Phon e Number [facility] [address] [place] [address] LABORATORY-CENTRAL 2000 LABORATORY (ABNORMAL) Crystal ID Body Fluid No Urine (05/21/2022 8:13 AM [facility]) [facility] gist Method Time Signature MONOSODIUM URATES None Seen None 05/21/2022 [facility] Seen, 10:54 AM HEALTH Present, [facility] LABORATORY-C Not ENTRAL Present LABORATORY CALCIUM Intracellular None 05/21/2022 [facility] PYROPHOSPHATES (A) Seen, 10:54 AM HEALTH Present, [facility] LABORATORY-C Not ENTRAL Present LABORATORY OTHER CRYSTALS No crystals seen 05/21/2022 [facility] 10:54 AM HEALTH [facility]-C ENTRAL LABORATORY SPECIMEN SOURCE left knee 05/21/2022 [facility] 10:54 AM HEALTH [facility]-C ENTRAL LABORATORY Specimen Anatomical Collection Method Collection Time Receive d Time (Source) Location / / Volume Laterality Body Fluid SYNOVIAL FLUID Non-Blood / 05/21/2022 8:13 AM 022 8:23 SPECIMEN / Unknown Unknown [facility] AM [facility] Keturah Mathew BOTTLE MACHINE OPERATOR BODY FLUID Performing Organization Address City/State/ZIP Code Phon e Number [facility] [address] 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 No acute fracture or dislocation. Joint effusion on lateral view. Vascular calcifications. Dictated by Rafael Schultz MD @ Nov ??2021 ??2:14PM (Electronically Signed) ?? Narrative 05/20/2022 2:14 PM [facility] For Patients: ??As a result of the Cures Act, medical imaging exams and procedure report s are released immediately into your [employer] medical record. ??You may view this report [...] provider. If you have questions, please contact [facility] health care provider. INDICATION: Left knee pain. COMPARISON: 11/17/2016. TECHNIQUE: Left knee 2 views. IMPRESSION: Severe tricompartmental degenerative art hrosis most pronounced in medial compartment is similar to prior exam. No acute fracture or dislocation. Joint effusion on lateral view. Vascular calcifications. Dictated by Rafael Schultz MD @ Nov 9 2 022 2:14PM (Electronically Signed) Keturah Mathew BOTTLE MACHINE OPERATOR GENERAL IMAGING ECHO TIN W BUBBLE WO CONTRAST (05/20/2022 9:23 AM [facility]) P athologist Signature EJECTION 55 - 60% FRACTION MITRAL VALVE 21 mm2 MR ERO Anatomical Region Laterality Modality HEART Ultrasound Specimen (Source) Anatomical Collection Method Collection Time Re ceived Time Location / / Volume Laterality 05/20/2022 8:15 AM [facility] Narrative 05/20/2022 10:13 AM [facility] TRANSESOPHAGEAL ECHOCARDIOGRAM HARDY E STRATMOEN ?Acces ellen#: ?? [id number] : ?1940 81 years Study Date : ?? 05/20/2022 8:15:18 AM Gender: M ? BP: ? 127/77 mmHg Height: 180.34 cm ? BSA: ?2.16 m? ?? Weight: 95.71 kg ?Tech: ? LFM ?Referring MD: BERTO RUIZ Site: ? [facility] Reading Location: [facility] Procedure: TIN w/ Bubbles, Color [...] performed. I performed the study with fellow [id number] Joshua Henley MD. I was present throughout [...] AM. This study was interpreted by an [facility] redited facility. ??Final (Updated) ?? Procedure Note Doroteo Ford MD - 2 TRANSESOPHAGEAL ECHOCARDIOGRAM HARDY OLIVER : 1940 81 years Study Date: 05/20/2022 8:15:18 AM Gender: M BP: 127/77 mmHg Height: 180.34 cm BSA: 2.16 m? ?? Weight: 95.71 kg Tech: [facility] Referring MD: BERTO RUIZ Site: [facility] Reading Location: [facility] Procedure: TIN w/ Bubbles, Color [...] performed. I performed the study with fellow [id number] Joshua Henley MD. I was present throughout [...] AM. This study was interpreted by an [facility]. Final (Updated) Berto Ruiz MD ECHO ORD Sodium AM (05/20/2022 5:32 AM [facility]) athologist Signature SODIUM 135 135 - 145 05/20/2022 [facility] mmol/L 6:19 AM [facility] LABORATORY-CENTR AL LABORATORY Specimen Anatomical Collection Method / Collection Time Recei martin Time (Source) Location / Volume Laterality Blood BLOOD SPECIMEN / Non-Lab 05/20/2022 5:32 05/20/20 22 6:00 Unknown Venipuncture / AM [facility] AM [facility] Unknown Sarah Frazier MD CHEMISTRY Performing Organization Address City/State/ZIP Code Phon e Number [facility] [address] [place] [address] LABORATORY-CENTRAL 1999 LABORATORY [place] READING EKG - NO CHARGE, COMP ONLY (05/19/2022 3:40 PM [facility]) Nhi Marvin MD PB - PROVIDER READINGS SCAN CORRESP-IMAGING (05/19/2022 12:00 AM [facility]) Narrative 05/19/2022 12:00 AM [facility] This result has an attachment that is no t available. Ordered by an unspecified provider. Other Clinical Staff OTHER SCAN-RADIOLOGY REPORT (05/18/2022 12:00 AM [facility])Only the most recent of4 results within the time period is included. Narrative This result has an attachment that is no t available. Scanner OTHER SCAN-OPERATIVE/PROCEDURE REPORT (05/18/2022 12:00 AM [facility]) Narrative This result has an attachment that is no t available. Scanner OTHER ECHO COMPLETE WO CONTRAST (05/17/2022 4:52 PM [facility]) athologist Signature AORTIC VALVE 4 mmHg MEAN PG EJECTION 61 % FRACTION PEAK TR 2.5 m/s VELOCITY LVEDD 4.9 cm EJECTION 60 - 65% FRACTION Anatomical Region Laterality Modality HEART Ultrasound Specimen (Source) Anatomical Collection Method Collection Time Re ceived Time Location / / Volume Laterality 05/17/2022 4:01 PM [facility] Narrative 05/17/2022 7:59 PM [facility] ECHOCARDIOGRAM HARDY E STRATMOEN ?Acces ellen#: ?? [id number] : ?1940 81 years Study Date : ?? 05/17/2022 4:01:39 PM Gender: M ? BP: ? 150/83 mmHg Height: 175.00 cm ? BSA: ?2.05 m? ?? Weight: 89.00 kg ?Tech: ? MMN ?Referring MD: LETITIA COMBS Site: ? [facility] Reading Location: MOBILE [...] . This study was interpreted by an [facility] redited facility. CC: [facility], Med/ Surg - IP [facility]. ??Final ?? Procedure Note Al Maluli, Hayan, MD - 05/17/2022Formatt ing of this note might be different from the original. ECHOCARDIOGRAM HARDY OLIVER : 1940 81 years Study Date: 05/17/2022 4:01:39 PM Gender: M BP: 150/83 mmHg Height: 175.00 cm BSA: 2.05 m? ?? Weight: 89.00 kg Tech: MMN Referring MD: LETITIA COMBS Site: [facility] Reading Location: MOBILE [...] . This study was interpreted by an [facility] CC: [facility], Med/ Surg - IP [facility]. Final Letitia Combs MD ECHO ORD LAB TRACKING EVENT (05/17/2022 10:00 AM [facility]) Specimen Anatomical Collection Method Collection Time Receive d Time (Source) Location / / Volume Laterality Other (Other) Client Collect / 05/17/2022 10:00 2021 3:06 Unknown AM [facility] PM [facility] Warner Colunga MD LAB BILL ONLY Performing Organization Address City/State/ZIP Code Phon e Number [facility] [address] [place] [address] LABORATORY-CENTRAL 2000 LABORATORY PATH TISSUE EXAM (05/17/2022 10:00 AM [facility]) Component Value Ref Test Analysis Performed At [facility] gist Range Method Time Signature Case Report Pathology Report ?Case: [id number] ? 05/22/2022 [facility] Authorizing Provider: ??Warner Rivera ch, MD Collected: ? 05/17/2022 1000 ? 12:41 PM HEALTH Ordering Location: ? [facility] CENTRAL LAB ?Received: ?05/18/2022 1517 ? [facility] SARA NOYOLA Pathologist: ? Bradley Maya MD ? ENTRAL Specimen: ?Left Clavicle , distal ? LABORATORY Final BONE, LEFT DISTAL CLAVICLE, DEBRIDEMENT: 05/22/2022 [facility] Electronically Diagnosis 1. Acute and chronic osteomyelitis 12:41 PM HEALTH signed by 2. Special stain negative for fungi [facility] LABORATORY-C Bradley Maya 3. Negative for malignancy ENT JACE Garcia MD on LABORATORY 2 at 12:41 PM Comment Case seen in 05/22/2022 [facility] consultation with 12:[address] Wells. [facility] LABORATORY-C ENTRAL LABORATORY Clinical Septic arthritis of 05/22/2022 [facility] Information acromioclavicular 12:41 PM HEALTH joint. [facility] LABORATORY-C ENTRAL LABORATORY Gross Received in formalin, labele d with the patient's name and left distal clavicle, are 2 perry-yellow bone fragments, averaging 0.5 cm. The specimen is submitted entirely in 1 cassette after decalcification. 05/22/2022 [facility] Description 12:41 PM HEALTH JAL 05/19/2022 [facility] LABORATORY-C ENTRAL LABORATORY Microscopic The final diagnosis is based on microscopic examination of appropriate sections of all specimens. 05/22/2022 [facility] Description 12:41 PM HEALTH A GMS stain was applied to a section of block A1 in order to search for fungal organisms. [facility] LABORATORY-C ENTRAL LABORATORY Additional 05/22/2022 [facility] Information Interpreted at [facility], Central Laboratory - [address], [place] [address] 12:41 PM HEALTH [facility] LABORATORY-C ENTRAL LABORATORY Specimen Anatomical Collection Method Collection Time Receive d Time (Source) Location / / Volume Laterality Other (Left 05/17/2022 10:00 05/18/2022 3:17 Clavicle) AM [facility] PM [facility] Warner Colunga MD PATHOLOGY/CYTOLOGY Performing Organization Address City/State/ZIP Code [facility]on e Number [facility] [address] [place] [address] LABORATORY-CENTRAL 2000 LABORATORY (ABNORMAL) PROTEIN ELP SERUM W REFLEX (05/14/2022 11:32 AM CDT) Component Value Ref Test Analysis Performed At [facility] [employer] Range Method Time Signature PROTEIN,TOTAL 6.6 6.0 - 05/18/2022 [facility] 8.0 g/dL 4:39 PM [facility] LABORATORY-CE [facility] LABORATORY ELP,ALBUMIN 2.94 (L) 3.31 - 05/18/2022 [facility] 5.31 4:39 PM [facility] LABORATORY-CE g/dL [facility] LABORATORY ELP,ALPHA 1 0.62 (H) 0.19 - 05/18/2022 [facility] 0.42 4:39 PM [facility]OR[facility]-CE g/dL [facility] LABORATORY ELP,ALPHA 2 1.39 (H) 0.44 - 05/18/2022 [facility] 1.03 4:39 PM [facility]OR[facility]-CE g/dL [facility] LABORATORY ELP,GAMMA 0.78 0.59 - 05/18/2022 [facility] 1.46 4:39 PM [facility]OR[facility]-CE g/dL [facility] LABORATORY ELP,BETA 0.89 0.52 - 05/18/2022 [facility] 1.05 4:39 PM [facility] LABORATORY-CE g/dL [facility] LABORATORY ELP Decreased albumin with eleva julian alpha-globulins, probably reactive. No monoclonal protein detected. [facility] 4:39 PM [facility] LABORATORY-CE Interpreted and electronically signed by: YAW Castro MD LABORATORY Specimen Anatomical Collection Method / Collection Time Recei martin Time (Source) Location / Volume Laterality Blood BLOOD SPECIMEN / Venipuncture / 05/14/2022 11:32 05/14 Unknown Unknown AM CDT 11:35 AM CDT Nhi Marvin MD CHEMISTRY Performing Organization Address City/State/ZIP Code Phon e Number [facility] [address] [place] [address] LABORATORY-CENTRAL 2000 LABORATORY IMMUNOFIXATION,SERUM (05/14/2022 11:32 AM CDT) Component Value Ref Test Analysis Performed At [facility] [employer] Range Method Time Signature IGG 825.80 610.30 - 05/18/2022 [facility] 1,616.00 4:39 PM [facility] LABORATORY-CE mg/dL [facility] LABORATORY IGA 274.33 84.50 - 05/18/2022 [facility] 499.00 4:39 PM [facility] LABORATORY-CE mg/dL [facility] LABORAT[facility] IGM 52.59 35.00 - 05/18/2022 [facility] 242.00 4:39 PM [facility] LABORATORY-CE mg/dL [facility] LABORATORY IFIX Immunofixation on serum show s no monoclonal protein detected and no free light chains detected. 05/18/2022 [facility] INTERP,SERUM 4:39 PM [facility] LABORATORY-CE Interpreted and electronically signed by: YAW Castro MD LABORATORY Specimen Anatomical Collection Method / Collection Time Recei martin Time (Source) Location / Volume Laterality Blood BLOOD SPECIMEN / Venipuncture / 05/14/2022 11:32 05/14 Unknown Unknown AM CDT 11:35 AM CDT Nhi Marvin MD CHEMISTRY Performing Organization Address [facility] Code Phon e Number [facility] [address] [place] [address] LABORATORY-CENTRAL 1999 LABORATORY (ABNORMAL) PSA TOTAL SCREEN (05/14/2022 11:32 AM CDT) [facility] Method Time Signature PSA TOTAL 16.49 (H) <4.00 05/15/2022 [facility] (SCREEN) ng/mL 10:54 AM CDT LABORATORY-[facility] TRAL LABORATORY Specimen Anatomical Collection Method / Collection Time Recei martin Time (Source) Location / Volume Laterality Blood BLOOD SPECIMEN / Venipuncture / 05/14/2022 11:32 05/14 Unknown Unknown AM CDT 11:35 AM CDT Narrative [facility] LABORATORY-CENTRAL LABORAT ORY - 05/15/2022 10:54 AM CDT [employer] Operator PSA assay is a Chemiluminescent Microparticle Immunoassay(CMIA). Assay values ob tained with different assay methods michelle ot be used interchangeably due to differences in assay methods and reagent specificity. Nhi Marvin MD LABORATORY Performing Organization Address City/[facility] Phon e Number [facility] [address] [place] [address] LABORATORY-CENTRAL 1999 LABORATORY SCAN-CT INTERPRETATION (05/14/2022 12:00 AM CDT)Only the most recent of2 results within the time period is included. Narrative This result has an attachment that is no t available. Scanner OTHER (ABNORMAL) SEDIMENTATION RATE (05/12/2022 12:38 PM CDT)Only the most recent of2 resultswithin the time period is included. Patholo gist Method Time Signature SEDIMENTATION RATE 82 (H) <20 mm/hr 05/12/2022 [place] 5:06 PM [facility] LABORATORY Specimen Anatomical Collection Method / Collection Time Recei martin Time (Source) Location / Volume Laterality Blood BLOOD SPECIMEN / Venipuncture / 05/12/2022 12:38 05/12 Unknown Unknown PM CDT 12:41 PM CDT Nhi Marvin MD HEMATOLOGY Performing Organization Address City/State/ZIP Code Phon e Number [facility] LABORATORY [address] [place] [address] LYME SCREEN W/REFLEX (05/06/2022 10:08 AM CDT) Analysis Performed At Patho logist Time Signature LYME SCREEN Negative Negative 05/09/2022 [facility] W/REFLEX 2:55 PM CDT LABORATORY-[place] [facility] TRAL [...] Marvin MD SEND OUTS Performing Organization Address City/State/ZIP Code Phon e Number [facility] [address] [place] [address] LABORATORY-CENTRAL 2000 LABORATORY RA QUANTITATIVE (05/06/2022 10:08 AM CDT) P athologist Signature RHEUMATOID <7.00 <12.50 05/07/2022 [facility] FACTOR,QUANT IU/mL 12:55 PM CDT LABORATORY-[place] T RAL LABORATORY Specimen Anatomical Collection Method / Collection Time Recei martin Time (Source) Location / Volume Laterality Blood BLOOD SPECIMEN / Venipuncture / 05/06/2022 10:08 05/06 Unknown Unknown AM CDT 10:14 AM CDT Nhi Marvin MD SEND OUTS Performing Organization Address City/[facility]/ZIP Code Phon e Number [facility] [address] [place] [address] LABORATORY-CENTRAL 1999 LABORATORY (ABNORMAL) C-REACTIVE PROTEIN (05/06/2022 10:08 AM CDT) [facility] gist Method Time Signature C-REACTIVE 12.00 (H) <0.50 05/09/2022 [facility] [employer] PROTEIN mg/dL 12:11 PM CDT LABORATORY-[place] [facility] TRAL LABORATORY Specimen Anatomical Collection Method / Collection Time Recei martin Time (Source) Location / Volume Laterality Blood BLOOD SPECIMEN / Venipuncture / 05/06/2022 10:08 05/06 Unknown Unknown AM CDT 10:14 AM CDT Nhi Marvin MD CHEMISTRY Performing Organization Address [facility] Phon e Number [facility] [address] [place] [address] LABORATORY-CENTRAL 2000 LABORATORY XR SHOULDER 3 VIEWS [...] report s are released immediately into your [facility] medical record. ??You may view this report [...] Onset Date Last Indicated COVID-19Comment: +06/08/22 at [facility] 022 06/13/2022 Insurance Payer Benefit Plan / Subscriber ID Effective Phone Address T ype Group Dates [employer] [id number] Effective for Inte [facility] all dates [phone] [place] [address] MEDICARE PART A MEDICARE PART A [id number] 2005-Pres ATTN: CLAIMS - HB USE ONLY HB ONLY ent [address] [place] [address] MEDICARE PART B MEDICARE PART B [id number] 2010-Prese ATTN: CLAIMS - HB USE ONLY HB ONLY nt [address] [place] [address] MEDICARE PPS HC MEDICARE PPS [id number] 2005-Pres [address] [place] [address] MEDICARE - PB MEDICARE PB [id number] 2018-Prese ATTN: CLAIMS USE ONLY ONLY nt [address] [place] [address] [facility] [id number] 07/12/2018-Prese PO [address] [place] [address] Hardy Oliver Personal/Family Self 1940 [address] (Home) [facility] [place] [address] Hardy Oliver Research Self 1940 [address] (Home) [facility] [place] [address] Advance Directives Latest Code Status on File [...] PM Code Status Discussion: Discussed Care Teams Junior Software Engineer Relationship Specialty Start Date End Date Nhi Marvin MD PCP - General Family Practice 08/19/11 [place] [address] [facility] 05/23/22 [address] [place] [id number] Elaine Alarcon, RN Registered Nurse Registered Nurse 06/13/22
== END 2022-05-18 15:32 | disposition home or self-care (01) ==
LOC: AMB 06-18 23:59
PROVIDERS: PCP Family Medicine; Visit Provider Family Medicine
DX: A41.9 Sepsis, unspecified organism (principal)
CPT/HCPCS: A0425; A0428

== ENCOUNTER 2022-07-23 07:38 | Outpatient (CLI) | payer MEDICARE, OTHER, SELFPAY | END 2022-07-23 07:39 | disposition home or self-care (01) | LOC: AMB 07-24 00:49 | PROVIDERS: PCP Family Medicine; Visit Provider Emergency Medicine Emergency Medical Services | DX: S09.90XA Unspecified injury of head, initial encounter (principal); W19.XXXA Unspecified fall, initial encounter; Y92.121 Bathroom in nursing home as the place of occurrence of the external cause | CPT/HCPCS: A0425; A0427 ==

== ENCOUNTER 2022-07-23 07:58 | Emergency (ER) | payer MEDICARE, OTHER, SELFPAY ==
--- NOTE | 2022-07-23 08:04 | CRLHL7_ITS ---
For Patients: As a result of the Century Cures Act, medical imaging exams and procedure reports are released immediately into your electronic medical record. You may view this report before your referring provider. If you have questions, please contact your health care provider. INDICATION: Fall. Head and neck injury. TECHNIQUE: Head CT without contrast. COMPARISON: None. FINDINGS: CSF spaces: Within normal limits for age. Brain parenchyma and extra-axial spaces: There are nonspecific low attenuation white matter changes consistent with chronic microvascular disease, unchanged. In addition, there are unchanged areas of encephalomalacia in both cerebellar hemispheres. Acharya-white differentiation is otherwise preserved. No sign of mass, hemorrhage, or midline shift. Skull base and calvarium: The visualized paranasal sinuses and mastoid air cells demonstrate no acute or significant findings. The visualized orbits are grossly unremarkable. No skull fractures. A large left frontal scalp contusion is present. IMPRESSION: 1. No acute intracranial abnormality. 2. 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 Unchanged encephalomalacia in both cerebellar hemispheres. Please note that all CT scans at this facility use dose modulation, iterative reconstruction, and/or weight-based dosing when appropriate to reduce radiation dose to as low as reasonably achievable. Dictated by Surya Velasco MD @ 07/23/2022 8:41:10 AM (Electronically Signed)
--- NOTE | 2022-07-23 08:04 | CRLHL7_ITS ---
For Patients: As a result of the Century Cures Act, medical imaging exams and procedure reports are released immediately into your electronic medical record. You may view this report before your referring provider. If you have questions, please contact your health care provider. INDICATION: Trauma. TECHNIQUE: CT cervical spine without contrast. COMPARISON: None. FINDINGS: Vertebrae: Trace C3 retrolisthesis is likely degenerative. The alignment is otherwise anatomic. There are no fractures or suspicious bony lesions. A dense sclerotic lesion in the C3 vertebral body likely reflects a bone island her Discs and facet joints: There are diffuse degenerative changes in the disc spaces and facet joints. Findings include disc space narrowing at C3-4, C5-6 and C6-7 and mild multilevel facet arthrosis that is more advanced at the upper cervical levels on the left. Extraspinal findings: Paraspinous soft tissues are unremarkable. Carotid atherosclerosis is present. IMPRESSION: 1. No sign of acute injury. 2. Multilevel degenerative spondylosis. Please note that all CT scans at this facility use dose modulation, iterative reconstruction, and/or weight-based dosing when appropriate to reduce radiation dose to as low as reasonably achievable. Dictated by Surya Velasco MD @ 07/23/2022 8:48:07 AM (Electronically Signed)
--- NOTE | 2022-07-23 08:05 | CRLHL7_ITS ---
For Patients: As a result of the Century Cures Act, medical imaging exams and procedure reports are released immediately into your electronic medical record. You may view this report before your referring provider. If you have questions, please contact your health care provider. Indication: FALL, PAIN Technique: Pelvis and left hip 3 views Comparison: None Findings: Spurring is present at both hips. There is an incidental bone island in the greater trochanter on the left. Intact pubic remain. Sacrum appears intact. The femoral neck is intact bilaterally. No suspicious osseous lesion. Chronic ossicle adjacent to the left hip. No evidence of acetabular fracture. Impression: No sign of acute injury. Dictated by Rafael Rogers MD @ 07/23/2022 8:57:04 AM (Electronically Signed)
--- NOTE | 2022-07-23 08:06 | ED.GENADULT ---
HPI - General Adult General Chief complaint: Head Injury/Pain Stated complaint: fall Time Seen by Provider: 07/23/22 08:04 History of Present Illness HPI narrative: This 82-year-old male comes in by ambulance because of a fall that was unwitnessed that occurred sometime prior to arrival. He is a resident at [address] [place] [address] and has dementia. He does not complain of any pain. He does have a hematoma on the left forehead with a small skin abrasion overlying it. He does not complain of any headache. He is on anticoagulants. He does not report any neck pain. He did not get up and ambulate since this fall. Related Data Home Medications Medication Instructions Recorded Confirmed nifedipine 30 mg tablet,extended 30 mg PO DAILY 05/12/22 06/22/22 release 24 hr rosuvastatin 5 mg tablet 5 mg PO MOWEFR@21 05/12/22 06/22/22 warfarin 5 mg tablet 2.5 - 5 mg PO DAILY 05/12/22 06/22/22 acetaminophen 500 mg tablet 500 mg PO DAILY 05/14/22 06/22/22 (Acetaminophen Extra Strength) amoxicillin 500 mg capsule 2,000 mg PO ONCE PRN 05/14/22 06/22/22 chlorpheniramine maleate 4 mg 4 mg PO Q12H PRN 05/14/22 06/22/22 tablet (Aller-Chlor) cholecalciferol (vitamin D3) 50 50 mcg PO DAILY 05/14/22 06/22/22 mcg (2,000 unit) tablet glucosamine sulfate 500 mg tablet 1,500 mg PO DAILY 05/14/22 06/22/22 (Cidatrine) vitamin B complex (B 1 tab PO DAILY 05/14/22 06/22/22 Complex-Vitamin B12 tablet) Previous Rx's Medication Instructions Recorded tamsulosin 0.4 mg capsule 0.4 mg PO DAILY #30 caps 05/18/22 Allergies Allergy/AdvReac Type Severity Reaction Status Date / Time aspirin Allergy Unknown Verified 06/22/22 13:41 Review of Systems Narrative: Review of systems is difficult to obtain because of dementia. The patient does not report any pain. [facility] Medical History Aortic aneurysm Coronary artery disease Essential hypertension History of CVA (cerebrovascular accident) Hyperlipidemia PFO (patent foramen ovale) Septic arthritis of acromioclavicular joint Surgical History History of coronary artery stent placement Status post arthroscopy of left shoulder (05/17/22) Status post arthroscopy of right shoulder (05/17/22) Social History Highest level of school completed/degree received: some college, no degree Smoking Status: Never smoker Do you use any of these nicotine containing products: None Second hand tobacco smoke exposure: No How often do you have a drink containing alcohol: never How often do you have six or more drinks on one occasion: Never AUDIT-C Alcohol total score: 0 Non-prescribed substance use: denies use Caffeine: Yes ([place]t [place] daily) service: No Exam Narrative: Exam Narrative: Constitutional: Well-developed, well-nourished, no acute distress. HEENT: Normocephalic, atraumatic. Neck: Normal range of motion. Nontender. Supple. No midline tenderness. Heart: Regular. No murmurs. Normal rate. Intact distal pulses. Lungs: Clear to auscultation. No chest discomfort. No wheezes, rhonchi, or rales. Abdomen: Normal bowel sounds. Nontender. No rebound tenderness. Genitalia: Deferred. Back: No midline tenderness. Normal range of motion. Extremities: Pain in left hip when log-rolling the left leg. No pain when stressing the pelvis. Skin: Intact. No rash. Warm. No erythema or pallor. Neurologic: No altered sensation. No weakness. Alert and oriented. Psychiatric: No suicidality. No anxiety or depression. No insomnia. Nursing notes and vitals signs are reviewed. Const: Vital Signs, click to edit/add: Vital Signs - 24 hr 07/23/22 08:11 Pulse Rate [Right Pulse Oximeter] 77 Respiratory Rate 20 Blood Pressure [Ri ght Upper Arm] 119/107 H Pulse Oximetry 91 Oxygen Delivery Me thod Room Air Course Vital Signs Vital signs: Initial Vital Signs Pulse Rate 77 07/23/22 08:11 Pulse Rhythm 07/23/22 08:11 Respiratory Rate 20 07/23/22 08:11 Blood Pressure 119/107 H 07/23/22 08:11 Blood Pressure Mean 111 07/23/22 08:11 Blood Pressure Position Supine 07/23/22 08:11 Pulse Oximetry 91 07/23/22 08:11 Oxygen Delivery Method 07/23/22 08:11 Vital Signs Pulse Rate 77 07/23/22 08:11 Respiratory Rate 20 07/23/22 08:11 Blood Pressure 119/107 H 07/23/22 08:11 Pulse Oximetry 91 07/23/22 08:11 Oxygen Delivery Method 07/23/22 08:11 Pulse Rate 77 07/23/22 08:11 Respiratory Rate 20 07/23/22 08:11 Blood Pressure 119/107 H 07/23/22 08:11 Pulse Oximetry 91 07/23/22 08:11 Oxygen Delivery Method 07/23/22 08:11 Medical Decision Making MDM Narrative Medical decision making narrative: Primary Survey: Vital Signs are within normal limits. Airway: Open. Breathing: Easy. Circulation: no obvious bleeding; normal capillary refill. Disability: GCS is 15. Normal pupillary response and motor movements. Secondary Survey: Head: Hematoma on the left lateral forehead with an overlying abrasion. Neck: No midline tenderness. ROM intact. Chest: Non tender. No external signs of trauma. Abdomen: Non tender. No rebound tenderness. Normal bowel sounds. Pelvis/Genitals: No tenderness to A/P and lateral stress. Extremities: Atraumatic. He does report pain in the left hip when log-rolling the left leg. Back: No midline tenderness. No sign of injury. Primary and Secondary surveys are completed. The patient's GCS is 15. This patient comes in with injuries due to a fall. He has significant dementia and does not remember what happened. He is not complaining of pain. He is on blood thinners. CT imaging of the head and C-spine returned with no acute findings. Additionally his left hip and pelvis are negative. He has a hematoma on his forehead with an overlying abrasion. This does not need repair. The superficial wound was cleansed. He is okay to return to his residence to continue current plans. Lab Data Labs: Lab Results 07/23/22 07/23/22 Range/Units 08:50 08:50 WBC 6.14 (4.50-11.00) K/uL RBC 4.24 L (4.30-5.90) m/uL Hgb 14.0 (13.5-17.5) gm/dL Hct 42.2 (37.0-53.0) % MCV 100 (80-100) fL MCH 33 (26-34) pg MCHC 33 (32-36) gm/dL RDW Coeff of Anna 16.2 H (11.5-15.5) % Plt Count 128 L (140-440) K/uL Neut % (Auto) 77.4 H (42.0-72.0) % Lymph % (Auto) 10.3 L (20-44) % Schuyler % (Auto) 11.1 H (0.0-11.0) % Eos % (Auto) 0.8 (0.0-7.0) % Baso % (Auto) 0.2 (0.0-3.0) % Neut # (Auto) 4.80 (1.7-7.0) K/uL Lymph # (Auto) 0.60 L (0.90-2.90) K/uL Schuyler # (Auto) 0.70 (0.00-0.90) K/UL Eos # (Auto) 0.05 (0.00-0.50) K/uL Baso # (Auto) 0.01 (0.00-0.30) K/uL Sodium 137 (135-149) mmol/L Potassium 3.5 L (3.6-5.1) mmol/L Chloride 106 (96-114) mmol/L Carbon Dioxide 25 (20-32) mmol/L BUN 11 (7-30) mg/dL Creatinine 1.2 (0.5-1.5) mg/dL Estimated GFR 60 ml/min Glucose 97 (60-115) mg/dL Calcium 8.6 (8.4-10.6) mg/dL Imaging Data CT scan - head: Radiologist's impression: 1. No acute intracranial abnormality. 2. 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 Unchanged encephalomalacia in both cerebellar hemispheres. XR L Hip: Radiologist's impression: No sign of acute injury. CT Cervical Spine: Radiologist's impression: 1. No sign of acute injury. 2. Multilevel degenerative spondylosis. ECG Data Attestation: I personally reviewed and interpreted this ECG as follows: Interpretation: Normal sinus rhythm. Rate is 67 beats per minute. There are no ST or T-wave abnormalities. First degree AV block. Discharge Plan Discharge Clinical Impression: Closed head injury Patient Disposition: Home w/ Parent or Adult Condition: Stable Additional Instructions: Continue current plans. Follow up with MD or return if worsening. Prescriptions: No Action acetaminophen [Acetaminophen Extra Strength] 500 mg tablet 500 mg PO DAILY amoxicillin 500 mg capsule 2,000 mg PO ONCE PRN chlorpheniramine maleate [Aller-Chlor] 4 mg tablet 4 mg PO Q12H PRN cholecalciferol (vitamin D3) 50 mcg (2,000 unit) tablet 50 mcg PO DAILY glucosamine sulfate [Cidatrine] 500 mg tablet 1,500 mg PO DAILY Rx Instructions: administer with a meal vitamin B complex [B Complex-Vitamin B12] Tablet 1 tab PO DAILY tamsulosin 0.4 mg Capsule 0.4 mg PO DAILY Qty: 30 0RF nifedipine 30 mg tablet extended release 24hr 30 mg PO DAILY warfarin 5 mg tablet 2.5 - 5 mg PO DAILY Label Comments: 2.5 MG SUN,WED,,,SAT 5 MG ,WEDNESDAY rosuvastatin 5 mg tablet 5 mg PO MOWEFR@21 Follow Up/Referrals: Nhi Marvin MD [Primary Care Provider] - Stand Alone Forms: [employer] Info Instructions
--- NOTE | 2022-07-23 08:09 | ED.NURSE ---
Pt to ct for images.
[2022-07-23 08:11] VITALS: BP 119/107; PULSE 77; RESP 20; O2SAT 91
[2022-07-23 09:03] LABS: Basophils Absolute Auto 0.01 K/uL (0.00-0.30); Basophils Percent Auto 0.2 % (0.0-3.0); Eosinophils Absolute Auto 0.05 K/uL (0.00-0.50); Eosinophils Percent Auto 0.8 % (0.0-7.0); Hematocrit 42.2 % (37.0-53.0); Immature Granulocytes Abs Auto 0.01 K/uL (0.00-0.30); Immature Granulocytes Pct Auto 0.2 %; Lymphocytes Percent Auto 10.3 % (20-44); Mean Corpuscular HGB Conc 33 gm/dL (32-36); Mean Corpuscular Hemoglobin 33 pg (26-34); Mean Corpuscular Volume 100 fL (80-100); Monocytes Percent Auto 11.1 % (0.0-11.0); Neutrophils Percent Auto 77.4 % (42.0-72.0); Platelet Count* 128 K/uL (140-440); RDW Coefficient of Variation % 16.2 % (11.5-15.5); Red Blood Count 4.24 m/uL (4.30-5.90); White Blood Count* 6.14 K/uL (4.50-11.00)
[2022-07-23 09:06] LABS: Slide Review Reflex No
[2022-07-23 09:07] LABS: Chloride* 106 mmol/L (96-114); Potassium* 3.5 mmol/L (3.6-5.1); Sodium* 137 mmol/L (135-149)
[2022-07-23 09:09] LABS: Creatinine* 1.2 mg/dL (0.5-1.5); Estimated Glomerular Filt Rate 60 ml/min
[2022-07-23 09:10] LABS: Blood Urea Nitrogen* 11 mg/dL (7-30); Calcium* 8.6 mg/dL (8.4-10.6); Carbon Dioxide* 25 mmol/L (20-32); Glucose* 97 mg/dL (60-115)
--- NOTE | 2022-07-23 09:42 | ED.NURSE ---
at bedside. pt refusing to sit up and get dressed. states he is dizzy. states this is common behavior for the pt
== END 2022-07-23 09:30 | disposition home or self-care (01) ==
PROVIDERS: Emergency Provider Emergency Medicine Emergency Medical Services; PCP Family Medicine
DX: S09.90XA Unspecified injury of head, initial encounter (principal); W19.XXXA Unspecified fall, initial encounter
CPT/HCPCS: 36415; 70450; 72125; 73502; 80048; 85025; 93005; 99284; 99285; 99291; G0390

== ENCOUNTER 2022-11-24 15:30 | Outpatient (RCR) | payer MEDICARE, OTHER, SELFPAY | END 2023-03-24 23:59 | disposition home or self-care (01) | PROVIDERS: PCP Family Medicine; Visit Provider Family Medicine | DX: I63.9 Cerebral infarction, unspecified (principal); Z51.89 Encounter for other specified aftercare | CPT/HCPCS: 97165; 97535 ==

== ENCOUNTER 2023-05-27 19:39 | Emergency (ER) | payer MEDICARE, OTHER, SELFPAY ==
[2023-05-27 19:46] VITALS: BP 153/90; PULSE 84; RESP 18; TEMP 36.6; O2SAT 96; BMI 27.2
[2023-05-27] MEDS: BENZOCAINE 20 % SPRAY 1 EACH NOSTRIL-R (20:11)
[2023-05-27] MEDS: OXYMETAZOLINE (AFRIN) SOAK 1 EACH TOPICAL (20:11)
--- NOTE | 2023-05-27 20:12 | ED.GENADULT ---
HPI - General Adult General Date Seen: 05/27/23 Chief complaint: Epistaxis/Nosebleed Stated complaint: Nose bleed started at 5 pm. Time Seen by Provider: 05/27/23 19:48 Source: patient Mode of arrival: ambulatory Limitations: no limitations History of Present Illness HPI narrative: Patient is an 82-year-old male who presents for nosebleed that started a couple of hours prior to presentation. He has a history of multiple nosebleeds in the past, typically is able to get them stopped by just putting some Kleenex in his nose but today it did not stop. He does take Coumadin he says secondary to history of stroke. His last INR was 2.6. No nasal trauma. He does say that he is missing a bone in the middle of his nose due to picking at a scab when he was younger. Related Data Home Medications Medication Instructions Recorded Confirmed nifedipine 30 mg tablet,extended 30 mg PO DAILY 05/12/22 11/18/22 release 24 hr rosuvastatin 5 mg tablet 5 mg PO MOWEFR@21 05/12/22 11/18/22 warfarin 5 mg tablet 2.5 - 5 mg PO DAILY 05/12/22 11/18/22 acetaminophen 500 mg tablet 500 mg PO DAILY 05/14/22 11/18/22 (Acetaminophen Extra Strength) amoxicillin 500 mg capsule 2,000 mg PO ONCE PRN 05/14/22 11/18/22 chlorpheniramine maleate 4 mg 4 mg PO Q12H PRN 05/14/22 11/18/22 tablet (Aller-Chlor) cholecalciferol (vitamin D3) 50 50 mcg PO DAILY 05/14/22 11/18/22 mcg (2,000 unit) tablet glucosamine sulfate 500 mg tablet 1,500 mg PO DAILY 05/14/22 11/18/22 (Cidatrine (glucosamine)) vitamin B complex (B 1 tab PO DAILY 05/14/22 11/18/22 Complex-Vitamin B12 tablet) Previous Rx's Medication Instructions Recorded tamsulosin 0.4 mg capsule 0.4 mg PO DAILY #30 caps 05/18/22 Allergies Allergy/AdvReac Type Severity Reaction Status Date / Time aspirin Allergy Unknown Verified 11/18/22 09:47 [facility] Medical History (Updated 05/27/23 @ 20:17 by Ashly Gonzales MD) Health care directive on file ?Z78.9 - Other specified health status (ICD-10) POLST (Physician Orders for Life-Sustaining Treatment) ?Z78.9 - Other specified health status (ICD-10) Aortic aneurysm ?I71.9 - Aortic aneurysm of unspecified site, without rupture (ICD-10) Septic arthritis of acromioclavicular joint ?M00.9 - Pyogenic arthritis, unspecified (ICD-10) Coronary artery disease ?I25.10 - Atherosclerotic heart disease of [place] coronary artery without angina pectoris (ICD-10) Hyperlipidemia ?E78.5 - Hyperlipidemia, unspecified (ICD-10) History of CVA (cerebrovascular accident) ?Z86.73 - Personal history of transient ischemic attack (TIA), and cerebral infarction without residual deficits (ICD-10) PFO (patent foramen ovale) ?Q21.12 - Patent foramen ovale (ICD-10) Essential hypertension ?I10 - Essential (primary) hypertension (ICD-10) Surgical History Status post arthroscopy of right shoulder (05/17/22) ?Z98.890 - Other specified postprocedural states (ICD-10) Status post arthroscopy of left shoulder (05/17/22) ?Z98.890 - Other specified postprocedural states (ICD-10) History of coronary artery stent placement ?Z95.5 - Presence of coronary angioplasty implant and graft (ICD-10) Social History (Updated 11/18/22 @ 09:50 by Marisol Husain ~ [facility], [facility]) Narrative: -Alex ( 61 years) Highest level of school completed/degree received: some college, no degree Smoking Status: Never smoker Do you use any of these nicotine containing products: None Second hand tobacco smoke exposure: No How often do you have a drink containing alcohol: never How often do you have six or more drinks on one occasion: Never AUDIT-C Alcohol total score: 0 Non-prescribed substance use: denies use Caffeine: Yes ([place]t [place] daily) Are you now , , , , never or living with a partner: Social isolation score (0-1 are the most socially isolated patients): 1 service: No Exam Narrative: Exam Narrative: Vital signs reviewed In general, alert, nontoxic elderly male. Wads of Kleenex stuffed in both nares, blood soaked Eyes: Sclera clear ENT: Active bleeding initially noted from both nares, after pressure, no bleeding noted from the left, a trickle of active bleeding on the right. He does have large defect in his nasal septum. Const: Vital Signs, click to edit/add: Vital Signs - 24 hr 05/27/23 19:46 Temperature 97.9 F Pulse Rate [Pulse Oximeter] 84 Respiratory Rate 18 Blood Pressure [Ri ght Upper Arm] 153/90 H Pulse Oximetry 96 Oxygen Delivery Me thod Room Air Documenting provider has reviewed patient's vital signs: yes Course Course ED Course: I placed Afrin nasal spray in both nares, held pressure for a little while and did get decreased flow blood but did not get complete hemostasis. Given that he is anticoagulated I recommended packing for ongoing bleeding. Her came spray was placed in the right nares, where I could see active bleeding. I placed 1 Merocel packing which went in without any resistance at all so I have placed a 2nd other was concerned that because of the septal defect he might need a little more mass on that side. Afrin was infused on to the Merocel. At this time he is not actively bleeding. INR is pending. INR 2.9. Bleeding has been controlled with packing. Discharge home, follow-up with ENT in about 5 days for packing removal. Vital Signs Vital signs: Initial Vital Signs Temperature 97.9 F 05/27/23 19:46 Temperature Source Temporal Artery Scan 05/27/23 19:46 Pulse Rate 84 05/27/23 19:46 Respiratory Rate 18 05/27/23 19:46 Blood Pressure 153/90 H 05/27/23 19:46 Blood Pressure Mean 111 H 05/27/23 19:46 Blood Pressure Position Sitting 05/27/23 19:46 Pulse Oximetry 96 05/27/23 19:46 Oxygen Delivery Method Room Air 05/27/23 19:46 Vital Signs Temperature 97.9 F 05/27/23 19:46 Pulse Rate 84 05/27/23 19:46 Respiratory Rate 18 05/27/23 19:46 Blood Pressure 153/90 H 05/27/23 19:46 Pulse Oximetry 96 05/27/23 19:46 Oxygen Delivery Method Room Air 05/27/23 19:46 Temperature 97.9 F 05/27/23 19:46 Pulse Rate 84 05/27/23 19:46 Respiratory Rate 18 05/27/23 19:46 Blood Pressure 153/90 H 05/27/23 19:46 Pulse Oximetry 96 05/27/23 19:46 Oxygen Delivery Method Room Air 05/27/23 19:46 Medications Administered Medications: Discontinued Medications Generic Name Dose Route Start Last Admin Trade Name Fretanika PRN Reason Stop Dose Admin Benzocaine 1 each 05/27/23 20:08 05/27/23 20:11 Benzocaine 20 % [place] NOSTRIL-R 05/27/23 20:09 1 each ONCE ONE Administration Oxymetazoline HCl 1 each 05/27/23 20:08 05/27/23 20:11 Oxymetazoline (Afrin) Soak TOPICAL 05/27/23 20:09 1 each ONCE ONE Administration Medical Decision Making Lab Data Labs: Lab Results 05/27/23 Range/Units 20:16 INR 2.94 H (0.91-1.10) Discharge Plan Discharge Clinical Impression: Epistaxis, Anticoagulant long-term use Patient Disposition: Home, Self-Care Condition: Improved Instructions: Nosebleed (ED) Additional Instructions: Packing should stay in place until you follow-up. Follow-up with ENT in about 5 days, please call clinic [phone] to schedule a follow-up appointment with Dr. Velazquez. For Re bleeding that does not stop with pressure, return to the emergency department. INR was 2.9. Prescriptions: No Action acetaminophen [Acetaminophen Extra Strength] 500 mg tablet 500 mg PO DAILY amoxicillin 500 mg capsule 2,000 mg PO ONCE PRN chlorpheniramine maleate [Aller-Chlor] 4 mg tablet 4 mg PO Q12H PRN cholecalciferol (vitamin D3) 50 mcg (2,000 unit) tablet 50 mcg PO DAILY glucosamine sulfate [Cidatrine (glucosamine)] 500 mg tablet 1,500 mg PO DAILY Rx Instructions: administer with a meal vitamin B complex [B Complex-Vitamin B12] Tablet 1 tab PO DAILY tamsulosin 0.4 mg Capsule 0.4 mg PO DAILY Qty: 30 0RF nifedipine 30 mg tablet extended release 24hr 30 mg PO DAILY warfarin 5 mg tablet 2.5 - 5 mg PO DAILY Patient Comments: 2.5 MG SUN,WED,WE,TH,SAT 5 MG TUES,WEDNESDAY rosuvastatin 5 mg tablet 5 mg PO MOWEFR@21 Follow Up/Referrals: Nhi Marvin MD [Primary Care Provider] - Stand Alone Forms: [employer] Info Instructions
[2023-05-27 20:51] LABS: INR 2.94 (0.91-1.10); Prothrombin Time 32.9 Seconds
== END 2023-05-27 21:10 | disposition home or self-care (01) ==
LOC: ED 20:36
PROVIDERS: Emergency Provider Emergency Medicine; PCP Family Medicine
DX: R04.0 Epistaxis (principal); Z79.01 Long term (current) use of anticoagulants
CPT/HCPCS: 30901; 36415; 85610; 99283; 99284

== ENCOUNTER 2023-11-23 11:11 | Outpatient (CLI) | payer MEDICARE, OTHER, SELFPAY ==
--- OUTSIDE RECORDS SUMMARY | 2023-11-25 16:41 | XMS_ITS | Clinical Summary ---
Author Name Unknown Organization [facility] Address [place], [place] [address] Care Team Providers Care Chemistry Technologist Name Role Phone Nhi Marvin MD Primary Care Provide r [facility] [place] Unavailable Elaine Alarcon RN Unavailable Unavailable [facility] [place] Unavailable Allergies Active Allergy Reactions Criticality Noted [...] Do not crush or chew. 0 0 Suspended acetaminophen (TYLENOL EXTRA STRGTH) 500 mg tablet Take 1,000 mg by mouth every 6 hours if needed for Pain. Max acetaminophen dose: 4000mg in 24 hrs. Suspended vitamin B complex (B-COMPLEX VITAMIN) tablet Take 1 Tablet by mouth once daily. 0 8 Suspended amoxicillin (AMOXIL) 500 mg capsuleIndication s:PFO (patent foramen ovale) TAKE 4 CAPSULES BY MOUTH ONE HOUR BEFORE DENTAL PROCEDURE 12 Capsule 1 2 Suspended Additional Information lidocaine 5 % topical patchIndications: Acute pain of right shoulder Apply to intact skin to cover most painful area for max 12hr per 24hr period. 30 Patch 2 Suspended Additional Information glucosamine sulfate 500 mg tab Take 1,500 mg by mouth once daily. Suspended polyethylene glycol (MIRALAX; GLYCOLAX) 17 g packet Mix 1 Packet in liquid then take by mouth once daily if needed for Constipation. Suspended cholecalciferol, Vitamin D3, 2,000 unit tabletIndications :Vitamin D deficiency Take 1 Tablet (2,000 units) by mouth once daily. 90 Tablet 3 3 Suspended Additional Information omeprazole (PRILOSEC) 20 mg Delayed-Release capsuleIndication s:Nausea Take 1 Capsule (20 mg) by mouth once daily before a meal. 90 Capsule 3 3 Suspended Additional Information mirtazapine (REMERON) 15 mg tabletIndications :Insomnia, idiopathic Take 1 Tablet (15 mg) by mouth at bedtime. 90 Tablet 3 3 Suspended Additional Information sennosides (SENNA) 8.6 mg tabletIndications :Chronic constipation Take 1 Tablet (8.6 mg) by mouth two times daily. 120 Tablet 1 3 Suspended Additional Information rosuvastatin (CRESTOR) 5 mg tabletIndications :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 (HC),Hyperlipidem ia with target LDL less than 100 TAKE ONE TABLET BY MOUTH AT BEDTIME THREE TIMES PER WEEK 36 Tablet 4 11/14/19 24 Discontinued CPAPIndications:O SA (obstructive sleep apnea) CPAP machine for home use at pressure 9 cmw, full face mask x1/3month with a full face cushion x1/mo 1 Each 11 4 Suspended Additional Information warfarin (COUMADIN) 5 mg tabletIndications :PFO (patent foramen ovale),Anticoagul ation monitoring, INR range 2-3,Acute CVA (cerebrovascular accident) (HC) Take by mouth 2.5 mg (5 mg x 0.5) every Marielle; 5 mg (5 mg x 1) all other days in the evening OR as directed 4 Suspended Additional Information furosemide (LASIX) 20 mg tabletIndications :Bilateral leg edema TAKE ONE TABLET BY MOUTH EVERY MORNING FOR LEG SWELLING 90 Tablet 4 Suspended Additional Information rosuvastatin (CRESTOR) 5 mg tabletIndications :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 (HC),Hyperlipidem ia with target LDL less than 100 TAKE ONE TABLET BY MOUTH AT BEDTIME THREE TIMES PER WEEK 36 Tablet 4 Suspended Additional Information NIFEdipine (PROCARDIA XL) 30 mg extended-release tablet Take 30 mg by mouth once daily before a meal. Suspended Active Problems Problem Noted Date Diagnosed Date Fall 11/24/2023 Bradycardia 11/24/2023 Moderate mitral regurgitation 11/24/2023 Chronic pain of left knee 11/24/2023 Staphylococcal arthritis of left shoulder 2022 BPH [...] accident) 2017 Coronary artery disease invo [place]ving [place] coronary artery of [place] heart 12/09/2017 Non-cardiac chest pain 12/09/2017 Anticoagulation monitoring, INR range 2-3 2016 Acute CVA (cerebrovascular accident) 07/20/2016 Patent foramen ovale 03/13/2016 Elevated prostate specific antigen (PSA) 012 Colon polyps 07/23/2009 Overview: Colonoscopy 11/2009 polyps repeat in 5 years Unspecified sleep apnea 11/05/2006 Coronary atherosclerosis of unspecified type of vessel, [place] or graft 05/13/2006 Overview: --S/P Angio 04/24/05 -PTCA/SONJA Stent of proximal LAD -PTCA of D1 secondary to plaque shifting. Unspecified transient cerebral ischemia Essential hypertension, benign Benign neoplasm of major salivary glands Hyperlipidemia LDL goal < 100 PFO (patent foramen ovale) Effusion of left knee Resolved Problems Problem Noted Date Diagnosed Date Resolved Date History of CVA (cerebrovascular accident) 11/24/2023 11/24/2023 JOAO 02/16/2006 AHI-59 12/01/2022 12/02/19 STABLE ANGINA PECTORIS 05/13/200611/07 Overview: -Abnormal Myocardial Perfusion 05/06/06 Other ill-defined and unknow n causes of morbidity and mortality 09/04/2011 Encounters Date Type Department Care Team Description 11/25/2023 Travel 11/24/2023 4:27 PM CDT - Present Hospital Encounter [facility] [address] [place] [address] [facility], MD Khloe Oconnell, Teri Corona MD 11/24/2023 11:00 AM CDT Ancillary Procedure [facility] [address] [place] [address] Arrived 11/24/[address] [facility] [place] [id number] [facility] [address] [place] [address] León Christianson MD 11/24/2023 Travel 11/13/2023 Refill [facility] [address] [place] [address] Nhi Marvin MD Refill Request (Rosuvastatin) 11/12/2023 2:30 PM CDT Orders Only [facility] [address] [place] [address] Lab[facility] [place] [facility] 11/12/2023 Anticoagulation (warfarin) [facility] [address] [place] [address] 1, [facility] Anticoagulation 11/12/2023 Travel 11/12/2023 Telephone [facility] [address] [place] [address] Nhi Marvin MD Anticoagulation (OVERDUE #2 reminder) 10/25/2023 11:00 AM CDT Office Visit [facility] [address] [place] [address] Jesus Mancera MD Sleep Follow-up (cpap) 10/25/2023 Travel 09/20/2023 Refill [facility] [address] [place] [address] Nhi Marvin MD Refill Request (Furosemide) 09/16/2023 2:30 PM PUBLIC AREA SUPERVISOR Orders Only [facility] [address] [place] [address] Lab[facility] 09/16/2023 Anticoagulation (warfarin) [facility] [address] [facility] [address] 1, [facility] Anticoagulation 09/16/2023 Travel 09/02/2023 11:30 AM PUBLIC AREA SUPERVISOR Orders Only [facility] [address] [place] [address] Lab, [facility] 09/02/2023 Anticoagulation (warfarin) [facility] [address] [place] [address] 1, [facility] Anticoagulation 09/02/2023 Travel from Last 3 Months Immunizations Name Administration Dates Next Due COVID-19 vaccine (Moderna 100mcg/0.5mL) ALEXY PAN 05/09/2021,09/18/2020,09/18/2020 COVID-19 vaccine (Pfizer-Bio NTech 30mcg/0.3mL) 12YO+ LALITHA-SUCROSE ALEXY PAN 11/20/2021 Influenza A (H1N1), Inactivated 07/23/2009 Influenza [...] of Communication with Friends and Fami ly 0 11/25/2023 Financial Resource Strain Answer Date R ecorded Difficulty of Paying Living Expenses 3 11/25/2023 Difficulty of Paying Living Expenses Not on file 11/25/2023 Food Insecurity Answer Date Recorded Worried About Running Out of Food in the Last Ye ar 1 11/25/2023 Transportation Needs Answer Date Record ed Lack of Transportation (Medical) 1 11/25/2023 Housing Stability Answer Date Recorded Unable to Pay for Housing in the Last Year 1 11/25/2023 Sex and Gender Information Value Date Recorded Sex Assigned at Not on file Gender Identity Not on file Sexual Orientation Not on file Obstetrics History Last Filed Vital Signs Vital Sign Reading Time Taken Comments Blood Pressure 117/73 11/25/2023 3:49 PM CDT Pulse 74 11/25/2023 3:49 PM CDT Temperature 36.5 ??C (97.7 ??F) 11/25/2023 3:49 PM CD T Respiratory Rate 18 11/25/2023 3:49 PM CDT Oxygen Saturation 95% 11/25/2023 3:49 PM CDT Inhaled Oxygen Concentration - - Weight 91.6 kg (201 lb 15.1 oz) 11/25/2023 6:00 AM CDT Height 180.3 cm (5' 11) 11/24/2023 4:48 PM CDT Body Mass Index 28.17 11/24/2023 4:48 PM CDT Plan of Treatment Upcoming Encounters Date Type Department Care Team (Late st Contact Info) Description 02/03/2024 11:00 AM CDT Office Visit [facility] [address] [place] [address] Jesus Mancera MD [address] [place] [address] Health Maintenance Due Date Last Done Comments [...] Completed 04/06/2019, 01/25/2019 COVID-19 vaccine series Completed 04/09/20 23, 11/13/2022, 11/20/2021, Additional history exists Procedures The patient is currently admitted. The information in this section might not be complete until the patient is discharged. Procedure Name Priority Date/Time Associated Diagnosis Comments SCAN CORRESP-EKG RESULTS 11/25/2023 9:51 AM CDT SCAN CORRESP-IMAGING 11/25/2023 9:51 AM CDT BASIC METABOLIC PANEL Early AM 11/25/2023 7:33 AM CDT CBC W PLT NO DIFF Early AM 11/25/2023 7:3 3 AM CDT MAGNESIUM Early AM 11/25/2023 7:33 AM CDT TSH Early AM 11/25/2023 7:33 AM CDT SCAN-CARDIAC STRIP 11/25/2023 2: 21 AM CDT EKG 12 LEAD Routine 11/24/2023 7:03 PM CDT SCAN-CARDIAC STRIP 11/24/2023 4: 59 PM CDT ECHO TTE COMPLETE WO CONTRAST Routine 11/24/2023 12:57 PM CDT Syncope INR,POCT Routine 11/12/2023 2:42 PM CDT PFO (patent foramen ovale) Anticoagulation monitoring, INR range 2-3 Acute CVA (cerebrovascular accident) (HC) INR,POCT Routine 09/16/2023 2:48 PM PUBLIC AREA SUPERVISOR PFO (patent foramen ovale) Anticoagulation monitoring, INR range 2-3 Acute CVA (cerebrovascular accident) (HC) INR,POCT Routine 09/02/2023 2:00 PM PUBLIC AREA SUPERVISOR PFO (patent foramen ovale) Anticoagulation monitoring, INR range 2-3 Acute CVA (cerebrovascular accident) (HC) from Last 3 Months Results * SCAN CORRESP-EKG RESULTS (11/25/2023 9:51 AM CDT) Narrative 11/25/2023 9:51 AM CDT Ordered by an unspecified provider. Other Clinical Staff OTHER * SCAN CORRESP-IMAGING (11/25/2023 9:51 AM CDT) Anatomical Region Laterality Modality Other Narrative 11/25/2023 9:51 AM CDT Ordered by an unspecified provider. Other Clinical Staff OTHER * TSH (11/25/2023 7:33 AM CDT) TSH 1.74 0.27 - 4.20 uIU/mL 11/25/2023 8:45 AM CDT [facility] Blood BLOOD SPECIMEN / Unknown Butterfly / Unknown 11/25/2023 7:33 AM CDT 11/25/2023 8:10 AM CDT Narrative [facility] - 11/25/2023 8:45 AM CDT In Adults, TSH values between 5.00 and 10.00 uIU/ml do not necessarily indicate the presence of Hypothyroidism. Correlation with clinical findings such as presence of goiter and/or Thyroperoxidase (TPO) Antibody may be helpful. For more information please refer to JEFFERY 2004; 291: 228-238. Rupa Zhang NP CHEMISTRY [facility] [address] [address], * (ABNORMAL) CBC (11/25/2023 7:33 AM CDT) WHITE BLOOD COUNT 12.4(H) 4.5 - 11.0 thou/cu mm 11/25/2023 8:26 AM CDT [facility] RED BLOOD COUNT 4.07(L) 4.30 - 5.90 mil/cu mm 11/25/2023 8:26 AM CDT [facility] HEMOGLOBIN 13.6 13.5 - 17.5 g/dL 11/25/2023 8:26 AM CDT [facility] HEMATOCRIT 40.9 37.0 - 53.0 % 11/25/2023 8:26 AM T [facility] MCV 101(H) 80 - 100 fL 11/25/2023 8:26 AM CDT [facility] MCH 33.4 26.0 - 34.0 pg 11/25/2023 8:26 AM CDT [facility] MCHC 33.3 32.0 - 36.0 g/dL 11/25/2023 8:26 AM T [facility] RDW 13.6 11.5 - 15.5 % 11/25/2023 8:26 AM CDT [facility] PLATELET COUNT 136(L) 140 - 440 thou/cu mm 11/25/2023 8:26 AM CDT [facility] MPV 9.7 6.5 - 11.0 fL 11/25/2023 8:26 AM CDT [facility] NRBC 0.0 % 11/25/2023 8:26 AM T [facility] ABS NRBC 0.0 thou /cu mm 11/25/2023 8:26 AM T [facility] Blood BLOOD SPECIMEN / Unknown Butterfly / Unknown 11/25/2023 7:33 AM CDT 11/25/2023 8:09 AM CDT Rupa Zhang NP HEMATOLOGY [facility] [address] [place], [place] [address] * MAGNESIUM (11/25/2023 7:33 AM CDT) MAGNESIUM 2.2 1.6 - 2.4 mg/dL 11/25/2023 8:45 AM CDT [facility] Blood BLOOD SPECIMEN / Unknown Butterfly / Unknown 11/25/2023 7:33 AM CDT 11/25/2023 8:10 AM CDT Rupa Zhang NP CHEMISTRY [facility] [address] [place] [address], * (ABNORMAL) BASIC METABOLIC PANEL (11/25/2023 7:33 AM CDT) SODIUM 142 136 - 145 mmol/L 11/25/2023 8:45 AM CDT [facility] POTASSIUM 4.0 3.5 - 5.1 mmol/L 11/25/2023 8:45 AM CDT [facility] CHLORIDE 109(H) 98 - 107 mmol/L 11/25/2023 8:45 AM CDT [facility] CO2,TOTAL 22 22 - 29 mmol/L 11/25/2023 8:45 AM T [facility] ANION GAP 11 5 - 18 11/25/2023 8:45 AM CDT [facility] GLUCOSE 85 70 - 99 mg/dL 11/25/2023 8:45 AM T [facility] CALCIUM 8.5(L) 8.8 - 10.2 mg/dL 11/25/2023 8:45 AM T [facility] BUN 25(H) 8 - 23 mg/dL 11/25/2023 8:45 AM T [facility] CREATININE 1.47(H) 0.70 - 1.20 mg/dL 11/25/2023 8:45 AM T [facility] BUN/CREAT RATIO 17 10 - 20 8:45 AM T [facility] eGFR 47(L) >90 mL/min/1.7 3m2 11/25/2023 8:45 AM CDT [facility] Comment:As of 2021, eG FR is calculated by the CKD-EPI creatinine equation without race adjustment. ??eGFR can be influenced by muscle mass, exercise, and diet. ??The reported eGFR is an estimation only and is only applicable if the renal function is stable. Blood BLOOD SPECIMEN / Unknown Butterfly / Unknown 11/25/2023 7:33 AM CDT 11/25/2023 8:10 AM CDT Rupa Zhang NP CHEMISTRY Performing Organization Address [facility] de Phone Number [facility] [address] [place] [address], * SCAN-CARDIAC STRIP (11/25/2023 2:21 AM CDT) Scanner OTHER * EKG 12 LEAD (11/24/2023 7:03 PM CDT) Interpretation Normal sinus rhythm Left axis deviation Inferior infarct (cited on or before 06-JUN-2022) Abnormal ECG When compared with ECG of 13-JUN-2022 17:53, Premature atrial complexes are no longer Present MO interval has decreased BEYOND NOW Ventricular Rate 74 BPM BEYOND NOW Atrial Rate 74 BPM BEYOND NOW P-R Interval 208 ms BEYOND NOW QRS Duration 106 ms BEYOND NOW QT 402 ms BEYOND NOW QTc 446 ms BEYOND NOW P [place] 18 degrees BEYOND NOW R [place] -34 degrees BEYOND NOW T [place] 9 degrees BEYOND NOW 11/24/2023 7:03 PM CDT 11/25/2023 9:43 AM CDT Rupa Zhang NP EKG ORD Performing Organization Address [facility] de Phone Number BEYOND NOW [place], [place] * SCAN-CARDIAC STRIP (11/24/2023 4:59 PM CDT) Scanner OTHER * ECHO TTE COMPLETE WO CONTRAST (11/24/2023 12:57 PM CDT) AORTIC VALVE MEAN PG 11 mmHg EJECTION FRACTION 65 % LVEDD 4.5 cm Anatomical Region Laterality Modality Ultrasound 11/24/2023 12:1 9 PM CDT Narrative 11/24/2023 2:51 PM CDT ECHOCARDIOGRAM HARDY OLIVER ?Accession#: ?? [id number] : ?1940 83 years Study Date: ?? 11/24/2023 12:19:44 PM Gender: M ? BP: ? 118/68 mmHg Height: 180.00 cm ? BSA: ?2.20 m? ? ? Weight: 100.00 kg ? Tech: ? MSR ?Referring MD: BRET AYALA Site: ? [facility] Reading Location: [facility] Patient Location: Inpatient. Procedure: 2D, Color Doppler and Spectral Doppler. Indication for study: Syncope Cardiac Rhythm: Regular.Study quality: Fair. Final Impressions: 1. Normal left ventricular size, normal wall thickness, normal global systolic function, calculated EF of 65 %. 2. Right ventricular cavity size is normal, global systolic RV function is normal. 3. The mitral valve is degenerative, moderate mitral regurgitation. Eccentric jet that is anteriorly directed with possible posterior mitral valve prolapse. 4. 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 5. 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 6. No pericardial effusion. Comparison Compared to prior exam images and report of 05/17/22, there has been no significant change. Chamber Sizes and Function Normal left ventricular size, normal wall thickness, normal global systolic function, calculated EF of 65 %. Left atrial size is normal. Right ventricular cavity size is normal, global systolic RV function is normal. The right atrium is not well visualized. The pulmonary artery is not well visualized. The sinus of Valsalva is dilated. The ascending aorta is dilated. Valves, RV Pressures and Diastolic Function The aortic valve is not well visualized , mild stenosis and no regurgitation. The mitral valve is degenerative, moderate mitral regurgitation. Normal diastolic function. The tricuspid valve is normal in structure. Tricuspid regurgitation is regurgitation is not evident. The pulmonic valve is normal. No pulmonary regurgitation. Masses, Effusion, Shunts There is no pericardial effusion. The inferior vena cava is normal sized, respiratory size variation greater than 50%. No left to right shunting was detected by limited color flow Doppler interrogation of the interatrial septum. MEASUREMENTS AND CALCULATIONS 2-D Measurements and LV Function: LVID (d) 4.5 cm Planimetered EF 65 % LVID (s) 2.8 cm LV FS% (2D) ? 39 % IVS (d) ??1.1 cm LVOT diameter ?? 2.3 cm LVPW (d) 1.1 cm HR ?63 bpm Ao Sinus 4.3 cm LA Vol index ?33 ml/m2 Asc Ao ?? 4.8 cm Diastology: Mitral ?Tissue Doppler E Peak 0.5 m/s ??e', Septum ? 0.07 m/s A Peak 0.9 m/s ??e', Lateral ?0.08 m/s E/A ?0.5 ?E/e' Average ?? 6.05 DT ? 162 msec Aortic Valve: Vmax ? 2.3 m/s ??LISA (V) ?? 2.37 cm? ? ? VTI ?0.38 m ?? LISA (I) ?? 2.81 cm? ? ? LVOT V max 1.3 m/s ??Max PG ?21 mmHg LVOT VTI ?? 0.25 m ?? Mean PG ?? 11 mmHg SV ? 108 ml ?? Dim Index 0.65 SV index ?? 49 ml/m? ? ? CO ?6.8 l/min ?CI ?3.1 l/min/m? ? ? Mitral Valve: MVA ?4.7 cm? ? ? MR TVI 1.19 m MV P 1/2 47 msec Tricuspid Valve and estimated PA pressures: TAPSE 3.3 cm . This study was interpreted by an [facility] accredited facility. CC: HIM (med records) [facility], Med/Surg - IP [facility]. ??Final ?? Procedure Note Rafael Taylor MD - 11/24/2023 ECHOCARDIOGRAM HARDY OLIVER : 1940 83 years Study Date: 11/24/2023 12:19:44 PM Gender: M BP: 118/68 mmHg Height: 180.00 cm BSA: 2.20 m? ? ? Weight: 100.00 kg Tech: MSR Referring MD: BRET AYALA Site: [facility] Reading Location: [facility] Patient Location: Inpatient. Procedure: 2D, Color Doppler and Spectral Doppler. Indication for study: Syncope Cardiac Rhythm: Regular.Study quality: Fair. Final Impressions: 1. Normal left ventricular size, normal wall thickness, normal globalsystolic function, calculated EF of 65 %. 2. Right ventricular cavity size is normal, global systolic RV functionis normal. 3. The mitral valve is degenerative, moderate mitral regurgitation.Eccentric jet that is anteriorly directed with possible posterior mitralvalve prolapse. 4. 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 5. 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 6. No pericardial effusion. Comparison Compared to prior exam images and report of 05/17/22, there has been nosignificant change. Chamber Sizes and Function Normal left ventricular size, normal wall thickness, normal globalsystolic function, calculated EF of 65 %. Left atrial size is normal.Right ventricular cavity size is normal, global systolic RV function isnormal. The right atrium is not well visualized. The pulmonary artery isnot well visualized. The sinus of Valsalva is dilated. The ascending aortais dilated. Valves, RV Pressures and Diastolic Function The aortic valve is not well visualized , mild stenosis and noregurgitation. The mitral valve is degenerative, moderate mitralregurgitation. Normal diastolic function. The tricuspid valve is normal instructure. Tricuspid regurgitation is regurgitation is not evident. Thepulmonic valve is normal. No pulmonary regurgitation. Masses, Effusion, Shunts There is no pericardial effusion. The inferior vena cava is normal sized,respiratory size variation greater than 50%. No left to right shunting wasdetected by limited color flow Doppler interrogation of the interatrialseptum. MEASUREMENTS AND CALCULATIONS 2-D Measurements and LV Function: LVID (d) 4.5 cm Planimetered EF 65 % LVID (s) 2.8 cm LV FS% (2D) 39 % IVS (d) 1.1 cm LVOT diameter 2.3 cm LVPW (d) 1.1 cm HR 63 bpm Ao Sinus 4.3 cm LA Vol index 33 ml/m2 Asc Ao 4.8 cm Diastology: Mitral Tissue Doppler E Peak 0.5 m/s e', Septum 0.07 m/s A Peak 0.9 m/s e', Lateral 0.08 m/s E/A 0.5 E/e' Average 6.05 DT 162 msec Aortic Valve: Vmax 2.3 m/s LISA (V) 2.37 cm? ? ? VTI 0.38 m LISA (I) 2.81 cm? ? ? LVOT V max 1.3 m/s Max PG 21 mmHg LVOT VTI 0.25 m Mean PG 11 mmHg SV 108 ml Dim Index 0.65 SV index 49 ml/m? ? ? CO 6.8 l/min CI 3.1 l/min/m? ? ? Mitral Valve: MVA 4.7 cm? ? ? MR TVI 1.19 m MV P 1/2 47 msec Tricuspid Valve and estimated PA pressures: TAPSE 3.3 cm . This study was interpreted by an [facility] accredited facility. CC: HIM (med records) [facility], Med/Surg - IP [facility]. Final Bret Ayala MD ECHO ORD * (ABNORMAL) INR,POCT (11/12/2023 2:42 PM CDT) Only the most recent of3 resultswithin the time period is included. INR 1.7(H) <1.3 11/12/2023 2:45 PM CDT [facility] Blood BLOOD SPECIMEN / Unknown 11/12/2023 2:42 PM CDT 11/12/2023 2:45 PM CDT Narrative [facility] - 11/12/2023 2:45 PM CDT ?Therapeutic Range 2.0-3.0 for most anticoagulated patients 2.5-3.5 or 4.0 for high risk patients Nhi Marvin MD LABORATORY [facility] [address] [place] [address], from Last 3 Months Advance Directives Documents on File Type Date Recorded Patient Automatic Buffer Expl anation Healthcare Directive 08/19/2023 3:20 PM 08/2022 Healthcare Directive 04/12/2023 023 * Full Code (Latest Code Status on File) Date Activated Date Inactivated Comments 11/24/2023 7:10 PM Question Answer Comments Code Status Discussion: Reviewed Preferences * Full Code Date Activated Date Inactivated Comments 06/14/2022 7:43 [...] Comments Code Status Discussion: Discussed Care Teams Chemistry Technologist Relationship Specialty Start Date End Date Nhi Marvin MD [address] [place] [address] PCP - General Family Practice 08/19/11 [place] [id number] [address] 05/23/22 Elaine Alarcon, RN Registered Nurse Registered Nurse 06/13/22 [facility] [place] [address], [place] [address] 09/08/22
== END 2023-11-23 11:12 | disposition home or self-care (01) ==
LOC: AMB 11-25 16:39
PROVIDERS: PCP Family Medicine; Visit Provider Family Medicine
DX: S09.93XA Unspecified injury of face, initial encounter (principal); S59.912A Unspecified injury of left forearm, initial encounter; W01.10XA Fall on same level from slipping, tripping and stumbling with subsequent striking against unspecified object, initial encounter; Y92.480 Sidewalk as the place of occurrence of the external cause
CPT/HCPCS: A0425; A0427

== ENCOUNTER 2023-11-23 11:38 | Emergency (ER) | payer MEDICARE, OTHER, SELFPAY ==
[2023-11-23] VITALS (25 sets, daily range): BP systolic 129–148; BP diastolic 76–87; PULSE 59–73; RESP 18; TEMP 35.5; O2SAT 91–99; BMI 25.8
--- OUTSIDE RECORDS SUMMARY | 2023-11-23 11:40 | XMS_ITS | Clinical Summary ---
Author Name Unknown Organization [facility] Address [place], [place] [address] Care Team Providers Care Binder Cutter Hand Name Role Phone Nhi Marvin MD Primary Care Provide r [facility] [place] Unavailable [phone] Elaine Alarcon RN Unavailable Unavailable [facility] [place] Unavailable Allergies Active Allergy Reactions Criticality Noted Date Comments Aspirin Anaphylaxis High 04/24/2005 Atorvastatin Arthralgia Low 07/23/2009 Doxycycline Vomiting 06/07/2012 Tamsulosin Hypotension 09/14/2022 Pravastatin Arthralgia Low 07/23/2009 Medications Medication Sig Dispensed Refills Start Date End Date Status chlorpheniramine (CHLOR-TRIMETON) 4 mg tablet Take 4 mg by mouth once daily. May use twice daily during allergy season as needed. Do not crush or chew. 0 0 Active acetaminophen (TYLENOL EXTRA STRGTH) 500 mg tablet Take 1,000 mg by mouth every 6 hours if needed for Pain. Max acetaminophen dose: 4000mg in 24 hrs. Active vitamin B complex (B-COMPLEX VITAMIN) tablet Take 1 Tablet by mouth once daily. 0 8 Active amoxicillin (AMOXIL) 500 mg capsuleIndication s:PFO (patent foramen ovale) TAKE 4 CAPSULES BY MOUTH ONE HOUR BEFORE DENTAL PROCEDURE 12 Capsule 1 2 Active lidocaine 5 % topical patchIndications: Acute pain of right shoulder Apply to intact skin to cover most painful area for max 12hr per 24hr period. 30 Patch 2 Active glucosamine sulfate 500 mg tab Take 1,500 mg by mouth once daily. Active polyethylene glycol (MIRALAX; GLYCOLAX) 17 g packet Mix 1 Packet in liquid then take by mouth once daily if needed for Constipation. Active cholecalciferol, Vitamin D3, 2,000 unit tabletIndications :Vitamin D deficiency Take 1 Tablet (2,000 units) by mouth once daily. 90 Tablet 3 3 Active omeprazole (PRILOSEC) 20 mg Delayed-Release capsuleIndication s:Nausea Take 1 Capsule (20 mg) by mouth once daily before a meal. 90 Capsule 3 3 Active mirtazapine (REMERON) 15 mg tabletIndications :Insomnia, idiopathic Take 1 Tablet (15 mg) by mouth at bedtime. 90 Tablet 3 3 Active sennosides (SENNA) 8.6 mg tabletIndications :Chronic constipation Take 1 Tablet (8.6 mg) by mouth two times daily. 120 Tablet 1 3 Active CPAPIndications:O SA (obstructive sleep apnea) CPAP machine for home use at pressure 9 cmw, full face mask x1/3month with a full face cushion x1/mo 1 Each 11 4 Active warfarin (COUMADIN) 5 mg tabletIndications :PFO (patent foramen ovale),Anticoagul ation monitoring, INR range 2-3,Acute CVA (cerebrovascular accident) (HC) Take by mouth 2.5 mg (5 mg x 0.5) every Marielle; 5 mg (5 mg x 1) all other days in the evening OR as directed 4 Active furosemide (LASIX) 20 mg tabletIndications :Bilateral leg edema TAKE ONE TABLET BY MOUTH EVERY MORNING FOR LEG SWELLING 90 Tablet 4 Active rosuvastatin (CRESTOR) 5 mg tabletIndications :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 (HC),Hyperlipidem ia with target LDL less than 100 TAKE ONE TABLET BY MOUTH AT BEDTIME THREE TIMES PER WEEK 36 Tablet 4 Active rosuvastatin (CRESTOR) 5 mg tabletIndications :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 (HC),Hyperlipidem ia with target LDL less than 100 TAKE ONE TABLET BY MOUTH AT BEDTIME THREE TIMES PER WEEK 36 Tablet 4 11/14/19 24 Discontinued Active Problems Problem Noted Date Diagnosed Date Staphylococcal arthritis of left shoulder 2022 BPH with urinary obstruction 10/01/2022 Bilateral leg edema 10/01/2022 Aortic ectasia, unspecified site 09/02/2022 Acute respiratory failure with hypoxia Thrombocytopenia, unspecified 09/02/2022 Staphylococcal arthritis of right shoulder 07/21 Persistent cognitive impairment 07/21/2022 Protein malnutrition 07/21/2022 Depression, major, single episode, moderate 07/12 COVID-19 06/13/2022 Hypoxia 06/13/2022 Memory deficit 05/25/2022 Pseudogout of left knee 05/25/2022 Urinary retention 05/25/2022 PMR (polymyalgia rheumatica) 05/18/2022 Septic joint of left shoulder region 05/18/2022 JOAO 02/16/2006 AHI-59 03/17/2018 HTN (hypertension) 12/09/2017 Mixed hyperlipidemia 12/09/2017 History of CVA (cerebrovascular accident) 2017 Coronary artery disease invo lving grayling coronary artery of grayling heart 12/09/2017 Non-cardiac chest pain 12/09/2017 Anticoagulation monitoring, INR range 2-3 2016 Acute CVA (cerebrovascular accident) 07/20/2016 Patent foramen ovale 03/13/2016 Elevated prostate specific antigen (PSA) 012 Colon polyps 07/23/2009 Overview: Colonoscopy 11/2009 polyps repeat in 5 years Unspecified sleep apnea 11/05/2006 Coronary atherosclerosis of unspecified type of vessel, grayling or graft 05/13/2006 Overview: --S/P Angio 04/24/05 -PTCA/SONJA Stent of proximal LAD -PTCA of D1 secondary to plaque shifting. Unspecified transient cerebral ischemia Essential hypertension, benign Benign neoplasm of major salivary glands Hyperlipidemia LDL goal < 100 PFO (patent foramen ovale) Effusion of left knee Resolved Problems Problem Noted Date Diagnosed Date Resolved Date JOAO 02/16/2006 AHI-59 12/01/2022 12/02/19 STABLE ANGINA PECTORIS 05/13/200611/07 Overview: -Abnormal Myocardial Perfusion 05/06/06 Other ill-defined and unknow n causes of morbidity and mortality 09/04/2011 Encounters Date Type Department Care Team Description 11/13/2023 Refill [facility] [address] [place] [address] Nhi Marvin MD Refill Request (Rosuvastatin) 11/12/2023 2:30 PM CDT Orders Only [address] [place] [address] Lab[facility] [place] [facility] 11/12/2023 Anticoagulation (warfarin) [address] [address], [facility] Anticoagulation 11/12/2023 Travel 11/12/[address] [place] [address] Nhi Marvin MD Anticoagulation (OVERDUE #2 reminder) 10/25/2023 11:00 AM CDT Office Visit [address] [place] [address] Jesus Mancera MD Sleep Follow-up (cpap) 10/25/2023 Travel 09/20/[address] [place] [address] Nhi Marvin MD Refill Request (Furosemide) 09/16/2023 2:30 PM WATER PURIFIER Orders Only [address] [place] [address] Lab[facility] [place] 09/16/2023 Anticoagulation (warfarin) [address] [address], [facility] Anticoagulation 09/16/2023 Travel 09/02/2023 11:30 AM WATER PURIFIER Orders Only [facility] [address] [place] [address] Lab[facility] [place] [facility] 09/02/2023 Anticoagulation (warfarin) [facility] [address] [place] [address] [address] 1, [facility] Anticoagulation 09/02/2023 Travel from Last 3 Months Immunizations Name Administration Dates Next Due COVID-19 vaccine (Moderna 100mcg/0.5mL) PF, MDV 05/09/2021,09/18/2020,09/18/2020 COVID-19 vaccine (Pfizer-Bio NTech 30mcg/0.3mL) 12YO+ LALITHA-SUCROSE PF, MDV 11/20/2021 Influenza A (H1N1), Inactivated 07/23/2009 Influenza A (H1N1), Inactiva julian (Age >=3 Years) 07/23/2009 Influenza, High-dose Inactivated 04/20/2018,04/11 Influenza, High-dose Quadriv alent Inactivated 04/30/2023,04/24/2020 Influenza, IIV3 (Age 6-35 mos) 04/02/2009 Influenza, IIV3 (Age >=3 years) 04/25/20 13,04/12/2012,04/11/2011,04/08,06/08/2007,04/26/2006,06/25/2005 Influenza, IIV4 04/29/2021 Influenza, Inactivated IIV3 (Age 65+ Years) Preserv Free 04/19/2019 Pneumococcal Poly,23-Valent (Pneumovax) 07/23/2009 Pneumococcal conj 13-Valent (Prevnar 13) 09/28/2014 RSV, Recombinant ADJ Reconst ituted (Arexvy 120MCG/0.5mL) 04/30/2023 Td (Age >=7 Years) 01/29/2005 Tdap 09/28/2014 Zoster (Shingrix-RZV, recombinant) 04/06/2019, Family History Medical History Relation Name Comments Heart Disease Brother 2 ? hole in his heart; from 2 MIs in a row Hypertension Father Genetic Other Significant for several family members who have had stroke in their 60s. One family member had a cerebral aneurysm, as well. Other Sister 5 aneurysm Relation Name Status Comments Brother 1 Alive Brother 2 Father (Age 94) Mother (Age 97) Other Sister 1 aneurysm Sister 2 MVA Sister 3 depression Sister 4 Alive Sister 5 Son 1 Alive Son 2 Alive Social History Tobacco Use Types Packs/Day Years Used Date Smoking Tobacco: Never Smokeless Tobacco: Never Tobacco Cessation:Counseling Given: Yes Alcohol Use Standard Drinks/Week Comments No 0 (1 standard drink = 0.6 oz pur e alcohol) Alcoholic Drinks/day: 0 PHQ-2 Answer Date Recorded PHQ-2 TOTAL SCORE 0 10/01/2022 Social Connections Answer Date Recorded Frequency of Communication with Friends and Fami ly Not on file 12/18/2022 Financial Resource Strain Answer Date R ecorded Difficulty of Paying Living Expenses 3 12/17/2021 Difficulty of Paying Living Expenses Not on file 12/17/2021 Food Insecurity Answer Date Recorded Worried About Running Out of Food in the Last Ye ar 1 12/17/2021 Transportation Needs Answer Date Record ed Lack of Transportation (Medical) 1 12/17/2021 Housing Stability Answer Date Recorded Unable to Pay for Housing in the Last Year 1 12/17/2021 Sex and Gender Information Value Date Recorded Sex Assigned at Not on file Gender Identity Not on file Sexual Orientation Not on file Obstetrics History Last Filed Vital Signs Vital Sign Reading Time Taken Comments Blood Pressure 135/80 10/25/2023 11:11 AM CDT Pulse 76 10/25/2023 11:11 AM CDT Temperature 36.7 ??C (98.1 ??F) 11/06/2022 3:23 PM CD T Respiratory Rate 20 11/06/2022 3:23 PM CDT Oxygen Saturation 93% 10/25/2023 11:11 AM CDT Inhaled Oxygen Concentration - - Weight 99.3 kg (219 lb) 10/25/2023 11:11 AM CDT Height 180.3 cm (5' 11) 07/16/2023 2:14 PM WATER PURIFIER Body Mass Index 30.54 07/16/2023 2:14 PM WATER PURIFIER Plan of Treatment Upcoming Encounters Date Type Department Care Team (Late st Contact Info) Description 02/03/2024 11:00 AM CDT Office Visit [facility] [address] [place] [address] Jesus Mancera MD [address] [place] [address] Health Maintenance Due Date Last Done Comments Medicare Wellness for age 65+ 11/18/2019, 10/29/2016, 09/28/2014 Depression screening for age 12+ 10/02/2023 10/01/2022, 11/17/2018, 11/17/2018, Additional history exists Influenza for age 65+ 03/12/2024 04/30/2023 , 04/29/2021, 04/24/2020, Additional history exists BMI (ht and wt on same day) for age 18+ 07/16/2024 07/16/2023, 04/26/2023, 02/02/2023, Additional history exists Tetanus booster 09/28/2024 09/28/2014, 01/29/2005 Pneumococcal series for age 65+ Completed 5, 07/23/2009 Tdap Completed 09/28/2014 Zoster (shingles) series for age 50+ Completed 04/06/2019, 01/25/2019 COVID-19 vaccine series Completed 04/09/20, 11/13/2022, 11/20/2021, Additional history exists Procedures Procedure Name Priority Date/Time Associated Diagnosis Comments INR,POCT Routine 11/12/2023 2:42 PM CDT PFO (patent foramen ovale) Anticoagulation monitoring, INR range 2-3 Acute CVA (cerebrovascular accident) (HC) INR,POCT Routine 09/16/2023 2:48 PM WATER PURIFIER PFO (patent foramen ovale) Anticoagulation monitoring, INR range 2-3 Acute CVA (cerebrovascular accident) (HC) INR,POCT Routine 09/02/2023 2:00 PM WATER PURIFIER PFO (patent foramen ovale) Anticoagulation monitoring, INR range 2-3 Acute CVA (cerebrovascular accident) (HC) from Last 3 Months Results * (ABNORMAL) INR,POCT (11/12/2023 2:42 PM CDT) Only the most recent of3 resultswithin the time period is included. INR 1.7(H) <1.3 11/12/2023 2:45 PM CDT [facility] Blood BLOOD SPECIMEN / Unknown 11/12/2023 2:42 PM CDT 11/12/2023 2:45 PM CDT Narrative [facility] - 11/12/2023 2:45 PM CDT ?Therapeutic Range 2.0-3.0 for most anticoagulated patients 2.5-3.5 or 4.0 for high risk patients Nhi Marvin MD LABORATORY [facility] [address] [place] [address], [place] [phone] from Last 3 Months Advance Directives Documents on File Type Date Recorded Patient Electronics Computer Mechanic Expl anation Healthcare Directive 08/19/2023 3:20 PM 08/2022 Healthcare Directive 04/12/2023 023 * Full Code (Latest Code Status on File) Date Activated Date Inactivated Comments 06/14/2022 7:43 AM 06/15/2022 10:02 PM Question Answer Comments Code Status Discussion: Reviewed Preferences * Full Code Date Activated Date Inactivated Comments 06/13/2022 8:41 PM 06/14/2022 7:43 AM Question Answer Comments Code Status Discussion: Unable to Assess Preferences, Provider to review later * Full Code Date Activated Date Inactivated Comments 05/18/2022 6:55 PM 05/27/2022 6:18 PM Question Answer Comments Code Status Discussion: Reviewed Preferences * Full Code Date Activated Date Inactivated Comments 12/09/2017 3:21 PM 12/09/2017 8:44 PM Question Answer Comments Code Status Discussion: Discussed Care Teams Binder Cutter Hand Relationship Specialty Start Date End Date Nhi Marvin MD [address] [place] [address] PCP - General Family Practice 08/19/11 [facility] [address] [place] [address] 05/23/22 Elaine Alarcon, RN Registered Nurse Registered Nurse 06/13/22 [facility] [address] [place] [address] 09/08/22
--- NOTE | 2023-11-23 11:41 | CT_ITS ---
Patient: HARDY JAMES Facility:?[facility] Patient ID:?[id number] Site Patient ID:?[id number] Site :?[id number] Study:?CT-Head W/O-11/23/2023 12:00:13 PM Ordering Physician:JOCE Final Report: INDICATION: FALL. TECHNIQUE: Head CT without contrast. COMPARISON: None. FINDINGS: CSF spaces: Within normal limits for age. Brain parenchyma and extra-axial spaces: There are nonspecific low attenuation white matter changes consistent with chronic microvascular disease. No sign of mass, hemorrhage, or midline shift. Skull base and calvarium: The visualized paranasal sinuses and mastoid air cells demonstrate no acute or significant findings. The visualized orbits are grossly unremarkable. No skull fractures. Left frontal scalp hematoma and left facial subcutaneous soft tissue stranding. IMPRESSION: No acute intracranial hemorrhage. No skull fractures. Left frontal scalp contusion. Please note that all CT scans at this facility use dose modulation, iterative reconstruction, and/or weight-based dosing when appropriate to reduce radiation dose to as low as reasonably achievable. Dictated by Thea Blue MD @ 11/23/2023 12:23:30 PM Signed by:?Thea Blue MD @11/23/2023 12:23:30 PM (Electronic Signature)
--- NOTE | 2023-11-23 11:41 | CT_ITS ---
Patient: HARDY JAMES Facility:?[facility] Patient ID:?[id number] Site Patient ID:?[id number] Site :?[id number] Study:?CT-Spine Cervical W/O-11/23/2023 11:58:35 AM Ordering Physician:JOCE Final Report: INDICATION: Trauma. TECHNIQUE: CT cervical spine without contrast. COMPARISON: None. FINDINGS: Vertebrae: Grade 1 retrolisthesis C3 on C4. There are no fractures or suspicious bony lesions. Stable sclerosis the C3 vertebral body, likely bone island. Discs and facet joints: There are diffuse degenerative changes in the disc spaces and facet joints. Extraspinal findings: Paraspinous soft tissues are unremarkable. IMPRESSION: 1. No sign of acute injury. 2. Multilevel degenerative spondylosis. Please note that all CT scans at this facility use dose modulation, iterative reconstruction, and/or weight-based dosing when appropriate to reduce radiation dose to as low as reasonably achievable. Dictated by Thea Blue MD @ 11/23/2023 12:30:38 PM Signed by:?Thea Blue MD @11/23/2023 12:30:38 PM (Electronic Signature)
--- NOTE | 2023-11-23 11:44 | ED.GENADULT ---
HPI - General Adult General Date Seen: 11/23/23 Chief complaint: Fall/Minor Trauma Stated complaint: fall Time Seen by Provider: 11/23/23 11:40 Source: patient Mode of arrival: EMS Limitations: no limitations History of Present Illness HPI narrative: Is an 83-year-old male who is on Coumadin, he stumbled and fell while walking on the sidewalk, hitting his face and head on the ground. No reported loss of consciousness. Comes in by EMS. They report he does not have neck pain but they did put him in a collar secondary to mechanism. He notes pain in his right shoulder, left elbow, and reportedly his left 5th finger looked angled funny when medics got there although they report it is better now. Related Data Home Medications Medication Instructions Recorded Confirmed nifedipine 30 mg tablet,extended 30 mg PO DAILY 05/12/22 11/23/23 release 24 hr rosuvastatin 5 mg tablet 5 mg PO MOWEFR@21 05/12/22 11/23/23 warfarin 5 mg tablet 2.5 - 5 mg PO DAILY 05/12/22 11/23/23 acetaminophen 500 mg tablet 500 mg PO DAILY 05/14/22 11/23/23 (Acetaminophen Extra Strength) amoxicillin 500 mg capsule 2,000 mg PO ONCE PRN 05/14/22 11/03/23 chlorpheniramine maleate 4 mg 4 mg PO Q12H PRN 05/14/22 11/23/23 tablet (Aller-Chlor) cholecalciferol (vitamin D3) 50 50 mcg PO DAILY 05/14/22 11/23/23 mcg (2,000 unit) tablet glucosamine sulfate 500 mg tablet 1,500 mg PO DAILY 05/14/22 11/03/23 (Cidatrine (glucosamine)) vitamin B complex (B 1 tab PO DAILY 05/14/22 11/03/23 Complex-Vitamin B12 tablet) Previous Rx's Medication Instructions Recorded tamsulosin 0.4 mg capsule 0.4 mg PO DAILY #30 caps 05/18/22 Allergies Allergy/AdvReac Type Severity Reaction Status Date / Time aspirin Allergy Unknown Verified 11/23/23 12:02 Review of Systems Status of ROS: Reports: 10 or more systems reviewed and unremarkable except as noted in History and below [facility] Medical History (Updated 11/23/23 @ 16:13 by Ashly Gonzales MD) Health care directive on file ?Z78.9 - Other specified health status (ICD-10) POLST (Physician Orders for Life-Sustaining Treatment) ?Z78.9 - Other specified health status (ICD-10) Aortic aneurysm ?I71.9 - Aortic aneurysm of unspecified site, without rupture (ICD-10) Septic arthritis of acromioclavicular joint ?M00.9 - Pyogenic arthritis, unspecified (ICD-10) Coronary artery disease ?I25.10 - Atherosclerotic heart disease of [place] coronary artery without angina pectoris (ICD-10) Hyperlipidemia ?E78.5 - Hyperlipidemia, unspecified (ICD-10) History of CVA (cerebrovascular accident) ?Z86.73 - Personal history of transient ischemic attack (TIA), and cerebral infarction without residual deficits (ICD-10) PFO (patent foramen ovale) ?Q21.12 - Patent foramen ovale (ICD-10) Essential hypertension ?I10 - Essential (primary) hypertension (ICD-10) Surgical History Status post arthroscopy of right shoulder (05/17/22) ?Z98.890 - Other specified postprocedural states (ICD-10) Status post arthroscopy of left shoulder (05/17/22) ?Z98.890 - Other specified postprocedural states (ICD-10) History of coronary artery stent placement ?Z95.5 - Presence of coronary angioplasty implant and graft (ICD-10) Social History (Updated 11/18/22 @ 09:50 by Marisol Husain ~ [facility], [facility]) Narrative: -Alex ( 61 years) Highest level of school completed/degree received: some college, no degree Smoking Status: Never smoker Do you use any of these nicotine containing products: None Second hand tobacco smoke exposure: No How often do you have a drink containing alcohol: never How often do you have six or more drinks on one occasion: Never AUDIT-C Alcohol total score: 0 Non-prescribed substance use: denies use Caffeine: Yes ([place] daily) Are you now , , , , never or living with a partner: Social isolation score (0-1 are the most socially isolated patients): 1 service: No Exam Narrative: Exam Narrative: Primary survey: Airway: Patent. Breathing: Nonlabored. Lungs clear. Circulation: Pulses intact. No external bleeding. Disability: GCS 15. Secondary survey: Vital signs reviewed In general, an alert, nontoxic elderly male. Head: Normocephalic. He has a 1 cm laceration across the bridge of his nose, no obvious bony tenderness and no deformity. He has an abrasion over his left eyebrow with a small, approximately 0.5 cm area of a slightly deeper wound which is oozing a little bit. Eyes: Pupils are equal reactive. Extraocular movements full. ENT: No facial bony deformity. Neck: Cervical collar in place. No midline cervical tenderness. No anterior neck trauma. Chest: No visible signs of chest trauma. No tenderness to palpation. Heart regular rate and rhythm. Lungs clear bilaterally. Abdomen: No visible signs of trauma. Soft, nondistended, nontender to palpation. Back: No visible signs of trauma. Nontender to palpation. Pelvis: Stable, nontender. Extremities: Patient does not tolerate even light touch to any extremity. Complains mostly of right clavicular/shoulder pain and notes that his left fingers are sore. Exam is otherwise significantly limited by patient participation or lack there of. Neurologic: Alert, conversant, moves all extremities to command. Skin: Warm and dry. Const: Vital Signs, click to edit/add: Vital Signs - 24 hr 11/23/23 11:57 11/23/23 12:22 11/23/23 12:30 Temperature 96 F L Pulse Rate 64 60 Pulse Rate [Right Pulse Oximeter] 62 Respiratory Rate 18 Blood Pressure Blood Pressure [Ri ght Upper Arm] 139/86 Pulse Oximetry 97 97 97 [facility] 11/23/23 12:59 11/23/23 13:00 11/23/23 13:02 Temperature Pulse Rate 59 L 61 62 Pulse Rate [Right Pulse Oximeter] Respiratory Rate Blood Pressure 140/81 H Blood Pressure [Ri ght Upper Arm] Pulse Oximetry 96 97 98 Oxygen Delivery Ri thod 11/23/23 13:15 11/23/23 13:17 11/23/23 13:32 Temperature Pulse Rate 59 L 62 Pulse Rate [Right Pulse Oximeter] Respiratory Rate Blood Pressure 143/87 H 148/84 H Blood Pressure [Ri ght Upper Arm] Pulse Oximetry 99 98 Oxygen Delivery Ri thod 11/23/23 13:38 11/23/23 13:45 11/23/23 13:47 Temperature Pulse Rate 64 64 62 Pulse Rate [Right Pulse Oximeter] Respiratory Rate Blood Pressure 135/77 Blood Pressure [Ri ght Upper Arm] Pulse Oximetry 96 98 98 Oxygen Delivery Me thod 11/23/23 14:00 11/23/23 14:02 11/23/23 14:15 Temperature Pulse Rate 71 67 66 Pulse Rate [Right Pulse Oximeter] Respiratory Rate Blood Pressure 144/83 H Blood Pressure [Ri ght Upper Arm] Pulse Oximetry 98 97 97 Oxygen Delivery Me thod 11/23/23 14:22 11/23/23 14:30 11/23/23 14:32 Temperature Pulse Rate 73 61 Pulse Rate [Right Pulse Oximeter] Respiratory Rate 18 Blood Pressure 138/76 Blood Pressure [Ri ght Upper Arm] Pulse Oximetry 97 96 Oxygen Delivery Me thod 11/23/23 14:45 11/23/23 15:02 11/23/23 15:03 Temperature Pulse Rate 65 71 69 Pulse Rate [Right Pulse Oximeter] Respiratory Rate Blood Pressure 129/78 Blood Pressure [Ri ght Upper Arm] Pulse Oximetry 95 92 93 Oxygen Delivery Me thod 11/23/23 15:15 11/23/23 15:30 11/23/23 15:32 Temperature Pulse Rate 65 70 72 Pulse Rate [Right Pulse Oximeter] Respiratory Rate Blood Pressure 133/78 Blood Pressure [Ri ght Upper Arm] Pulse Oximetry 91 92 94 Oxygen Delivery Me thod Course Course ED Course: On arrival, patient went for CT of the head and cervical spine. By my review, CT of the head did not show any evidence of hemorrhage. Read as negative by Radiology. CT of the cervical spine read by Radiology as showing no sign of acute injury, degenerative spondylosis at multiple levels. He does not complain of neck pain or tenderness, collar removed. He was very difficult to assess in terms of extremity injuries, but in conversation with him, we decided to do x-rays of the right shoulder and left hand. With regard to his facial injuries, I cleaned and closed with Dermabond they cut over the bridge of his nose and that 1 small area on the forehead which was oozing. I cleaned off all the other dried blood, did not see any evidence of other lacerations. He had 4 mg of morphine for pain after establishing an IV here. X-rays of the right shoulder by my review are unremarkable. Read as negative by Radiology. On the left hand, there is an abnormality at the 5th MCP joint by my review. Radiology read this as possible subluxation or dislocation. I reviewed this with the patient, recommended anesthesia so that we could determine whether this could be reduced, he agreed to proceed. Procedure note: The 5th finger was anesthetized using digital block with 1% Marcaine and epinephrine. Good anesthesia was achieved. With manipulation I was able to reduce the 5th finger. Repeat x-rays are normal by my review, normal very radiology review. No fracture. Finger splint placed here. Procedure note: The wounds on his forehead and nose were cleaned, no evidence of foreign body or injury to deeper structures. Closed with Dermabond without incident. Tolerated well without immediate complication. He has had something he, ambulatory without difficulty. Labs are notable for an INR of 1.8, CBC normal. I think it is reasonable to discharge home. We discussed use of Tylenol, ice as needed. Dermabond instructions given, return for signs of infection or for more severe head injury such as severe headache, vomiting, confusion. He has tenderness just over the anterior right shoulder which I suspect is related to contusion, did recommend orthopedic follow-up given the finger dislocation for recheck and shoulder can be rechecked at that time. Vital Signs Vital signs: Initial Vital Signs Temperature 96 F L 11/23/23 11:57 Temperature Source Temporal Artery Scan 11/23/23 11:57 Pulse Rate 62 11/23/23 11:57 Pulse Rhythm Regular 11/23/23 11:57 Respiratory Rate 18 11/23/23 11:57 Blood Pressure 139/86 11/23/23 11:57 Blood Pressure Mean 103 11/23/23 11:57 Blood Pressure Position Supine 11/23/23 11:57 Pulse Oximetry 97 11/23/23 11:57 Oxygen Delivery Method Room Air 11/23/23 11:57 Vital Signs Temperature 96 F L 11/23/23 11:57 Pulse Rate 62 11/23/23 11:57 Respiratory Rate 18 11/23/23 11:57 Blood Pressure 139/86 11/23/23 11:57 Pulse Oximetry 97 11/23/23 11:57 Oxygen Delivery Method Room Air 11/23/23 11:57 Temperature 96 F L 05/14/24 11:57 Pulse Rate 72 11/23/23 15:32 Respiratory Rate 18 11/23/23 14:22 Blood Pressure 133/78 11/23/23 15:32 Pulse Oximetry 94 11/23/23 15:32 Oxygen Delivery Method Room Air 11/23/23 11:57 Medications Administered Medications: Discontinued Medications Generic Name Dose Route Start Last Admin Trade Name Leandro PRN Reason Stop Dose Admin Sodium Chloride 500 mls @ 500 mls/hr 11/23/23 12:05 11/23/23 15:50 0.9 % Sodium Chloride 500 Ml IV 11/23/23 13:04 Infused .Q1H ONE Infusion Morphine Sulfate 4 mg 11/23/23 12:05 11/23/23 12:22 Morphine 4 Mg/Ml Inj IVP 11/23/23 12:06 4 mg ONCE ONE Administration Medical Decision Making Lab Data Labs: Lab Results 11/23/23 Range/Units 12:13 WBC 7.71 (4.50-11.00) K/uL RBC 4.36 (4.30-5.90) m/uL Hgb 14.5 (13.5-17.5) gm/dL Hct 43.0 (37.0-53.0) % MCV 99 (80-100) fL MCH 33 (26-34) pg MCHC 34 (32-36) gm/dL RDW Coeff of Anna 13.2 (11.5-15.5) % Plt Count 148 (140-440) K/uL Neut % (Auto) 73.7 H (42.0-72.0) % Lymph % (Auto) 14.7 L (20-44) % [place] % (Auto) 9.2 (0.0-11.0) % Eos % (Auto) 1.8 (0.0-7.0) % Baso % (Auto) 0.3 (0.0-3.0) % Neut # (Auto) 5.70 (1.7-7.0) K/uL Lymph # (Auto) 1.10 (0.90-2.90) K/uL [place] # (Auto) 0.70 (0.00-0.90) K/UL Eos # (Auto) 0.14 (0.00-0.50) K/uL Baso # (Auto) 0.02 (0.00-0.30) K/uL Abs Immat Gran (auto) 0.02 (0.00-0.30) K/uL Imm/Tot Granulo (auto) 0.3 % INR 1.80 H (0.91-1.10) Discharge Plan Discharge Clinical Impression: Dislocation of fifth finger, metacarpal joint, proximal, left, closed, Facial abrasion, Laceration of nose, Contusion of right shoulder Patient Disposition: Home, Self-Care Condition: Improved Instructions: Laceration (ED), Finger Dislocation (ED) Additional Instructions: I used skin adhesive to close the cut on your nose and a small cut on your forehead. This will slough off over the next 7-14 days. Return for signs of infection. Your head CT did not show any internal bleeding. If you have severe headache, vomiting, confusion or other worsening, return at any time. Your INR today was 1.8. Your 5th finger was dislocated, now reduced and in normal position. I would recommend orthopedic follow-up to make sure that this is healing well. [phone] to schedule. Ice, Tylenol as needed for pain. Prescriptions: No Action acetaminophen [Acetaminophen Extra Strength] 500 mg tablet 500 mg PO DAILY amoxicillin 500 mg capsule 2,000 mg PO ONCE PRN chlorpheniramine maleate [Aller-Chlor] 4 mg tablet 4 mg PO Q12H PRN cholecalciferol (vitamin D3) 50 mcg (2,000 unit) tablet 50 mcg PO DAILY glucosamine sulfate [Cidatrine (glucosamine)] 500 mg tablet 1,500 mg PO DAILY Rx Instructions: administer with a meal vitamin B complex [B Complex-Vitamin B12] Tablet 1 tab PO DAILY tamsulosin 0.4 mg Capsule 0.4 mg PO DAILY Qty: 30 0RF nifedipine 30 mg tablet extended release 24hr 30 mg PO DAILY warfarin 5 mg tablet 2.5 - 5 mg PO DAILY Patient Comments: 2.5 MG SUN,WED,,,SAT 5 MG ,WEDNESDAY rosuvastatin 5 mg tablet 5 mg PO MOWEFR@21 Follow Up/Referrals: Nhi Marvin MD [Primary Care Provider] - Stand Alone Forms: [employer] Info Instructions
--- NOTE | 2023-11-23 12:08 | XR_ITS ---
Patient: HARDY JAMES Facility:?[facility] Patient ID:?[id number] Site Patient ID:?[id number]. Site :?[id number] Study:?XRay-Shoulder Right 3 VIEW-11/23/2023 1:08:08 PM Ordering Physician:Patrick Gonzales Final Report: Indication: Trauma. Technique: Right shoulder, 3 views. Comparison: None. Findings: Bones: Alignment is normal. No fractures or bone lesions. Joint spaces: Moderate degenerative changes at the glenohumeral and AC joints.. Soft tissues: Unremarkable. Impression: No sign of acute injury. Dictated by Thea Blue MD @ 11/23/2023 1:37:11 PM Signed by:?Thea Blue MD @11/23/2023 1:37:11 PM (Electronic Signature)
--- NOTE | 2023-11-23 12:09 | XR_ITS ---
Patient: HARDY JAMES Facility:?[facility] Patient ID:?[id number] Site Patient ID:?[id number]. Site :?[id number] Study:?XRay-Extremity Left HAND 3V-11/23/2023 1:08:06 PM Ordering Physician:Patrick Gonzales Final Report: Indication: INJURY Technique: Left hand 3 views. Comparison: None. Findings: Bones: Probable mild dislocation/subluxation of the 5th proximal phalanx at the MCP joint. No fractures or bone lesions. 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 Soft tissues: No significant soft tissue swelling. Impression: Probable mild dislocation/subluxation of the 5th proximal phalanx at the MCP joint. No visualized fracture. 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 Dictated by Moe Robert MD @ 11/23/2023 1:25:55 PM Signed by:?Moe Robert MD @11/23/2023 1:25:55 PM (Electronic Signature)
[2023-11-23] MEDS: 0.9 % SODIUM CHLORIDE 500 ML 500 ML IV (12:20)
[2023-11-23 12:22] LABS: Basophils Absolute Auto 0.02 K/uL (0.00-0.30); Basophils Percent Auto 0.3 % (0.0-3.0); Eosinophils Absolute Auto 0.14 K/uL (0.00-0.50); Eosinophils Percent Auto 1.8 % (0.0-7.0); Hemoglobin* 14.5 gm/dL (13.5-17.5); Immature Granulocytes Abs Auto 0.02 K/uL (0.00-0.30); Immature Granulocytes Pct Auto 0.3 %; Lymphocytes Percent Auto 14.7 % (20-44); Mean Corpuscular HGB Conc 34 gm/dL (32-36); Mean Corpuscular Hemoglobin 33 pg (26-34); Mean Corpuscular Volume 99 fL (80-100); Monocytes Percent Auto 9.2 % (0.0-11.0); Neutrophils Percent Auto 73.7 % (42.0-72.0); Platelet Count* 148 K/uL (140-440); RDW Coefficient of Variation % 13.2 % (11.5-15.5); Red Blood Count 4.36 m/uL (4.30-5.90); White Blood Count* 7.71 K/uL (4.50-11.00)
[2023-11-23] MEDS: MORPHINE 4 MG/ML INJ IVP (12:22)
[2023-11-23 12:24] LABS: Slide Review Reflex No
--- OUTSIDE RECORDS SUMMARY | 2023-11-23 12:38 | XMS_ITS | Clinical Summary ---
Author Name Unknown Organization [employer] [facility] Address [place], [place] [address] Care Team Providers Care Regulatory Process Manager Name Role Phone Nhi Marvin MD Primary Care Provide r [facility] [place] Unavailable Elaine Alarcon RN Unavailable Unavailable [facility] [place] Unavailable Allergies Active Allergy Reactions Criticality Noted [...] 2.5 mg (5 mg x 0.5) every Marilele; 5 mg (5 mg x 1) all [...] accident) 2017 Coronary artery disease invo lving [place] coronary artery of [place] heart 12/09/2017 Non-cardiac chest pain 12/09/2017 Anticoagulation monitoring, INR range 2-3 2016 Acute CVA (cerebrovascular accident) 07/20/2016 Patent foramen ovale 03/13/2016 Elevated prostate specific antigen (PSA) 012 Colon polyps 07/23/2009 Overview: Colonoscopy 11/2009 polyps repeat in 5 years Unspecified sleep apnea 11/05/2006 Coronary atherosclerosis of unspecified type of vessel, [place] or graft 05/13/2006 Overview: --S/P Angio 04/24/05 [...] Type Department Care Team Description 11/13/2023 Refill [facility] [address] [place] [address] Nhi Marvin MD Refill Request (Rosuvastatin) 11/12/2023 2:30 PM CDT Orders Only [address] [place] [address] [place] [facility] 11/12/2023 Anticoagulation (warfarin) [address] [address], [facility] Anticoagulation 11/12/2023 Travel 11/12/[address] [place] [address] Nhi Marvin MD Anticoagulation (OVERDUE #2 reminder) 10/25/2023 11:00 AM CDT Office Visit [address] [place] [address] Jesus Mancera MD Sleep Follow-up (cpap) 10/25/2023 Travel 09/20/[address] [place] [address] Nhi Marvin MD Refill Request (Furosemide) 09/16/2023 2:30 PM SENIOR PRODUCT ANALYST Orders Only [address] [place] [address] Lab[facility] [place] [facility] 09/16/2023 Anticoagulation (warfarin) [address] [address] 1, [facility] Anticoagulation 09/16/2023 Travel 09/02/2023 11:30 AM SENIOR PRODUCT ANALYST Orders Only [facility] [address] [place] [address] [facility] [facility] 09/02/2023 Anticoagulation (warfarin) [facility] [address] [place] [address] [address] 1, [facility] Anticoagulation 09/02/2023 Travel [...] 180.3 cm (5' 11) 07/16/2023 2:14 PM SENIOR PRODUCT ANALYST Body Mass Index 30.54 07/16/2023 2:14 PM SENIOR PRODUCT ANALYST Plan of Treatment Upcoming Encounters Date Type Department Care Team (Late st Contact Info) Description 02/03/2024 11:00 AM CDT Office Visit [facility] [address] [place] [address] Jesus Mancera MD [address] [place] [address] Health Maintenance Due Date Last Done Comments [...] accident) (HC) INR,POCT Routine 09/16/2023 2:48 PM SENIOR PRODUCT ANALYST PFO (patent foramen ovale) Anticoagulation monitoring, INR range 2-3 Acute CVA (cerebrovascular accident) (HC) INR,POCT Routine 09/02/2023 2:00 PM SENIOR PRODUCT ANALYST PFO (patent foramen ovale) Anticoagulation monitoring, INR range 2-3 Acute CVA (cerebrovascular accident) (HC) from Last 3 Months Results * (ABNORMAL) INR,POCT (11/12/2023 2:42 PM CDT) Only the most recent of3 resultswithin the time period is included. INR 1.7(H) <1.3 11/12/2023 2:45 PM CDT [facility] Blood BLOOD SPECIMEN / Unknown 11/12/2023 2:42 PM CDT 11/12/2023 2:45 PM CDT Narrative [facility] - 11/12/2023 2:45 PM CDT ?Therapeutic Range 2.0-3.0 for most anticoagulated patients 2.5-3.5 or 4.0 for high risk patients Nhi Marvin MD LABORATORY [facility] [address] [place] [address], [place] [phone] from Last 3 Months Advance Directives Documents on File Type Date Recorded Patient Clinical Cytogenetics Director Expl anation Healthcare Directive 08/19/2023 3:20 PM [...] Comments Code Status Discussion: Discussed Care Teams Regulatory Process Manager Relationship Specialty Start Date End Date Nhi Marvin MD [address] [place] [address] PCP - General Family Practice 08/19/11 [facility] [address] [place] [address] 05/23/22 Elaine Alarcon, RN Registered Nurse Registered Nurse 06/13/22 [facility] [address] [place] [address] 09/08/22
[2023-11-23 12:48] LABS: Prothrombin Time 22.2 Seconds
--- NOTE | 2023-11-23 13:53 | XR_ITS ---
Patient: HARDY JAMES Facility:?[facility] Patient ID:?[id number] Site Patient ID:?[id number] Site :?[id number] Study:?XRay-Extremity Left HAND 3V-11/23/2023 3:04:51 PM Ordering Physician:JOCE Final Report: Indication: Trauma. Technique: Left hand, 3 views. Comparison: November 23, 2023. Findings/Impression: Bones: Alignment is normal. No displaced fractures or bone lesions. Joint spaces: Degenerative changes most pronounced at the triscaphe joint. Soft tissues: Unremarkable. Dictated by Joshua Reyna MD @ 11/23/2023 4:17:09 PM Signed by:?Joshua Reyna MD @11/23/2023 4:17:09 PM (Electronic Signature)
== END 2023-11-23 16:43 | disposition home or self-care (01) ==
PROVIDERS: Emergency Provider Emergency Medicine; PCP Family Medicine
DX: R11.2 Nausea with vomiting, unspecified (principal)
CPT/HCPCS: 36415; 70450; 72125; 73030; 73130; 85025; 85610; 99284; J2270; J7030

== ENCOUNTER 2023-11-23 21:41 | Outpatient (CLI) | payer MEDICARE, OTHER, SELFPAY ==
--- OUTSIDE RECORDS SUMMARY | 2023-11-25 17:08 | XMS_ITS | Clinical Summary ---
Author Name Unknown Organization [email or web address] [facility] [employer] [facility] Address [place], [place] [address] Care Team Providers Care President And Chief Executive Officer Name Role Phone Nhi Marvin MD Primary Care Provide r [facility], [place] Unavailable Elaine Alarcon RN Unavailable Unavailable [facility] [place] Unavailable Allergies Active Allergy Reactions Criticality Noted [...] accident) 2017 Coronary artery disease invo lving [place] coronary artery of [place] heart 12/09/2017 Non-cardiac chest pain 12/09/2017 Anticoagulation monitoring, INR range 2-3 2016 Acute CVA (cerebrovascular accident) 07/20/2016 Patent foramen ovale 03/13/2016 Elevated prostate specific antigen (PSA) 012 Colon polyps 07/23/2009 Overview: Colonoscopy 11/2009 polyps repeat in 5 years Unspecified sleep apnea 11/05/2006 Coronary atherosclerosis of unspecified type of vessel, [place] or graft 05/13/2006 Overview: --S/P Angio 04/24/05 [...] 4:27 PM CDT - Present Hospital [facility] [address] [place] [address] [facility], [place], [facility] Hospitalists Of Familia, MD Khloe Oconnell, Teri Corona MD 11/24/2023 11:00 AM CDT Ancillary Procedure [place] [facility] [place] at [facility] [address] [place] [address] Arrived 11/24/2023 Telephone [facility] [place] 9[address]805 [facility] [address] [place] [address] León Christianson MD 11/24/2023 Travel 11/13/2023 Refill [facility] [address] [place] [address] Nhi Marvin MD Refill Request (Rosuvastatin) 11/12/2023 2:30 PM CDT Orders Only [facility] [address] [place] [address] Lab[facility] [place] [facility] 11/12/2023 Anticoagulation (warfarin) [facility] [address] [place] [address] 1, [facility] Anticoagulation 11/12/2023 Travel 11/12/2023 Telephone [facility] [address] [place] [address] Nhi Marvin MD Anticoagulation (OVERDUE #2 reminder) 10/25/2023 11:00 AM CDT Office Visit [facility] [address] [place] [address] Jesus Mancera MD Sleep Follow-up (cpap) 10/25/2023 Travel 09/20/2023 Refill [facility] [address] [place] [address] Nhi Marvin MD Refill Request (Furosemide) 09/16/2023 2:30 PM PERCUSSION WELDING MACHINE OPERATOR Orders Only [facility] [address] [place] [address] Lab[facility] 09/16/2023 Anticoagulation (warfarin) [facility] [address] [place] [address] 1, [facility] Anticoagulation 09/16/2023 Travel 09/02/2023 11:30 AM PERCUSSION WELDING MACHINE OPERATOR Orders Only [facility] [address] [place] [address] Lab, [facility] 09/02/2023 Anticoagulation (warfarin) [facility] [address] [place] [address] 1, [facility] Anticoagulation 09/02/2023 Travel [...] Description 02/03/2024 11:00 AM CDT Office Visit [facility] [address] [place] [address] Jesus Mancera MD [address] [place] [address] Health Maintenance Due Date Last Done Comments [...] accident) (HC) INR,POCT Routine 09/16/2023 2:48 PM PERCUSSION WELDING MACHINE OPERATOR PFO (patent foramen ovale) Anticoagulation monitoring, INR range 2-3 Acute CVA (cerebrovascular accident) (HC) INR,POCT Routine 09/02/2023 2:00 PM PERCUSSION WELDING MACHINE OPERATOR PFO (patent foramen ovale) Anticoagulation monitoring, INR [...] - 4.20 uIU/mL 11/25/2023 8:45 AM CDT [facility] Blood BLOOD SPECIMEN / Unknown Butterfly / Unknown 11/25/2023 7:33 AM CDT 11/25/2023 8:10 AM CDT Narrative [facility] - 11/25/2023 8:45 AM CDT In Adults, TSH values between 5.00 and 10.00 uIU/ml do not necessarily indicate the presence of Hypothyroidism. Correlation with clinical findings such as presence of goiter and/or Thyroperoxidase (TPO) Antibody may be helpful. For more information please refer to JEFFERY 2004; 291: 228-238. Rupa Zhang NP CHEMISTRY [facility] [address] [address], * (ABNORMAL) CBC (11/25/2023 7:33 AM CDT) WHITE BLOOD COUNT 12.4(H) 4.5 - 11.0 thou/cu mm 11/25/2023 8:26 AM CDT [facility] RED BLOOD COUNT 4.07(L) 4.30 - 5.90 mil/cu mm 11/25/2023 8:26 AM CDT [facility] HEMOGLOBIN 13.6 13.5 - 17.5 g/dL 11/25/2023 8:26 AM CDT [facility] HEMATOCRIT 40.9 37.0 - 53.0 % 11/25/2023 8:26 AM T [facility] MCV 101(H) 80 - 100 fL 11/25/2023 8:26 AM CDT [facility] MCH 33.4 26.0 - 34.0 pg 11/25/2023 8:26 AM CDT [facility] MCHC 33.3 32.0 - 36.0 g/dL 11/25/2023 8:26 AM T [facility] RDW 13.6 11.5 - 15.5 % 11/25/2023 8:26 AM CDT [facility] PLATELET COUNT 136(L) 140 - 440 thou/cu mm 11/25/2023 8:26 AM CDT [facility] MPV 9.7 6.5 - 11.0 fL 11/25/2023 8:26 AM CDT [facility] NRBC 0.0 % 11/25/2023 8:26 AM T [facility] ABS NRBC 0.0 thou /cu mm 11/25/2023 8:26 AM T [facility] Blood BLOOD SPECIMEN / Unknown Butterfly / Unknown 11/25/2023 7:33 AM CDT 11/25/2023 8:09 AM CDT Rupa Zhang NP HEMATOLOGY [facility] [address] [place], [place] [address]RUST * MAGNESIUM (11/25/2023 7:33 AM CDT) MAGNESIUM 2.2 1.6 - 2.4 mg/dL 11/25/2023 8:45 AM CDT [facility] Blood BLOOD SPECIMEN / Unknown Butterfly / Unknown 11/25/2023 7:33 AM CDT 11/25/2023 8:10 AM CDT Rupa Zhang NP CHEMISTRY [facility] [address] [place] [address], * (ABNORMAL) BASIC METABOLIC PANEL (11/25/2023 7:33 AM CDT) SODIUM 142 136 - 145 mmol/L 11/25/2023 8:45 AM CDT [facility] POTASSIUM 4.0 3.5 - 5.1 mmol/L 11/25/2023 8:45 AM CDT [facility] CHLORIDE 109(H) 98 - 107 mmol/L 11/25/2023 8:45 AM CDT [facility] CO2,TOTAL 22 22 - 29 mmol/L 11/25/2023 8:45 AM T [facility] ANION GAP 11 5 - 18 11/25/2023 8:45 AM CDT [facility] GLUCOSE 85 70 - 99 mg/dL 11/25/2023 8:45 AM T [facility] CALCIUM 8.5(L) 8.8 - 10.2 mg/dL 11/25/2023 8:45 AM T [facility] BUN 25(H) 8 - 23 mg/dL 11/25/2023 8:45 AM T [facility] CREATININE 1.47(H) 0.70 - 1.20 mg/dL 11/25/2023 8:45 AM T [facility] BUN/CREAT RATIO 17 10 - 20 8:45 AM T [facility] eGFR 47(L) >90 mL/min/1.7 3m2 11/25/2023 8:45 AM CDT [facility] Comment:As of 2021, eG FR [...] Rupa Zhang NP CHEMISTRY Performing Organization Address [facility] de Phone Number [facility] [address] [place] [address], * SCAN-CARDIAC STRIP (11/25/2023 2:21 AM CDT) Scanner OTHER * EKG 12 LEAD (11/24/2023 7:03 PM CDT) Interpretation Normal sinus rhythm Left axis deviation Inferior infarct (cited on or before 06-JUN-2022) Abnormal ECG When compared with ECG of 13-JUN-2022 17:53, Premature atrial complexes are no longer Present HI interval has decreased BEYOND NOW Ventricular Rate 74 BPM BEYOND NOW Atrial Rate 74 BPM BEYOND NOW P-R Interval 208 ms BEYOND NOW QRS Duration 106 ms BEYOND NOW QT 402 ms BEYOND NOW QTc 446 ms BEYOND NOW P Sims 18 degrees BEYOND NOW R Sims -34 degrees BEYOND NOW T Sims 9 degrees BEYOND NOW 11/24/2023 7:03 PM CDT 11/25/2023 9:43 AM CDT Rupa Zhang NP EKG ORD Performing Organization Address [facility] de Phone Number [facility] [place], [place] * SCAN-CARDIAC STRIP (11/24/2023 4:59 PM CDT) Scanner OTHER * ECHO TTE COMPLETE WO CONTRAST (11/24/2023 12:57 PM CDT) AORTIC VALVE MEAN PG 11 mmHg EJECTION FRACTION 65 % LVEDD 4.5 cm Anatomical Region Laterality Modality Ultrasound 11/24/2023 12:1 9 PM CDT Narrative 11/24/2023 2:51 PM CDT ECHOCARDIOGRAM HARDY OLIVER ?Accession#: ?? [id number] : ?1940 83 years Study Date: ?? 11/24/2023 12:19:44 PM Gender: M ? BP: ? 118/68 mmHg Height: 180.00 cm ? BSA: ?2.20 m? ? ? Weight: 100.00 kg ? Tech: ? MSR ?Referring MD: BRET AYALA Site: ? [facility] Reading Location: [facility] Patient Location: Inpatient. Procedure: 2D, Color Doppler [...] . This study was interpreted by an [facility] accredited facility. CC: HIM (med records) [facility], Med/Surg - IP [facility]. ??Final ?? Procedure Note Rafael Taylor MD - 11/24/2023 ECHOCARDIOGRAM HARDY OLIVER : 1940 83 years Study Date: 11/24/2023 12:19:44 PM Gender: M BP: 118/68 mmHg Height: 180.00 cm BSA: 2.20 m? ? ? Weight: 100.00 kg Tech: MSR Referring MD: BRET AYALA Site: [facility] Reading Location: Mobile [...] . This study was interpreted by an [facility] accredited facility. CC: HIM (med records) [facility], Med/Surg - IP [facility]. Final Bret yAala MD ECHO ORD * (ABNORMAL) INR,POCT (11/12/2023 2:42 PM CDT) Only the most recent of3 resultswithin the time period is included. INR 1.7(H) <1.3 11/12/2023 2:[address] [facility] Blood BLOOD SPECIMEN / Unknown 11/12/2023 2:42 PM CDT 11/12/2023 2:[address] [facility] - 11/12/2023 2:45 PM CDT ?Therapeutic Range 2.0-3.0 for most anticoagulated patients 2.5-3.5 or 4.0 for high risk patients Nhi Marvin MD LABORATORY [facility] [address] [place] [address], from Last 3 Months Advance Directives Documents on File Type Date Recorded Patient Bench Precision Assembler Expl anation Healthcare Directive 08/19/2023 3:20 PM [...] Comments Code Status Discussion: Discussed Care Teams President And Chief Executive Officer Relationship Specialty Start Date End Date Nhi Marvin MD [address] [place] [address] PCP - General Family Practice 08/19/11 [place] [address] [address] 05/23/22 Elaine [place]arcon, RN Registered Nurse Registered Nurse 06/13/22 [facility] [place] [address], [place] [address] 09/08/22
== END 2023-11-23 21:42 | disposition home or self-care (01) ==
LOC: AMB 11-25 17:07
PROVIDERS: PCP Family Medicine; Visit Provider Student in an Organized Health Care Education/Training Program
DX: S49.92XA Unspecified injury of left shoulder and upper arm, initial encounter (principal); S49.91XA Unspecified injury of right shoulder and upper arm, initial encounter; R55 Syncope and collapse; W18.30XA Fall on same level, unspecified, initial encounter; Y92.009 Unspecified place in unspecified non-institutional (private) residence as the place of occurrence of the external cause
CPT/HCPCS: A0425; A0429

== ENCOUNTER 2023-11-23 22:12 | Inpatient (IN) | payer MEDICARE, OTHER, SELFPAY ==
[2023-11-23] VITALS (15 sets, daily range): BP systolic 111–133; BP diastolic 69–92; PULSE 50–70; RESP 20; O2SAT 94–96; BMI 27.9
--- OUTSIDE RECORDS SUMMARY | 2023-11-23 22:16 | XMS_ITS | Clinical Summary ---
Author Name Unknown Organization [employer] [facility] Address [place], [place] [address] Care Team Providers Care Maid Supervisor Name Role Phone Nhi Marvin MD Primary Care Provide r [facility], [place] Unavailable Elaine Alarcon RN Unavailable Unavailable [facility] [place] Unavailable Allergies Active Allergy Reactions Criticality Noted [...] accident) 2017 Coronary artery disease invo lving [place] coronary artery of [place] heart 12/09/2017 Non-cardiac chest pain 12/09/2017 Anticoagulation monitoring, INR range 2-3 2016 Acute CVA (cerebrovascular accident) 07/20/2016 Patent foramen ovale 03/13/2016 Elevated prostate specific antigen (PSA) 012 Colon polyps 07/23/2009 Overview: Colonoscopy 11/2009 polyps repeat in 5 years Unspecified sleep apnea 11/05/2006 Coronary atherosclerosis of unspecified type of vessel, [place] or graft 05/13/2006 Overview: --S/P Angio 04/24/05 [...] Type Department Care Team Description 11/13/2023 Refill [facility] [address] [place] [address] Nhi Marvin MD Refill Request (Rosuvastatin) 11/12/2023 2:30 PM CDT Orders Only [address] [place] [address] [facility] [place] [facility] 11/12/2023 Anticoagulation (warfarin) [address] [address], [facility] Anticoagulation 11/12/2023 Travel 11/12/[address] [place] [address] Nhi Marvin MD Anticoagulation (OVERDUE #2 reminder) 10/25/2023 11:00 AM CDT Office Visit [address] [place] [address] Jesus Mancera MD Sleep Follow-up (cpap) 10/25/2023 Travel 09/20/[address] [place] [address] Nhi Marvin MD Refill Request (Furosemide) 09/16/2023 2:30 PM DATABASE TECHNICIAN Orders Only [address] [place] [address] Lab[facility] [place] [facility] 09/16/2023 Anticoagulation (warfarin) [address] [address], [facility] Anticoagulation 09/16/2023 Travel 09/02/2023 11:30 AM DATABASE TECHNICIAN Orders Only [facility] [address] [place] [address] [address] Lab[facility] [place] [facility] 09/02/2023 Anticoagulation (warfarin) [facility] [address] [place] [address] [address] 1, [facility] Anticoagulation 09/02/2023 Travel [...] 180.3 cm (5' 11) 07/16/2023 2:14 PM DATABASE TECHNICIAN Body Mass Index 30.54 07/16/2023 2:14 PM DATABASE TECHNICIAN Plan of Treatment Upcoming Encounters Date Type Department Care Team (Late st Contact Info) Description 02/03/2024 11:00 AM CDT Office Visit [facility] [address] [place] [address] Jesus Mancera MD [address] [place] [address] Health Maintenance Due Date Last Done Comments [...] accident) (HC) INR,POCT Routine 09/16/2023 2:48 PM DATABASE TECHNICIAN PFO (patent foramen ovale) Anticoagulation monitoring, INR range 2-3 Acute CVA (cerebrovascular accident) (HC) INR,POCT Routine 09/02/2023 2:00 PM DATABASE TECHNICIAN PFO (patent foramen ovale) Anticoagulation monitoring, INR range 2-3 Acute CVA (cerebrovascular accident) (HC) from Last 3 Months Results * (ABNORMAL) INR,POCT (11/12/2023 2:42 PM CDT) Only the most recent of3 resultswithin the time period is included. INR 1.7(H) <1.3 11/12/2023 2:45 PM CDT [facility] Blood BLOOD SPECIMEN / Unknown 11/12/2023 2:42 PM CDT 11/12/2023 2:45 PM CDT Narrative [facility] - 11/12/2023 2:45 PM CDT ?Therapeutic Range 2.0-3.0 for most anticoagulated patients 2.5-3.5 or 4.0 for high risk patients Nhi Marvin MD LABORATORY [facility] [address] [place] [address], [place] [phone] from Last 3 Months Advance Directives Documents on File Type Date Recorded Patient Visual Coordinator Expl anation Healthcare Directive 08/19/2023 3:20 PM [...] Comments Code Status Discussion: Discussed Care Teams Maid Supervisor Relationship Specialty Start Date End Date Nhi Marvin MD [address] [facility] [address] PCP - General Family Practice 08/19/11 [facility] [address] [place] [address] 05/23/22 Elaine Alarcon, RN Registered Nurse Registered Nurse 06/13/22 [facility] [address] [place] [address] 09/08/22
--- NOTE | 2023-11-23 23:02 | ED.GENADULT ---
HPI - General Adult General Date Seen: 11/23/23 Chief complaint: Nausea/Vomiting Stated complaint: vomiting, fall Time Seen by Provider: 11/23/23 22:57 History of Present Illness HPI narrative: This is an 88-year-old male with a history of hypertension, previous CVA, cognitive decline, on chronic warfarin presents to the ER today for evaluation nausea with coffee-ground emesis, generalized weakness, and ongoing right shoulder and left hand pain. He was seen in the ER earlier today. According to records he stumbled and fell while walking on the sidewalk. He hit his face and head on the ground. He was brought in this afternoon by EMS. He had complaints of pain in his right shoulder, left elbow, and left 5th finger injury. Workup in the ER included head CT that was negative for hemorrhage. C-spine CT showed no acute injury but did show degenerative spondylosis at multiple levels. He had a cut on the bridge of his nose that was repaired with Dermabond. X-rays of his right shoulder were negative. X-rays of his left hand showed a subluxation versus dislocation of the 5th MCP joint. Local anesthesia was applied to the 5th finger digital block and the MCP joint was reduced. INR was 1.8. CBC showed white blood cell count of 7.1, hemoglobin 14.5, platelet count 148. After his injuries were identified and treated he was discharged home. He has been having trouble at home. He has ongoing right shoulder pain and pain in his left hand. He is also feeling somewhat weak overall. He had an episode of vomiting this evening with small volume brownish coffee-ground emesis. He is not having any sick it neck headache. No new confusion. Vomiting is now resolved. No blurry vision. No new numbness or weakness in his arms or legs. No chest pain. No trouble breathing. No abdominal pain. Related Data Home Medications Medication Instructions Recorded Confirmed nifedipine 30 mg tablet,extended 30 mg PO DAILY 05/12/22 11/23/23 release 24 hr rosuvastatin 5 mg tablet 5 mg PO MOWEFR@05/12/22 11/23/23 warfarin 5 mg tablet 2.5 - 5 mg PO DAILY 05/12/22 11/23/23 acetaminophen 500 mg tablet 500 mg PO DAILY 05/14/22 11/23/23 (Acetaminophen Extra Strength) amoxicillin 500 mg capsule 2,000 mg PO ONCE PRN 05/14/22 11/03/23 chlorpheniramine maleate 4 mg 4 mg PO Q12H PRN 05/14/22 11/23/23 tablet (Aller-Chlor) cholecalciferol (vitamin D3) 50 50 mcg PO DAILY 05/14/22 11/23/23 mcg (2,000 unit) tablet glucosamine sulfate 500 mg tablet 1,500 mg PO DAILY 05/14/22 11/03/23 (Cidatrine (glucosamine)) vitamin B complex (B 1 tab PO DAILY 05/14/22 11/03/23 Complex-Vitamin B12 tablet) Previous Rx's Medication Instructions Recorded tamsulosin 0.4 mg capsule 0.4 mg PO DAILY #30 caps 05/18/22 Allergies Allergy/AdvReac Type Severity Reaction Status Date / Time aspirin Allergy Unknown Verified 11/23/23 12:02 [facility] Medical History (Updated 11/23/23 @ 16:13 by Ashly Gonzales MD) Health care directive on file ?Z78.9 - Other specified health status (ICD-10) POLST (Physician Orders for Life-Sustaining Treatment) ?Z78.9 - Other specified health status (ICD-10) Aortic aneurysm ?I71.9 - Aortic aneurysm of unspecified site, without rupture (ICD-10) Septic arthritis of acromioclavicular joint ?M00.9 - Pyogenic arthritis, unspecified (ICD-10) Coronary artery disease ?I25.10 - Atherosclerotic heart disease of [place] coronary artery without angina pectoris (ICD-10) Hyperlipidemia ?E78.5 - Hyperlipidemia, unspecified (ICD-10) History of CVA (cerebrovascular accident) ?Z86.73 - Personal history of transient ischemic attack (TIA), and cerebral infarction without residual deficits (ICD-10) PFO (patent foramen ovale) ?Q21.12 - Patent foramen ovale (ICD-10) Essential hypertension ?I10 - Essential (primary) hypertension (ICD-10) Surgical History Status post arthroscopy of right shoulder (05/17/22) ?Z98.890 - Other specified postprocedural states (ICD-10) Status post arthroscopy of left shoulder (05/17/22) ?Z98.890 - Other specified postprocedural states (ICD-10) History of coronary artery stent placement ?Z95.5 - Presence of coronary angioplasty implant and graft (ICD-10) Social History (Updated 11/18/22 @ 09:50 by Marisol Husain ~ [facility], [facility]) Narrative: -Alex ( 61 years) Highest level of school completed/degree received: some college, no degree Smoking Status: Never smoker Do you use any of these nicotine containing products: None Second hand tobacco smoke exposure: No How often do you have a drink containing alcohol: never How often do you have six or more drinks on one occasion: Never AUDIT-C Alcohol total score: 0 Non-prescribed substance use: denies use Caffeine: Yes (Mt Dew daily) Are you now , , , , never or living with a partner: Social isolation score (0-1 are the most socially isolated patients): 1 service: No Exam Narrative: Exam Narrative: Constitutional: Appears well-developed and well-nourished. Alert. Conversant, but somewhat rapidly moved from topic to topic. Very conversant about his mother who was a BURN TABLE OPERATOR. HENT: Head: No depressed skull fracture, [place] Eyes, Hoyt's sign. Face normal. Nose: Laceration on the bridge of his nose was closed with Dermabond and wound wound edges are well apposed and dry. He does have dry blood in both of his nares indicating now resolved epistaxis. Per report he did have a significant nose bleed during his 1st ER visit. Mouth/Throat: Oral mucosa is clear and moist. no trismus. Pharynx normal. Tonsils symmetric. No tonsillar enlargement, erythema, or exudate. No posterior oropharyngeal bleeding at this time. Eyes: Conjunctivae normal. EOM normal. Pupils equal, round, and reactive to light. No scleral icterus. Neck: Normal range of motion. Neck supple. No tracheal deviation present. No midline step-off or tenderness. Cardiovascular: Normal rate, regular rhythm. No gallop. No friction rub. No murmur heard. Symmetric radial artery pulses Pulmonary/Chest: Effort normal. No stridor. No respiratory distress. No wheezes. No rales. No rhonchi . No tenderness. Abdominal: Soft. No distension. No mass. No tenderness. No rebound. No guarding. Musculoskeletal: RUE: Tender over the anterior right shoulder. No bruising. No visible deformity. No crepitus. Range of motion in the shoulder limited by pain. No tenderness over the elbow, forearm, wrist, hand, fingers. LUE: No tenderness over the clavicle, shoulder, humerus, elbow, forearm, wrist. He is tender over the ulnar border of the hand and 5th MCP joint. He has in a finger splint in place. He does have a Coban wrapping around the finger and hand. He feels like the Coban is pinching too tightly so I loosened the dressing any actually is feeling much less pain after that. He does have brisk distal cap refill. RLE: Normal range of motion. No edema. No tenderness. No deformity LLE: Normal range of motion. No edema. No tenderness. No deformity Neurological: Alert and oriented to person, place, and time. Normal strength. CN II-VII intact. No sensory deficit. GCS eye subscore is 4. GCS verbal subscore is 5. GCS motor subscore is 6. Normal coordination Skin: Skin is warm and dry. No rash noted. No pallor. Normal capillary refill. Psychiatric: Normal mood. Normal affect. Const: Vital Signs, click to edit/add: Vital Signs - 24 hr 11/23/23 22:23 11/23/23 22:28 11/23/23 22:29 Pulse Rate 64 63 Pulse Rate [Right Pulse Oximeter] 70 Respiratory Rate 20 Blood Pressure 121/80 Blood Pressure [Ri ght Upper Arm] 121/80 Pulse Oximetry 95 95 94 Oxygen Delivery Me thod Room Air 11/23/23 22:30 11/23/23 22:32 11/23/23 22:45 Pulse Rate 63 64 67 Pulse Rate [Right Pulse Oximeter] Respiratory Rate Blood Pressure 120/75 Blood Pressure [Ri ght Upper Arm] Pulse Oximetry 94 95 96 Oxygen Delivery Me thod 11/23/23 22:47 11/23/23 23:00 11/23/23 23:02 Pulse Rate 50 L 58 L 59 L Pulse Rate [Right Pulse Oximeter] Respiratory Rate Blood Pressure 117/92 H 111/69 Blood Pressure [Ri ght Upper Arm] Pulse Oximetry 94 94 95 Oxygen Delivery Me thod 11/23/23 23:15 11/23/23 23:17 11/23/23 23:30 Pulse Rate 60 61 62 Pulse Rate [Right Pulse Oximeter] Respiratory Rate Blood Pressure 116/75 Blood Pressure [Ri ght Upper Arm] Pulse Oximetry 95 95 96 Oxygen Delivery Me thod 11/23/23 23:35 11/23/23 23:45 11/23/23 23:52 Pulse Rate 59 L 59 L 57 L Pulse Rate [Right Pulse Oximeter] Respiratory Rate Blood Pressure 133/79 Blood Pressure [Ri ght Upper Arm] Pulse Oximetry 94 95 96 Oxygen Delivery Me thod 11/24/23 00:00 11/24/23 00:02 11/24/23 00:02 Pulse Rate 56 L 56 L 56 L Pulse Rate [Right Pulse Oximeter] Respiratory Rate Blood Pressure 131/76 131/76 Blood Pressure [Ri ght Upper Arm] Pulse Oximetry 95 96 96 Oxygen Delivery Me thod 11/24/23 00:02 11/24/23 00:15 11/24/23 00:17 Pulse Rate 56 L 56 L 56 L Pulse Rate [Right Pulse Oximeter] Respiratory Rate Blood Pressure 131/76 132/77 Blood Pressure [Ri ght Upper Arm] Pulse Oximetry 96 95 95 Oxygen Delivery Me thod 11/24/23 00:30 11/24/23 00:32 11/24/23 00:45 Pulse Rate 54 L 43 L 56 L Pulse Rate [Right Pulse Oximeter] Respiratory Rate Blood Pressure 126/82 Blood Pressure [Ri ght Upper Arm] Pulse Oximetry 96 95 97 Oxygen Delivery Me thod 11/24/23 00:47 11/24/23 01:05 Pulse Rate 56 L 56 L Pulse Rate [Right Pulse Oximeter] Respiratory Rate Blood Pressure 138/85 Blood Pressure [Ri ght Upper Arm] Pulse Oximetry 96 96 Oxygen Delivery Me thod Course Vital Signs Vital signs: Initial Vital Signs Temperature Source Temporal Artery Scan 11/23/23 22:23 Pulse Rate 70 11/23/23 22:23 Respiratory Rate 20 11/23/23 22:23 Blood Pressure 121/80 11/23/23 22:23 Blood Pressure Mean 93 11/23/23 22:23 Pulse Oximetry 95 11/23/23 22:23 Oxygen Delivery Method Room Air 11/23/23 22:23 Vital Signs Pulse Rate 70 11/23/23 22:23 Respiratory Rate 20 11/23/23 22:23 Blood Pressure 121/80 11/23/23 22:23 Pulse Oximetry 95 11/23/23 22:23 Oxygen Delivery Method Room Air 11/23/23 22:23 Pulse Rate 56 L 11/24/23 01:05 Respiratory Rate 20 11/23/23 22:23 Blood Pressure 138/85 11/24/23 00:47 Pulse Oximetry 96 11/24/23 01:05 Oxygen Delivery Method Room Air 11/23/23 22:23 Medications Administered Medications: Discontinued Medications Generic Name Dose Route Start Last Admin Trade Name Leandro PRN Reason Stop Dose Admin Morphine Sulfate 4 mg 11/23/23 23:18 11/23/23 23:26 Morphine 4 Mg/Ml Inj IVP 11/23/23 23:19 4 mg ONCE ONE Administration Ondansetron HCl 4 mg 11/23/23 23:18 11/23/23 23:26 Ondansetron 2 Mg/Ml Inj IVP 11/23/23 23:19 4 mg ONCE ONE Administration Medical Decision Making MDM Narrative Medical decision making narrative: 83-year-old gentleman returns to the ER today with multiple concerns including coffee-ground emesis, ongoing right shoulder pain, left hand pain, weakness. He had been seen in the ER earlier today after a ground level trip and fall leading to multiple injuries. He did have a nasal bridge laceration and epistaxis earlier. On my re-evaluation of his nose I see that his laceration is well apposed in the Dermabond is holding nicely. There is dry blood in both of his nares but no active epistaxis at this time. No clear evidence for any displaced nasal bone fracture or facial fracture so will hold off on maxillofacial CT for now. He is on warfarin. INR was subtherapeutic at 1.8 this afternoon. Suspect that he probably had bleeding from his epistaxis that was swallowed, leading to his coffee-ground emesis. He is not having any abdominal pain. No ongoing nausea here in the ER. Repeat CBC shows normal and stable hemoglobin compared to earlier today. Blood pressure is normal. No tachycardia. At this point I have low suspicion for acute upper GI bleed. I suspect this was probably swallowed blood from his nasal injury. He is having ongoing right shoulder pain. X-rays were obtained during his 1st visit and showed no evidence for fracture or dislocation. Discussed with the patient and his family that the differential here would include contusion, sprain, as well as soft tissue injury such as rotator cuff or labrum tear. At this point he is declining a sling. Plan will be pain management for the shoulder for now and orthopedic consultation if pain not improving within the next 48 hours. He also had mild ongoing left ulnar hand pain. This was improved substantially after I loosened the Coban wrap on his hand. Suspect this is probably due to over compression from a Coban. No evidence for any other serious complications such as compartment syndrome or neurovascular compromise. Although he is on warfarin and did hit his head earlier, he already had a normal head CT. Mental status seems to be normal and at baseline. He is very conversant. No significant headache at this time. At this point would hold off on repeat CT imaging. If he has ongoing vomiting or develops any confusion, would consider getting repeat CT. We treated his shoulder pain and nausea with morphine and Zofran. He is feeling somewhat better after that. However overall with his amount of musculoskeletal pain, overall weakness, he and his family do not feel that he is safe to be at home today. Discussed with our tele hospitalist. They will graciously agreed to admit this patient for symptom management. Lab Data Labs: Lab Results 11/23/23 Range/Units 23:30 WBC 11.20 H (4.50-11.00) K/uL RBC 4.24 L (4.30-5.90) m/uL Hgb 14.1 (13.5-17.5) gm/dL Hct 41.9 (37.0-53.0) % MCV 99 (80-100) fL MCH 33 (26-34) pg MCHC 34 (32-36) gm/dL RDW Coeff of Anna 13.1 (11.5-15.5) % Plt Count 151 (140-440) K/uL Neut % (Auto) 89.3 H (42.0-72.0) % Lymph % (Auto) 3.6 L (20-44) % [place] % (Auto) 6.3 (0.0-11.0) % Eos % (Auto) 0.0 (0.0-7.0) % Baso % (Auto) 0.2 (0.0-3.0) % Neut # (Auto) 10.00 H (1.7-7.0) K/uL Lymph # (Auto) 0.40 L (0.90-2.90) K/uL [place] # (Auto) 0.70 (0.00-0.90) K/UL Eos # (Auto) 0.00 (0.00-0.50) K/uL Baso # (Auto) 0.00 (0.00-0.30) K/uL Abs Immat Gran (auto) 0.10 (0.00-0.30) K/uL Imm/Tot Granulo (auto) 0.6 % Discharge Plan Discharge Prescriptions: No Action acetaminophen [Acetaminophen Extra Strength] 500 mg tablet 500 mg PO DAILY amoxicillin 500 mg capsule 2,000 mg PO ONCE PRN chlorpheniramine maleate [Aller-Chlor] 4 mg tablet 4 mg PO Q12H PRN cholecalciferol (vitamin D3) 50 mcg (2,000 unit) tablet 50 mcg PO DAILY glucosamine sulfate [Cidatrine (glucosamine)] 500 mg tablet 1,500 mg PO DAILY Rx Instructions: administer with a meal vitamin B complex [B Complex-Vitamin B12] Tablet 1 tab PO DAILY tamsulosin 0.4 mg Capsule 0.4 mg PO DAILY Qty: 30 0RF nifedipine 30 mg tablet extended release 24hr 30 mg PO DAILY warfarin 5 mg tablet 2.5 - 5 mg PO DAILY Patient Comments: 2.5 MG SUN,WED,,,SAT 5 MG ,WEDNESDAY rosuvastatin 5 mg tablet 5 mg PO MOWEFR@21 Follow Up/Referrals: Nhi Marvin MD [Primary Care Provider] -
[2023-11-23] MEDS: MORPHINE 4 MG/ML INJ IVP (23:26)
[2023-11-23] MEDS: ONDANSETRON 2 MG/ML inj 4 MG IVP (23:26)
[2023-11-24] VITALS (14 sets, daily range): BP systolic 118–147; BP diastolic 68–85; PULSE 43–71; RESP 16–18; TEMP 36.6–36.8; O2SAT 93–97; BMI 28.4
[2023-11-24 00:01] LABS: Basophils Percent Auto 0.2 % (0.0-3.0); Hematocrit 41.9 % (37.0-53.0); Hemoglobin* 14.1 gm/dL (13.5-17.5); Immature Granulocytes Pct Auto 0.6 %; Lymphocytes Percent Auto 3.6 % (20-44); Mean Corpuscular HGB Conc 34 gm/dL (32-36); Mean Corpuscular Hemoglobin 33 pg (26-34); Mean Corpuscular Volume 99 fL (80-100); Monocytes Percent Auto 6.3 % (0.0-11.0); Neutrophils Percent Auto 89.3 % (42.0-72.0); Platelet Count* 151 K/uL (140-440); RDW Coefficient of Variation % 13.1 % (11.5-15.5); Red Blood Count 4.24 m/uL (4.30-5.90); Slide Review Reflex No
--- OUTSIDE RECORDS SUMMARY | 2023-11-24 00:05 | XMS_ITS | Clinical Summary ---
Author Name Unknown Organization [facility] Address [place], [place] [address] Care Team Providers Care Circuitry Negative Inspector Name Role Phone Nhi Marvin MD Primary Care Provide r [facility] [place] Unavailable Elaine Alarcon RN Unavailable Unavailable [facility] [place] Unavailable Allergies Active Allergy Reactions Criticality Noted [...] accident) 2017 Coronary artery disease invo lving [place] coronary artery of [place] heart 12/09/2017 Non-cardiac chest pain 12/09/2017 Anticoagulation monitoring, INR range 2-3 2016 Acute CVA (cerebrovascular accident) 07/20/2016 Patent foramen ovale 03/13/2016 Elevated prostate specific antigen (PSA) 012 Colon polyps 07/23/2009 Overview: Colonoscopy 11/2009 polyps repeat in 5 years Unspecified sleep apnea 11/05/2006 Coronary atherosclerosis of unspecified type of vessel, [place] or graft 05/13/2006 Overview: --S/P Angio 04/24/05 [...] Type Department Care Team Description 11/13/2023 Refill [facility] [address] [facility] [place] [address] Nhi Marvin MD Refill Request (Rosuvastatin) 11/12/2023 2:30 PM CDT Orders Only [address] [place] [address] Lab[place] [facility] 11/12/2023 Anticoagulation (warfarin) [address] [address] 1, [place] Anticoagulation 11/12/2023 Travel 11/12/[address] [place] [address] Nhi Marvin MD Anticoagulation (OVERDUE #2 reminder) 10/25/2023 11:00 AM CDT Office Visit [address] [place] [address] Jesus Mancera MD Sleep Follow-up (cpap) 10/25/2023 Travel 09/20/[address] [place] [address] Nhi Marvin MD Refill Request (Furosemide) 09/16/2023 2:30 PM CYANIDE POT HARDENER Orders Only [address] [place] [address] Lab[facility] [place] [facility] 09/16/2023 Anticoagulation (warfarin) [address] [address] 1, [facility] Anticoagulation 09/16/2023 Travel 09/02/2023 11:30 AM CYANIDE POT HARDENER Orders Only [facility] [address] [place] [address] Lab[facility] [place] [facility] 09/02/2023 Anticoagulation (warfarin) [facility] [address] [place] [address] [address] 1, [facility] Anticoagulation 09/02/2023 Travel [...] 180.3 cm (5' 11) 07/16/2023 2:14 PM CY[employer]IDE POT HARDENER Body Mass Index 30.54 07/16/2023 2:14 PM CYANIDE POT HARDENER Plan of Treatment Upcoming Encounters Date Type Department Care Team (Late st Contact Info) Description 02/03/2024 11:00 AM CDT Office Visit [facility] [address] [place] [address] Jesus Mancera MD [address] [place] [address] Health Maintenance Due Date Last Done Comments [...] accident) (HC) INR,POCT Routine 09/16/2023 2:48 PM CYANIDE POT HARDENER PFO (patent foramen ovale) Anticoagulation monitoring, INR range 2-3 Acute CVA (cerebrovascular accident) (HC) INR,POCT Routine 09/02/2023 2:00 PM CYANIDE POT HARDENER PFO (patent foramen ovale) Anticoagulation monitoring, INR range 2-3 Acute CVA (cerebrovascular accident) (HC) from Last 3 Months Results * (ABNORMAL) INR,POCT (11/12/2023 2:42 PM CDT) Only the most recent of3 resultswithin the time period is included. INR 1.7(H) <1.3 11/12/2023 2:45 PM CDT [facility] Blood BLOOD SPECIMEN / Unknown 11/12/2023 2:42 PM CDT 11/12/2023 2:45 PM CDT Narrative [facility] - 11/12/2023 2:45 PM CDT ?Therapeutic Range 2.0-3.0 for most anticoagulated patients 2.5-3.5 or 4.0 for high risk patients Nhi Marvin MD LABORATORY [facility] [address] [place] [address], [place] [phone] from Last 3 Months Advance Directives Documents on File Type Date Recorded Patient Hall Clerk Expl anation Healthcare Directive 08/19/2023 3:20 PM [...] Comments Code Status Discussion: Discussed Care Teams Circuitry Negative Inspector Relationship Specialty Start Date End Date Nhi Marvin MD [address] [facility] [place] [address] PCP - General Family Practice 08/19/11 [facility] [address] [place] [address] 05/23/22 Elaine Alarcon, RN Registered Nurse Registered Nurse 06/13/22 [facility] [address] [place] [address] 09/08/22
--- NOTE | 2023-11-24 02:15 | W.PM.THH&P_ITS ---
Telehealth- H&P: HPI History of Present Illness Time Seen by Provider: 02:00 Date Seen: 11/24/23 Chief complaint: vomiting, fall Narrative: Desean Oliver is seen as an Interactive Telehealth visit. Desean Oliver is a 83 year old male Presents to the hospital after he had a fall. Patient was seen in the ER. Apparently the patient was walking on sidewalk when he stumbled and tripped over his feet. He hit his face and head on the ground. He was brought to the hospital by EMS. He was complaining of right shoulder pain, left elbow pain and left finger pain. Workup including CT head which was negative for hemorrhage. Patient is on anticoagulation Coumadin. A CT of his C-spine showed no acute issues although did show some chronic spondylosis. He had a significant cut on the bridge of his nose which was repaired with Dermabond. X- rays of the shoulders are negative. X-rays of his hand showed a subluxation of the fifth MCP joint. This was reduced in the ER. He was noted to have significant epistaxis in the ER which had stopped but he had had multiple emesis with coffee-ground emesis thought to be related to the blood products from what she swallowed. His hemoglobin was stable. ER physician felt this patient's epistaxis had resolved at the time. No evidence of nasal bone fracture facial fracture upon physical exam Review of Systems Const: Denies: fever or chills Eyes: Denies: change in vision ENMT: Denies: throat pain Cardio: Reports: lightheadedness; Denies: shortness of breath with exertion Resp: Denies: shortness of breath or cough GI: Reports: nausea, vomiting and coffee grounds in vomit Musculo: Reports: extremity pain, extremity swelling, joint pain, joint swelling and muscle weakness Neuro: Reports: headache and dizziness; Denies: numbness in extremities, weakness in extremities or lack of coordination Psych: Reports: irritability PFSH PFS Medical History Health care directive on file ?Z78.9 - Other specified health status (ICD-10) POLST (Physician Orders for Life-Sustaining Treatment) ?Z78.9 - Other specified health status (ICD-10) Aortic aneurysm ?I71.9 - Aortic aneurysm of unspecified site, without rupture (ICD-10) Septic arthritis of acromioclavicular joint ?M00.9 - Pyogenic arthritis, unspecified (ICD-10) Coronary artery disease ?I25.10 - Atherosclerotic heart disease of [place] coronary artery without angina pectoris (ICD-10) Hyperlipidemia ?E78.5 - Hyperlipidemia, unspecified (ICD-10) History of CVA (cerebrovascular accident) ?Z86.73 - Personal history of transient ischemic attack (TIA), and cerebral infarction without residual deficits (ICD-10) PFO (patent foramen ovale) ?Q21.12 - Patent foramen ovale (ICD-10) Essential hypertension ?I10 - Essential (primary) hypertension (ICD-10) Surgical History Status post arthroscopy of right shoulder (05/17/22) ?Z98.890 - Other specified postprocedural states (ICD-10) Status post arthroscopy of left shoulder (05/17/22) ?Z98.890 - Other specified postprocedural states (ICD-10) History of coronary artery stent placement ?Z95.5 - Presence of coronary angioplasty implant and graft (ICD-10) Social History (Updated 11/18/22 @ 09:50 by Marisol Husain ~ [facility], [facility]) Narrative: -Alex ( 61 years) Highest level of school completed/degree received: some college, no degree Smoking Status: Never smoker Do you use any of these nicotine containing products: None Second hand tobacco smoke exposure: No How often do you have a drink containing alcohol: never How often do you have six or more drinks on one occasion: Never AUDIT-C Alcohol total score: 0 Non-prescribed substance use: denies use Caffeine: Yes (Mt Dew daily) Are you now , , , , never or living with a partner: Social isolation score (0-1 are the most socially isolated patients): 1 service: No Meds Home Medications and Allergies Home Medications Medication Instructions Recorded Confirmed Type nifedipine 30 mg tablet,extended 30 mg PO DAILY 05/12/22 11/23/23 History release 24 hr rosuvastatin 5 mg tablet 5 mg PO MOWEFR@05/12/22 11/23/23 History warfarin 5 mg tablet 2.5 - 5 mg PO DAILY 05/12/22 11/23/23 History acetaminophen 500 mg tablet 500 mg PO DAILY 05/14/22 11/23/23 History (Acetaminophen Extra Strength) amoxicillin 500 mg capsule 2,000 mg PO ONCE PRN 05/14/22 11/03/23 History chlorpheniramine maleate 4 mg 4 mg PO Q12H PRN 05/14/22 11/23/23 History tablet (Aller-Chlor) cholecalciferol (vitamin D3) 50 50 mcg PO DAILY 05/14/22 11/23/23 History mcg (2,000 unit) tablet glucosamine sulfate 500 mg tablet 1,500 mg PO DAILY 05/14/22 11/03/23 History (Cidatrine (glucosamine)) vitamin B complex (B 1 tab PO DAILY 05/14/22 11/03/23 History Complex-Vitamin B12 tablet) Allergies Allergy/AdvReac Type Severity Reaction Status Date / Time aspirin Allergy Unknown Verified 11/23/23 12:02 Exam Narrative Exam Narrative: Physical Exam GENERAL: ?vital signs reviewed, significant bruising on face, scratches HEENT: pupils are equal round and reactive to light, extraocular movements are grossly within normal limits and oral mucosa is moist. dried blood in nasal nares NECK: Supple without lymphadenopathy or thyromegaly according to nursing staff examination observation HEART: Regular rate and rhythm without any rubs, murmurs, or gallops. LUNGS: Clear to auscultation bilaterally with good air movement throughout ABDOMEN: Observation from nurse assisted exam, abdomen appears soft, nontender, and nondistended with Positive bowel sounds noted. EXTREMITIES: able move arms and legs grossly. pain upon movement of right shoulder but normal range SKIN:? bruising Const Vital Signs, click to edit/add: Vital Signs - 24 hr 11/23/23 22:23 11/23/23 22:28 11/23/23 22:29 Pulse Rate 64 63 Pulse Rate [Right Pulse Oximeter] 70 Respiratory Rate 20 Blood Pressure 121/80 Blood Pressure [Right Upper Arm] 121/80 Pulse Oximetry 95 95 94 Oxygen Delivery Method Room Air 11/23/23 22:30 11/23/23 22:32 11/23/23 22:45 Pulse Rate 63 64 67 Pulse Rate [Right Pulse Oximeter] Respiratory Rate Blood Pressure 120/75 Blood Pressure [Right Upper Arm] Pulse Oximetry 94 95 96 Oxygen Delivery Method 11/23/23 22:47 11/23/23 23:00 11/23/23 23:02 Pulse Rate 50 L 58 L 59 L Pulse Rate [Right Pulse Oximeter] Respiratory Rate Blood Pressure 117/92 H 111/69 Blood Pressure [Right Upper Arm] Pulse Oximetry 94 94 95 Oxygen Delivery Method 11/23/23 23:15 11/23/23 23:17 11/23/23 23:30 Pulse Rate 60 61 62 Pulse Rate [Right Pulse Oximeter] Respiratory Rate Blood Pressure 116/75 Blood Pressure [Right Upper Arm] Pulse Oximetry 95 95 96 Oxygen Delivery Method 11/23/23 23:35 11/23/23 23:45 11/23/23 23:52 Pulse Rate 59 L 59 L 57 L Pulse Rate [Right Pulse Oximeter] Respiratory Rate Blood Pressure 133/79 Blood Pressure [Right Upper Arm] Pulse Oximetry 94 95 96 Oxygen Delivery Method 11/24/23 00:00 11/24/23 00:02 11/24/23 00:02 Pulse Rate 56 L 56 L 56 L Pulse Rate [Right Pulse Oximeter] Respiratory Rate Blood Pressure 131/76 131/76 Blood Pressure [Right Upper Arm] Pulse Oximetry 95 96 96 Oxygen Delivery Method 11/24/23 00:02 11/24/23 00:15 11/24/23 00:17 Pulse Rate 56 L 56 L 56 L Pulse Rate [Right Pulse Oximeter] Respiratory Rate Blood Pressure 131/76 132/77 Blood Pressure [Right Upper Arm] Pulse Oximetry 96 95 95 Oxygen Delivery Method 11/24/23 00:30 11/24/23 00:32 11/24/23 00:45 Pulse Rate 54 L 43 L 56 L Pulse Rate [Right Pulse Oximeter] Respiratory Rate Blood Pressure 126/82 Blood Pressure [Right Upper Arm] Pulse Oximetry 96 95 97 Oxygen Delivery Method 11/24/23 00:47 11/24/23 01:05 Pulse Rate 56 L 56 L Pulse Rate [Right Pulse Oximeter] Respiratory Rate Blood Pressure 138/85 Blood Pressure [Right Upper Arm] Pulse Oximetry 96 96 Oxygen Delivery Method Hospitalist - H&P: Result Labs Labs: Short CBC 11/23/23 Range/Units 23:30 WBC 11.20 H (4.50-11.00) K/uL Hgb 14.1 (13.5-17.5) gm/dL Hct 41.9 (37.0-53.0) % Plt Count 151 (140-440) K/uL Assessment and Plan Assessment and plan (1) Contusion of right shoulder: Status: Acute (2) Facial abrasion: Status: Acute (3) Laceration of nose: Status: Acute (4) Dislocation of fifth finger, metacarpal joint, proximal, left, closed: Status: Acute (5) Osteoarthritis of left knee: Status: Acute (6) Anticoagulant long-term use: Problem comment: PFO and CVA Status: Acute (7) History of CVA (cerebrovascular accident): Problem comment: OAC Status: Acute (8) Coffee ground emesis: Status: Acute Plan This patient had a significant fall with multiple injuries. He had a contusion of the right shoulder. X-rays are negative for fracture. He has had his facial abrasions and a laceration of the nose. He has a dislocation of the fifth finger however this was reduced. He has significant knee and leg pain however he is able to move them grossly. He is not safe to go home at this time but will have physical therapy and occupational see him and assess him to see if he is safe to go home tomorrow. At the time of evaluation, the patient was possibly had a syncopal episode. Patient states he was falling asleep. Nursing felt that he was unresponsive. I ordered an EKG and it showed normal sinus rhythm with a first-degree block. I ordered an echocardiogram and I placed him on telemetry. Patient is on anticoagulation, Coumadin. He normally takes 2 to 5 mg of Coumadin. His INR was subtherapeutic. Will hold his Coumadin dose today but I have requested pharmacy to manage his Coumadin. Patient had a coffee-ground emesis x 2. We do not think he has an acute GI bleed. Rather his epistaxis had significant bleeding where he was swallowing it. He is not bleeding anymore however he continues to have some episodes of nausea. Will provide him Zofran. Telehealth: Statement Statement Telehealth Visit: Today's History and Physical is provided via interactive telehealth by Ciro Ayala MD.? Patient is located at [facility].? Provider is located at [facility].? Nursing staff assisted with the patient's exam. The visit being done today meets criteria for a telehealth visit and the patient or patient?s parent/guardian is aware the visit is a telehealth visit. Camera Start Time: 02:20 Camera End Time: 02:40
[2023-11-24] MEDS: MORPHINE 4 MG/ML INJ IVP (03:48)
[2023-11-24] MEDS: SODIUM CHLORIDE 0.9 % (FLUSH) 10 ML SYRINGE 5 ML IVF ×2 (03:48→08:28)
--- NOTE | 2023-11-24 06:53 | PC.NURSE ---
Pt is alert and oriented x3. Afebrile. Pt reports 8/10 pain on face managed with?PRN pain medications offered. Pt is voiding, tolerating a regular diet and up SBA with walker to bathroom. Pt slept intermittently throughout night.???
[2023-11-24] MEDS: ACETAMINOPHEN 500 MG TABLET PO (08:27)
--- NOTE | 2023-11-24 08:55 | XR_ITS ---
Patient: HARDY JAMES Facility:?[facility] Patient ID:?[id number] Site Patient ID:?[id number]. Site :?[id number] Study:?XRay-Chest 1v-11/24/2023 11:29:55 AM Ordering Physician:MARTA Final Report: INDICATION: Aspiration. TECHNIQUE: Chest 1 views. COMPARISON: None. FINDINGS: Cardiovascular and mediastinum: Heart size and vasculature are normal in caliber and appearance. Lungs and pleural spaces: Low lung volumes with interstitial prominence. Subtle bibasilar airspace disease. No sign of pleural effusion. No pneumothorax. Bones and soft tissues: No significant findings. IMPRESSION: Subtle bibasilar airspace disease, possibly atelectasis or aspiration in the appropriate clinical setting. Dictated by Joshua Reyna MD @ 11/24/2023 12:00:33 PM Signed by:?Joshua Reyna MD @11/24/2023 12:00:33 PM (Electronic Signature)
--- NOTE | 2023-11-24 08:55 | CT_ITS ---
Patient: HARDY JAMES Facility:?[facility] Patient ID:?[id number] Site Patient ID:?[id number]. Site :?[id number] Study:?CT-Head W/O-11/24/2023 10:45:46 AM Ordering Physician:MARTA Final Report: Indication: Evaluate brain bleed. Technique: Noncontrast CT of head was performed. Comparison: 11/23/2023. Findings: Brain parenchyma: Normal [place]-white matter differentiation. Similar prominence of the convexity sulci and periventricular white matter hypodensities in keeping with chronic microvascular change and age related volume loss. Focal hypodensities within the left basal ganglia and bilateral cerebellar hemispheres are unchanged and likely represent prior lacunar infarcts. Similar encephalomalacia within the medial right temporal lobe. No acute intraparenchymal hemorrhage. No mass effect or midline shift. Extra-axial spaces: No extra-axial collection. Ventricular system: Unremarkable for age. Paranasal sinuses and mastoid air cells: Clear. Orbits: Unremarkable. Bones: No calvarial fracture. Left frontal scalp contusion. Impression: 1. No acute intracranial abnormality identified. 2. Similar cerebral volume loss and findings suggestive of chronic small vessel ischemic change with evidence of prior infarcts within the left basal ganglia, bilateral cerebellar hemispheres and right temporal lobe. Please note that all CT scans at this facility use dose modulation, iterative reconstruction, and/or weight-based dosing when appropriate to reduce radiation dose to as low as reasonably achievable. Dictated by Bailey Carbajal MD @ 11/24/2023 11:03:31 AM Signed by:?Bailey Carbajal MD @11/24/2023 11:03:31 AM (Electronic Signature)
[2023-11-24] MEDS: PROCHLORPERAZINE 5 MG/ML VIAL IVP (08:57)
[2023-11-24] MEDS: 0.9 % SODIUM CHLORIDE 1000 ml 1,000 ML 125 ML IV (09:15)
--- NOTE | 2023-11-24 09:30 | PC.NURSE ---
Addendum entered and electronically signed by Nicci Thorpe RN 11/24/23 16:12: Patient transferred to [facility] for further evaluation. Patient left at 1530 via non-emergent. VSS. Patient left with 3 L of O2 and fluids running at 125 mL/hr. Original Note: Event: AT 0850 Patient's call light turned on and RN entered room. RN found patient in semi-bales's position, unresponsive with emesis leaking from mouth. RN called for help. RN noted patient choking on vomit and turned patient onto their left side. Staff assist button activated and several staff came to assist. IV fluids started at 125 mL/hr, Compazine give via IV, and continuous oxygen mask applied at 3 L. Patient became responsive and cleared their own airway by coughing. Patient stated they felt faint, nauseous, and hot. Noted diaphoresis. Gown was wet and patient felt warm to the touch. CT scan to head, chest x-ray, EKG, and Troponin order via Dr. Ortiz.
[2023-11-24 09:36] LABS: Eosinophils Absolute Auto 0.02 K/uL (0.00-0.50); Eosinophils Percent Auto 0.2 % (0.0-7.0); Hematocrit 43.5 % (37.0-53.0); Hemoglobin* 14.5 gm/dL (13.5-17.5); Immature Granulocytes Abs Auto 0.02 K/uL (0.00-0.30); Immature Granulocytes Pct Auto 0.2 %; Lymphocytes Percent Auto 8.2 % (20-44); Mean Corpuscular HGB Conc 33 gm/dL (32-36); Mean Corpuscular Hemoglobin 33 pg (26-34); Mean Corpuscular Volume 100 fL (80-100); Monocytes Percent Auto 7.4 % (0.0-11.0); Platelet Count* 145 K/uL (140-440); RDW Coefficient of Variation % 13.3 % (11.5-15.5); Red Blood Count 4.37 m/uL (4.30-5.90); White Blood Count* 10.45 K/uL (4.50-11.00)
[2023-11-24 09:37] LABS: Slide Review Reflex No
[2023-11-24 09:48] LABS: Chloride* 108 mmol/L (96-114); Potassium* 3.8 mmol/L (3.6-5.1); Sodium* 141 mmol/L (135-149)
[2023-11-24 09:51] LABS: Anion Gap 8 mEq/L (7-15); Blood Urea Nitrogen* 26 mg/dL (7-30); Carbon Dioxide* 25 mmol/L (20-32); Creatinine* 1.5 mg/dL (0.5-1.5); Est. Creatinine Clearance* 39.74; Estimated Glomerular Filt Rate 46 ml/min; Glucose* 121 mg/dL (60-115)
[2023-11-24 09:52] LABS: Calcium* 8.5 mg/dL (8.4-10.6)
[2023-11-24 10:04] LABS: Troponin I* < 0.01 ng/mL (0.01-0.04)
--- NOTE | 2023-11-24 11:33 | PM.IMPN1 ---
Progress Note: A&P Assessment and plan (1) Contusion of right shoulder: Problem details: Plain film negative for fracture. No obvious deformity or bruising this morning Pain with movement or palpation. Continue ice and pain management Status: Acute (2) Facial abrasion: Problem details: Noted Status: Acute (3) Laceration of nose: Problem details: Cleansed and dressed with Dermabond Status: Acute (4) Dislocation of fifth finger, metacarpal joint, proximal, left, closed: Problem details: Reduced as confirmed with plain film Pain management as needed Status: Acute (5) Anticoagulant long-term use: Problem details: PFO and CVA Status: Acute (6) History of CVA (cerebrovascular accident): Problem details: OAC Status: Acute (7) Coffee ground emesis: Problem details: Thought to be related to recent epistaxis from fall. Continue to monitor Status: Acute (8) Syncope: Problem details: Patient reports 1 episode between discharge from ED and admission to hospital, occurring at home, witnessed by son Questionable 2nd episode while being interviewed by tele hospitalist the patient tells me this morning he did not have a syncopal episode at that time Third episode currently 4th episode approximately 2 hours later, nurses state he was putting 1 leg over the bed to sit up, heart rate noted to drop to 29, again became diaphoretic, hampton and witnessed syncopal episode Both episodes in hospital setting, brief, followed by nausea. Neither with chest pain. Vital is stable CT head shows no changes from previous last night, no acute intracranial abnormality identified Troponin <0.01, CBC, BMP unremarkable In reviewing medications, antihypertensives have been held, last narcotic administration 12 hours ago, no other obvious means EKG essentially unchanged from previous on admission Echo pending Status: Acute (9) Hypertension: Problem details: Hold nifedipine, furosemide in setting of syncopal episodes and bradycardia Status: Acute (10) Bradycardia: Problem details: While in hospital, reported upper 20s-lower 40s, briefly, quickly resolving, resulting in syncope CT head without evidence of bleed Awaiting echo Continue telemetry Will follow-up with cardiology Status: Acute Time Spent With Patient Total time spent: Total time spent caring for the patient today was 90 minutes. This includes time spent for the visit reviewing the chart, time spent during the visit, time spent after the visit and documentation and planning in coordination of care. Subjective Date Seen: 11/24/23 Interval history: Patient is seen this morning during a rapid response. Nursing staff reports he was repositioning in bed and appeared to have a syncopal episode. On arrival to the room, patient is alert and awake, complaining of nausea. He did have 1 small emesis prior to our arrival. Slight pink hue which could be left over from his nose bleed last night. Currently, denies headache. Reports dizziness. Denies chest pain or shortness of breath. Continues to feel nauseous. Is diaphoretic. Continues to complain of right shoulder pain from fall yesterday. Denies abdominal pain. Denies new extremity pains related to fall last night. On exam, blood pressure adequate. Saturating low 90s. Current heart rate 60 the nursing staff reports he did dip into the 40s prior to arrival. EKG shows sinus bradycardia with first-degree AV block. Ventricular rate 59, QTC 465. Appears essentially without much change from previous EKG done earlier. Started normal saline maintenance fluids, administered Compazine [address] head and chest x-ray 1 stable enough to do so. Ordered CBC, BMP, troponin. Exam Narrative: Exam Narrative: PHYSICAL EXAM General: Diaphoretic, anxious, complaining of nausea HEENT: Abrasion over nasal bridge, EOM intact, pupils small but reactive, no facial asymmetry Cardiovascular: RRR, S1S2. No pitting edema Pulmonary: CTA bilaterally without rhonchi, rales, expiratory wheezes. No dyspnea on room air Abdominal: Soft, nondistended, NTTP Neurological: Alert, answering questions appropriately, cranial nerves intact, no focal findings - strength equal bilateral upper and lower extremities, no facial droop, no slurring of words Extremities: No gross joint deformity or swelling. AROMI. Neurovascularly intact Skin: Warm, dry. Const: Vital Signs, click to edit/add: Vital Signs - 24 hr 11/23/23 22:23 11/23/23 22:28 11/23/23 22:29 Temperature Pulse Rate 64 63 Pulse Rate [Left P ulse Oximeter] Pulse Rate [Right Pulse Oximeter] 70 Respiratory Rate 20 Blood Pressure 121/80 Blood Pressure [Le ft Arm] Blood Pressure [Ri ght Upper Arm] 121/80 Pulse Oximetry 95 95 94 Oxygen Delivery Me thod Room Air 11/23/23 22:30 11/23/23 22:32 11/23/23 22:45 Temperature Pulse Rate 63 64 67 Pulse Rate [Left P ulse Oximeter] Pulse Rate [Right Pulse Oximeter] Respiratory Rate Blood Pressure 120/75 Blood Pressure [Le ft Arm] Blood Pressure [Ri ght Upper Arm] Pulse Oximetry 94 95 96 Oxygen Delivery Me thod 11/23/23 22:47 11/23/23 23:00 11/23/23 23:02 Temperature Pulse Rate 50 L 58 L 59 L Pulse Rate [Left P ulse Oximeter] Pulse Rate [Right Pulse Oximeter] Respiratory Rate Blood Pressure 117/92 H 111/69 Blood Pressure [Le ft Arm] Blood Pressure [Ri ght Upper Arm] Pulse Oximetry 94 94 95 Oxygen Delivery Me thod 11/23/23 23:15 11/23/23 23:17 11/23/23 23:30 Temperature Pulse Rate 60 61 62 Pulse Rate [Left P ulse Oximeter] Pulse Rate [Right Pulse Oximeter] Respiratory Rate Blood Pressure 116/75 Blood Pressure [Le ft Arm] Blood Pressure [Ri ght Upper Arm] Pulse Oximetry 95 95 96 Oxygen Delivery Me thod 11/23/23 23:35 11/23/23 23:45 11/23/23 23:52 Temperature Pulse Rate 59 L 59 L 57 L Pulse Rate [Left P ulse Oximeter] Pulse Rate [Right Pulse Oximeter] Respiratory Rate Blood Pressure 133/79 Blood Pressure [Le ft Arm] Blood Pressure [Ri ght Upper Arm] Pulse Oximetry 94 95 96 Oxygen Delivery Me thod 11/24/23 00:00 11/24/23 00:02 11/24/23 00:02 Temperature Pulse Rate 56 L 56 L 56 L Pulse Rate [Left P ulse Oximeter] Pulse Rate [Right Pulse Oximeter] Respiratory Rate Blood Pressure 131/76 131/76 Blood Pressure [Le ft Arm] Blood Pressure [Ri ght Upper Arm] Pulse Oximetry 95 96 96 Oxygen Delivery Me thod 11/24/23 00:02 11/24/23 00:15 11/24/23 00:17 Temperature Pulse Rate 56 L 56 L 56 L Pulse Rate [Left P ulse Oximeter] Pulse Rate [Right Pulse Oximeter] Respiratory Rate Blood Pressure 131/76 132/77 Blood Pressure [Le ft Arm] Blood Pressure [Ri ght Upper Arm] Pulse Oximetry 96 95 95 Oxygen Delivery Me thod 11/24/23 00:30 11/24/23 00:32 11/24/23 00:45 Temperature Pulse Rate 54 L 43 L 56 L Pulse Rate [Left P ulse Oximeter] Pulse Rate [Right Pulse Oximeter] Respiratory Rate Blood Pressure 126/82 Blood Pressure [Le ft Arm] Blood Pressure [Ri ght Upper Arm] Pulse Oximetry 96 95 97 Oxygen Delivery Ok thod 11/24/23 00:47 11/24/23 01:05 11/24/23 02:16 Temperature 97.8 F Pulse Rate 56 L 56 L Pulse Rate [Left P ulse Oximeter] 71 Pulse Rate [Right Pulse Oximeter] Respiratory Rate 18 Blood Pressure 138/85 Blood Pressure [Le ft Arm] 147/73 H Blood Pressure [Ri ght Upper Arm] Pulse Oximetry 96 96 93 [facility] 11/24/23 03:00 11/24/23 03:23 11/24/23 07:00 Temperature 98.1 F 98.2 F Pulse Rate 64 Pulse Rate [Left P ulse Oximeter] 63 70 Pulse Rate [Right Pulse Oximeter] Respiratory Rate 18 16 Blood Pressure Blood Pressure [Le ft Arm] 136/72 118/68 Blood Pressure [Ri ght Upper Arm] Pulse Oximetry 94 95 [facility] 11/24/23 07:00 Temperature Pulse Rate Pulse Rate [Left P ulse Oximeter] 70 Pulse Rate [Right Pulse Oximeter] Respiratory Rate 16 Blood Pressure Blood Pressure [Le ft Arm] Blood Pressure [Ri ght Upper Arm] Pulse Oximetry [facility]xygen [facility] Labs: Laboratory Results - last 24 hr 11/23/23 11/24/23 23:30 09:15 WBC 11.20 H 10.45 RBC 4.24 L 4.37 Hgb 14.1 14.5 Hct 41.9 43.5 MCV 99 100 MCH 33 33 MCHC 34 33 RDW Coeff of Anna 13.1 13.3 Plt Count 151 145 Neut % (Auto) 89.3 H 84.0 H Lymph % (Auto) 3.6 L 8.2 L Powell % (Auto) 6.3 7.4 Eos % (Auto) 0.0 0.2 Baso % (Auto) 0.2 0.0 Neut # (Auto) 10.00 H 8.80 H Lymph # (Auto) 0.40 L 0.90 Powell # (Auto) 0.70 0.80 Eos # (Auto) 0.00 0.02 Baso # (Auto) 0.00 0.00 Abs Immat Gran (auto) 0.10 0.02 Imm/Tot Granulo (auto) 0.6 0.2 Sodium 141 Potassium 3.8 Chloride 108 Carbon Dioxide 25 Anion Gap 8 BUN 26 Creatinine 1.5 Estimated Creat Clear 39.74 Estimated GFR 46 Glucose 121 H Calcium 8.5 Troponin I < 0.01 L
--- NOTE | 2023-11-24 11:36 | REH.OT ---
OT: Orders received, chart reviewed, OT to hold per MD due to medical status and plan for further work up today. Will check status tomorrow.
[2023-11-24 11:46] LABS: INR 1.79 (0.91-1.10); Prothrombin Time 22.1 Seconds
--- NOTE | 2023-11-24 13:20 | REH.PT ---
PT orders recieved. Chart reviewed. PT evaluation and treatment held per MD request due to medical status. Will follow up tomorrow.
--- NOTE | 2023-11-24 14:29 | P.DS_ITS ---
DS: Providers Provider Date Seen: 11/24/23 Date of admission: 11/24/23 11:03 Primary care physician: Nhi Marvin MD Admitting Clinician: Domingo Chaves MD Consults: 11/24/23 02:09 Consult to Physical Therapy [CONS] Routine Comment: Reason(s) for PT Consult:: Inability to Mobilize Any Restrictions?:: Unknown 11/24/23 02:14 Consult to Occupational Therapy [CONS] Routine Comment: Reason(s) for OT Consult:: Evaluate and Treat Any Restrictions?:: Unknown Consult to Outside Machin[employer] [CONS] Routine Comment: Reason for Consult:: Discharge Planning Needs 11/24/23 02:42 Consult to Occupational Therapy [CONS] Routine Comment: Reason(s) for OT Consult:: Evaluate and Treat Any Restrictions?:: No Restrictions Consult to Physical Therapy [CONS] Routine Comment: Reason(s) for PT Consult:: Evaluate and Treat Any Restrictions?:: No Restrictions Attending Physician on discharge: Yoli Bashir [facility] Date [facility] Discharge: 11/24/23 DS: Diagnosis Discharge Diagnosis (1) Syncope: Status: Acute Problem details: Patient reports 1 episode between discharge from ED and admission to hospital, occurring at home, witnessed by son (11/23/23). Had vomited x3 prior to onset, going limp in chair in sleeping to floor. Questionable 2nd episode while being interviewed by tele hospitalist (11/24/23 at 0230), noted to be unresponsive while sitting in bed with a heart rate of 43 momentarily, however the patient tells me this morning he did not have a syncopal episode at that time Third episode currently as documented in HPI 4th episode approximately 2 hours later, nurses state he was putting 1 leg over the bed to sit up, heart rate noted to drop to 29, again became diaphoretic, hampton and witnessed syncopal episode Both episodes in hospital setting, brief, followed by nausea. Neither with chest pain. Vitally stable CT head shows no changes from previous last night, no acute intracranial abnormality identified Troponin <0.01, CBC, BMP unremarkable In reviewing medications, antihypertensives have been held, last narcotic administration 12 hours ago, no other obvious means EKG essentially unchanged from previous on admission [facility], essentially unchanged from previous in [address] Christianson, [facility] Cardiology, query sinus node dysfunction verses vagal. Plan to transfer for further workup, cardiology work up and potentially electrophysiology. (2) Bradycardia: Status: Acute Problem details: While in hospital, reported upper 20s-lower 40s, briefly, quickly resolving, coinciding with syncopal episode CT head (repeat) without evidence of bleed this morning ECHO reviewed with [facility] Cards, essentially unchanged from 2021 Continue telemetry Transfer to [facility] Telemetry bed (3) Contusion of right shoulder: Status: Acute Problem details: Plain film negative for fracture. No obvious deformity or bruising this morning Pain with movement or palpation. Continue ice and pain management (4) Facial abrasion: Status: Acute Problem details: Noted, no evidence of infection at this time (5) Laceration of nose: Status: Acute Problem details: Cleansed and dressed with Dermabond (6) Dislocation of fifth finger, metacarpal joint, proximal, left, closed: Status: Acute Problem details: Reduced as confirmed with plain film Pain management as needed (7) Anticoagulant long-term use: Status: Acute Problem details: PFO and CVA (8) History of CVA (cerebrovascular accident): Status: Acute Problem details: OAC (9) Coffee ground emesis: Status: Acute Problem details: Thought to be related to recent epistaxis from fall. Continue to monitor (10) Hypertension: Status: Acute Problem details: Hold nifedipine, furosemide in setting of syncopal episodes and bradycardia (11) Aspiration pneumonitis: Status: Acute Problem details: Coughed and choked while vomiting during rapid response episode this morning. CXR suspicious for atelectasis vs aspiration. First dose of Ceftriaxone empirically given prior to transfer DS: Summary Hospital Course Hospital Course: [age] year old male past medical history significant for hypertension, hyperlipidemia, previous CVA, PFO on chronic anticoagulation, CAD status post PTCA proximal LAD was admitted to the medical floor for syncope and bradycardia. Course of care and details as noted above. Remainder of chronic medical comorbidities were monitored and managed with home medications. Status at Discharge Overall status at discharge: patient is not back to baseline Time Spent with Patient Time attestation: Total time spent providing and/or coordinating discharge services: Time spent: Greater than 30 minutes Exam Narrative: Exam Narrative: PHYSICAL EXAM General: Resting comfortably Cardiovascular: RRR on telemetry Pulmonary: No dyspnea on room air Neurological: Alert, answering questions appropriately Skin: Warm, dry. Const: Vital Signs, click to edit/add: Vital Signs - 24 hr 11/23/23 22:23 11/23/23 22:28 11/23/23 22:29 Temperature Pulse Rate 64 63 Pulse Rate [Left P ulse Oximeter] Pulse Rate [Right Pulse Oximeter] 70 Respiratory Rate 20 Blood Pressure 121/80 Blood Pressure [Le ft Arm] Blood Pressure [Ri ght Upper Arm] 121/80 Pulse Oximetry 95 95 94 [facility] 11/23/23 22:30 11/23/23 22:32 11/23/23 22:45 Temperature Pulse Rate 63 64 67 Pulse Rate [Left P ulse Oximeter] Pulse Rate [Right Pulse Oximeter] Respiratory Rate Blood Pressure 120/75 Blood Pressure [Le ft Arm] Blood Pressure [Ri ght Upper Arm] Pulse Oximetry 94 95 96 Oxygen Delivery Me thod 11/23/23 22:47 11/23/23 23:00 11/23/23 23:02 Temperature Pulse Rate 50 L 58 L 59 L Pulse Rate [Left P ulse Oximeter] Pulse Rate [Right Pulse Oximeter] Respiratory Rate Blood Pressure 117/92 H 111/69 Blood Pressure [Le ft Arm] Blood Pressure [Ri ght Upper Arm] Pulse Oximetry 94 94 95 Oxygen Delivery Me thod 11/23/23 23:15 11/23/23 23:17 11/23/23 23:30 Temperature Pulse Rate 60 61 62 Pulse Rate [Left P ulse Oximeter] Pulse Rate [Right Pulse Oximeter] Respiratory Rate Blood Pressure 116/75 Blood Pressure [Le ft Arm] Blood Pressure [Ri ght Upper Arm] Pulse Oximetry 95 95 96 [facility] 11/23/23 23:35 11/23/23 23:45 11/23/23 23:52 Temperature Pulse Rate 59 L 59 L 57 L Pulse Rate [Left P ulse Oximeter] Pulse Rate [Right Pulse Oximeter] Respiratory Rate Blood Pressure 133/79 Blood Pressure [Le ft Arm] Blood Pressure [Ri ght Upper Arm] Pulse Oximetry 94 95 96 Oxygen Delivery Me thod 11/24/23 00:00 11/24/23 00:02 11/24/23 00:02 Temperature Pulse Rate 56 L 56 L 56 L Pulse Rate [Left P ulse Oximeter] Pulse Rate [Right Pulse Oximeter] Respiratory Rate Blood Pressure 131/76 131/76 Blood Pressure [Le ft Arm] Blood Pressure [Ri ght Upper Arm] Pulse Oximetry 95 96 96 Oxygen Delivery Me thod 11/24/23 00:02 11/24/23 00:15 11/24/23 00:17 Temperature Pulse Rate 56 L 56 L 56 L Pulse Rate [Left P ulse Oximeter] Pulse Rate [Right Pulse Oximeter] Respiratory Rate Blood Pressure 131/76 132/77 Blood Pressure [Le ft Arm] Blood Pressure [Ri ght Upper Arm] Pulse Oximetry 96 95 95 Oxygen Delivery Me thod 11/24/23 00:30 11/24/23 00:32 11/24/23 00:45 Temperature Pulse Rate 54 L 43 L 56 L Pulse Rate [Left P ulse Oximeter] Pulse Rate [Right Pulse Oximeter] Respiratory Rate Blood Pressure 126/82 Blood Pressure [Le ft Arm] Blood Pressure [Ri ght Upper Arm] Pulse Oximetry 96 95 97 Oxygen Delivery Me thod 11/24/23 00:47 11/24/23 01:05 11/24/23 02:16 Temperature 97.8 F Pulse Rate 56 L 56 L Pulse Rate [Left P ulse Oximeter] 71 Pulse Rate [Right Pulse Oximeter] Respiratory Rate 18 Blood Pressure 138/85 Blood Pressure [Le ft Arm] 147/73 H Blood Pressure [Ri ght Upper Arm] Pulse Oximetry 96 96 93 Oxygen Delivery Me od Room Air 11/24/23 03:00 11/24/23 03:23 11/24/23 07:00 Temperature 98.1 F 98.2 F Pulse Rate 64 Pulse Rate [Left P ulse Oximeter] 63 70 Pulse Rate [Right Pulse Oximeter] Respiratory Rate 18 16 Blood Pressure Blood Pressure [Le ft Arm] 136/72 118/68 Blood Pressure [Ri ght Upper Arm] Pulse Oximetry 94 95 Oxygen Delivery Me thod Room Air 11/24/23 07:00 11/24/23 11:00 Temperature Pulse Rate Pulse Rate [Left P ulse Oximeter] 70 Pulse Rate [Right Pulse Oximeter] Respiratory Rate 16 Blood Pressure Blood Pressure [Le ft Arm] 119/68 Blood Pressure [Ri ght Upper Arm] Pulse Oximetry Oxygen Delivery Ct thod DS: Data Data Completed and Pending Completed studies during hospitalization: Procedures Drainage of Right Shoulder Joint, Percutaneous Approach, Diagnostic (05/16/22) Excision of Left Clavicle, Percutaneous Endoscopic Approach (05/16/22) Excision of Left Shoulder Bursa and Ligament, Percutaneous Endoscopic Approach (05/16/22) Excision of Left Shoulder Joint, Percutaneous Endoscopic Approach (05/16/22) Excision of Right Clavicle, Percutaneous Endoscopic Approach (05/16/22) Excision of Right Shoulder Bursa and Ligament, Percutaneous Endoscopic Approach (05/16/22) Excision of Right Shoulder Joint, Percutaneous Endoscopic Approach (05/16/22) Labs on day of discharge: Labs from last 24 hours 11/24/23 11/24/23 11/23/23 11:28 09:15 23:30 WBC 10.45 11.20 H RBC 4.37 4.24 L Hgb 14.5 14.1 Hct 43.5 41.9 MCV 100 99 MCH 33 33 MCHC 33 34 RDW Coeff of Anna 13.3 13.1 Plt Count 145 151 Neut % (Auto) 84.0 H 89.3 H Lymph % (Auto) 8.2 L 3.6 L [place] % (Auto) 7.4 6.3 Eos % (Auto) 0.2 0.0 Baso % (Auto) 0.0 0.2 Neut # (Auto) 8.80 H 10.00 H Lymph # (Auto) 0.90 0.40 L [place] # (Auto) 0.80 0.70 Eos # (Auto) 0.02 0.00 Baso # (Auto) 0.00 0.00 Abs Immat Gran (auto) 0.02 0.10 Imm/Tot Granulo (auto) 0.2 0.6 INR 1.79 H Sodium 141 Potassium 3.8 Chloride 108 Carbon Dioxide 25 Anion Gap 8 BUN 26 Creatinine 1.5 Estimated Creat Clear 39.74 Estimated GFR 46 Glucose 121 H Calcium 8.5 Troponin I < 0.01 L Lab Acknowledgement Test Added Imaging CT scan - head: Attestation: I have reviewed the pertinent imaging results. Radiologist's impression: Noncontrast CT of head was performed. Comparison: 11/23/2023. Findings: Brain parenchyma: Normal hampton-white matter differentiation. Similar prominence of the convexity sulci and periventricular white matter hypodensities in keeping with chronic microvascular change and age related volume loss. Focal hypodensities within the left basal ganglia and bilateral cerebellar hemispheres are unchanged and likely represent prior lacunar infarcts. Similar en cephalomalacia within the medial right temporal lobe. No acute intraparenchymal hemorrhage. No mass effect or midline shift. Extra-axial spaces: No extra-axial collection. Ventricular system: Unremarkable for age. Paranasal sinuses and mastoid air cells: Clear. Orbits: Unremarkable. Bones: No calvarial fracture. Left frontal scalp contusion. Impression: 1. No acute intracranial abnormality identified. 2. Similar cerebral volume loss and findings suggestive of chronic small vessel ischemic change with evidence of prior infarcts within the left basal ganglia, bilateral cerebellar hemispheres and right temporal lobe. Chest x-ray: Attestation: I have reviewed the pertinent imaging results. Radiologist's impression: Cardiovascular and mediastinum: Heart size and vasculature are normal in caliber and appearance. Lungs and pleural spaces: Low lung volumes with interstitial prominence. Subtle bibasilar airspace disease. No sign of pleural effusion. No pneumothorax. Bones and soft tissues: No significant findings. IMPRESSION: Subtle bibasilar airspace disease, possibly atelectasis or aspiration in the appropriate clinical setting. Additional Comments Additional comments: Reviewed films from ED Discharge Plan Discharge Disposition: General Acute Hospital Date of Admission: 11/24/23 11:03 Attending Provider on Discharge: Yoli Bashir Primary Care Provider: Nhi Marvin Condition: Unchanged Discharge Orders: Transfer of Care to Other Hospital (ORDER); Ordered 11/24/23 Ordered By: Yoli Bashir Oxygen: No Oxygen Flow Rate: P.r.n. Urinary Catheter: No Services not available here: Cardiology, electrophysiology
[2023-11-24] MEDS: cefTRIAXone 1 GM in 0.9 % SODIUM CHLORIDE Mini-bag 100 ML IVPB (15:06)
== END 2023-11-24 15:30 | disposition short-term general hospital (02) | DRG 308 ==
LOC: ED 11-24 01:34 → MEDSURG 11-24 01:35
PROVIDERS: Physician Assistant; Admitting Provider Family Medicine; Emergency Provider Emergency Medicine; PCP Family Medicine; Visit Provider Family Medicine
DX: R00.1 Bradycardia, unspecified (principal); J69.0 Pneumonitis due to inhalation of food and vomit; K92.0 Hematemesis; Q21.12 Patent foramen ovale; R55 Syncope and collapse; R42 Dizziness and giddiness; S40.011A Contusion of right shoulder, initial encounter; S01.21XA Laceration without foreign body of nose, initial encounter; S63.267A Dislocation of metacarpophalangeal joint of left little finger, initial encounter; Z79.01 Long term (current) use of anticoagulants; I10 Essential (primary) hypertension; E78.5 Hyperlipidemia, unspecified; I25.10 Atherosclerotic heart disease of native coronary artery without angina pectoris; I44.0 Atrioventricular block, first degree; Z86.73 Personal history of transient ischemic attack (TIA), and cerebral infarction without residual deficits; W01.0XXA Fall on same level from slipping, tripping and stumbling without subsequent striking against object, initial encounter; Z91.81 History of falling; R04.0 Epistaxis
CPT/HCPCS: 36415; 70450; 71045; 72125; 73030; 73130; 80048; 84484; 85025; 85610; 93005; 93306; 94761; 99284; 99285; A9270; G0378; J0696; J0780; J2270; J2405; J7030

== ENCOUNTER 2023-11-24 15:10 | Outpatient (CLI) | payer MEDICARE, OTHER, SELFPAY ==
--- OUTSIDE RECORDS SUMMARY | 2023-11-25 17:32 | XMS_ITS | Clinical Summary ---
Author Name Unknown Organization [employer] [facility] [employer] Affiliates Address [place], [place] [address] Care Team Providers Care Electrical Electronics Technician Name Role Phone Nhi Marvin MD Primary Care Provide r [facility], [place] Unavailable Elaine Alarcon RN Unavailable Unavailable [facility] [place] Unavailable Allergies Active Allergy Reactions Criticality Noted [...] accident) 2017 Coronary artery disease invo lving [place] coronary artery of [place] heart 12/09/2017 Non-cardiac chest pain 12/09/2017 Anticoagulation monitoring, INR range 2-3 2016 Acute CVA (cerebrovascular accident) 07/20/2016 Patent foramen ovale 03/13/2016 Elevated prostate specific antigen (PSA) 012 Colon polyps 07/23/2009 Overview: Colonoscopy 11/2009 polyps repeat in 5 years Unspecified sleep apnea 11/05/2006 Coronary atherosclerosis of unspecified type of vessel, [place] or graft 05/13/2006 Overview: --S/P Angio 04/24/05 [...] 4:27 PM CDT - Present Hospital Encounter [facility] [address] [place] [address] [facility], [facility] Hospitalists Of Familia, MD Khloe Oconnell, Teri Corona MD 11/24/2023 11:00 AM CDT Ancillary Procedure [place] [facility] [place] at [facility] [address] [place] [address] Arrived 11/24/[address] [facility] [place] [id number] [facility] [address] [place] [address] León Christianson MD 11/24/2023 Travel 11/13/2023 Refill [facility] [address] [place] [address] Nhi Marvin MD Refill Request (Rosuvastatin) 11/12/2023 2:30 PM CDT Orders Only [facility] [address] [place] [address] Lab, [facility] 11/12/2023 Anticoagulation (warfarin) [facility] [address] [place] [address] 1, [facility] Anticoagulation 11/12/2023 Travel 11/12/2023 Telephone [facility] [address] [place] [address] Nhi Marvin MD Anticoagulation (OVERDUE #2 reminder) 10/25/2023 11:00 AM CDT Office Visit [facility] [address] [place] [address] Jesus Mancera MD Sleep Follow-up (cpap) 10/25/2023 Travel 09/20/2023 Refill [facility] [address] [place] [address] Nhi Marvin MD Refill Request (Furosemide) 09/16/2023 2:30 PM DAIRY WORKER Orders Only [facility] [address] [place] [address] Lab, [facility] 09/16/2023 Anticoagulation (warfarin) [facility] [address] [facility] [place] [address] 1, [facility] Anticoagulation 09/16/2023 Travel 09/02/2023 11:30 AM DAIRY WORKER Orders Only [facility] [address] [place] [address] Lab, [facility] 09/02/2023 Anticoagulation (warfarin) [facility] [address] [facility] [place] [address] 1, [facility] Anticoagulation 09/02/2023 Travel [...] Description 02/03/2024 11:00 AM CDT Office Visit [facility] [address] [place] [address] Jesus Mancera MD [address] [place] [address] Health Maintenance Due Date Last Done Comments [...] accident) (HC) INR,POCT Routine 09/16/2023 2:48 PM DAIRY WORKER PFO (patent foramen ovale) Anticoagulation monitoring, INR range 2-3 Acute CVA (cerebrovascular accident) (HC) INR,POCT Routine 09/02/2023 2:00 PM DAIRY WORKER PFO (patent foramen ovale) Anticoagulation monitoring, INR [...] - 4.20 uIU/mL 11/25/2023 8:45 AM CDT [facility] Blood BLOOD SPECIMEN / Unknown Butterfly / Unknown 11/25/2023 7:33 AM CDT 11/25/2023 8:10 AM CDT Narrative [facility] - 11/25/2023 8:45 AM CDT In Adults, TSH values between 5.00 and 10.00 uIU/ml do not necessarily indicate the presence of Hypothyroidism. Correlation with clinical findings such as presence of goiter and/or Thyroperoxidase (TPO) Antibody may be helpful. For more information please refer to JEFFERY 2004; 291: 228-238. Rupa Zhang NP CHEMISTRY [facility] [address] [place] [address], * (ABNORMAL) CBC (11/25/2023 7:33 AM CDT) WHITE BLOOD COUNT 12.4(H) 4.5 - 11.0 thou/cu mm 11/25/2023 8:26 AM CDT [facility] RED BLOOD COUNT 4.07(L) 4.30 - 5.90 mil/cu mm 11/25/2023 8:26 AM CDT [facility] HEMOGLOBIN 13.6 13.5 - 17.5 g/dL 11/25/2023 8:26 AM CDT [facility] HEMATOCRIT 40.9 37.0 - 53.0 % 11/25/2023 8:26 AM T [facility] MCV 101(H) 80 - 100 fL 11/25/2023 8:26 AM CDT [facility] MCH 33.4 26.0 - 34.0 pg 11/25/2023 8:26 AM CDT [facility] MCHC 33.3 32.0 - 36.0 g/dL 11/25/2023 8:26 AM T [facility] RDW 13.6 11.5 - 15.5 % 11/25/2023 8:26 AM CDT [facility] PLATELET COUNT 136(L) 140 - 440 thou/cu mm 11/25/2023 8:26 AM CDT [facility] MPV 9.7 6.5 - 11.0 fL 11/25/2023 8:26 AM CDT [facility] NRBC 0.0 % 11/25/2023 8:26 AM T [facility] ABS NRBC 0.0 thou /cu mm 11/25/2023 8:26 AM T [facility] Blood BLOOD SPECIMEN / Unknown Butterfly / Unknown 11/25/2023 7:33 AM CDT 11/25/2023 8:09 AM CDT Rupa Zhang NP HEMATOLOGY [facility] [address] [place], [place] [address] * MAGNESIUM (11/25/2023 7:33 AM CDT) MAGNESIUM 2.2 1.6 - 2.4 mg/dL 11/25/2023 8:45 AM CDT [facility] Blood BLOOD SPECIMEN / Unknown Butterfly / Unknown 11/25/2023 7:33 AM CDT 11/25/2023 8:10 AM CDT Rupa Zhang NP CHEMISTRY [facility] [address] [place] [address], * (ABNORMAL) BASIC METABOLIC PANEL (11/25/2023 7:33 AM CDT) SODIUM 142 136 - 145 mmol/L 11/25/2023 8:45 AM CDT [facility] POTASSIUM 4.0 3.5 - 5.1 mmol/L 11/25/2023 8:45 AM CDT [facility] CHLORIDE 109(H) 98 - 107 mmol/L 11/25/2023 8:45 AM CDT [facility] CO2,TOTAL 22 22 - 29 mmol/L 11/25/2023 8:45 AM T [facility] ANION GAP 11 5 - 18 11/25/2023 8:45 AM CDT [facility] GLUCOSE 85 70 - 99 mg/dL 11/25/2023 8:45 AM T [facility] CALCIUM 8.5(L) 8.8 - 10.2 mg/dL 11/25/2023 8:45 AM T [facility] BUN 25(H) 8 - 23 mg/dL 11/25/2023 8:45 AM T [facility] CREATININE 1.47(H) 0.70 - 1.20 mg/dL 11/25/2023 8:45 AM T [facility] BUN/CREAT RATIO 17 10 - 20 8:45 AM T [facility] eGFR 47(L) >90 mL/min/1.7 3m2 11/25/2023 8:45 AM CDT [facility] Comment:As of 2021, eG [...] Rupa Zhang NP CHEMISTRY Performing Organization Address [facility] de Phone Number [facility] [address] [place] [address], * SCAN-CARDIAC STRIP (11/25/2023 2:21 AM CDT) Scanner OTHER * EKG 12 LEAD (11/24/2023 7:03 PM CDT) Interpretation Normal sinus rhythm Left axis deviation Inferior infarct (cited on or before 06-JUN-2022) Abnormal ECG When compared with ECG of 13-JUN-2022 17:53, Premature atrial complexes are no longer Present [place] interval has decreased BEYOND NOW Ventricular Rate 74 BPM BEYOND NOW Atrial Rate 74 BPM BEYOND NOW P-R Interval 208 ms BEYOND NOW QRS Duration 106 ms BEYOND NOW QT 402 ms BEYOND NOW QTc 446 ms BEYOND NOW P [place] 18 degrees BEYOND NOW R [place] -34 degrees BEYOND NOW T [place] 9 degrees BEYOND NOW 11/24/2023 7:03 PM CDT 11/25/2023 9:43 AM CDT Rupa Zhang NP EKG ORD Performing Organization Address [facility] de Phone Number [facility] [place], [place] * SCAN-CARDIAC STRIP (11/24/2023 4:59 PM CDT) Scanner OTHER * ECHO TTE COMPLETE WO CONTRAST (11/24/2023 12:57 PM CDT) AORTIC VALVE MEAN PG 11 mmHg EJECTION FRACTION 65 % LVEDD 4.5 cm Anatomical Region Laterality Modality Ultrasound 11/24/2023 12:1 9 PM CDT Narrative 11/24/2023 2:51 PM CDT ECHOCARDIOGRAM HARDY OLIVER ?Accession#: ?? [id number] : ?1940 83 years Study Date: ?? 11/24/2023 12:19:44 PM Gender: M ? BP: ? 118/68 mmHg Height: 180.00 cm ? BSA: ?2.20 m? ? ? Weight: 100.00 kg ? Tech: ? MSR ?Referring MD: BRET AYALA Site: ? [facility] Reading Location: [facility] Patient Location: Inpatient. Procedure: 2D, Color Doppler [...] . This study was interpreted by an [facility] accredited facility. CC: HIM (med records) [facility], Med/Surg - IP [facility]. ??Final ?? Procedure Note Rafael Taylor MD - 11/24/2023 ECHOCARDIOGRAM HARDY OLIVER : 1940 83 years Study Date: 11/24/2023 12:19:44 PM Gender: M BP: 118/68 mmHg Height: 180.00 cm BSA: 2.20 m? ? ? Weight: 100.00 kg Tech: MSR Referring MD: BRET AYALA Site: [facility] Reading Location: Mobile [place] Patient [...] . This study was interpreted by an [facility] accredited facility. CC: HIM (med records) [facility], Med/Surg - IP [facility]. Final Bret Ayala MD ECHO ORD * (ABNORMAL) INR,POCT (11/12/2023 2:42 PM CDT) Only the most recent of3 resultswithin the time period is included. INR 1.7(H) <1.3 11/12/2023 2:45 PM CDT [facility] Blood BLOOD SPECIMEN / Unknown 11/12/2023 2:42 PM CDT 11/12/2023 2:45 PM CDT Narrative [facility] - 11/12/2023 2:45 PM CDT ?Therapeutic Range 2.0-3.0 for most anticoagulated patients 2.5-3.5 or 4.0 for high risk patients Nhi Marvin MD LABORATORY [facility] [address] [place] [address], from Last 3 Months Advance Directives Documents on File Type Date Recorded Patient Medical Esthetician Expl anation Healthcare Directive 08/19/2023 3:20 PM [...] Comments Code Status Discussion: Discussed Care Teams Electrical Electronics Technician Relationship Specialty Start Date End Date Nhi Marvin MD [address] [place] [address] PCP - General Family Practice 08/19/11 [place] [id number] [address] 05/23/22 Elaine [place]ar[place], RN Registered Nurse Registered Nurse 06/13/22 [facility], [place] [address], [place] [address] 09/08/22
== END 2023-11-24 15:11 | disposition home or self-care (01) ==
LOC: AMB 11-25 17:31
PROVIDERS: PCP Family Medicine; Visit Provider Family Medicine
DX: R55 Syncope and collapse (principal)
CPT/HCPCS: A0425; A0434

== ENCOUNTER 2025-04-21 17:43 | Outpatient (CLI) | payer MEDICARE, OTHER, SELFPAY | END 2025-04-21 17:44 | disposition home or self-care (01) | LOC: AMB 04-24 10:18 | PROVIDERS: PCP Family Medicine; Visit Provider Family Medicine | DX: S79.912A Unspecified injury of left hip, initial encounter (principal); W18.30XA Fall on same level, unspecified, initial encounter; Y92.001 Dining room of unspecified non-institutional (private) residence as the place of occurrence of the external cause | CPT/HCPCS: A0425; A0433 ==

== ENCOUNTER 2025-04-21 18:18 | Emergency (ER) | payer MEDICARE, OTHER, SELFPAY ==
[2025-04-21] VITALS (35 sets, daily range): BP systolic 124–154; BP diastolic 78–112; PULSE 69–71; RESP 15–20; TEMP 36.6; O2SAT 93–97
--- OUTSIDE RECORDS SUMMARY | 2025-04-21 18:25 | XMS_ITS | Clinical Summary ---
Author Organization [facility] Address [address] [place] [address] Care Team Providers Care Hand Paster Name Role Phone Nhi Marvin MD Primary Care Provide r [facility] [place] Unavailable [facility] [place] Unavailable [phone] Allergies Active Allergy Reactions Criticality Noted Date Comments Aspirin Anaphylaxis High 04/24/2005 Atorvastatin Arthralgia Low 07/23/2009 Doxycycline Vomiting 06/07/2012 Tamsulosin Hypotension 09/14/2022 Pravastatin Arthralgia Low 07/23/2009 Medications acetaminophen (TYLENOL EXTRA STRGTH) 500 mg tablet Take 1,000 mg by mouth every 6 hours if needed for Pain. Max acetaminophen dose: 4000mg in 24 hrs. Active CPAPIndications :JOAO (obstructive sleep apnea) CPAP machine for home use at pressure 9 cmw, full face mask x1/3month with a full face cushion x1/mo 1 Each 11 024 Active Additional Information Patient not taking.Reported on 04/10/2025 Graduated Compression StockingsIndica tions:Bilateral leg edema For personal use. Length: calf Strength: 16-20 mmHg Circumference in cm: For calf 38 cm Ankle to calf length 40 cm. Size Large 2 Packet 1 024 Active amoxicillin 500 mg capsuleIndicati ons:PFO (patent foramen ovale) (HC) TAKE 4 CAPSULES BY MOUTH ONE HOUR BEFORE DENTAL APPOINTMENT 12 Capsule 1 024 Active potassium chloride (KLOR-CON M10) 10 mEq extended-releas e tablet (part/cryst)Ind ications:Hypoka lemia Take 1 Tablet (10 mEq) by mouth once daily. 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 90 Tablet 3 025 Active sennosides-docu sate (SENOKOT S) (8.6-50 mg) tabletIndicatio ns:Chronic constipation Take 2 tablets in the AM and 1 tablet at PM 270 Tablet 3 025 Active mirtazapine (REMERON) 7.5 mg tabletIndicatio ns:Insomnia, idiopathic Take 1 Tablet (7.5 mg) by mouth at bedtime. 90 Tablet 3 025 Active vitamin B complex (B-COMPLEX VITAMIN) tablet Take 1 Tablet by mouth once daily. 0 018 2024 Discontinued(* Med complete/Regim en complete/Level of care change) lidocaine 5 % topical patchIndication s:Acute pain of right shoulder Apply to intact skin to cover most painful area for max 12hr per 24hr period. 30 Patch 022 2024 Discontinued(* Med complete/Regim en complete/Level of care change) glucosamine sulfate 500 mg tab Take 1,500 mg by mouth once daily. 2024 Discontinued(* Med complete/Regim en complete/Level of care change) cholecalciferol , Vitamin D3, 2,000 unit tabletIndicatio ns:Vitamin D deficiency Take 1 Tablet (2,000 units) by mouth once daily. 90 Tablet 3 023 2024 Discontinued(* Med complete/Regim en complete/Level of care change) omeprazole (PRILOSEC) 20 mg Delayed-Release capsuleIndicati ons:Nausea Take 1 Capsule (20 mg) by mouth once daily before a meal. 90 Capsule 3 023 2024 Discontinued(* Med complete/Regim en complete/Level of care change) fluticasone (50 mcg per actuation) nasal solution (FLONASE)Indica tions:Recurrent acute serous otitis media of both ears Inhale 2 Sprays to both nostrils once daily. 16 g 024 2024 Discontinued(* Med complete/Regim en complete/Level of care change) sennosides (Senna) 8.6 mg tabletIndicatio ns:Chronic constipation TAKE ONE TABLET BY MOUTH TWICE A DAY 180 Tablet 2 024 2024 Discontinued(* Med complete/Regim en complete/Level of care change) ciclopirox (CICLODAN) 8 % topical solutionIndicat ions:Fungal toenail infection Apply topically to affected area(s) at bedtime. Apply solution once daily to affected nails with applicator brush, preferably at bedtime or 8 hours before washing; remove with alcohol every 7 days 6.6 mL 11 024 2024 Discontinued(* Med complete/Regim en complete/Level of care change) mirtazapine 15 mg tabletIndicatio ns:Insomnia, idiopathic TAKE ONE TABLET (15 MG) BY MOUTH AT BEDTIME 90 Tablet 025 2024 Discontinued clopidogreL (PLAVIX) 75 mg tabletIndicatio ns:History of CVA (cerebrovascula r accident) TAKE ONE TABLET BY MOUTH EVERY DAY IN THE MORNING 90 Tablet 025 2024 Discontinued(R eorder (E-cancel not sent)) rosuvastatin (CRESTOR) 5 mg tabletIndicatio ns: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 90 Tablet 025 2024 Discontinued(R eorder (E-cancel not sent)) mirtazapine (REMERON) 15 mg tabletIndicatio ns:Insomnia, idiopathic TAKE ONE TABLET (15 MG) BY MOUTH AT BEDTIME 30 Tablet 025 2024 Discontinued(* Med complete/Regim en complete/Level of care change) mirtazapine (REMERON) 15 mg tabletIndicatio ns:Insomnia, idiopathic Take 1 Tablet (15 mg) by mouth at bedtime. 90 Tablet 3 025 2024 Discontinued(* Med complete/Regim en complete/Level of care change) Active Problems Problem Noted Date Diagnosed Date Stage 3 chronic kidney disea se, unspecified whether stage 3a or 3b CKD 04/10/2025 Complete heart block 12/02/2023 Fall 11/24/2023 Bradycardia 11/24/2023 Moderate mitral regurgitation 11/24/2023 Chronic pain of left knee 11/24/2023 BPH with urinary obstruction 10/01/2022 Bilateral leg edema 10/01/2022 Aortic ectasia, unspecified site 09/02/2022 Thrombocytopenia, unspecified 09/02/2022 Persistent cognitive impairment 07/21/2022 Protein malnutrition 07/21/2022 COVID-19 06/13/2022 Hypoxia 06/13/2022 Memory deficit 05/25/2022 Pseudogout of left knee 05/25/2022 Urinary retention 05/25/2022 PMR (polymyalgia rheumatica) 05/18/2022 JOAO 02/16/2006 AHI-59 03/17/2018 HTN (hypertension) 12/09/2017 Mixed hyperlipidemia 12/09/2017 History of CVA (cerebrovascular accident) 2017 Coronary artery disease invo lving torres martinez coronary artery of torres martinez heart 12/09/2017 Non-cardiac chest pain 12/09/2017 Acute CVA (cerebrovascular accident) 07/20/2016 Patent foramen ovale 03/13/2016 Elevated prostate specific antigen (PSA) 012 Colon polyps 07/23/2009 Overview (11/20/2009): Colonoscopy 11/2009 polyps repeat in 5 years Unspecified sleep apnea 11/05/2006 Coronary atherosclerosis of unspecified type of vessel, torres martinez or graft 05/13/2006 Overview (05/13/2006): --S/P Angio 04/24/05 -PTCA/SONJA Stent of proximal LAD -PTCA of D1 secondary to plaque shifting. Unspecified transient cerebral ischemia Essential hypertension, benign Benign neoplasm of major salivary glands Hyperlipidemia LDL goal < 100 PFO (patent foramen ovale) Effusion of left knee Resolved Problems Problem Noted Date Diagnosed Date Resolved Date History of CVA (cerebrovascular accident) 11/24/2023 11/24/2023 JOAO 02/16/2006 AHI-59 12/01/2022 12/02/19 23 Staphylococcal arthritis of left shoulder 10/01/2022 01/04/2024 Acute respiratory failure with hypoxia 09/02/2022 01/04/2024 Staphylococcal arthritis of right shoulder 07/21/2022 01/04/2024 Depression, major, single episode, moderate 07/21/2022 04/10/2025 Septic joint of left shoulder region 05/18/2022 01/04/2024 Anticoagulation monitoring, INR range 2-3 07/20/2016 12/14/2023 STABLE ANGINA PECTORIS 05/13/200611/07 Overview (05/13/2006): -Abnormal Myocardial Perfusion 05/06/06 Other ill-defined and unknow n causes of morbidity and mortality 09/04/2011 Encounters Date Type Department Care Team Description 04/10/2025 10:55 AM CDT [facility] [address] [place] [address] Nhi Marvin MD Medicare ANNUAL (subsequent) Visit (84 yo Male/Medication refills/BMs are difficult, can he take more senna?/Ingrown hairs on neck. Yellow spots on scalp/Knee pain./Ears plugged) 04/10/2025 Travel 03/22/2025 [facility]ill [facility] [address] [facility] [place] [address] Nhi Marvin MD Refill Request (Mirtazapine) 03/14/2025 [facility] [address] [facility] [place] [address] Nhi Marvin MD Refill Request (Potassium Chloride) 03/02/2025 Refill [facility] [address] [place] [address] Chen Lepe MD Refill Request (rosuvastatin) 02/26/2025 [facility] [address] [facility] [place] [address] Nhi Marvin MD Refill Request (Clopidogrel) 02/05/2025 Refill [facility] [address] [place] [address] Chen Lepe MD Refill Request from Last 3 Months Immunizations Immunization Administration Dates Next Due COVID-19 VACCINE SPIKEVAX (M ODERNA 50MCG/0.5ML) 12YO+ PFS 04/06/2024,09/20/2023 COVID-19 vaccine (Moderna 100mcg/0.5mL) PF, MDV 05/09/2021,09/18/2020,09/18/2020 COVID-19 vaccine (Moderna Nader nnamdi 50mcg/0.25mL) PF, MDV 09/20/2023,04/09/2023 COVID-19 vaccine (Pfizer-Bio NTech 30mcg/0.3mL) 12YO+ LALITHA-SUCROSE PF, MDV 11/20/2021 Influenza A (H1N1), Inactivated 07/23/2009 Influenza A (H1N1), Inactiva julian (Age >=3 Years) 07/23/2009 Influenza, High-dose Inactivated 04/20/2018,04/11 Influenza, High-dose Quadriv alent Inactivated 04/30/2023,04/24/2020 Influenza, IIV3 (Age 6-35 mos) 04/02/2009 Influenza, IIV3 (Age >=3 years) 04/25/20 13,04/12/2012,04/11/2011,04/08,06/08/2007,04/26/2006,06/25/2005 Influenza, IIV4 04/29/2021 Influenza, Inactivated IIV3 (Age 65+ Years) Preserv Free 04/10/2025,04/06/2024,04/19/2019 Pneumococcal Poly,23-Valent (Pneumovax) 07/23/2009 Pneumococcal conj 13-Valent (Prevnar 13) 09/28/2014 RSV, Bivalent Vaccine Recons tituted (Abrysvo 120MCG/0.5mL) 04/30/2023 RSV, Recombinant ADJ Reconst ituted (Arexvy 120MCG/0.5mL) 04/30/2023 Td (Age >=7 Years) 01/29/2005 Td Adult, Adsorbed, Pf, Lf Unspecified 5 Tdap 09/28/2014 Tuberculin Skin Test, Unspecified 12/16/2023, Zoster (Shingrix-RZV, recombinant) 04/06/2019, Zoster (Zostavax-ZVL, live) 04/06/2019, 9 Family History Medical History Relation Name Comments [...] Answer Date Recorded PHQ-2 TOTAL SCORE 0 04/10/2025 Social Connections Answer Date Recorded Do you often feel lonely or isolated from those around you? 0 04/10/2025 Alcohol Use Answer Date Recorded How often do you have a drink containing alcohol ? 0 04/10/2025 How many drinks containing a lcohol do you have on a typical day when you are drinking? 0 04/10/2025 How often do you have five or more drinks on one occasion? 0 04/10/2025 Financial Resource Strain Answer Date R ecorded Difficulty of Paying Living Expenses 3 04/10/2025 Difficulty of Paying Living Expenses Not on file 04/10/2025 Food Insecurity Answer Date Recorded Do you worry your food will run out before you are able to buy more? 1 04/10/2025 Transportation Needs Answer Date Record ed Does lack of transportation keep you from medica l appointments? 1 04/10/2025 Does lack of transportation keep you from work, meetings or getting things that you need? 1 04/10/2025 Housing Stability Answer Date Recorded What is your housing situation today? 1 04/10/2025 Interpersonal Safety Answer Date Record ed Are you being hit, kicked, p ushed or yelled at (see row info)? No 11/25/2023 Interpersonal Safety Abuse 12 - 18 Not on file 11/25/2023 Interpersonal Safety Ambulatory Vulnerability No t on file 11/25/2023 Utilities Answer Date Recorded Do you have trouble paying f or utilities (for example, heat, electricity, water, phone)? 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 Not on file Not on file Obstetrics History Last Filed Vital Signs Vital Sign Reading Time Taken Comments Blood Pressure 118/78 04/10/2025 11:27 AM CDT Pulse 70 04/10/2025 11:27 AM CDT Temperature 36.4 C (97.6 F) 11/06/2024 9:01 AM CDT Respiratory Rate 18 12/02/2023 8:51 AM CDT Oxygen Saturation 97% 04/10/2025 11: 27 AM CDT Inhaled Oxygen Concentration - - Weight 85.1 kg (187 lb 11.2 oz) 025 11:27 AM CDT Height 180.3 cm (5' 11) 04/10/2025 11: 27 AM CDT Body Mass Index 26.18 04/10/2025 11:27 AM CDT Plan of Treatment Health Maintenance Due Date Last Done Comments Tetanus booster 09/28/2024 09/28/2014, 01/10, 01/29/2005 COVID-19 vaccine series ( season) 2025 04/06/2024, 09/20/2023, 09/20/2023, Additional history exists BMI (ht and wt on same day) for age 18+ 04/10/2026 04/10/2025, 12/20/2023, 07/16/2023, Additional history exists Depression screening for age 12+ 04/10/2026 04/10/2025, 01/11/2024, 01/04/2024, Additional history exists Medicare Wellness for age 65+ 04/11/2026 04/10/2025, 11/17/2018, 10/29/2016, Additional history exists Pneumococcal series for age 50+ Completed 09/28/2014, 07/23/2009 Zoster (shingles) series for age 50+ Completed 04/06/2019, 04/06/2019, 01/25/2019, Additional history exists RSV vaccine for adults or Completed 04/30/2023, 04/30/2023 Influenza Vaccine Completed 04/10/2025, , 04/29/2021, Additional history exists Hepatitis B series for 19+ Aged Out N o longer eligible based on patient's age to complete this topic Procedures Procedure Name Priority Date/Time Associated Diagnosis Comments CBC WITH AUTO DIFFERENTIAL Routine 04/10/2025 12:39 PM CDT 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 (HC) COMP METABOLIC PANEL Routine 04/10/2025 12:39 PM CDT Hypokalemia TSH WITH REFLEX Routine 04/10/2025 12:39 PM CDT Chronic constipation LIPID PANEL W REFLEX MEASURED LDL Routine 04/10/2025 12:39 PM CDT 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 (HC) CBC WITH AUTO DIFFERENTIAL Routine 04/10/2025 12:39 PM CDT 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 (HC) from Last 3 Months Results * (ABNORMAL) CBC WITH AUTO DIFFERENTIAL (04/10/2025 12:39 PM CDT) WHITE BLOOD CELL COUNT 7.5 3.8 - 10.8 Thousand/ uL 04/11/2025 3:47 AM CDT [facility] RED BLOOD CELL COUNT 4.46 4.20 - 5.80 Million/u L 04/11/2025 3:47 AM CDT [facility] HEMOGLOBIN 14.9 13.2 - 17.1 g/dL 04/11/2025 3:47 AM CDT [facility] HEMATOCRIT 44.6 38.5 - 50.0 % 04/11/2025 3:47 AM CDT [facility] MCV 100.0 80.0 - 100.0 fL 04/11/2025 3:47 AM CDT [facility] MCH 33.4(H) 27.0 - 33.0 pg 04/11/2025 3:47 AM CDT [facility] MCHC 33.4 32.0 - 36.0 g/dL 04/11/2025 3:47 AM CDT [facility] Comment: For adults, a slight decrease in the calculated MCHC value (in the range of 30 to 32 g/dL) is most likely not clinically significant; however, it should be interpreted with caution in correlation with other red cell parameters and the patient's clinical condition. RDW 12.5 11.0 - 15.0 % 04/11/2025 3:47 AM CDT [facility] PLATELET COUNT 178 140 - 400 Thousand/ uL 04/11/2025 3:47 AM CDT [facility] MPV 9.3 7.5 - 12.5 fL 04/11/2025 3:47 AM CDT [facility] NEUTROPHILS 73.2 % 04/11/2025 3:47 AM CDT [facility] LYMPHOCYTES 14.6 % 04/11/2025 3:47 AM CDT [facility] MONOCYTES 9.7 % 04/11/2025 3:47 AM CDT [facility] EOSINOPHILS 2.1 % 04/11/2025 3:47 AM CDT [facility] BASOPHILS 0.4 % 04/11/2025 3:47 AM CDT [facility] ABSOLUTE NEUTROPHILS 5490 1500 - 7800 cells/uL 04/11/2025 3:47 AM CDT [facility] ABSOLUTE LYMPHOCYTES 1095 850 - 3900 cells/uL 04/11/2025 3:47 AM CDT [facility] ABSOLUTE MONOCYTES 728 200 - 950 cells/uL 04/11/2025 3:47 AM CDT [facility] ABSOLUTE EOSINOPHILS 158 15 - 500 cells/uL 04/11/2025 3:47 AM CDT [facility] ABSOLUTE BASOPHILS 30 0 - 200 cells/uL 04/11/2025 3:47 AM CDT [facility] Blood BLOOD SPECIMEN / Unknown [facility] / Unknown 04/10/2025 12:39 PM CDT 04/10/2025 12:39 PM CDT Narrative [facility] - 04/11/2025 3:47 AM CDT FASTING:UNKNOWN FASTING: UNKNOWN Nhi Marvin MD HEMATOLOGY Final Result Performing Organization Address City/[facility]/ZIP Co de Phone Number [facility] [address] [address], [place] [phone] * TSH WITH REFLEX (04/10/2025 12:39 PM CDT) TSH W/REFLEX TO FT4 1.39 0.40 - 4.50 mIU/L 04/11/2025 5:47 AM CDT [facility] Blood BLOOD SPECIMEN / Unknown [facility] / Unknown 04/10/2025 12:39 PM CDT 04/10/2025 12:39 PM CDT Narrative [facility] - 04/11/2025 5:47 AM CDT FASTING:UNKNOWN FASTING: UNKNOWN Nhi Marvin MD CHEMISTRY Final Result Performing Organization Address [facility]/ZIP Co de Phone Number [facility] [address] [place] [id number], [place] [phone] * LIPID PANEL W REFLEX MEASURED LDL (04/10/2025 12:39 PM CDT) CHOLESTEROL, TOTAL 107 <200 mg/dL 04/11/2025 4:01 AM CDT [facility] TRIGLYCERIDES 89 <150 mg/dL 04/11/2025 4:01 AM CDT [facility] HDL CHOLESTEROL 45 > OR = 40 mg/dL 04/11/2025 4:01 AM CDT [facility] NON HDL CHOLESTEROL 62 <130 mg/dL (calc) 04/11/2025 4:01 AM CDT [facility] Comment: For patients with diabetes plus 1 major ASCVD risk factor, treating to a non-HDL-C goal of <100 mg/dL (LDL-C of <70 mg/dL) is considered a therapeutic option. CHOL/HDLC RATIO 2.4 <5.0 (calc) 04/11/2025 4:01 AM CDT [facility] LDL-CHOLESTEROL 45 mg/dL (calc) 04/11/2025 4:01 AM CDT [facility] Comment: Reference range: <100 Desirable range <100 mg/dL for primary prevention; <70 mg/dL for patients with CHD or diabetic patients with > or = 2 CHD risk factors. LDL-C is now calculated using the Jimbo-Sue calculation, which is a validated novel method providing better accuracy than the Friedewald equation in the estimation of LDL-C. Jimbo SS et al. JEFFERY. 2013;310(19): 5438-9264 (http://education.CEINT.Selectron/faq/YEM054) Blood BLOOD SPECIMEN / Unknown [facility] / Unknown 04/10/2025 12:39 PM CDT 04/10/2025 12:39 PM CDT Narrative [facility] - 04/11/2025 4:01 AM CDT FASTING:UNKNOWN FASTING: UNKNOWN us Nhi Marvin MD CHEMISTRY Final Result [facility] [employer] [address] [place] [address], [place] [phone] * (ABNORMAL) COMP METABOLIC PANEL (04/10/2025 12:39 PM CDT) SODIUM 138 135 - 146 mmol/L 04/11/2025 4:01 AM CDT [facility] POTASSIUM 4.3 3.5 - 5.3 mmol/L 04/11/2025 4:01 AM CDT [facility] CHLORIDE 103 98 - 110 mmol/L 04/11/2025 4:01 AM CDT [facility] CARBON DIOXIDE 27 20 - 32 mmol/L 04/11/2025 4:01 AM CDT [facility] GLUCOSE 91 65 - 99 mg/dL 04/11/2025 4:01 AM CDT [facility] Comment: Fasting reference interval CALCIUM 9.4 8.6 - 10.3 mg/dL 04/11/2025 4:01 AM CDT [facility] CREATININE 1.60(H) 0.70 - 1.22 mg/dL 04/11/2025 4:01 AM CDT [facility] BUN/CREATININE RATIO 8 6 - 22 (calc) 04/11/2025 4:01 AM CDT [facility] EGFR 42(L) > OR = 60 mL/min/1. 73m2 04/11/2025 4:01 AM CDT [facility] ALBUMIN 4.1 3.6 - 5.1 g/dL 04/11/2025 4:01 AM CDT [facility] PROTEIN, TOTAL 6.3 6.1 - 8.1 g/dL 04/11/2025 4:01 AM CDT [facility] BILIRUBIN, TOTAL 1.0 0.2 - 1.2 mg/dL 04/11/2025 4:01 AM CDT [facility] ALKALINE PHOSPHATASE 91 35 - 144 U/L 04/11/2025 4:01 AM CDT [facility] ALT 6(L) 9 - 46 U/L 04/11/2025 4:01 AM CDT [facility] AST 8(L) 10 - 35 U/L 04/11/2025 4:01 AM CDT [facility] UREA NITROGEN (BUN) 13 7 - 25 mg/dL 04/11/2025 4:01 AM CDT [facility] GLOBULIN 2.2 1.9 - 3.7 g/dL (calc) 04/11/2025 4:01 AM CDT [facility] ALBUMIN/GLOBULIN RATIO 1.9 1.0 - 2.5 (calc) 04/11/2025 4:01 AM CDT [facility] Blood BLOOD SPECIMEN / Unknown [facility] / Unknown 04/10/2025 12:39 PM CDT 04/10/2025 12:39 PM CDT Narrative [facility] - 04/11/2025 4:01 AM CDT FASTING:UNKNOWN FASTING: UNKNOWN Nhi Marvin MD CHEMISTRY Final Result [facility] [address] [place] [address], from Last 3 Months Insurance MEDICARE PART B HB ONLY MEDICARE PART A HB ONLY DANYEL SMALL [id number] MEDICARE PB ONLY HC MEDICARE PPS DANYEL SMALL [id number] [facility] [address] [address] PENITENTIARY MEDICARE PART B HB ONLY Advance Directives Documents on File Type Date Recorded 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 Expl 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 Healthcare Directive 08/19/2023 3:20 PM 08/2022 Healthcare Directive 04/12/2023 023 * Full Code (Latest Code Status on File) Date Activated Date Inactivated Comments 11/24/2023 7:10 PM 12/02/2023 3:02 PM Question Answer Comments Code Status Discussion: [...] Comments Code Status Discussion: Discussed Care Teams Hand Paster Relationship Specialty Start Date End Date Nhi Marvin MD [address] [place] [address] PCP - General Family Practice 08/19/11 [facility] [place] [address] [address] 05/23/22 [facility] [place] [address] [place] [address] 09/08/22
--- OUTSIDE RECORDS SUMMARY | 2025-04-21 18:25 | XMS_ITS ---
Author Organization [facility] ter Care Team Providers Care Payroll Bookkeeper Name Role Phone Demetria Williamson Unavailable Unavailable Zuleyma Arceo Unavailable Unavailable León Duran Unavailable Unavailable Allergies and adverse reactions Code CodeSystem Substance Reaction Severity StartDate Concern Status 39343 RXNORM Pravastatin Moderate 12/02/2023 active Flomax Moderate 12/02/2023 active 3640 RXNORM Doxycycline Moderate 12/02/2023 active 06861 RXNORM Atorvastatin Moderate 12/02/2023 active 1191 RXNORM Aspirin Severe 12/02/2023 active Care Team Name Role Address Phone Organization Dates León Duran [address], [address], [place], [place], [facility], [place] (Office): [facility] 12/02/2023 - 12/30/2023 Demetria Williamson [facility], [facility] 12/02/2023 - 12/30/2023 Zuleyma Arceo [address], [place], [address], [facility] (Office): : [facility] 12/02/2023 - 12/30/2023 Immunizations Immunization Status Vaccine Details Vaccine Code CodeSystem Date Notes TB 2 Step Mantoux Skin Test completed tuberculin skin test; unspecified formulation lotNumber: [id number] expiry: 11/08/2026 Mfg: tubersol Given 0.1 ml Right Forearm subcutaneously Step 2 of Multi-step with next step required 98 CVX created date: 12/17/2023 consent date: 12/16/2023 administer ed date: 12/16/2023 TB 2 Step Mantoux Skin Test completed tuberculin skin test; unspecified formulation lotNumber: [id number] expiry: 11/08/2026 Mfg: tubersol Given 0.1 ml Right Forearm subcutaneously Step 1 of Multi-step with next step required 98 CVX created date: 12/03/2023 consent date: 12/02/2023 administer ed date: 12/03/2023 Prevnar 13 completed pneumococcal conjugate vaccine, 13 valent 133 CVX created date: 12/02/2023 administer ed date: 09/28/2014 Pneumovax 23 completed pneumococcal polysaccharide vaccine, 23 valent 33 CVX created date: 12/02/2023 administer ed date: 07/23/2009 Prevnar 20 cancelled Pneumococcal conjugate vaccine 20-valent (PCV20), polysaccharide [id number] conjugate, adjuvant, preservative free 216 CVX created date: 12/20/2023 consent date: 12/20/2023 refused on admit zoster live completed zoster vaccine, live 121 CVX created date: 12/02/2023 consent date: 12/02/2023 administer ed date: 04/06/2019 zoster live completed zoster vaccine, live 121 CVX created date: 12/02/2023 administer ed date: 01/25/2019 Respiratory syncytial virus (RSV), unspecified completed Respiratory syncytial virus (RSV), vaccine, bivalent, protein subunit RSV prefusion F, diluent reconstituted, 0.5 mL, preservative free 305 CVX created date: 12/02/2023 administer ed date: 04/30/2023 TDAP completed tetanus toxoid, reduced diphtheria toxoid, and acellular pertussis vaccine, adsorbed 115 CVX created date: 12/02/2023 administer ed date: 09/28/2014 Influenza-High Dose completed Influenza, high-dose, split virus, quadrivalent, injectable, preservative free 197 CVX created date: 12/02/2023 administer ed date: 04/30/2023 Td completed tetanus and diphtheria toxoids, adsorbed, preservative free, for adult use, Lf unspecified 196 CVX created date: 12/02/2023 administer ed date: 01/29/2005 COVID-19 Vaccine dose 6 completed SARS-COV-2 (COVID-19) vaccine, mRNA, spike protein, LNP, bivalent, preservative free, 50 mcg/0.5 mL or 25 mcg/0.25 mL dose Mfg: MODERNA 229 CVX created date: 12/02/2023 administer ed date: 04/09/2023 Booster COVID-19 Vaccine dose 7 completed SARS-COV-2 (COVID-19) vaccine, mRNA, spike protein, LNP, bivalent, preservative free, 50 mcg/0.5 mL or 25 mcg/0.25 mL dose Mfg: MODERNA 229 CVX created date: 12/02/2023 administer ed date: 09/20/2023 Booster Mental Status Section Date Assessment Total Score Description 12/30/2023 BIMS 15 cognitively int act CAM 0 No delirium ind icated PHQ-9 00 12/08/2023 BIMS 15 cognitively int act CAM 0 No delirium ind icated PHQ-9 00 Insurance Providers Problems Problem # Description Date of onset Resolved Date Code CodeSystem Concern Status 1 ATRIOVENTRICULAR BLOCK, COMPLETE 12/02/[address] active 2 CEREBROVASCULAR DISEASE, UNSPECIFIED 12/02/[address] active 3 CHRONIC IDIOPATHIC CONSTIPATION 12/02/[address] active 4 DYSPHAGIA, UNSPECIFIED 12/02/[address] active 5 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 12/02/[address] active 6 INSOMNIA, UNSPECIFIED 12/02/[address] active 7 LOCALIZED EDEMA 12/02/[address] active 8 IMPREGNATOR CARBON PRODUCTS (CURRENT) USE OF ANTICOAGULANTS 12/02/[address] active 9 POLYMYALGIA RHEUMATICA 12/02/[address] active 10 PRESENCE OF CARDIAC PACEMAKER 12/02/[address] active 11 SYNCOPE AND COLLAPSE 12/02/[address] active 12 AORTIC ECTASIA, UNSPECIFIED SITE 11/30/[address] active 13 ATHEROSCLEROTIC HEART DISEASE OF [place] CORONARY ARTERY WITHOUT ANGINA PECTORIS 11/30/[address] active 14 BENIGN PROSTATIC HYPERPLASIA WITH LOWER URINARY TRACT SYMPTOMS 11/30/[address] active 15 BRADYCARDIA, UNSPECIFIED 11/30/[address] active 16 DEPENDENCE ON OTHER ENABLING MACHINES AND DEVICES 11/30/[address] active 17 ESSENTIAL (PRIMARY) HYPERTENSION 11/30/[address] active 18 HYPERLIPIDEMIA, UNSPECIFIED 11/30/[address] active 19 MAJOR DEPRESSIVE DISORDER, SINGLE EPISODE, MODERATE 11/30/[address] active 20 MILD COGNITIVE IMPAIRMENT OF UNCERTAIN OR UNKNOWN ETIOLOGY 11/30/[address] active 21 NONRHEUMATIC MITRAL (VALVE) INSUFFICIENCY 11/30/[address] active 22 OBSTRUCTIVE SLEEP APNEA (ADULT) (PEDIATRIC) 11/30/[address] active 23 OTHER CHRONIC PAIN 11/30/[address] active 24 OTHER SPECIFIED PERSONAL RISK FACTORS, NOT ELSEWHERE CLASSIFIED 11/30/[address] active 25 PAIN IN LEFT KNEE 11/30/[address] active 26 PERSONAL HISTORY OF TRANSIENT ISCHEMIC ATTACK (TIA), AND CEREBRAL INFARCTION WITHOUT RESIDUAL DEFICITS 11/30/[address] active Reason for Referral No Reasons for Referral Entered Social History Social History Observation Description Start Date End Date Code Code System Current Smoking Status Tobacco smoking consumption unknown 501049241 SNOMED CT Sex Assigned At Male 1940 69397-5 [facility] Gender Identity Sexual Orientation Vital Signs Code Code System Vitals Name Values and Units Timing Information 8462-4 [facility] Blood Pressure-Diastolic Value=70 Un its=mmHg 12/30/2023 8480-6 [facility] Blood Pressure-Systolic Idsbt=356 Un its=mmHg 12/30/2023 8867-4 [facility] Heart rate Value=80.0 Units=/min 9279-1 [facility] Respiratory Rate Value=16.0 Units=/m in 12/29/2023 8310-5 [facility] Body Temperature Value=98.1 Units= F 12/29/2023 07995-2 [facility] O2 % BldC Oximetry Value=88.0 Units= % 12/29/2023 24629-5 [facility] Weight Arwqu=225.5 Units=Lbs 06119-1 [facility] Pain Level Value=0.0 12/27/2023 8302-2 [facility] Height Value=71.0 Units=Inches 12/03/2023
--- NOTE | 2025-04-21 18:41 | ED.GENADULT ---
HPI - General Adult General Date Seen: 04/21/25 Chief complaint: Weakness Stated complaint: Potential Stroke Time Seen by Provider: 04/21/25 18:40 History of Present Illness HPI narrative: 84-year-old gentleman with who has a history atrial fibrillation, pacemaker, on chronic anticoagulation warfarin hypertension, hyperlipidemia history of aspiration pneumonitis, osteoarthritis, history of stroke, cognitive de decline. He is on Plavix for anti-platelet because he is allergic to aspirin. Patient presents to the ER today by EMS from his home with concern for possible stroke. He does have some mild cognitive decline and general slowing of his previous vigorous nature. He takes a nap at least twice a day now, on the advice of his neurologist. He did have a stroke about 3 years ago but has not left with any focal deficits from that. He and his , Aura, confirm that he was in his usual state of health this morning. No recent illnesses. No recent cough or trouble breathing or chest pain. No recent palpitations. No recent falls or head injuries. No recent vomiting or diarrhea. At about 12 30 this afternoon, as he usually does, he sat down at the kitchen table and put his head down on a towel to take his afternoon nap. He nap for almost 4 hours. He woke up at about 4:50 p.m. when his son and [id number] came to visit. They noticed that he was slurring his speech. When they tried to help him stand up he was very weak and fell to the floor. They did not notice any obvious unilateral weakness or arm and leg paralysis. He does not have a headache. His vision is at baseline. His family brought his meds with them in his a block bag. I do see clopidogrel but I do not see any warfarin in the back. We believe that he is on warfarin but we do see that it was crossed out on a med list. Unclear if he is on warfarin or not. Related Data Home Medications ?Medication ?Instructions ?Recorded ?Confirmed rosuvastatin 5 mg tablet 5 mg PO MOWEFR@21 05/12/22 04/21/25 warfarin 5 mg tablet 2.5 - 5 mg PO DAILY 05/12/22 04/21/25 acetaminophen 500 mg tablet 1,000 mg PO Q6H PRN 05/14/22 04/21/25 (Acetaminophen Extra Strength) amoxicillin 500 mg capsule 2,000 mg PO ONCE PRN 05/14/22 04/21/25 chlorpheniramine maleate 4 mg 4 mg PO Q12H PRN 05/14/22 04/21/25 tablet (Aller-Chlor) cholecalciferol (vitamin D3) 50 50 mcg PO DAILY 05/14/22 04/21/25 mcg (2,000 unit) tablet glucosamine sulfate 500 mg tablet 1,500 mg PO DAILY 05/14/22 04/21/25 (Cidatrine (glucosamine)) vitamin B complex (B 1 tab PO DAILY 05/14/22 04/21/25 Complex-Vitamin B12 tablet) furosemide 20 mg tablet 20 mg PO DAILY 11/24/23 04/21/25 mirtazapine 15 mg tablet 15 mg PO HS 11/24/23 04/21/25 omeprazole 20 mg capsule,delayed 20 mg PO DAILY 11/24/23 04/21/25 release polyethylene glycol 3350 17 17 g PO DAILY PRN 11/24/23 04/21/25 gram/dose oral powder sennosides 8.6 mg tablet 8.6 mg PO BID 11/24/23 04/21/25 Allergies Allergy/AdvReac Type Severity Reaction Status Date / Time aspirin Allergy Unknown Verified 04/21/25 18:38 [facility] Medical History (Updated 04/21/25 @ 21:38 by Dre Chacko MD) Hypertension ?I10 - Essential (primary) hypertension (ICD-10) Health care directive on file ?Z78.9 - Other specified health status (ICD-10) POLST (Physician Orders for Life-Sustaining Treatment) ?Z78.9 - Other specified health status (ICD-10) Aortic aneurysm ?I71.9 - Aortic aneurysm of unspecified site, without rupture (ICD-10) Septic arthritis of acromioclavicular joint ?M00.9 - Pyogenic arthritis, unspecified (ICD-10) Coronary artery disease ?I25.10 - Atherosclerotic heart disease of [place] coronary artery without angina pectoris (ICD-10) Hyperlipidemia ?E78.5 - Hyperlipidemia, unspecified (ICD-10) History of CVA (cerebrovascular accident) ?Z86.73 - Personal history of transient ischemic attack (TIA), and cerebral infarction without residual deficits (ICD-10) PFO (patent foramen ovale) ?Q21.12 - Patent foramen ovale (ICD-10) Essential hypertension ?I10 - Essential (primary) hypertension (ICD-10) Surgical History (Updated 12/01/23 @ 00:01 by Anisa Ray) Status post arthroscopy of right shoulder (05/17/22) ?Z98.890 - Other specified postprocedural states (ICD-10) Status post arthroscopy of left shoulder (05/17/22) ?Z98.890 - Other specified postprocedural states (ICD-10) History of coronary artery stent placement ?Z95.5 - Presence of coronary angioplasty implant and graft (ICD-10) Social History (Updated 11/18/22 @ 09:50 by Marisol Husain ~ [facility], [facility]) Narrative: -Alex ( 61 years) What is your current living situation?: I presently have a place to live Problems where you live: no known problems Problems where you live details: N/A In the past 12 months, utilities in danger of being shut off: no In past 12 months, lack of transportation kept you from medical appts, meetings, work, or getting things needed for daily living: no In the past 12 mos, have been you worried that your food would run out before you had money to buy more?: never true In the past 12 mos, the food you bought just didn't last and you didn't have money to buy more?: never true Highest level of school completed/degree received: some college, no degree Smoking Status: Never smoker Do you use any of these nicotine containing products: None Second hand tobacco smoke exposure: No How often do you have a drink containing alcohol: never How often do you have six or more drinks on one occasion: Never AUDIT-C Alcohol total score: 0 Non-prescribed substance use: denies use Caffeine: Yes ([facility] daily) Are you now , , , , never or living with a partner: Social isolation score (0-1 are the most socially isolated patients): 1 How often does anyone, including family, friends and others, physically hurt you: never How often does anyone, including family, friends and others, insult or talk down to you: never How often does anyone, including family, friends and others, threaten you with harm: never How often does anyone, including family, friends and others, scream or curse at you: never service: No Exam Narrative: Exam Narrative: Primary Survey: A- patent. Speaking clearly. Phonation normal. No stridor. B- breathing easily. Lung sounds clear and equal. Oxygen saturation normal on room air C- no active bleeding. Blood pressure stable. Symmetric pulses and cap refill in 4 extremities. D- alert and oriented x3. GCS 15. Slurred speech Constitutional: Appears well-developed and well-nourished. Alert. Conversant. Non toxic. HENT: Head: Atraumatic. No depressed skull fracture, Raccoon Eyes, Hoyt's sign, or hemotympanum. Face normal. TMs normal Nose: Nose normal. Mouth/Throat: Oral mucosa is clear and moist. no trismus. Pharynx normal. Tonsils symmetric. No tonsillar enlargement, erythema, or exudate. Eyes: Conjunctivae normal. EOM normal. Pupils equal, round, and reactive to light. No scleral icterus. Neck: Normal range of motion. Neck supple. No tracheal deviation present. Cardiovascular: Normal rate, regular rhythm. No gallop. No friction rub. No murmur heard. Symmetric radial artery pulses . Pacemaker in place. Pulmonary/Chest: Effort normal. No stridor. No respiratory distress. No wheezes. No rales. No rhonchi . No tenderness. Abdominal: Soft.No distension. No mass. No tenderness. No rebound. No guarding. Musculoskeletal: RUE: Normal range of motion. No tenderness. No deformity LUE: Normal range of motion. No tenderness. No deformity RLE: Normal range of motion. No edema. No tenderness. No deformity LLE: Normal range of motion. No edema. No tenderness. No deformity Neurological: Mental status normal. Attention normal. Alert and oriented x3. GCS 15. Memory normal. Speech fluent but slurred. No word-finding difficulty.. Cognition normal. 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 Cranial Nerves intact II-XII except I did not formally test gag or visual acuity. I do not see any facial droop. EOMI. Palate elevates symmetrically and tongue protrudes in the midline. Strength: 5/5 strength in left upper extremity including the trapezius, deltoid, biceps, triceps, housing relocation. 4+/5 strength on the right. He is little bit weaker with his housing relocation strength when compared to the left and is a little bit more weakness with his tricep push when compared to left but is able to hold his arm up against gravity. 5/5 finger abduction on the right and left 5/5 hip flexors (L3) on the right and left 5/5 quadriceps (L4) on the right and left 5/5 tibialis anterior on the right and left 5/5 EHL (L5) on the right and left 5/5 gastrocnemius (S1) on the right and left 5/5 hamstring on the right and left Sensation intact to light touch in both upper extremities (C4-T1) Sensation intact to light touch in Both lower extremities (L4-S1). Finger to nose and coordination normal. Gait not assessed due to stroke activation Skin: Skin is warm and dry. No rash noted. No pallor. Normal capillary refill. Psychiatric: Normal mood. Normal affect. Const: Vital Signs, click to edit/add: Vital Signs - 24 hr 04/21/25 18:35 04/21/25 18:36 04/21/25 18:37 Temperature 98 F Pulse Rate 69 70 Pulse Rate [Right Pulse Oximeter] 70 Respiratory Rate 18 16 Blood Pressure 150/87 H Blood Pressure [Ri ght Upper Arm] 150/87 H Pulse Oximetry 94 94 95 [facility] 04/21/25 18:45 04/21/25 18:47 04/21/25 18:57 Temperature Pulse Rate 70 70 Pulse Rate [Right Pulse Oximeter] Respiratory Rate 16 Blood Pressure 147/103 H Blood Pressure [Ri ght Upper Arm] Pulse Oximetry 95 95 95 [facility] 04/21/25 19:02 04/21/25 19:12 04/21/25 19:30 Temperature Pulse Rate 70 Pulse Rate [Right Pulse Oximeter] Respiratory Rate 18 18 Blood Pressure 151/94 H Blood Pressure [Ri ght Upper Arm] Pulse Oximetry 95 [facility] 04/21/25 19:32 04/21/25 19:40 04/21/25 19:42 Temperature Pulse Rate 69 70 Pulse Rate [Right Pulse Oximeter] Respiratory Rate 18 18 Blood Pressure 144/90 H 153/99 H Blood Pressure [Ri ght Upper Arm] Pulse Oximetry 95 95 Oxygen Delivery Me thod Room Air 04/21/25 19:45 04/21/25 19:48 04/21/25 19:52 Temperature Pulse Rate 69 71 Pulse Rate [Right Pulse Oximeter] Respiratory Rate 20 18 Blood Pressure 152/93 H Blood Pressure [Ri ght Upper Arm] Pulse Oximetry 94 94 95 Oxygen Delivery Me thod 04/21/25 20:00 04/21/25 20:01 04/21/25 20:10 Temperature Pulse Rate 70 70 Pulse Rate [Right Pulse Oximeter] Respiratory Rate 20 18 18 Blood Pressure 154/87 H 139/86 Blood Pressure [Ri ght Upper Arm] Pulse Oximetry 93 95 Oxygen Delivery Me thod 04/21/25 20:11 04/21/25 20:15 04/21/25 20:21 Temperature Pulse Rate 70 70 70 Pulse Rate [Right Pulse Oximeter] Respiratory Rate 18 20 20 Blood Pressure 138/86 136/89 Blood Pressure [Ri ght Upper Arm] Pulse Oximetry 95 96 94 Oxygen Delivery Me thod 04/21/25 20:30 04/21/25 20:32 04/21/25 20:33 Temperature Pulse Rate 70 70 70 Pulse Rate [Right Pulse Oximeter] Respiratory Rate 16 18 15 Blood Pressure 135/87 Blood Pressure [Ri ght Upper Arm] Pulse Oximetry 94 94 96 Oxygen Delivery Me thod 04/21/25 20:42 04/21/25 20:42 04/21/25 20:45 Temperature Pulse Rate 70 70 Pulse Rate [Right Pulse Oximeter] Respiratory Rate 16 18 Blood Pressure 132/83 Blood Pressure [Ri ght Upper Arm] Pulse Oximetry 95 95 Oxygen Delivery Me thod Room Air 04/21/25 20:51 04/21/25 21:00 04/21/25 21:00 Temperature Pulse Rate 70 70 Pulse Rate [Right Pulse Oximeter] Respiratory Rate 18 18 Blood Pressure 133/82 Blood Pressure [Ri ght Upper Arm] Pulse Oximetry 93 96 Oxygen Delivery Me thod Room Air 04/21/25 21:01 04/21/25 21:11 04/21/25 21:15 Temperature Pulse Rate 70 70 70 Pulse Rate [Right Pulse Oximeter] Respiratory Rate 18 17 15 Blood Pressure 124/112 H 134/78 Blood Pressure [Ri ght Upper Arm] Pulse Oximetry 95 95 96 Oxygen Delivery Me thod 04/21/25 21:21 10/11/25 21:30 04/21/25 21:32 Temperature Pulse Rate 70 70 70 Pulse Rate [Right Pulse Oximeter] Respiratory Rate 19 18 18 Blood Pressure 129/83 130/80 Blood Pressure [Ri ght Upper Arm] Pulse Oximetry 96 94 95 Oxygen Delivery Me thod 04/21/25 21:41 04/21/25 21:45 04/21/25 21:51 Temperature Pulse Rate 70 70 70 Pulse Rate [Right Pulse Oximeter] Respiratory Rate 18 20 18 Blood Pressure 131/83 141/87 H Blood Pressure [Ri ght Upper Arm] Pulse Oximetry 95 95 97 Oxygen Delivery Me thod Course Course ED Course: Patient seen and evaluated by MD in ER room 1. We called his family back to the bedside. After a rapid initial evaluation we did activate a code stroke/stroke team. Initial NIH stroke scale= 1. He does also have some weakness of his right upper extremity but not drift or limb ataxia. Paged to Stroke Neurology at [facility]. Received a phone call from Dr. Rodríguez at 7:05 p.m.. She agrees that the patient is not a candidate for IV thrombolytics given his last known well time was 12:30 p.m.. If there is on LV 0, may be a candidate for thrombectomy. She agrees with proceeding with noncontrast head CT to look for bleed and CT angiogram. She will call back once images are available. I accompanied the patient to the CT scanner and reviewed his noncontrast head CT images as they came off the scanner and I do not see any bleed or obvious hydrocephalus. He did have another episode of vomiting while the CT scanner-Zofran 4 mg ordered. Recheck-discussed again with Dr. Rodríguez, stroke Neurology. She has reviewed the head CT and CTA is and finds no acute bleed and no obvious large vessel occlusion. Patient is not a candidate for thrombectomy given no LVO. He is not a candidate for IV thrombolytics given time time since last known well. She would recommend medical workup for other causes of slurred speech and admission for MRI. Discussed this with the patient and his family. They remind me that he has a pacemaker. Therefore MRI cannot be obtained here in [place]. Assuming the remainder of his workup does not give any explanation for slurred speech, he would need to be transferred [facility] so he can not have an MRI at that facility, were Cardiology is available to manage his pacemaker if necessary during/after MR imaging. Reevaluation(s) Reevaluation #1: Recheck-updated patient and his family. Note that his speech is now dramatically better and almost completely returned to normal. Symptoms seem to be improved compared to arrival. Recheck-discussed with [facility]. There are no beds at [facility] but there are beds [facility]. [facility] does have capacity to do the MRI and neuro workup for potential stroke. Discussed with hospitalist from [facility], Dr. Anguiano, who graciously accepts this patient to the hospitalist service Vital Signs Vital signs: Initial Vital Signs Temperature 98 F 04/21/25 18:35 Temperature Source Temporal Artery Scan 04/21/25 18:35 Pulse Rate 70 04/21/25 18:35 Pulse Rhythm Regular 04/21/25 18:35 Pulse Strength 3+ Normal 04/21/25 18:35 Respiratory Rate 18 04/21/25 18:35 Blood Pressure 150/87 H 04/21/25 18:35 Blood Pressure Mean 108 H 04/21/25 18:35 Blood Pressure Position Sitting 04/21/25 18:35 Pulse Oximetry 94 04/21/25 18:35 Oxygen Delivery Method Room Air 04/21/25 18:35 Vital Signs Temperature 98 F 04/21/25 18:35 Pulse Rate 70 04/21/25 18:35 Respiratory Rate 18 04/21/25 18:35 Blood Pressure 150/87 H 04/21/25 18:35 Pulse Oximetry 94 04/21/25 18:35 Oxygen Delivery Method Room Air 04/21/25 18:35 Temperature 98 F 04/21/25 18:35 Pulse Rate 70 04/21/25 21:51 Respiratory Rate 18 04/21/25 21:51 Blood Pressure 141/87 H 04/21/25 21:51 Pulse Oximetry 97 04/21/25 21:51 Oxygen Delivery Method Room Air 04/21/25 21:00 Medical Decision Making MDM Narrative Medical decision making narrative: 84-year-old gentleman with history of AFib, pacemaker 1 previous stroke who is brought to the ER today for neurologic symptoms including slurred speech, subtle right upper extremity weakness, also unsteadiness with walking. Last known well time was about 12 30 this afternoon and symptoms were discovered at about 4:50 p.m. this afternoon. He was brought in by EMS. Initial concern is for possible stroke. Stroke protocol was undertaken and stat noncontrast head CT is obtained and normal. No evidence for hemorrhagic stroke. Concern remains for an ischemic infarct. He is outside the window for IV thrombolytics based on last known well time. CT angiogram does not show any definitive large vessel occlusion that would be amenable to thrombectomy. In discussion with the stroke neurologist she recommends admission for workup including MRI, echo, risk factor modification. She would recommend continuing on warfarin and Plavix for now until further workup can be completed. Unfortunately, because of the patient's pacemaker, we cannot safely perform an MRI of his brain here. He will likely need to have his pacemaker reprogrammed. Therefore transfer to a facility with cardiology capabilities is indicated. Discussed with the a line access center again. Unfortunately there are no open beds at [facility]. They do have open beds at [facility], in [place]. Broader differential is considered. EKG shows functioning pacemaker and no definite ischemia. Troponin is undetectable. Sodium level is mildly low at 132. Other electrolytes are normal. Creatinine is slightly up from baseline at 1.7. Normal saline IV bolus was administered here in the ER. COVID negative. Chest x-ray negative for any acute infiltrates or pulmonary edema but does suggest possible volume overload. Surprisingly, INR is essentially normal at 1.06 which would suggest the patient has not recently been on warfarin. This raises concern that this could have potentially been embolic stroke. Family raise is concerned that there is significant disorder in the patient's home. Many of his children have been pressing the patient and his to go into assisted living this or just not able to care for their home and keep it clean. Family is also concerned that they may be developing dementia and not able to care for themselves. In particular his son and [id number] to raise concern that he may not be taking his meds as prescribed. Notably, he is subtherapeutic on his INR today which suggest that he has not been taking it. It is unclear whether not had been discontinued by his PCP or whether he is supposed to be taking it but did not get it filled. The patient's son also notes that there has been some confusion on the patient's part about getting his license Plate tabs renewed and getting his license reviewed. Family expresses there serious concern that the patient and his are not able to care for themselves in their home and would like social Work evaluation. Likely will need placement in assisted living after his acute hospitalization and workup for stroke. Lab Data Labs: Lab Results 04/21/25 04/21/25 04/21/25 Range/Units 19:37 19:55 20:35 WBC 10.80 (4.50-11.00) K/uL RBC 4.23 L (4.30-5.90) m/uL Hgb 14.0 (13.5-17.5) gm/dL Hct 42.7 (37.0-53.0) % MCV 101 H (80-100) fL MCH 33 (26-34) pg MCHC 33 (32-36) gm/dL RDW Coeff of Anna 13.2 (11.5-15.5) % Plt Count 114 L (140-440) K/uL Neut % (Auto) 85.4 H (42.0-72.0) % Lymph % (Auto) 7.3 L (20-44) % [place] % (Auto) 6.2 (0.0-11.0) % Eos % (Auto) 0.6 (0.0-7.0) % Baso % (Auto) 0.3 (0.0-3.0) % Neut # (Auto) 9.20 H (1.7-7.0) K/uL Lymph # (Auto) 0.80 L (0.90-2.90) K/uL [place] # (Auto) 0.70 (0.00-0.90) K/UL Eos # (Auto) 0.06 (0.00-0.50) K/uL Baso # (Auto) 0.03 (0.00-0.30) K/uL Abs Immat Gran (auto) 0.02 (0.00-0.30) K/uL Imm/Tot Granulo (auto) 0.2 % INR 1.06 (0.91-1.10) APTT 28 (23-33) Seconds Sodium 132 L (135-149) mmol/L Potassium 4.2 (3.6-5.1) mmol/L Chloride 101 (96-114) mmol/L Carbon Dioxide 28 (20-32) mmol/L Anion Gap 3 L (7-15) mEq/L BUN 16 (7-30) mg/dL Creatinine 1.7 H (0.5-1.5) mg/dL Estimated GFR 39 ml/min Glucose 96 (60-115) mg/dL Calcium 9.0 (8.4-10.6) mg/dL Troponin I < 0.01 (0.01-0.04) ng/mL SARS-CoV-2 (PCR) Negative SARS-CoV-2 (Negative) Influenza Type A (PCR) Negative PCR FLU A (Negative) Influenza Type B (PCR) Negative PCR FLU B (Negative) RSV (PCR) Negative PCR RSV (Negative) Imaging Data CT scan - head: Attestation: I have reviewed the pertinent imaging results. My impression: No acute bleed Radiologist's impression: Impression: No acute intracranial abnormality appreciated. Findings were communicated by telephone to Dr. De Jesus at 1940 on 04/21/2025. CTA Head and Neck: Attestation: I have reviewed the pertinent imaging results. Radiologist's impression: Impression: CTA head: No large vessel occlusion. There is slight focal diminished opacification of the superior division of the left MCA proximally in the M2 segment, though not appear completely occlusive and with preserved distal opacification, may represent atherosclerosis or may be artifactual due to slight motion. CTA neck: Mild luminal regularities of the vessels of the neck greatest in the left vertebral artery suspicious for FMD. No acute abnormality appreciated Chest x-ray: Attestation: I have reviewed the pertinent imaging results. Radiologist's impression: Findings/Impression: Cardiomegaly and suspected mild volume overload with no acute cardiopulmonary process detected. ECG Data Attestation: I personally reviewed and interpreted this ECG as follows: Interpretation: Atrial paced rhythm with prolonged AV conduction. I do not see any definite ventricular pacer spikes Rate: 70 OH: 308 QRS axis: Left axis deviation. ST segment/T wave: No ST segment elevation or depression QTc: 451 Discharge Plan Discharge Clinical Impression: Slurred speech, Subtherapeutic international normalized ratio (INR) Patient Disposition: Xfer Other Prescriptions: No Action acetaminophen [Acetaminophen Extra Strength] 500 mg tablet 1,000 mg PO Q6H PRN amoxicillin 500 mg capsule 2,000 mg PO ONCE PRN chlorpheniramine maleate [Aller-Chlor] 4 mg tablet 4 mg PO Q12H PRN cholecalciferol (vitamin D3) 50 mcg (2,000 unit) tablet 50 mcg PO DAILY glucosamine sulfate [Cidatrine (glucosamine)] 500 mg tablet 1,500 mg PO DAILY Rx Instructions: administer with a meal vitamin B complex [B Complex-Vitamin B12] Tablet 1 tab PO DAILY warfarin 5 mg tablet 2.5 - 5 mg PO DAILY Patient Comments: 2.5 MG Thurs 5 MG all other days rosuvastatin 5 mg tablet 5 mg PO MOWEFR@21 furosemide 20 mg tablet 20 mg PO DAILY mirtazapine 15 mg tablet 15 mg PO HS omeprazole 20 mg capsule,delayed release(DR/EC) 20 mg PO DAILY polyethylene glycol 3350 17 gram/dose powder 17 g PO DAILY PRN sennosides 8.6 mg tablet 8.6 mg PO BID Stand Alone Forms: [facility] Info Instructions
--- NOTE | 2025-04-21 18:57 | CRLHL7_ITS ---
For Patients: As a result of the Century Cures Act, medical imaging exams and procedure reports are released immediately into your electronic medical record. You may view this report before your referring provider. If you have questions, please contact your health care provider. INDICATION: Acute stroke, slurred speech, right upper extremity weakness. TECHNIQUE: CTA head using intravenous contrast with bolus tracking, 3D angiographic rendering using maximum intensity projection (MIP) and images permanently archived. CTA neck using intravenous contrast with bolus tracking, 3D angiographic rendering using maximum intensity projection (MIP) and images permanently archived. FINDINGS: CTA head: There is grossly normal opacification of the intracranial vasculature. There is no large vessel occlusion or significant intracranial stenosis. No aneurysm is identified. CTA neck: There is carotid atherosclerosis bilaterally. There is no significant carotid artery stenosis or dissection. There is no significant vertebral artery stenosis or dissection. IMPRESSION: No large vessel occlusion. Carotid atherosclerosis without significant stenosis. Please note that all CT scans at this facility use dose modulation, iterative reconstruction, and/or weight-based dosing when appropriate to reduce radiation dose to as low as reasonably achievable. Dictated by Donald Carroll MD @ 04/22/2025 12:51:17 PM (Electronically Signed)
--- NOTE | 2025-04-21 18:57 | CRLHL7_ITS ---
For Patients: As a result of the Cures Act, medical imaging exams and procedure reports are released immediately into your electronic medical record. You may view this report before your referring provider. If you have questions, please contact your health care provider. Indication: Slurred speech, right upper extremity weakness Technique: Noncontrast CT through the head with multiplanar reformats Comparison: CT head performed 11/24/2023 Findings: Brain: No acute hemorrhage. No acute infarct. No significant mass effect or midline shift. No gross evidence of a mass lesion or cerebral edema. 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 Ventricles: No acute abnormality appreciated. Orbits, sinuses, mastoids: No acute abnormality appreciated. Calvarium and soft tissues: No acute abnormality appreciated. Impression: No acute intracranial abnormality appreciated. Findings were communicated by telephone to Dr. De Jesus at 1940 on 04/21/2025. Please note that all CT scans at this facility use dose modulation, iterative reconstruction, and/or weight-based dosing when appropriate to reduce radiation dose to as low as reasonably achievable. Dictated by Dom Garcia MD @ 04/21/2025 7:45:44 PM (Electronically Signed)
--- NOTE | 2025-04-21 18:59 | CRLHL7_ITS ---
For Patients: As a result of the Cures Act, medical imaging exams and procedure reports are released immediately into your electronic medical record. You may view this report before your referring provider. If you have questions, please contact your health care provider. Indication: Slurred speech Technique: Single view of the chest Comparison: Chest CT and radiograph performed 05/14/2022 Findings/Impression: Cardiomegaly and suspected mild volume overload with no acute cardiopulmonary process detected. Dictated by Dom Garcia MD @ 04/21/2025 8:31:22 PM (Electronically Signed)
[2025-04-21 20:03] LABS: Hematocrit* 42.7 % (37.0-53.0); Hemoglobin* 14.0 gm/dL (13.5-17.5); Immature Granulocytes Abs Auto 0.02 K/uL (0.00-0.30); Immature Granulocytes Pct Auto 0.2 %; Mean Corpuscular HGB Conc 33 gm/dL (32-36); Mean Corpuscular Hemoglobin 33 pg (26-34); Mean Corpuscular Volume 101 fL (80-100); RDW Coefficient of Variation % 13.2 % (11.5-15.5); Red Blood Count* 4.23 m/uL (4.30-5.90); White Blood Count* 10.80 K/uL (4.50-11.00)
[2025-04-21 20:15] LABS: Lymphocytes Absolute Auto 0.80 K/uL (0.90-2.90); Slide Review Reflex No
--- OUTSIDE RECORDS SUMMARY | 2025-04-21 20:18 | XMS_ITS ---
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 Name Role Phone Demetria Williamson Unavailable Unavailable Zuleyma Arceo Unavailable Unavailable León Duran Unavailable Unavailable Allergies and adverse reactions Code CodeSystem Substance Reaction Severity StartDate Concern Status 48628 RXNORM Pravastatin Moderate 12/02/2023 active Flomax Moderate 12/02/2023 active 3640 RXNORM Doxycycline Moderate 12/02/2023 active 90810 RXNORM Atorvastatin Moderate 12/02/2023 active 1191 RXNORM Aspirin Severe 12/02/2023 active Care Team Name Role Address Phone Organization Dates León Duran [address], [address], [place], [place], [facility], [place] (Office): [facility] 12/02/2023 - 12/30/2023 Demetria Williamson [facility], [facility] 12/02/2023 - 12/30/2023 Zuleyma Arceo [address] [facility] [address], [place], [address], [facility] (Office): : [facility] 12/02/2023 - 12/30/2023 Immunizations Immunization Status Vaccine Details Vaccine Code CodeSystem Date Notes TB 2 Step Mantoux Skin Test completed tuberculin skin test; unspecified formulation lotNumber: [id number] expiry: 11/08/2026 Mfg: tubersol Given 0.1 ml Right Forearm subcutaneously Step 2 of Multi-step with next step required 98 CVX created date: 12/17/2023 consent date: 12/16/2023 administer ed date: 12/16/2023 TB 2 Step Mantoux Skin Test completed tuberculin skin test; unspecified formulation lotNumber: [id number] expiry: 11/08/2026 Mfg: tubersol Given 0.1 ml [...] cancelled Pneumococcal conjugate vaccine 20-valent (PCV20), polysaccharide [id number] conjugate, adjuvant, preservative free 216 CVX created [...] Concern Status 1 ATRIOVENTRICULAR BLOCK, COMPLETE 12/02/[address] active 2 CEREBROVASCULAR DISEASE, UNSPECIFIED 12/02/[address] active 3 CHRONIC IDIOPATHIC CONSTIPATION 12/02/[address] active 4 DYSPHAGIA, UNSPECIFIED 12/02/[address] active 5 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 12/02/[address] active 6 INSOMNIA, UNSPECIFIED 12/02/[address] active 7 LOCALIZED EDEMA 12/02/[address] active 8 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 12/02/[address] active 9 POLYMYALGIA RHEUMATICA 12/02/[address] active 10 PRESENCE OF CARDIAC PACEMAKER 12/02/[address] active 11 SYNCOPE AND COLLAPSE 12/02/[address] active 12 AORTIC ECTASIA, UNSPECIFIED SITE 11/30/[address] active 13 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 11/30/[address] active 14 BENIGN PROSTATIC HYPERPLASIA WITH LOWER URINARY TRACT SYMPTOMS 11/30/[address] active 15 BRADYCARDIA, UNSPECIFIED 11/30/[address] active 16 DEPENDENCE ON OTHER ENABLING MACHINES AND DEVICES 11/30/[address] active 17 ESSENTIAL (PRIMARY) HYPERTENSION 11/30/[address] active 18 HYPERLIPIDEMIA, UNSPECIFIED 11/30/[address] active 19 MAJOR DEPRESSIVE DISORDER, SINGLE EPISODE, MODERATE 11/30/[address] active 20 MILD COGNITIVE IMPAIRMENT OF UNCERTAIN OR UNKNOWN ETIOLOGY 11/30/[address] active 21 NONRHEUMATIC MITRAL (VALVE) INSUFFICIENCY 11/30/[address] active 22 OBSTRUCTIVE SLEEP APNEA (ADULT) (PEDIATRIC) 11/30/[address] active 23 OTHER CHRONIC PAIN 11/30/[address] active 24 OTHER SPECIFIED PERSONAL RISK FACTORS, NOT ELSEWHERE CLASSIFIED 11/30/[address] active 25 PAIN IN LEFT KNEE 11/30/[address] active 26 PERSONAL HISTORY OF TRANSIENT ISCHEMIC ATTACK (TIA), AND CEREBRAL INFARCTION WITHOUT RESIDUAL DEFICITS 11/30/[address] active Reason for Referral No Reasons for Referral Entered Social History Social History Observation Description Start Date End Date Code Code System Current Smoking Status Tobacco smoking consumption unknown 364757466 SNOMED CT Sex Assigned At Male 1940 43562-9 [facility] Gender Identity Sexual Orientation Vital Signs Code Code System Vitals Name Values and Units Timing Information 8462-4 [facility] Blood Pressure-Diastolic Value=70 Un its=mmHg 12/30/2023 8480-6 [facility] Blood Pressure-Systolic Tavbc=632 Un its=mmHg 12/30/2023 8867-4 [facility] Heart rate Value=80.0 Units=/min 9279-1 [facility] Respiratory Rate Value=16.0 Units=/m in 12/29/2023 8310-5 [facility] Body Temperature Value=98.1 Units= F 12/29/2023 56710-9 [facility] O2 % BldC Oximetry Value=88.0 Units= % 12/29/2023 88582-0 [facility] Weight Dvsvy=623.5 Units=Lbs 05273-5 [facility] Pain Level Value=0.0 12/27/2023 8302-2 [facility] Height Value=71.0 Units=Inches 12/03/2023
[2025-04-21 20:19] LABS: Chloride* 101 mmol/L (96-114); Potassium* 4.2 mmol/L (3.6-5.1); Sodium* 132 mmol/L (135-149)
[2025-04-21 20:22] LABS: Blood Urea Nitrogen* 16 mg/dL (7-30); Creatinine* 1.7 mg/dL (0.5-1.5); Estimated Glomerular Filt Rate 39 ml/min
[2025-04-21 20:23] LABS: Anion Gap 3 mEq/L (7-15); Calcium* 9.0 mg/dL (8.4-10.6); Carbon Dioxide* 28 mmol/L (20-32); Glucose* 96 mg/dL (60-115)
[2025-04-21 20:26] LABS: PCR FLU A Negative PCR FLU A (Negative); PCR FLU B Negative PCR FLU B (Negative); PCR RSV Negative PCR RSV (Negative); SARS PCR* Negative SARS-CoV-2 (Negative)
[2025-04-21 21:00] LABS: INR 1.06 (0.91-1.10); Prothrombin Time 14.6 Seconds
== END 2025-04-21 22:50 | disposition other institution (70) ==
PROVIDERS: Emergency Provider Emergency Medicine; PCP Family Medicine
DX: R47.81 Slurred speech (principal); Z79.01 Long term (current) use of anticoagulants
CPT/HCPCS: 36415; 70450; 70496; 70498; 71045; 80048; 82962; 84484; 85025; 85610; 85730; 87631; 93005; 94761; 99284; 99285; 99291; Q9967

== ENCOUNTER 2025-04-21 22:40 | Outpatient (CLI) | payer MEDICARE, OTHER, SELFPAY | END 2025-04-21 22:41 | disposition home or self-care (01) | LOC: AMB 04-24 10:58 | PROVIDERS: PCP Family Medicine; Visit Provider Family Medicine | DX: R47.81 Slurred speech (principal); R79.1 Abnormal coagulation profile | CPT/HCPCS: A0425; A0427 ==